=== PATIENT | female | born 1935 | race Caucasian/White ===

== ENCOUNTER → 2016-11-19 | Outpatient (CLI) | payer MEDICARE, BC ==
[2016-11-19 10:27] LABS: Anion Gap 14 mmol/L; Blood Urea Nitrogen 17 mg/dL (7-17); Calcium 9.4 mg/dL (8.4-10.2); Carbon Dioxide 25 mmol/L (22-30); Chloride 104 mmol/L (98-107); Glucose 145 mg/dL (74-99); Non-African American GFR(MDRD) >60 (>60 ml/min/1.73 sqM); Sodium 143 mmol/L (137-145)
[2016-11-19 10:39] LABS: Potassium 4.3 mmol/L (3.5-5.1)
[2016-11-19 12:38] LABS: Hemoglobin A1C 6.7 % (4.2-6.1)
== END | disposition home or self-care (01) ==
LOC: LABWHC1 09:24
PROVIDERS: ATTEND Internal Medicine
DX: E11.9 Type 2 diabetes mellitus without complications (principal); N18.3 Chronic kidney disease, stage 3 (moderate)
CPT/HCPCS: 36415; 80048; 83036

== ENCOUNTER → 2016-11-24 | Outpatient (CLI) | payer MEDICARE, BC ==
[2016-11-24 13:50] LABS: Rheumatoid Factor, Qnt <9 IU/mL (<12)
[2016-11-24 13:51] LABS: C Reactive Protein 9.2 mg/L (<10.0)
--- NOTE | 2016-11-24 15:45 | XR ---
Right shoulder HISTORY: Chronic right shoulder pain 3 views of the right shoulder No comparisons There is a distal acromial spur. Hypertrophic change present at the acromioclavicular joint. Joint sp farshad, alignment, bone mineralization are maintained. Right lung apex as visualized is normal. IMPRESSION: Acromioclavicular joint arthropathy, correlate for impingement. Shoulder MRI may be of be nefit.
[2016-11-24 19:57] LABS: ANA w/Reflex to Titer NEGATIVE (NEGATIVE)
== END | disposition home or self-care (01) ==
LOC: LABWHC1 12:54
PROVIDERS: ATTEND Internal Medicine
DX: M12.811 Other specific arthropathies, not elsewhere classified, right shoulder (principal); M25.511 Pain in right shoulder; E55.9 Vitamin D deficiency, unspecified; R42 Dizziness and giddiness; M35.9 Systemic involvement of connective tissue, unspecified
CPT/HCPCS: 36415; 82306; 85652; 86038; 86140; 86200; 86225; 86431

== ENCOUNTER → 2017-03-04 | Outpatient (CLI) | payer MEDICARE, BC ==
[2017-03-04 08:38] LABS: Anion Gap 11 mmol/L; Blood Urea Nitrogen 17 mg/dL (7-17); Calcium 9.9 mg/dL (8.4-10.2); Carbon Dioxide 26 mmol/L (22-30); Chloride 102 mmol/L (98-107); Glucose 142 mg/dL (74-99); Non-African American GFR(MDRD) >60 (>60 ml/min/1.73 sqM); Potassium 4.3 mmol/L (3.5-5.1); Sodium 139 mmol/L (137-145); Uric Acid 5.6 mg/dL (3.7-7.4)
[2017-03-04 11:42] LABS: Hemoglobin A1C 6.8 % (4.2-6.1)
== END | disposition home or self-care (01) ==
LOC: LABWHC1 07:56
PROVIDERS: ATTEND Internal Medicine
DX: R32 Unspecified urinary incontinence (principal); M10.9 Gout, unspecified; E11.9 Type 2 diabetes mellitus without complications
CPT/HCPCS: 36415; 80048; 83036; 84550

== ENCOUNTER 2017-05-05 08:06 | Day surgery (SDC) | payer MEDICARE, BC ==
[2017-05-03 15:30] VITALS: BMI 28.3
[~2017-05-05 08:06] MED LIST: LACTATED RINGERS 1,000 ML IV SCH
[2017-05-05 09:53] VITALS: RESP 16; TEMP 97
[2017-05-05] MEDS ORDERED: LIDOCAINE 1% 20 ML VIAL (10MG/ML) FOR IV START INTRADERMA ONE (10:00)
[2017-05-05 10:05] LABS: Glucose,Whole Blood 134 mg/dL (75-99)
[2017-05-05] MEDS ORDERED: LIDOCAINE 1% INJ 10MG/ML (20 ML MDV) ONE (10:13)
[2017-05-05] MEDS ORDERED: PROPOFOL 10 MG/ML 20 ML VIAL IV ONE (10:13)
--- NOTE | 2017-05-05 10:44 | P.PCN ---
Date of Procedure: 05/05/17 Preoperative Diagnosis: Postoperative Diagnosis: Procedure(s) Performed: BRIEF HISTORY: Patient is a 81-year-old pleasant white female, scheduled for an elective colonoscopy as a part of evaluation of chronic constipation for the last several years duration. Her last few months symptoms are progressively getting worse associated with lower abdominal pain and intermittent rectal bleeding. PROCEDURE PERFORMED: Colonoscopy. PREOPERATIVE DIAGNOSIS: Chronic severe constipation. IV sedation per Anesthesia. PROCEDURE: After informed consent was obtained, the patient, was brought into the endoscopy unit. IV sedation was administered by Anesthesia under continuous monitoring. Digital rectal examination was normal. Initially the Olympus CF- 160 flexible video colonoscope was then inserted in the rectum, gradually advanced into the cecum without any difficulty. Careful examination was performed as the scope was gradually being withdrawn. Ileocecal valve and the appendiceal orifice were visualized and appeared normal. Prep was very poor. Thorough irrigation was performed using irrigation system. Mucosa of the cecum, ascending colon, transverse colon, descending colon, normal. There was large amount of solid stool noted in the sigmoid colon, and rectum. At the rectosigmoid junction around 20 cm from the anal verge the mucosa appeared slightly narrowed but there was no obvious colitis seen. There was large amount of solid hard stool impacted in the rectum. Retroflexion was performed in the rectum and small internal hemorrhoids were seen. The patient tolerated the procedure well. IMPRESSION: Mild narrowing of the rectosigmoid colon at 20 cm from the anal verge but no stricture. Rest of the colon appeared normal Small internal hemorrhoids Poor prep in the left colon. RECOMMENDATIONS: Findings of this examination were discussed with the patient as well as a family. She was advised to continue with MiraLAX 1 scoop twice daily and use Fleet enemas every third day to improve her symptoms.. Implants: Indications for Procedure: Operative Findings: Description of Procedure:
[2017-05-05 11:33] VITALS: BP 174/79; PULSE 82
== END 2017-05-05 11:33 | disposition home or self-care (01) ==
LOC: ORWHC2ENDO 08:06
PROVIDERS: ATTEND Internal Medicine Gastroenterology
DX: K59.00 Constipation, unspecified (principal); K64.8 Other hemorrhoids; K21.9 Gastro-esophageal reflux disease without esophagitis; K56.69 Other intestinal obstruction; Z90.49 Acquired absence of other specified parts of digestive tract; I10 Essential (primary) hypertension; E78.5 Hyperlipidemia, unspecified; E11.9 Type 2 diabetes mellitus without complications; G20 Parkinson's disease; Z90.710 Acquired absence of both cervix and uterus; Z88.5 Allergy status to narcotic agent; Z88.0 Allergy status to penicillin; Z88.8 Allergy status to other drugs, medicaments and biological substances; Z91.041 Radiographic dye allergy status
CPT/HCPCS: 45378; J2001; J2704

== ENCOUNTER 2017-05-11 11:03 | Emergency (ER) | payer MEDICARE, BC ==
[2017-05-11] MEDS ORDERED: SODIUM CHLORIDE 0.9% 1,000 ML IV STA (11:31)
--- NOTE | 2017-05-11 12:12 | ED ---
General Adult HPI - General Chief complaint: Abdominal Pain Stated complaint: Bowel Obstruction Time Seen by Provider: 05/11/17 11:19 Source: EMS, RN notes reviewed Mode of arrival: EMS Limitations: no limitations - History of Present Illness Initial comments: 81-year-old female presents to the emergency department with a chief complaint of constipation. Patient states she had a colonoscopy on Monday that they were unable to complete due to stool. They state that she still did not have a good bowel movement since then. She states having diarrhea around the constipation. She states she's not eating or drinking much so she just does not feel like it. They were concerned about dehydration and continuing to worsen the patient' s status so they thought that they should be seen.Patient denies any recent fever, chills, shortness of breath, chest pain, back pain, vomiting, numbness or tingling, dysuria or hematuria, headaches or visual changes, or any other current symptoms. - Related Data Home Medications Medication Instructions Recorded Confirmed Allopurinol [Zyloprim] 150 mg PO DAILY 05/03/17 05/11/17 Ascorbic Acid [Vitamin C] 500 mg PO DAILY 05/03/17 05/11/17 Aspirin 325 mg PO DAILY 05/03/17 05/11/17 Carbidopa-Levodopa 25-100 mg 1 tab PO 5XD 05/03/17 05/11/17 [Sinemet 25-100 mg] Cholecalciferol (Vitamin D3) 2,000 unit PO DAILY 05/03/17 05/11/17 [Vitamin D3] Furosemide [Lasix] 40 mg PO DAILY 05/03/17 05/11/17 Gabapentin [Neurontin] 400 mg PO 5XD 05/03/17 05/11/17 Glimepiride [Amaryl] 2 mg PO BID 05/03/17 05/11/17 Ibuprofen [Ibuprofen] 800 mg PO DAILY PRN 05/03/17 05/11/17 Meclizine [Antivert] 25 mg PO DAILY PRN 05/03/17 05/11/17 Metoprolol Succinate [Toprol XL] 25 mg PO DAILY 05/03/17 05/11/17 Multivitamins, Thera [Multivitamin 1 tab PO DAILY 05/03/17 05/11/17 (formulary)] Mupirocin 2% Oint [Bactroban 2% 1 applic TOPICAL QID 05/03/17 05/11/17 Oint] Pantoprazole Sodium [Protonix] 40 mg PO DAILY 05/03/17 05/11/17 Simvastatin [Zocor] 20 mg PO HS 05/03/17 05/11/17 Solifenacin Succinate [Vesicare] 5 mg PO DAILY 05/03/17 05/11/17 Spironolactone [Aldactone] 25 mg PO DAILY 05/03/17 05/11/17 cloNIDine HCL [Catapres] 0.1 mg PO HS 05/03/17 05/11/17 sitaGLIPtin PHOS/metFORMIN HCL 1 tab PO BID 05/03/17 05/11/17 [Janumet 50-500 mg Tablet] traZODone HCL [Desyrel] 100 mg PO HS 05/03/17 05/11/17 Allergies Allergy/AdvReac Type Severity Reaction Status Date / Time Iodinated Contrast- Oral and Allergy Anaphylaxis Verified 05/11/17 12:25 IV Dye lisinopril Allergy KIDNEY Verified 05/11/17 12:25 FAILURE Penicillins Allergy Itching Verified 05/11/17 12:25 codeine AdvReac Nausea & Verified 05/11/17 12:25 Vomiting meperidine [From Demerol] AdvReac Nausea & Verified 05/11/17 12:25 Vomiting morphine AdvReac Nausea & Verified 05/11/17 12:25 Vomiting Review of Systems ROS Statement: Those systems with pertinent positive or pertinent negative responses have been documented in the HPI. ROS Other: All systems not noted in ROS Statement are negative. Past Medical History Past Medical History: Cancer, Diabetes Mellitus, Hyperlipidemia, Hypertension, Musculoskeletal Disorder Additional Past Medical History / Comment(s): HX SKIN CANCER. P[place]IN[place]. PAST HX KIDNEY FAILURE R/T MEDICATION-RESOLVING NOW History of Any Multi-Drug Resistant Organisms: None Reported Past Surgical History: Adenoidectomy, Appendectomy, Back Surgery, Bowel Resection, Cholecystectomy, Hernia Repair, Hysterectomy, Tonsillectomy Additional Past Surgical History / Comment(s): T & A-1939, APPENDECTOMY-5, LAP KATARINA-1968, HYST-1974, SX FOR RECTAL FISTULA X 3- 1977,1986,1998, BILAT CATARACTS-1998, BACK SX x3-1999,2003,2011, COLONOSCOPY- 2009, SIGMOID RESECTION - 2009, 12 CM LIPOMA REMOVED FROM LT ARM-2001, BASAL CELL CARCINOMA REMOVED LT ANKLE 2006, ABD. HERNIA REPAIR WITH MESH-2009 Past Anesthesia/Blood Transfusion Reactions: Motion Sickness, Postoperative Nausea & Vomiting (PONV) Past Psychological History: No Psychological Hx Reported Smoking Status: Never smoker Past Alcohol Use History: None Reported Past Drug Use History: None Reported - Past Family History Mother Family Medical History: Cancer General Exam - General Exam Comments Initial Comments: General: The patient is awake and alert, in no distress, and does not appear acutely ill. Eye: Pupils are equal, round and reactive to light, extra-ocular movements are intact; there is normal conjunctiva bilaterally. No signs of icterus. Ears, nose, mouth and throat: There are moist mucous membranes and no oral lesions. Neck: The neck is supple, there is no tenderness. Cardiovascular: There is a regular rate and rhythm. No murmur, rub or gallop is appreciated. Respiratory: Lungs are clear to auscultation, respirations are non-labored, breath sounds are equal. No wheezes, stridor, rales, or rhonchi. Gastrointestinal: Soft, non-distended, mildly diffuselytender abdomen without masses or organomegaly noted. There is no rebound or guarding present. No CVA tenderness. Bowel sounds are unremarkable. Back: There is no tenderness to palpation in the midline. There is no obvious deformity. No rashes noted. Musculoskeletal: Normal ROM, no tenderness, There is no pedal edema. There is no calf tenderness or swelling. Sensation intact. Pulses equal bilaterally 2+. Neurological: CN II-XII intact, There are no obvious motor or sensory deficits. Coordination appears grossly intact. Speech is normal. Skin: Skin is warm and dry and no rashes or lesions are noted. Psychiatric: Cooperative, appropriate mood & affect, normal judgment. Limitations: no limitations Course Vital Signs 05/11/17 05/11/17 11:21 12:13 Temperature 97.8 F Pulse Rate 82 67 Respiratory 18 16 Rate Blood Pressure 177/74 152/67 O2 Sat by Pulse 95 99 Oximetry Procedures - Rectal Disimpaction Consent Obtained: verbal consent Time Out Performed: Yes Indication: fecal impaction Procedural Sedation: No Sedation/Analgesia: none Technique: manual disimpaction with gloved finger Result: significant stool output Complications: bleeding Patient Tolerated Procedure: well Medical Decision Making - Medical Decision Making 81-year-old female presents for constipation.at this time lab work is reviewed and negative. Patient did have some relief to the constipation. We did order her magnesium citrate for home. We discussed close follow-up and return parameters all patient's questions. They state Chris they are in agreement with plan. This time they will be discharged home. - Lab Data Result diagrams: 05/11/17 13:13 05/11/17 12:46 Lab Results 05/11/17 05/11/17 05/11/17 Range/Units 12:46 13:13 14:08 WBC 10.0 (3.8-10.6) k/uL RBC 4.58 (3.80-5.40) m/uL Hgb 13.5 (11.4-16.0) gm/dL Hct 38.7 (34.0-46.0) % MCV 84.6 (80.0-100.0) fL MCH 29.4 (25.0-35.0) pg MCHC 34.8 (31.0-37.0) g/dL RDW 13.3 (11.5-15.5) % Plt Count 205 (150-450) k/uL Neutrophils % 74 % Lymphocytes % 14 % Monocytes % 8 % Eosinophils % 1 % Basophils % 0 % Neutrophils # 7.4 (1.3-7.7) k/uL Lymphocytes # 1.4 (1.0-4.8) k/uL Monocytes # 0.8 (0-1.0) k/uL Eosinophils # 0.1 (0-0.7) k/uL Basophils # 0.0 (0-0.2) k/uL Sodium 139 (137-145) mmol/L Potassium 4.0 (3.5-5.1) mmol/L Chloride 104 (98-107) mmol/L Carbon Dioxide 24 (22-30) mmol/L Anion Gap 11 mmol/L BUN 11 (7-17) mg/dL Creatinine 0.78 (0.52-1.04) mg/dL Est GFR (MDRD) Af Amer >60 (>60 ml/min/1.73 sqM) Est GFR (MDRD) Non-Af >60 (>60 ml/min/1.73 sqM) Glucose 100 H (74-99) mg/dL Calcium 9.4 (8.4-10.2) mg/dL Total Bilirubin 1.0 (0.2-1.3) mg/dL AST 37 H (14-36) U/L ALT 10 (9-52) U/L Alkaline Phosphatase 47 (38-126) U/L Total Protein 6.2 L (6.3-8.2) g/dL Albumin 3.6 (3.5-5.0) g/dL Urine Color Light Yellow Urine Appearance Clear (Clear) Urine pH 7.5 (5.0-8.0) Ur Specific [place] 1.003 (1.001-1.035) Urine Protein Negative (Negative) Urine Glucose (UA) Negative (Negative) Urine Ketones Trace H (Negative) Urine Blood Negative (Negative) Urine Nitrite Negative (Negative) Urine Bilirubin Negative (Negative) Urine Urobilinogen <2.0 (<2.0) mg/dL Ur Leukocyte Esterase Small H (Negative) Urine RBC <1 (0-5) /hpf Urine WBC 1 (0-5) /hpf Ur Squamous Epith Cells 2 (0-4) /hpf - Radiology Data Radiology results: report reviewed, image reviewed Disposition Clinical Impression: Constipation, Fecal impaction Disposition: HOME SELF-CARE Condition: Stable Instructions: Constipation (ED) Additional Instructions: Please use medication as discussed. Please follow up with family doctor if symptoms have not improved over the next two days. Please return to the emergency room if your symptoms increase or worsen or for any other concerns. Referrals: Emigdio Day MD [Primary Care Provider] - 1-2 days
[2017-05-11 12:19] VITALS: RESP 16
[2017-05-11] MEDS ORDERED: ACETAMINOPHEN TAB 500 MG TAB PO STA (12:24)
--- NOTE | 2017-05-11 13:04 | XR ---
EXAMINATION TYPE: XR abdomen 2V DATE OF EXAM: 05/11/2017 CLINICAL HISTORY: Diverticulitis with sigmoid resection and hernia mesh in place from prior abdominal infection. Abdominal pain TECHNIQUE: Supine and upright views of the abdomen are obtained. COMPARISON: 06/16/2015 FINDINGS: Surgical coils are seen from ventral abdominal hernia repair and mesh. Anastomotic sutures are seen within the low pelvis. Scattered gas is seen in non-distended small bowel loops. Gas and f ecal material is seen in non-distended colon. There is no visceromegaly, pneumoperitoneum, or abnor mal calcification appreciated. The lung bases are clear and the osseous structures are intact. Degen erative changes are seen of L5-S1 and L4-L5 as well as to a lesser degree of the femoral acetabular j oints and pubic symphysis. Bridging osteophytes are also seen of the lower thoracic spine. IMPRESSION: Nonobstructive bowel gas pattern.
[2017-05-11 13:12] LABS: ALT 10 U/L (9-52); AST 37 U/L (14-36); Alkaline Phosphatase 47 U/L (38-126); Anion Gap 11 mmol/L; Blood Urea Nitrogen 11 mg/dL (7-17); Calcium 9.4 mg/dL (8.4-10.2); Carbon Dioxide 24 mmol/L (22-30); Chloride 104 mmol/L (98-107); Glucose 100 mg/dL (74-99); Non-African American GFR(MDRD) >60 (>60 ml/min/1.73 sqM); Sodium 139 mmol/L (137-145); Total Protein 6.2 g/dL (6.3-8.2)
[2017-05-11 13:46] LABS: Basophils % (A) 0 %; CHCM 34.4; Eosinophils # (A) 0.1 k/uL (0-0.7); Eosinophils % (A) 1 %; HCT 38.7 % (34.0-46.0); HDW 2.61; HGB 13.5 gm/dL (11.4-16.0); Luc # (Auto) 0.27; Luc % (Auto) 3; Lymphocytes # (A) 1.4 k/uL (1.0-4.8); Lymphocytes % (A) 14 %; MCH 29.4 pg (25.0-35.0); MCHC 34.8 g/dL (31.0-37.0); MCV 84.6 fL (80.0-100.0); Mean Platelet Volume 7.7; Monocytes # (A) 0.8 k/uL (0-1.0); Monocytes % (A) 8 %; Neutrophils # (A) 7.4 k/uL (1.3-7.7); Neutrophils % (A) 74 %; RBC 4.58 m/uL (3.80-5.40); RDW 13.3 % (11.5-15.5); WBC (Perox) 9.78
[2017-05-11 14:16] LABS: Appearance,Urine Clear (Clear); Bilirubin,Urine Negative (Negative); Glucose,Urine (UA) Negative (Negative); Ketones,Urine Trace (Negative); Leukocyte Esterase,Urine Small (Negative); Nitrite,Urine Negative (Negative); PH, Urine 7.5 (5.0-8.0); Particle Count 3987; Protein,Urine Negative (Negative); RBC,Urine <1 /hpf (0-5); Specific Gravity,Urine 1.003 (1.001-1.035); Squamous Epithelial Cell,Urine 2 /hpf (0-4); UA Billing (MACRO vs. MICRO) MICRO; Urobilinogen,Urine <2.0 mg/dL (<2.0); WBC,Urine 1 /hpf (0-5)
[2017-05-11] MEDS ORDERED: MAGNESIUM CITRATE 296 ML BOTTLE PO ONE (15:26)
[2017-05-11 16:16] VITALS: BP 167/77; PULSE 72; TEMP 97.6
== END 2017-05-11 16:19 | disposition home or self-care (01) ==
LOC: EC 11:03
DX: K56.41 Fecal impaction (principal); E11.9 Type 2 diabetes mellitus without complications; E78.5 Hyperlipidemia, unspecified; I10 Essential (primary) hypertension; G20 Parkinson's disease; Z85.828 Personal history of other malignant neoplasm of skin; Z90.49 Acquired absence of other specified parts of digestive tract; Z90.710 Acquired absence of both cervix and uterus; Z79.82 Long term (current) use of aspirin; Z79.84 Long term (current) use of oral hypoglycemic drugs; Z79.899 Other long term (current) drug therapy; Z88.0 Allergy status to penicillin; Z88.5 Allergy status to narcotic agent; Z88.8 Allergy status to other drugs, medicaments and biological substances; Z91.041 Radiographic dye allergy status
CPT/HCPCS: 36415; 74020; 80053; 81001; 85025; 96360; 96361; 99284

== ENCOUNTER → 2017-07-06 | Outpatient (CLI) | payer MEDICARE, BC | END | disposition home or self-care (01) | LOC: LABWHC1 10:50 | PROVIDERS: ATTEND Internal Medicine | DX: K75.9 Inflammatory liver disease, unspecified (principal); A09 Infectious gastroenteritis and colitis, unspecified; R21 Rash and other nonspecific skin eruption | CPT/HCPCS: 36415; 80074; 86708; 87425; 89055 ==

== ENCOUNTER → 2017-08-11 | Outpatient (CLI) | payer MEDICARE, BC ==
--- NOTE | 2017-08-11 13:11 | XR ---
EXAMINATION TYPE: XR chest 2V DATE OF EXAM: 08/11/2017 COMPARISON: Prior chest x-ray 01/21/2013 HISTORY: Cough, R05 TECHNIQUE: Frontal and lateral views of the chest are obtained. FINDINGS: There is no focal air space opacity, pleural effusion, or pneumothorax seen. There is bron chial wall thickening. The cardiac silhouette size is within normal limits. There may be a spinal c urvature. Biapical pleural thickening is stable. The osseous structures are intact. IMPRESSION: Correlate for bronchitis, reactive airways disease
== END | disposition home or self-care (01) ==
LOC: RADXRMAIN 11:03
PROVIDERS: ATTEND Internal Medicine
DX: R05 Cough (principal)
CPT/HCPCS: 71020

== ENCOUNTER → 2017-08-21 | Outpatient (CLI) | payer MEDICARE, BC ==
[2017-08-21 15:27] LABS: ALT 12 U/L (9-52); AST 26 U/L (14-36); Anion Gap 15 mmol/L; Blood Urea Nitrogen 25 mg/dL (7-17); Carbon Dioxide 27 mmol/L (22-30); Chloride 95 mmol/L (98-107); Glucose 192 mg/dL (74-99); Non-African American GFR(MDRD) 52 (>60 ml/min/1.73 sqM); Potassium 5.4 mmol/L (3.5-5.1); Sodium 137 mmol/L (137-145)
--- NOTE | 2017-08-21 18:11 | CT ---
EXAMINATION TYPE: CT abdomen pelvis w con DATE OF EXAM: 08/21/2017 COMPARISON: 01/11/2012 HISTORY: Abnormal bowel changes. CT DLP: 532.9 mGycm Automated exposure control for dose reduction was used. TECHNIQUE: Helical acquisition of images was performed from the lung bases through the pelvis. CONTRAST: Performed with Oral Contrast and with IV Contrast, patient injected with 80 mL of Visipaque 320. FINDINGS: Lung bases are clear of consolidation. There is no pleural effusion. There is subsegmental atelectasi s and scarring at the lung bases. Bile ducts are mildly ectatic. Common bile duct is 13 mm. I see no pancreatic mass. The spleen appear s normal. There is wall thickening involving the first part of the duodenum. There is no evidence of a bowel obstruction. Fecal pattern is fairly normal. There is no sign of appe ndicitis. Kidneys show satisfactory contrast opacification. There is no hydronephrosis. There is no retroperito katey adenopathy. Abdominal aorta is atheromatous. There is no ascites. There are spondylotic changes in the lumbar spine. I see no focal bone destruction. IMPRESSION: THERE IS ANNULAR WALL THICKENING OF THE PROXIMAL DUODENUM THAT COULD ALSO BE INVOLVING THE DISTAL COM MON BILE DUCT. THERE IS MILD DILATION OF THE BILIARY TREE THAT COULD BE DUE TO DISTAL OBSTRUCTION. TH E POSSIBILITY OF TUMOR SHOULD BE CONSIDERED. THIS IS A CHANGE COMPARED TO OLD CT SCAN. ENDOSCOPY IS R ECOMMENDED FOR FURTHER EVALUATION.
== END | disposition home or self-care (01) ==
LOC: RADCTMAIN 14:18
PROVIDERS: ATTEND Internal Medicine
DX: K63.89 Other specified diseases of intestine (principal); E87.8 Other disorders of electrolyte and fluid balance, not elsewhere classified; T50.905A Adverse effect of unspecified drugs, medicaments and biological substances, initial encounter; R10.84 Generalized abdominal pain
CPT/HCPCS: 80048; 84450; 84460; 74177; 36415; Q9967

== ENCOUNTER → 2017-11-21 | Outpatient (CLI) | payer MEDICARE, BC ==
[2017-11-21 11:30] LABS: ALT 23 U/L (9-52); AST 23 U/L (14-36); Albumin 4.2 g/dL (3.5-5.0); Alkaline Phosphatase 73 U/L (38-126); Anion Gap 12 mmol/L; Blood Urea Nitrogen 26 mg/dL (7-17); Carbon Dioxide 31 mmol/L (22-30); Chloride 98 mmol/L (98-107); Glucose 140 mg/dL (74-99); Magnesium 1.8 mg/dL (1.6-2.3); Phosphorus 3.3 mg/dL (2.5-4.5); Potassium 4.7 mmol/L (3.5-5.1); Sodium 141 mmol/L (137-145); Total Bilirubin 0.4 mg/dL (0.2-1.3); Total Protein 7.2 g/dL (6.3-8.2)
== END | disposition home or self-care (01) ==
LOC: LABWHC1 10:30
PROVIDERS: ATTEND Internal Medicine
DX: E03.9 Hypothyroidism, unspecified (principal); E87.8 Other disorders of electrolyte and fluid balance, not elsewhere classified; E78.5 Hyperlipidemia, unspecified; E11.22 Type 2 diabetes mellitus with diabetic chronic kidney disease; N18.3 Chronic kidney disease, stage 3 (moderate); R60.0 Localized edema
CPT/HCPCS: 36415; 80053; 83735; 84100; 84443

== ENCOUNTER → 2017-12-18 | Outpatient (CLI) | payer MEDICARE, BC ==
--- NOTE | 2017-12-18 09:01 | MR ---
EXAMINATION TYPE: MR lumbar spine wo/w con DATE OF EXAM: 12/18/2017 8:40 AM COMPARISON: NONE HISTORY: LBP CONTRAST: The patient was injected with 7 mL intravenous Gadavist gadolinium contrast. Multiplanar, MultiSpin echo imaging of the lumbar spine was performed. L1-L2: Moderate disc desiccation noted. Mild subligamentous disc herniation with mild effacement vent ral thecal sac. No evidence for central stenosis. Left lateral recess stenosis. Mild bilateral forami nal encroachment. L2-L3: Moderate disc desiccation noted. Mild subligamentous disc herniation with mild effacement vent ral thecal sac. Mild central stenosis noted. Bilateral foraminal encroachment left greater than righ t. L3-L4: Moderate to severe disc desiccation. Left paracentral disc herniation with extruded component extending posterior to the L4 segment on the left. Left lateral recess stenosis and left foraminal en croachment noted. No evidence for central stenosis. Postlaminectomy change. Enhancing granulation tis valerie. L4-L5: Severe disc desiccation. Grade 1 retrolisthesis L4 on L5 measuring 3 mm. Posterior disc bulge with partial encapsulating spur resulting in disc endplate complex. No evidence for central stenosis. No lateral recess stenosis. Bilateral foraminal encroachment. Facet joint arthropathy. L5-S1: Severe disc desiccation. Previous laminectomy change. Mild enhancing granulation tissue. Poste rior disc bulge. No herniation. No central stenosis or lateral recess stenosis. Bilateral foraminal e ncroachment. Ventral spondylosis with degenerative endplate marrow change. Lumbar segments are intact. No paraspinal masses are identified. Conus medullaris has a normal appe arance. No evidence for pathologic enhancement. IMPRESSION: 1. Multilevel degenerative disc disease. 2. Mild central stenosis L2-3. 3. Disc herniation paracentrally and to the left at L3-4 with extruded component suggested with surro unding enhancing granulation tissue. This may reflect recurrent or residual disc herniation.
== END | disposition home or self-care (01) ==
LOC: RADMRIMAIN 07:15
PROVIDERS: ATTEND Psychiatry & Neurology Neurology
DX: M48.061 Spinal stenosis, lumbar region without neurogenic claudication (principal); M51.36 Other intervertebral disc degeneration, lumbar region; M51.26 Other intervertebral disc displacement, lumbar region; Z13.89 Encounter for screening for other disorder
CPT/HCPCS: 82565; 72158; 36415; A9581

== ENCOUNTER → 2018-01-19 | Outpatient (CLI) | payer MEDICARE, BC ==
--- NOTE | 2018-01-19 12:53 | US ---
EXAMINATION TYPE: US venous doppler duplex LE BI DATE OF EXAM: 01/19/2018 12:35 PM COMPARISON: NONE CLINICAL HISTORY: I82.401 ACUTE EMBOLISM AND THROMBOSIS,R22.42 SWELLING LT LEG. On aspirin. No hx of DVT. Bilat leg swelling, discomfort. SIDE PERFORMED: Bilateral TECHNIQUE: The lower extremity deep venous system is examined utilizing real time linear array sonog ray with graded compression, doppler sonography and color-flow sonography. VESSELS IMAGED: External Iliac Vein (EIV) Common Femoral Vein Deep Femoral Vein Greater Saphenous Vein * Femoral Vein Popliteal Vein Small Saphenous Vein * Proximal Calf Veins (* superficial vessels) Right Leg: Negative for DVT Left Leg: Negative for DVT Grayscale, color doppler, spectral doppler imaging performed of the deep veins of the bilateral lower extremities. There is normal flow, compressibility, vascular waveforms. IMPRESSION: No ultrasound evidence for acute DVT in either lower extremity.
== END | disposition home or self-care (01) ==
LOC: RADUSWWP 12:05
PROVIDERS: ATTEND Internal Medicine
DX: R22.43 Localized swelling, mass and lump, lower limb, bilateral (principal); Z86.718 Personal history of other venous thrombosis and embolism
CPT/HCPCS: 93970

== ENCOUNTER → 2018-01-20 | Outpatient (CLI) | payer MEDICARE, BC ==
[2018-01-20 10:56] LABS: Basophils % (A) 1 %; Eosinophils # (A) 0.3 k/uL (0-0.7); Eosinophils % (A) 4 %; HCT 42.9 % (34.0-46.0); Lymphocytes # (A) 0.9 k/uL (1.0-4.8); Lymphocytes % (A) 13 %; MCH 27.8 pg (25.0-35.0); MCHC 32.6 g/dL (31.0-37.0); MCV 85.4 fL (80.0-100.0); Mean Platelet Volume 6.8; Monocytes # (A) 0.5 k/uL (0-1.0); Monocytes % (A) 7 %; Neutrophils # (A) 5.4 k/uL (1.3-7.7); Neutrophils % (A) 74 %; Platelet Count 236 k/uL (150-450); RBC 5.02 m/uL (3.80-5.40); RDW 13.5 % (11.5-15.5); WBC 7.3 k/uL (3.8-10.6)
[2018-01-20 10:59] LABS: Amorphous Sediment,Urine Rare /hpf; Appearance,Urine Clear (Clear); Bilirubin,Urine Negative (Negative); Blood,Urine Negative (Negative); Color,Urine Yellow; Glucose,Urine (UA) Negative (Negative); Ketones,Urine Negative (Negative); Leukocyte Esterase,Urine Small (Negative); Mucus,Urine Rare /hpf; Nitrite,Urine Negative (Negative); Protein,Urine Negative (Negative); RBC,Urine 1 /hpf (0-5); Specific Gravity,Urine 1.013 (1.001-1.035); Squamous Epithelial Cell,Urine <1 /hpf (0-4); Urobilinogen,Urine <2.0 mg/dL (<2.0); WBC,Urine 1 /hpf (0-5)
[2018-01-20 11:09] LABS: D-Dimer 1.36 mg/L FEU (<0.60); Partial Thromboplastin Time 24.1 sec (22.0-30.0); Prothrombin Time 9.9 sec (9.0-12.0)
[2018-01-20 11:21] LABS: Albumin 4.4 g/dL (3.5-5.0); Calcium 10.2 mg/dL (8.4-10.2); Potassium 4.6 mmol/L (3.5-5.1); Total Bilirubin 0.4 mg/dL (0.2-1.3); Total Protein 7.1 g/dL (6.3-8.2)
== END | disposition home or self-care (01) ==
LOC: LABWHC1 09:52
PROVIDERS: ATTEND Internal Medicine Interventional Cardiology
DX: R06.02 Shortness of breath (principal); I10 Essential (primary) hypertension; E11.9 Type 2 diabetes mellitus without complications; I82.409 Acute embolism and thrombosis of unspecified deep veins of unspecified lower extremity
CPT/HCPCS: 36415; 80053; 81001; 83880; 85025; 85379; 85610; 85730; 87086

== ENCOUNTER → 2018-01-24 | Outpatient (CLI) | payer MEDICARE, BC ==
--- NOTE | 2018-01-24 11:36 | MR ---
EXAMINATION TYPE: MR liver wo/w con and mrcp DATE OF EXAM: 01/24/2018 COMPARISON: 08/21/2017. HISTORY: Other specified diseases of biliary tract CONTRAST: Standard multiplanar, multisequence MRI departmental protocol utilizing 7 mL intravenous Gadavist darcie olinium contrast. 3-D MRCP MIP images were also created. FINDINGS: There is intrahepatic biliary ductal dilatation that is mild without focal areas of stenosis. Extrahe patic biliary ductal dilatation is also seen with the common hepatic duct measuring 1.2 cm and the co mmon bile duct measuring 1.3 cm. Cystic duct remnant is also dilated. The common bile duct is dilated throughout without. No focal stricture. The main pancreatic duct is nondilated. Within the kidneys there are scattered 1 to 2 mm T2 hyperintense and T1 hypointense probable renal cy sts. No hydronephrosis is seen. The spleen is nonenlarged and unremarkable. Right adrenal gland is un remarkable. Within the kasey of the left adrenal gland there is ae 9 mm lesion that demonstrates signa l dropout on out of phase imaging compatible with a lipid rich adrenal adenoma. There is also mild si gnal dropout of the liver compatible with minimal hepatic steatosis. A 2.2 cm slightly hyperintense l esion is seen just above the jamee hepatis minimally enhancing on arterial phase imaging. This is no T2 or T1 coordinate and does not demonstrate signal characteristics of focal fatty sparing therefore this most likely represents an area of focal nodular hyperplasia. There is no washout in this region on delayed imaging. No gross evidence of adenopathy. In the area of the previously seen descending duodenal thickening there is a questionable circumscrib ed peripherally arterial enhancing lesion located medially measuring 1.0 x 1.0 cm on T1 fat-sat postc ontrast arterial phase image 201 and image 202 of the second pass, saved on the images. No abnormal s oft tissue density is seen where the common bile duct inserts into the duodenum. IMPRESSION: 1. In the previously seen focal thickening of the descending duodenum there is a questionable 1.0 cm mass. This area is difficult to accurately evaluate due to mucosal folding and therefore direct visua lization with endoscopy is recommended. This is just cranial to the ampulla of Vater in could relate to a periampullary mass. 2. Persistent intrahepatic and extrahepatic biliary ductal dilatation without significant progression from the exam of 08/21/2017. The patient is noted to be postcholecystectomy and findings may partial ly relate to postcholecystectomy status. There is no evidence of focal stricture of the biliary syste m. 3. 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 4. Probable hepatic focal nodular hyperplasia around the jamee hepatis.
== END | disposition home or self-care (01) ==
LOC: RADMRIMAIN 09:17
PROVIDERS: ATTEND Internal Medicine
DX: K82.8 Other specified diseases of gallbladder (principal); D35.02 Benign neoplasm of left adrenal gland; Z90.49 Acquired absence of other specified parts of digestive tract
CPT/HCPCS: 74183; A9581

== ENCOUNTER → 2018-02-03 | Outpatient (CLI) | payer MEDICARE, BC ==
[2018-02-03 18:19] LABS: Hemoglobin A1C 6.5 % (4.0-6.0)
== END | disposition home or self-care (01) ==
LOC: LABWHC1 09:15
PROVIDERS: ATTEND Internal Medicine
DX: E11.9 Type 2 diabetes mellitus without complications (principal); I82.409 Acute embolism and thrombosis of unspecified deep veins of unspecified lower extremity
CPT/HCPCS: 36415; 83036

== ENCOUNTER → 2018-04-05 | Outpatient (CLI) | payer MEDICARE, BC ==
[2018-04-05 16:01] LABS: Basophils % (A) 1 %; Eosinophils # (A) 0.3 k/uL (0-0.7); Eosinophils % (A) 4 %; HCT 42.8 % (34.0-46.0); HGB 14.1 gm/dL (11.4-16.0); Lymphocytes # (A) 1.5 k/uL (1.0-4.8); Lymphocytes % (A) 21 %; MCH 28.3 pg (25.0-35.0); MCHC 32.9 g/dL (31.0-37.0); Mean Platelet Volume 7.1; Monocytes # (A) 0.6 k/uL (0-1.0); Monocytes % (A) 8 %; Neutrophils # (A) 4.8 k/uL (1.3-7.7); Neutrophils % (A) 64 %; Platelet Count 293 k/uL (150-450); RBC 4.98 m/uL (3.80-5.40); RDW 14.4 % (11.5-15.5); WBC 7.5 k/uL (3.8-10.6)
== END | disposition home or self-care (01) ==
LOC: LABPAT 15:24
PROVIDERS: ATTEND Internal Medicine Cardiovascular Disease
DX: Z01.812 Encounter for preprocedural laboratory examination (principal); I48.0 Paroxysmal atrial fibrillation; I31.4 Cardiac tamponade
CPT/HCPCS: 36415; 80051; 82565; 82947; 84520; 85025

== ENCOUNTER 2018-04-06 07:01 | Inpatient (IN) | payer MEDICARE, BC ==
[~2018-04-06 07:01] MED LIST changes: +CLINDAMYCIN 600 MG in SODIUM CHLORIDE 0.9% IRRIGATIO 250 ML IRRIGATION ONE; -LACTATED RINGERS 1,000 ML IV SCH
[2018-04-06] MEDS ORDERED: LIDOCAINE 1% INJ 10MG/ML (20 ML MDV) ONE ×3 (07:18→10:12)
[2018-04-06 07:31] LABS: Glucose,Whole Blood 134 mg/dL (75-99)
[2018-04-06] MEDS: SODIUM CHLORIDE 0.9% 1,000 ML IV SCH ×3 (07:46→13:22)
[2018-04-06] MEDS ORDERED: IOPAMIDOL-250 50ML BTL IV ONE (08:02)
[2018-04-06] MEDS ORDERED: fentaNYL (PF) 50 MCG/ML 2 ML AMP ONE (08:05)
[2018-04-06] MEDS ORDERED: diphenhydrAMINE 50 MG/ML 1 ML VIAL ONE (08:11)
[2018-04-06] MEDS ORDERED: diphenhydrAMINE 50 MG/ML 1 ML VIAL IVP ONE (08:12)
[2018-04-06] MEDS: CLINDAMYCIN 900 MG in DEXTROSE 5% IN WATER 50 ML IVPB ONE ×4 (08:19→08:20)
[2018-04-06] MEDS ORDERED: MIDAZOLAM 2 MG/2 ML VIAL ONE (08:21)
[2018-04-06] MEDS ORDERED: MIDAZOLAM 2 MG/2 ML VIAL IVP ONE (08:23)
[2018-04-06] MEDS ORDERED: fentaNYL (PF) 50 MCG/ML 2 ML AMP IVP ONE (08:23)
[2018-04-06] MEDS ORDERED: LIDOCAINE 1% INJ 10MG/ML (20 ML MDV) SQ ONE (08:26)
[2018-04-06] MEDS ORDERED: DOPamine DRIP 800 MG in DEXTROSE/WATER 1 500ML.BAG IV ONE (09:08)
[2018-04-06] MEDS ORDERED: ONDANSETRON 4 MG/2 ML VIAL IVP ONE (09:24)
[2018-04-06] MEDS ORDERED: NOREPINEPHRIN 4 MG-0.9% NS PMX 4 MG/250 ML ML IV ONE (09:35)
[2018-04-06] MEDS: LIDOCAINE 1% INJ 10MG/ML (20 ML MDV) SQ ONE ×2 (09:43→10:14)
[2018-04-06] MEDS ORDERED: HEPARIN SODIUM 1,000 UN/ML (10ML VL) ONE (10:19)
[2018-04-06] MEDS ORDERED: SODIUM CHLORIDE 0.9% 500 ML IV ONE (10:39)
[2018-04-06] MEDS ORDERED: SODIUM CHLORIDE 0.9% 1,000 ML IV ONE (10:39)
[2018-04-06 10:56] LABS: INR 1.1 (<1.2); Partial Thromboplastin Time 22.9 sec (22.0-30.0); Prothrombin Time 10.7 sec (9.0-12.0)
[2018-04-06 11:00] LABS: Basophils % (A) 0 %; Eosinophils # (A) 0.4 k/uL (0-0.7); Eosinophils % (A) 3 %; HCT 34.3 % (34.0-46.0); Lymphocytes # (A) 2.7 k/uL (1.0-4.8); Lymphocytes % (A) 19 %; MCH 27.9 pg (25.0-35.0); MCHC 32.2 g/dL (31.0-37.0); MCV 86.5 fL (80.0-100.0); Monocytes # (A) 0.7 k/uL (0-1.0); Monocytes % (A) 5 %; Neutrophils # (A) 10.1 k/uL (1.3-7.7); Neutrophils % (A) 72 %; Platelet Count 417 k/uL (150-450); RBC 3.97 m/uL (3.80-5.40); RDW 14.6 % (11.5-15.5); WBC 14.1 k/uL (3.8-10.6)
[2018-04-06 11:01] LABS: HGB 11.1 gm/dL (11.4-16.0)
[2018-04-06 11:02] LABS: Albumin 2.9 g/dL (3.5-5.0); Calcium 8.8 mg/dL (8.4-10.2); Potassium 3.6 mmol/L (3.5-5.1); Total Bilirubin 0.4 mg/dL (0.2-1.3); Total Protein 4.8 g/dL (6.3-8.2)
[2018-04-06 11:36] LABS: Glucose,Whole Blood 222 mg/dL (75-99)
--- NOTE | 2018-04-06 11:44 | P.PCN ---
Preoperative Diagnosis: Procedure Called by Dr. Dewey for assistance mild permanent pacemaker was being implanted Emergent pericardiocentesis performed Central venous IV line for fluid administration Central femoral arterial line for hemodynamic monitoring Indication for the procedure pericardial effusion with tamponade Procedures Under sterile precautions during an emergent procedure, subxiphoid access into the pericardial space was obtained. A wire was placed in the pericardium and confirmed in the [place] view. The tract was dilated with the sheath and then a pigtail catheter was placed in the pericardial space and about at least 200 mL of blood was aspirated. Blood pressure improved to the mid 90s. Follow-up echo later showed absence of any pericardial effusion. CT surgery consulted and were in the lab Sheath was secured to the skin and dressed. Drainage by gravity Under sterile precautions and 8-Panamanian venous sheath was placed in the right femoral vein for IV fluid administration and this sheath was secured A 5-Panamanian femoral artery sheath was placed in the right femoral artery for continuous hemodynamic monitoring on account of above indication Disposition: ICU
[2018-04-06] MEDS: ACETAMINOPHEN TAB 325 MG TAB PO PRN (11:46)
[2018-04-06] MEDS ORDERED: HYDROmorphone 0.5 MG/0.5 ML SYRINGE IVP PRN (13:06)
[2018-04-06] MEDS: HYDROmorphone 0.5 MG/0.5 ML SYRINGE IVP PRN (13:15)
--- NOTE | 2018-04-06 16:50 | P.GSCN ---
<Alexander Gonzalez - Last Filed: 04/06/18 16:26> History of Present Illness Consult date: 04/06/18 Reason for Consult: Pericardial effusion with Tamponade. Requesting physician: Mitch Maxwell History of present illness: This is an 82-year-old female patient who is followed by Dr. Day on an outpatient basis. She has a past medical history significant for hypertension, dyslipidemia, family history of coronary artery disease less than 60 years of age with her son having a myocardial infarction at age 40, diabetes mellitus, GERD, gout, neuropathy, Parkinson's disease, sick sinus syndrome and paroxysmal atrial fibrillation. Recently, the patient has been complaining of near syncope events with palpitations. She denies any syncope. The patient denies any fevers, chills, shortness of breath, or complaints of pain. Due to her near syncope events she reports that she had a heart monitoring device that demonstrated a more than 2 second pause. Subsequently she was recommended to undergo a permanent pacemaker placement. She was admitted to the hospital today for placement of a permanent pacemaker. During the pacemaker placement she developed a pericardial effusion with tamponade and hemodynamic instability requiring an emergent pericardiocentesis with pericardial catheter placement. A consult was then placed for Dr. Barboza from cardiothoracic surgery to evaluate for further treatment recommendations. Review of Systems A 14 point review of systems was completed and was negative except as mentioned in HPI. Past Medical History Past Medical History: Atrial Fibrillation, Cancer, Diabetes Mellitus, Eye Disorder, GERD/Reflux, Hyperlipidemia, Hypertension, Musculoskeletal Disorder, Neurologic Disorder Additional Past Medical History / Comment(s): HX SKIN CANCER, constipation, skin cancer left ankle basal cell. PARKINSON, PAST HX KIDNEY FAILURE R/T MEDICATION-RESOLVED, history of sick sinus syndrome, history of cataracts. History of Any Multi-Drug Resistant Organisms: None Reported Past Surgical History: Adenoidectomy, Appendectomy, Back Surgery, Bowel Resection, Cholecystectomy, Ear Surgery, Hernia Repair, Hysterectomy, Tonsillectomy Additional Past Surgical History / Comment(s): 04/06/18 PACEMAKER INSERTION. T & A-1939, APPENDECTOMY-1945, LAP KATARINA-1968, HYST-1974, SX FOR RECTAL FISTULA X 3- 1977,1986,1998, BILAT CATARACTS-1998, BACK SX x4-1999,2003,2012,2018- AFTER LAST BACK SX HAD A BLOOD CLOT AND THEY HAD TO GO BACK IN TO REMOVED) COLONOSCOPY- 2009, SIGMOID RESECTION- 2009, 12 CM LIPOMA REMOVED FROM LT ARM- 2001, BASAL CELL CARCINOMA REMOVED LT ANKLE 2006, ABD. HERNIA REPAIR WITH MESH- 2009 Past Anesthesia/Blood Transfusion Reactions: Motion Sickness, Postoperative Nausea & Vomiting (PONV) Type of Cardiac Device: Permanent Pacemaker (Left anterior chest) Device Placement Date:: 04/06/2018 Past Psychological History: No Psychological Hx Reported Smoking Status: Never smoker Past Alcohol Use History: None Reported Past Drug Use History: None Reported - Past Family History Mother Family Medical History: Cancer (Breast cancer), Diabetes Mellitus, Hypertension Additional Family Medical History / Comment(s): Parkinson's disease Father Family Medical History: Myocardial Infarction ([place]) Additional Family Medical History / Comment(s): FROM [place] AT AGE 56 Son(s) Family Medical History: Myocardial Infarction ([place]) (At age 40.) Medications and Allergies Home Medications Medication Instructions Recorded Confirmed Type Allopurinol [Zyloprim] 150 mg PO DAILY 05/03/17 04/06/18 History Ascorbic Acid [Vitamin C] 500 mg PO DAILY 05/03/17 04/06/18 History Carbidopa-Levodopa 25-100 mg 1 tab PO 5XD 05/03/17 04/06/18 History [Sinemet 25-100 mg] Gabapentin [Neurontin] 400 mg PO 5XD 05/03/17 04/06/18 History Meclizine [Antivert] 25 mg PO BID 05/03/17 04/06/18 History Multivitamins, Thera [Multivitamin 1 tab PO DAILY 05/03/17 04/06/18 History (formulary)] Pantoprazole Sodium [Protonix] 40 mg PO DAILY 05/03/17 04/06/18 History traZODone HCL [Desyrel] 100 mg PO HS 05/03/17 04/06/18 History Aspirin [Adult Low Dose Aspirin EC] 81 mg PO DAILY 04/06/18 04/06/18 History Budesonide/Formoterol Fumarate 1 puff INHALATION PRN 04/06/18 History [Symbicort 80-4.5 Mcg Inhaler] Rosuvastatin [Crestor] 10 mg PO HS 04/06/18 04/06/18 History Solifenacin Succinate [Vesicare] 1 tab PO DAILY 04/06/18 04/06/18 History Acetaminophen Tab [Tylenol] 650 mg PO Q6HR PRN tab 04/11/18 Rx Amiodarone [Cordarone] 200 mg PO BID tab 04/11/18 Rx Colchicine [Colcrys] 0.6 mg PO BID each 04/11/18 Rx Ferrous Sulfate [Iron (65 MG 325 mg PO BID-W/MEALS tab 04/11/18 Rx Elemental)] Insulin Aspart [NovoLOG 0 unit SQ ACHS vial 04/11/18 Rx (formulary)] Metoprolol Tartrate [Lopressor] 50 mg PO BID tab 04/11/18 Rx Allergies Allergy/AdvReac Type Severity Reaction Status Date / Time Iodinated Contrast- Oral and Allergy Anaphylaxis Verified 04/06/18 13:19 IV Dye lisinopril Allergy KIDNEY Verified 04/06/18 13:19 FAILURE Penicillins Allergy Itching Verified 04/06/18 13:19 codeine AdvReac Nausea & Verified 04/06/18 13:19 Vomiting meperidine [From Demerol] AdvReac Nausea & Verified 04/06/18 13:19 Vomiting morphine AdvReac Nausea & Verified 04/06/18 13:19 Vomiting Surgical - Exam Vital Signs Temp Pulse Resp BP Pulse Ox 97.9 F 70 20 151/67 98 04/06/18 07:29 04/06/18 07:29 04/06/18 07:29 04/06/18 07:29 04/06/18 07:29 - General well developed, well nourished, no distress, moderate pain (pain to her chest), obese - Eyes PERRL, normal ocular movement - ENT normal pinna, normal nares, normal mucosa, no hearing loss, no congestion - Neck Neck is supple, no lymphadenopathy. no masses, no bruits, trachea midline, no venous distension - Respiratory Lungs sounds are essentially clear throughout, diminished to her bilateral bases. Respirations are symmetrical and nonlabored. Oxygen saturation are 98% on 3 L nasal cannula. - Cardiovascular Regular rhythm and rate. S1 and S2 present, positive systolic murmur 2/6. +2 edema to her bilateral lower extremities. Bedside telemetry showing normal sinus rhythm heart rate 86. - Abdomen Abdomen is soft, nontender and nondistended. Active bowel sounds to all 4 abdominal quadrants. No organomegaly. No guarding or rigidity. - Genitourinary Martinez catheter for accurate I&O. Draining clear yellow urine. - Rectum Deferred - Integumentary Left anterior chest pacemaker site clean dry and intact. Dressing clean and dry. Subxiphoid pericardial catheter in place draining thin serosanguineous drainage. no rash, no growths, no abnormal pigmentation - Neurologic normal coordination, normal sensation - Musculoskeletal She is moving all 4 extremities appropriately. - Psychiatric oriented to time, oriented to person, oriented to place, speech is normal, memory intact Results - Labs 04/06/18 10:29 04/06/18 10:29 Abnormal Lab Results - Last 24 Hours (Table) 04/06/18 04/06/18 04/06/18 Range/Units 07:28 10:29 10:29 WBC 14.1 H (3.8-10.6) k/uL Hgb 11.1 L D (11.4-16.0) gm/dL Neutrophils # 10.1 H (1.3-7.7) k/uL Glucose 255 H (74-99) mg/dL POC Glucose (mg/dL) 134 H (75-99) mg/dL Total Protein 4.8 L (6.3-8.2) g/dL Albumin 2.9 L (3.5-5.0) g/dL 04/06/18 Range/Units 11:35 WBC (3.8-10.6) k/uL Hgb (11.4-16.0) gm/dL Neutrophils # (1.3-7.7) k/uL Glucose (74-99) mg/dL POC Glucose (mg/dL) 222 H (75-99) mg/dL Total Protein (6.3-8.2) g/dL Albumin (3.5-5.0) g/dL Diabetes panel 04/06/18 Range/Units 10:29 Sodium 141 (137-145) mmol/L Potassium 3.6 (3.5-5.1) mmol/L Chloride 107 (98-107) mmol/L Carbon Dioxide 24 (22-30) mmol/L BUN 12 (7-17) mg/dL Creatinine 0.94 (0.52-1.04) mg/dL Glucose 255 H (74-99) mg/dL Calcium 8.8 (8.4-10.2) mg/dL AST 16 (14-36) U/L ALT 24 (9-52) U/L Alkaline Phosphatase 55 (38-126) U/L Total Protein 4.8 L (6.3-8.2) g/dL Albumin 2.9 L (3.5-5.0) g/dL Calcium panel 04/06/18 Range/Units 10:29 Calcium 8.8 (8.4-10.2) mg/dL Albumin 2.9 L (3.5-5.0) g/dL Pituitary panel 04/06/18 Range/Units 10:29 Sodium 141 (137-145) mmol/L Potassium 3.6 (3.5-5.1) mmol/L Chloride 107 (98-107) mmol/L Carbon Dioxide 24 (22-30) mmol/L BUN 12 (7-17) mg/dL Creatinine 0.94 (0.52-1.04) mg/dL Glucose 255 H (74-99) mg/dL Calcium 8.8 (8.4-10.2) mg/dL Adrenal panel 04/06/18 Range/Units 10:29 Sodium 141 (137-145) mmol/L Potassium 3.6 (3.5-5.1) mmol/L Chloride 107 (98-107) mmol/L Carbon Dioxide 24 (22-30) mmol/L BUN 12 (7-17) mg/dL Creatinine 0.94 (0.52-1.04) mg/dL Glucose 255 H (74-99) mg/dL Calcium 8.8 (8.4-10.2) mg/dL Total Bilirubin 0.4 (0.2-1.3) mg/dL AST 16 (14-36) U/L ALT 24 (9-52) U/L Alkaline Phosphatase 55 (38-126) U/L Total Protein 4.8 L (6.3-8.2) g/dL Albumin 2.9 L (3.5-5.0) g/dL Assessment and Plan (1) Hypertension Status: Acute Code(s): I10 - ESSENTIAL (PRIMARY) HYPERTENSION SNOMED Code(s) : 37070638 (2) Hyperlipidemia Status: Acute Code(s): E78.5 - HYPERLIPIDEMIA, UNSPECIFIED SNOMED Code(s): 04791240 (3) Diabetes mellitus type 2 in obese Status: Acute Code(s): E11.69 - TYPE 2 DIABETES MELLITUS WITH OTHER SPECIFIED COMPLICATION; E66.9 - OBESITY, UNSPECIFIED SNOMED Code(s): 59092776 (4) Parkinsons disease Status: Acute Code(s): G20 - PARKINSON'S DISEASE SNOMED Code(s): 47137934 (5) Neuropathy Status: Acute Code(s): G62.9 - POLYNEUROPATHY, UNSPECIFIED SNOMED Code(s): 776367187 (6) Paroxysmal atrial fibrillation Status: Acute Code(s): I48.0 - PAROXYSMAL ATRIAL FIBRILLATION SNOMED Code(s) : 906370596 (7) GERD (gastroesophageal reflux disease) Status: Acute Code(s): K21.9 - GASTRO-ESOPHAGEAL REFLUX DISEASE WITHOUT ESOPHAGITIS SNOMED Code(s): 899936894 (8) History of gout Status: Acute Code(s): Z87.39 - PERSONAL HISTORY OF DISEASES OF THE MS SYS AND CONN TISS SNOMED Code(s): 873492005 (9) Sick sinus syndrome Status: Acute Code(s): I49.5 - SICK SINUS SYNDROME SNOMED Code(s): 35916154 (10) Presence of permanent cardiac pacemaker Status: Acute Code(s): Z95.0 - PRESENCE OF CARDIAC PACEMAKER SNOMED Code(s) : 626319524 Plan: Patient was seen and examined. Her chart and diagnostics were reviewed. She was seen and examined by Dr. Barboza from cardiothoracic surgery. At this time she is hemodynamically stable and has been weaned off all of her hemodynamic support drips. No surgical intervention is recommended at this time, continue to monitor pericardial catheter drainage. She may benefit from a repeat 2-D echocardiogram. GI and DVT prophylaxis in place. Medical management per Dr. Cruz's recommendations. Cardiology management per Dr. Maxwell's recommendations. Thank you Dr. Maxwell for this consult and we look forward to working with you in the care of your patient. Time with Patient: Greater than 30 <Jean Paul Barboza - Last Filed: 04/20/18 14:41> Surgical - Exam Vital Signs Temp Pulse Resp BP Pulse Ox 97.9 F 70 20 151/67 98 04/06/18 07:29 04/06/18 07:29 04/06/18 07:29 04/06/18 07:29 04/06/18 07:29 Results - Labs 04/11/18 11:51 04/09/18 04:13 Assessment and Plan Plan: The patient was seen and examined. I agree with the above assessment and plan. The patient is an 82 y/o female who was undergoing placement of a permanent pacemaker. In the Tool Machine Set Up Operator, she was noted to be hypotensive. A stat echocardiogram was performed which revealed a significant pericardial effusion. This was drained percutaneously under echo guidance by Dr. Maxwell. I was asked to see the patient in case surgical intervention was required. Follow-up echocardiogram revealed resolution of the hemopericardium. The patient's hemodynamics have improved. The percutaneous drain is intact. At this point there is no plan for emergent surgical intervention. I would continue with close observation in the ICU. She may benefit from a follow-up echocardiogram either later today or first thing in the morning. We will certainly follow along closely with you.
[2018-04-06] MEDS: CLINDAMYCIN 900 MG in DEXTROSE 5% IN WATER 50 ML IVPB SCH ×4 (18:22→21:53)
[2018-04-06 20:36] LABS: Glucose,Whole Blood 156 mg/dL (75-99)
[2018-04-06] MEDS: CARBIDOPA-LEVODOPA 25-100 MG 1 EACH TAB PO SCH (21:53)
[2018-04-06] MEDS: GABAPENTIN 400 MG CAP PO SCH (21:54)
[2018-04-06] MEDS: INSULIN ASPART 100 UNIT/ML 1 ML 10 ML VIAL SQ SCH (21:54)
[2018-04-07] MEDS: CARBIDOPA-LEVODOPA 25-100 MG 1 EACH TAB PO SCH ×6 (00:41→20:15)
[2018-04-07] MEDS: GABAPENTIN 400 MG CAP PO SCH ×6 (00:41→20:15)
[2018-04-07] MEDS: SODIUM CHLORIDE 0.9% 1,000 ML IV SCH ×4 (03:08→14:02)
[2018-04-07] MEDS: CLINDAMYCIN 900 MG in DEXTROSE 5% IN WATER 50 ML IVPB SCH ×4 (03:12→09:15)
[2018-04-07 04:30] LABS: Basophils % (A) 0 %; Eosinophils % (A) 0 %; HCT 28.6 % (34.0-46.0); Lymphocytes # (A) 0.9 k/uL (1.0-4.8); Lymphocytes % (A) 8 %; MCH 27.5 pg (25.0-35.0); MCHC 32.1 g/dL (31.0-37.0); MCV 85.5 fL (80.0-100.0); Mean Platelet Volume 8.2; Monocytes % (A) 9 %; Neutrophils # (A) 8.9 k/uL (1.3-7.7); Neutrophils % (A) 81 %; Platelet Count 223 k/uL (150-450); RBC 3.34 m/uL (3.80-5.40); RDW 14.8 % (11.5-15.5)
[2018-04-07 04:32] LABS: HGB 9.2 gm/dL (11.4-16.0)
[2018-04-07 04:44] LABS: Anion Gap 6 mmol/L; Blood Urea Nitrogen 14 mg/dL (7-17); Calcium 8.7 mg/dL (8.4-10.2); Carbon Dioxide 26 mmol/L (22-30); Chloride 108 mmol/L (98-107); Glucose 146 mg/dL (74-99); Sodium 140 mmol/L (137-145)
--- NOTE | 2018-04-07 06:50 | XR ---
EXAMINATION TYPE: XR chest 1V DATE OF EXAM: 04/07/2018 HISTORY: Lead placement check. REFERENCE: Previous study dated 08/11/2017. FINDINGS: There are has been interval placement of a bipolar pacemaker via a left subclavian approach . Approximately overlies the right atrium and the distal lead overlies the right ventricle.. There is a small amount of left basilar airspace disease. There is a small left effusion. Heart size is upper limits of normal. IMPRESSION: 1. SATISFACTORY PACEMAKER PLACEMENT. 2. MILD LEFT BASILAR AIRSPACE DISEASE WITH CONCOMITANT EFFUSION.
[2018-04-07 07:28] LABS: Glucose,Whole Blood 156 mg/dL (75-99)
--- NOTE | 2018-04-07 07:39 | P.PN ---
Subjective Progress Note Date: 04/07/18 Principal diagnosis: Pericardial effusion with tamponade physiology, status post insertion of permanent pacemaker. Previous medical history of sick sinus syndrome, paroxysmal atrial fibrillation, near syncope, hypertension, dyslipidemia, diabetes, Parkinson's disease, gout, neuropathy, GERD, and family history of premature coronary artery disease. POD #1 placement of permanent pacemaker, placement of pericardial drain. The patient is currently lying in bed in the intensive care unit in no acute distress. Denies pain, shortness of breath. She was weaned off all pressor support. She did have a transient short episode of atrial fibrillation with rapid ventricular response upon arrival to the intensive care unit, however she quickly converted back to sinus rhythm. She's had a total of 100 mL of bloody drainage from pericardial drainage since initial placement. Repeat echocardiogram pending. Objective - Vital Signs Vital signs: Vital Signs Temp 98.6 F 04/07/18 04:00 Pulse 106 H 04/07/18 07:00 Resp 13 04/07/18 07:00 BP 135/50 04/07/18 07:00 Pulse Ox 97 04/07/18 07:00 Intake & Output 04/06/18 04/07/18 04/07/18 18:59 06:59 18:59 Intake Total 944.3 950 110 Output Total 275 515 30 Balance 669.3 435 80 Weight 67.132 kg 65 kg Intake: IV 944.3 600 50 Sodium Chloride 0.9% 1, 350 600 50 000 ml @ 50 mls/hr IV . Q20H FARZANA Rx#:[id number] Intake, IV Titration 50 Amount Clindamycin 900 mg In 50 Dextrose 5% in Water 50 ml @ 100 mls/hr IVPB Q6H FARZANA Rx#:[id number] Oral 300 60 Output: Drainage 50 80 Medial Chest 50 80 Urine 225 435 30 Other: Voiding Method Indwelling Catheter Indwelling Catheter # Bowel Movements 0 ABP, PAP, CO, CI - Last Documented Arterial Blood Pressure 156/57 - Constitutional General appearance: Present: cooperative, no acute distress - Respiratory Details: Lungs sounds diminished bilaterally. Respirations even, nonlabored. Currently on 2 L nasal cannula with oxygen saturation 96%. - Cardiovascular Details: S1, S2 present. Regular rate and rhythm, sinus rhythm to sinus tach on telemetry. Palpable peripheral pulses bilaterally. Trace bilateral lower extremity edema present. Right femoral arterial line present. Subxiphoid pericardial drain present, connected to drainage bag with 100 mL bloody drainage present. - Gastrointestinal Gastrointestinal Comment(s): Abdomen soft, nontender, nondistended. Hypoactive bowel sounds present 4 quadrants. Tolerating clear liquids. - Genitourinary Genitourinary Comment(s): Martinez present draining clear, yellow urine. Output 30-45 mL per hour overnight , 270 mL total in the last 8 hours. - Integumentary Integumentary Comment(s): Skin is warm and dry without evidence of good perfusion. Left anterior chest wall permanent pacemaker site covered with dry intact dressing. - Neurologic Neurologic: Present: CNII-XII intact - Musculoskeletal Musculoskeletal: Present: strength equal bilaterally - Psychiatric Psychiatric: Present: A&O x's 3, appropriate affect, intact judgment & insight - Allied health notes Allied health notes reviewed: nursing - Labs CBC & Chem 7: 04/07/18 04:20 04/07/18 04:20 Labs: Abnormal Lab Results - Last 24 Hours (Table) 04/06/18 04/06/18 04/06/18 Range/Units 07:28 10:29 10:29 WBC 14.1 H (3.8-10.6) k/uL RBC (3.80-5.40) m/uL Hgb 11.1 L D (11.4-16.0) gm/dL Hct (34.0-46.0) % Neutrophils # 10.1 H (1.3-7.7) k/uL Lymphocytes # (1.0-4.8) k/uL Chloride (98-107) mmol/L Glucose 255 H (74-99) mg/dL POC Glucose (mg/dL) 134 H (75-99) mg/dL Total Protein 4.8 L (6.3-8.2) g/dL Albumin 2.9 L (3.5-5.0) g/dL 04/06/18 04/06/18 04/07/18 Range/Units 11:35 20:33 04:20 WBC (3.8-10.6) k/uL RBC (3.80-5.40) m/uL Hgb (11.4-16.0) gm/dL Hct (34.0-46.0) % Neutrophils # (1.3-7.7) k/uL Lymphocytes # (1.0-4.8) k/uL Chloride 108 H (98-107) mmol/L Glucose 146 H (74-99) mg/dL POC Glucose (mg/dL) 222 H 156 H (75-99) mg/dL Total Protein (6.3-8.2) g/dL Albumin (3.5-5.0) g/dL 04/07/18 Range/Units 04:20 WBC 11.0 H (3.8-10.6) k/uL RBC 3.34 L (3.80-5.40) m/uL Hgb 9.2 L D (11.4-16.0) gm/dL Hct 28.6 L (34.0-46.0) % Neutrophils # 8.9 H (1.3-7.7) k/uL Lymphocytes # 0.9 L (1.0-4.8) k/uL Chloride (98-107) mmol/L Glucose (74-99) mg/dL POC Glucose (mg/dL) (75-99) mg/dL Total Protein (6.3-8.2) g/dL Albumin (3.5-5.0) g/dL - Imaging and Cardiology Chest x-ray: report reviewed, image reviewed Assessment and Plan (1) Family history of premature coronary artery disease Current Visit: Yes Status: Chronic Code(s): Z82.49 - FAMILY HX OF ISCHEM HEART DIS AND OTH DIS OF THE [facility] SNOMED Code(s): 182113166 (2) Pericardial effusion with cardiac tamponade Current Visit: Yes Status: Acute Code(s): I31.3 - PERICARDIAL EFFUSION ( NONINFLAMMATORY); I31.4 - CARDIAC TAMPONADE SNOMED Code(s): 565342963 (3) Diabetes mellitus type 2 in obese Current Visit: Yes Status: Chronic Code(s): E11.69 - TYPE 2 DIABETES MELLITUS WITH OTHER SPECIFIED COMPLICATION; E66.9 - OBESITY, UNSPECIFIED SNOMED Code(s): 22740598 (4) GERD (gastroesophageal reflux disease) Current Visit: Yes Status: Chronic Code(s): K21.9 - GASTRO-ESOPHAGEAL REFLUX DISEASE WITHOUT ESOPHAGITIS SNOMED Code(s): 632499297 (5) History of gout Current Visit: Yes Status: Chronic Code(s): Z87.39 - PERSONAL HISTORY OF DISEASES OF THE MS SYS AND CONN TISS SNOMED Code(s): 023868804 (6) Hyperlipidemia Current Visit: Yes Status: Chronic Code(s): E78.5 - HYPERLIPIDEMIA, UNSPECIFIED SNOMED Code(s): 53043922 (7) Hypertension Current Visit: Yes Status: Chronic Code(s): I10 - ESSENTIAL (PRIMARY) HYPERTENSION SNOMED Code(s): 20502613 (8) Neuropathy Current Visit: Yes Status: Chronic Code(s): G62.9 - POLYNEUROPATHY, UNSPECIFIED SNOMED Code(s): 500813414 (9) Parkinsons disease Current Visit: Yes Status: Chronic Code(s): G20 - PARKINSON'S DISEASE SNOMED Code(s): 79886218 (10) Paroxysmal atrial fibrillation Current Visit: Yes Status: Acute Code(s): I48.0 - PAROXYSMAL ATRIAL FIBRILLATION SNOMED Code(s): 199981700 (11) Presence of permanent cardiac pacemaker Current Visit: Yes Status: Acute Code(s): Z95.0 - PRESENCE OF CARDIAC PACEMAKER SNOMED Code(s): 333924299 (12) Sick sinus syndrome Current Visit: Yes Status: Acute Code(s): I49.5 - SICK SINUS SYNDROME SNOMED Code(s): 22677717 Plan: 1. No surgical intervention at this time. We will continue to monitor pericardial drainage. 2. Await results of repeat echocardiogram. 3. Will order antiembolism stockings and SCDs. 4. Wean O2 as tolerated. Will order and encourage incentive spirometry. 5. Increase activity, out of bed when able to discontinue arterial line. 6. Medical management per Dr. Cruz. 7. Paroxysmal atrial fibrillation, tachycardia, cardiology management per Dr. Maxwell and Dr. Dr. Dewey. 8. More recommendations to follow. Time with Patient: Greater than 30
--- NOTE | 2018-04-07 07:43 | P.PN ---
Subjective Progress Note Date: 04/07/18 Principal diagnosis: Status post permanent pacemaker implantation This is an 82-year-old female patient who was admitted to the hospital yesterday and underwent permanent pacemaker implantation by Dr. Dewey with a procedure complicated by RV perforation and pericardial effusion causing tamponade. The patient underwent pericardiocentesis subsequently. She still have the pericardial drainage still they are with very little amount of blood coming. She is in process of having a limited echocardiogram to assess for pericardial effusion. The patient is still in some pain. She is on pain medications. Hemodynamically she is slightly hypertensive and tachycardic. I will start the patient on metoprolol at 25 mg by mouth twice a day. We'll await for the echocardiogram to be performed. Also if there is no more drainage from the pericardial tube. Objective - Vital Signs Vital signs: Vital Signs Temp 98.6 F 04/07/18 04:00 Pulse 106 H 04/07/18 07:00 Resp 13 04/07/18 07:00 BP 135/50 04/07/18 07:00 Pulse Ox 97 04/07/18 07:00 Intake & Output 04/06/18 04/07/18 04/07/18 18:59 06:59 18:59 Intake Total 944.3 950 110 Output Total 275 515 30 Balance 669.3 435 80 Weight 67.132 kg 65 kg Intake: IV 944.3 600 50 Sodium Chloride 0.9% 1, 350 600 50 000 ml @ 50 mls/hr IV . Q20H FARZANA Rx#:[id number] Intake, IV Titration 50 Amount Clindamycin 900 mg In 50 Dextrose 5% in Water 50 ml @ 100 mls/hr IVPB Q6H FARZANA Rx#:[id number] Oral 300 60 Output: Drainage 50 80 Medial Chest 50 80 Urine 225 435 30 Other: Voiding Method Indwelling Catheter Indwelling Catheter # Bowel Movements 0 ABP, PAP, CO, CI - Last Documented Arterial Blood Pressure 156/57 - Constitutional General appearance: Present: no acute distress - Respiratory Respiratory: bilateral: CTA - Cardiovascular Rhythm: regular Heart sounds: normal: S1, S2 - Labs CBC & Chem 7: 04/07/18 04:20 04/07/18 04:20 Labs: Abnormal Lab Results - Last 24 Hours (Table) 04/06/18 04/06/18 04/06/18 Range/Units 10:29 10:29 11:35 WBC 14.1 H (3.8-10.6) k/uL RBC (3.80-5.40) m/uL Hgb 11.1 L D (11.4-16.0) gm/dL Hct (34.0-46.0) % Neutrophils # 10.1 H (1.3-7.7) k/uL Lymphocytes # (1.0-4.8) k/uL Chloride (98-107) mmol/L Glucose 255 H (74-99) mg/dL POC Glucose (mg/dL) 222 H (75-99) mg/dL Total Protein 4.8 L (6.3-8.2) g/dL Albumin 2.9 L (3.5-5.0) g/dL 04/06/18 04/07/18 04/07/18 Range/Units 20:33 04:20 04:20 WBC 11.0 H (3.8-10.6) k/uL RBC 3.34 L (3.80-5.40) m/uL Hgb 9.2 L D (11.4-16.0) gm/dL Hct 28.6 L (34.0-46.0) % Neutrophils # 8.9 H (1.3-7.7) k/uL Lymphocytes # 0.9 L (1.0-4.8) k/uL Chloride 108 H (98-107) mmol/L Glucose 146 H (74-99) mg/dL POC Glucose (mg/dL) 156 H (75-99) mg/dL Total Protein (6.3-8.2) g/dL Albumin (3.5-5.0) g/dL 04/07/18 Range/Units 07:26 WBC (3.8-10.6) k/uL RBC (3.80-5.40) m/uL Hgb (11.4-16.0) gm/dL Hct (34.0-46.0) % Neutrophils # (1.3-7.7) k/uL Lymphocytes # (1.0-4.8) k/uL Chloride (98-107) mmol/L Glucose (74-99) mg/dL POC Glucose (mg/dL) 156 H (75-99) mg/dL Total Protein (6.3-8.2) g/dL Albumin (3.5-5.0) g/dL Assessment and Plan Assessment: Assessment #1 status post permanent pacemaker implantation #2 pericardial effusion and tamponade physiology Plan #1 continue monitor for any drainage from the pericardial tube #2 awaiting for the echocardiogram to be performed #3 start the patient on metoprolol #4 follow-up with the patient.
[2018-04-07] MEDS: HYDROmorphone 0.5 MG/0.5 ML SYRINGE IVP PRN ×2 (08:44→18:45)
[2018-04-07] MEDS: METOPROLOL TARTRATE 25 MG TAB PO SCH ×2 (08:50→20:16)
[2018-04-07] MEDS: INSULIN ASPART 100 UNIT/ML 1 ML 10 ML VIAL SQ SCH ×4 (08:54→22:30)
[2018-04-07] MEDS ORDERED: ATROPINE SULFATE 0.1 MG/ML 10ML SYRINGE ONE (10:00)
[2018-04-07] MEDS ORDERED: DILTIAZEM DRIP BOLUS FROM BAG 1 MG SOLN IV ONE (10:54)
[2018-04-07 12:19] LABS: Glucose,Whole Blood 154 mg/dL (75-99)
--- NOTE | 2018-04-07 13:34 | ECHOF ---
Referral Reason:follow-up pericardiocentesis MEASUREMENTS -------- HEIGHT: 152.4 cm WEIGHT: 67.1 kg BP: 129/50 RVIDd: 2.3 cm (< 3.3) IVSd: 0.8 cm (0.6 - 1.1) LVIDd: 4.4 cm (3.9 - 5.3) LVPWd: 0.8 cm (0.6 - 1.1) IVSs: 1.0 cm LVIDs: 2.6 cm LVPWs: 1.2 cm FINDINGS -------- Resting tachycardia (HR>100bpm). This was a technically good study. Limited Study for assessment of pericardial effusion. The left ventricular size is normal. Left ventricular wall thickness is normal. Overall left vent ricular systolic function is normal with, an EF between 60 - 65 %. The right ventricle is normal in size and function. Trace tricuspid regurgitation present. Right ventricular systolic pressure is normal at < 35 mmHg. There is no evidence of pulmonary hypertension. There is a small, generalized pericardial effusion present. CONCLUSIONS -------- 1. Resting tachycardia (HR>100bpm). 2. This was a technically good study. 3. Limited Study for assessment of pericardial effusion. 4. The left ventricular size is normal. 5. Left ventricular wall thickness is normal. 6. Overall left ventricular systolic function is normal with, an EF between 60 - 65 %. 7. Trace tricuspid regurgitation present. 8. Right ventricular systolic pressure is normal at < 35 mmHg. 9. There is no evidence of pulmonary hypertension. 10. There is a small, generalized pericardial effusion present. TAXONOMY TEACHER: Francisco Munguia RDCS
[2018-04-07] MEDS: DILTIAZEM 50 MG in SODIUM CHLORIDE 0.9% 40 ML IV SCH ×2 (13:39→21:38)
--- NOTE | 2018-04-07 13:50 | HP ---
HISTORY AND PHYSICAL DATE OF SERVICE: 04/07/2018 DATE OF ADMISSION: 04/06/2018 HISTORY AND CHIEF COMPLAINT: Patient was admitted yesterday under the care of Dr. Cruz mistakenly, and subsequently they called me to admit the patient after she had a procedure for pacemaker implantation complicated with perforation of the right ventricle and pericardial effusion and tamponade, for which she subsequently underwent pericardiocentesis. HISTORY OF PRESENT ILLNESS: Mrs. Cesilia Mccormick is an 82-year-old white female with symptomatic sick sinus syndrome with falling attacks and underlying atrial fibrillation with intermittent increased ventricular response. She was seen by Dr. Mercer 7 to 10 days ago and he placed a monitor. Subsequently, last Monday, about one week from yesterday, she had a feeling of syncope and Dr. Mercer called her and told her that she had pauses of 5.1 seconds. He saw her subsequently last , 2 days ago. Because of the pauses and underlying sick sinus syndrome, he arranged for her a pacemaker, which was scheduled by Dr. Dewey to be done on Monday (yesterday), April 06. Patient yesterday underwent implantation of the pacemaker; however, a complication occurred which was perforation of the right ventricle, per Dr. Cox's note. Implantation of the pacemaker was successful subsequently, but she developed perforation and pericardial effusion and tamponade. At that time Dr. Maxwell came also for support and help, and he did put the aspiration and pericardiocentesis subxiphoid and he drained 200 mL of blood. During this procedure, the patient's blood pressure dropped and she had to be on a vasopressor. Subsequently she was transferred to the ICU. She also was seen by the PA of Dr. Barboza, who also, when he saw her, discussed it with Dr. Barboza. Subsequently they decided no surgical intervention and decided as well to obtain echocardiogram and monitor in the ICU. They put in a femoral line and the vasodepressor was gradually weaned off. They put her on metoprolol because her heart rate went up with the atrial fibrillation and they added Cardizem to it. Subsequently patient stabilized. Currently she is on Cardizem and metoprolol tartrate 25 mg b.i.d. I was called at night last night after they did not call me on admission because of mistakenly putting the patient on a different physician, which is quite , to inform me that the patient had been admitted and stable. At this time patient is seen, evaluated. I adjusted her medication in the [facility] as well and we held the Norvasc because of her blood pressure that dropped before. Currently it is stable. Echocardiogram has been done; however, the result is not available. Today 04/07/2018 on the dictation for the history and physical, Dr. Cox already did see the patient. He assessed her and he started her on metoprolol tartrate twice a day. PAST MEDICAL HISTORY: She had a past history of surgery on the back in [facility] and she had difficulties with ambulation. She has a history of Parkinson disease and has been treated by Dr. Beauchamp, and she was stable. She also has a history of episode of acute kidney injury, which has resolved at this time. She has been stable for quite a while. After this event with the pacemaker she was started on clindamycin 900 mg with dextrose per the procedure protocol q.6 hours. REVIEW OF SYSTEMS: NEUROPSYCHIATRY: She has the Parkinson disease. She has occasional anxiety but no other problem. History and complaint in the past but not now of shortness of breath, which is not present at the time of examination. The heart at this time was regular sinus; however, it is intermittently atrial fibrillation. She had a pacemaker functioning in the left infraclavicular area. She had also recently postoperative centesis which was present below the symphysis pubis with the drainage that was placed. GI: No hematemesis. No melena or hematochezia. : History of urinary incontinence. MUSCULOSKELETAL: Degenerative osteoarthritis. Rest of the review of systems was noncontributory. I did, however, review the several notes that were placed since the procedure. The procedure originally was done as outpatient, but with the complications, patient was admitted to the hospital. The chest x-ray which was done post procedure was read by Dr. John, at that time indicating that her pacemaker placement was satisfactory and she had mild left basilar airspace disease; could be associated with concomitant effusion. I do not see any echocardiogram in the report yet, but this appears to have been done already, but no results yet. Antoine Gonzalez is the PA for Dr. Barboza, the cardiovascular surgeon. He stated that the patient with a past medical history of hypertension, dyslipidemia and family history of coronary artery disease, has a son with a history of myocardial infarction at the age of 40 and diabetes mellitus. She has also Parkinson disease and neuropathy, history of gout, paroxysmal atrial fibrillation and history of near-syncopal event with palpitation. She denied any fever or chills or shortness of breath at the time. He stated as well that she had a monitoring device that demonstrated 2 episodes of near-syncope for 5 seconds. Her past history is the same: Atrial fibrillation, diabetes mellitus, GERD disease, hyperlipidemia, hypertension, musculoskeletal disorder, neurological disorder. That is per the PA of Dr. Barboza, the cardiovascular surgeon. She had skin basal cell carcinoma that was removed from the left ankle and she had a lipoma removed from the left arm. That is her surgical history. FAMILY HISTORY: Diabetes, hypertension, breast cancer and Parkinson disease. CURRENT MEDICATIONS: 1. Allopurinol 150 mg daily with her history of gout. 2. Ascorbic acid vitamin C 500 mg daily. 3. Carbidopa/levodopa 25/100, which is Sinemet, every 6 hours 4 times a day. 4. Furosemide 20 mg daily. 5. Gabapentin 400 mg q.6 hours. 6. Glimepiride for diabetes 2 mg b.i.d. 7. Ibuprofen 800 mg p.r.n. 8. Meclizine (Antivert) 25 mg daily p.r.n. 9. Metoprolol succinate 25 mg daily. 10.Multivitamin once a day. 11.Pantoprazole. 12.Protonix 40 mg daily before breakfast for GERD disease. 13.Trazodone 100 mg at bedtime. 14.Aspirin, enteric-coated, 81 mg once a day. 15.Rosuvastatin (Crestor) 20 mg once a day at bedtime. ALLERGIES: 1. IODINATED CONTRAST ORAL AND IV DYE (anaphylaxis). 2. History of LISINOPRIL causing renal failure. 3. PENICILLIN caused itching. 4. CODEINE caused nausea and vomiting. 5. MEPERIDINE (DEMEROL) caused nausea and vomiting. 6. MORPHINE (nausea and vomiting). PHYSICAL EXAMINATION: On the current examination today on April 07, her heart rate is 109, still tachy to 113, and temperature 97.9 orally. Her blood pressure is improving. Early in the morning it was 146/59 with a mean 88 and now it is 136/57 with a mean 83. Her respiratory rate was 16 but now was recorded as 11, but she is comfortable in bed. Her pulse ox saturation 96%. On her examination in the ICU, patient is conscious, alert, oriented. She is able to give me a detailed history. She stated that she was sleeping when they put the pacemaker and she did not feel any pain. HEENT: Head normocephalic, atraumatic. Pupils equal, reactive. Oropharynx was normal with natural teeth. Uvula midline. No facial asymmetry. The neck was supple and no JVD. No thyromegaly. No lymphadenopathy. Trachea midline. The chest was clear to auscultation and percussion. I could not elicit any dullness on the bases. The heart was regular sinus rhythm; however, with tachycardia. Patient is on Cardizem drip and was started on the metoprolol tartrate 25 mg twice a day. Her previous metoprolol XL has been discontinued. She had a pacemaker that has been implanted in the left infraclavicular. She had drainage from subxiphoid sternum with drainage outside. She still has some drainage in the bag. She has as well the tracing pads that have been placed on the right upper chest. She is in the ICU, as mentioned. The abdomen was soft, positive bowel sounds. EXTREMITIES: No edema. Stable general condition. ASSESSMENT: 1. Sick sinus syndrome with the underlying pre-syncopal episodes and frequent falls. 2. Underlying atrial fibrillation with intermittently rapid ventricular response, currently stable. She has converted to sinus with tachycardia. She has been monitored by Cardiology very closely. 3. Underlying complications associated with the pacemaker and perforation of the right ventricle associated with pericardial effusion and tamponade, for which she underwent thoracentesis by Dr. Maxwell. 4. History of Parkinson disease, stable. 5. History of hypertension, controlled. With the procedure she was hypotensive and she was started on vasopressor that was subsequently discontinued and weaned off. 6. Cardiovascular surgical consultation was obtained with Dr. Barboza and she was seen by the PA, who communicated with Dr. Barboza. There is no need for surgical intervention. Observation in the ICU is recommended. She was also seen by other PAs for the cardiovascular team. 7. Underlying history of hyperlipidemia, mixed, and she is currently on Crestor, which apparently has been changed to atorvastatin 20 mg, as the hospital does not carry Crestor. 8. Underlying history of gastroesophageal reflux disease. She is on famotidine twice a day. PLAN: Continue the current treatment. Continue the cardiology monitoring and the surgical cardiovascular monitoring. Still she has a Dafter with passive drainage as well. Monitoring her vital sign. The patient is currently in stable general condition; however, still guarded. MMODL / IJN: [id number] /
[2018-04-07 17:09] LABS: Glucose,Whole Blood 151 mg/dL (75-99)
[2018-04-07] MEDS: ATORVASTATIN 20 MG TAB PO SCH (20:15)
[2018-04-07] MEDS: FAMOTIDINE 20 MG TAB PO SCH (20:16)
[2018-04-07] MEDS ORDERED: SODIUM CHLORIDE 0.9% 500 ML IV ONE (21:38)
[2018-04-07] MEDS: traZODone HCL 100 MG TAB PO SCH (21:48)
[2018-04-07 21:51] LABS: Glucose,Whole Blood 150 mg/dL (75-99)
[2018-04-07] MEDS: COLCHICINE 0.6 MG EACH PO SCH (21:54)
[2018-04-07] MEDS ORDERED: DEXTROSE 5% IN WATER 100 ML with AMIODARONE 150 MG IV ONE (22:00)
[2018-04-07] MEDS ORDERED: DEXTROSE 5% IN WATER 250 ML with AMIODARONE 450 MG IV ONE (22:00)
[2018-04-07 22:32] LABS: Anion Gap 5 mmol/L; Blood Urea Nitrogen 13 mg/dL (7-17); Calcium 8.7 mg/dL (8.4-10.2); Carbon Dioxide 22 mmol/L (22-30); Chloride 110 mmol/L (98-107); Glucose 137 mg/dL (74-99); Potassium 4.4 mmol/L (3.5-5.1); Sodium 137 mmol/L (137-145)
[2018-04-07 22:56] LABS: INR 1.2 (<1.2); Prothrombin Time 11.2 sec (9.0-12.0)
[2018-04-07 22:57] LABS: Basophils % (A) 0 %; Eosinophils # (A) 0.1 k/uL (0-0.7); Eosinophils % (A) 1 %; HCT 24.6 % (34.0-46.0); HGB 7.9 gm/dL (11.4-16.0); Lymphocytes # (A) 1.2 k/uL (1.0-4.8); Lymphocytes % (A) 12 %; MCV 84.5 fL (80.0-100.0); Mean Platelet Volume 7.6; Monocytes # (A) 0.8 k/uL (0-1.0); Monocytes % (A) 8 %; Neutrophils # (A) 7.5 k/uL (1.3-7.7); Neutrophils % (A) 77 %; Platelet Count 156 k/uL (150-450); RBC 2.92 m/uL (3.80-5.40); RDW 14.9 % (11.5-15.5); WBC 9.8 k/uL (3.8-10.6)
[2018-04-08] MEDS: SODIUM CHLORIDE 0.9% 1,000 ML IV SCH ×3 (00:38→17:51)
[2018-04-08] MEDS: GABAPENTIN 400 MG CAP PO SCH ×5 (00:38→20:22)
[2018-04-08] MEDS: CARBIDOPA-LEVODOPA 25-100 MG 1 EACH TAB PO SCH ×5 (00:38→20:21)
[2018-04-08] MEDS: ACETAMINOPHEN TAB 325 MG TAB PO PRN ×2 (00:40→17:53)
[2018-04-08 03:59] LABS: Basophils % (A) 0 %; Eosinophils # (A) 0.1 k/uL (0-0.7); Eosinophils % (A) 1 %; HCT 22.7 % (34.0-46.0); HGB 7.4 gm/dL (11.4-16.0); Lymphocytes # (A) 1.4 k/uL (1.0-4.8); Lymphocytes % (A) 15 %; MCHC 32.7 g/dL (31.0-37.0); MCV 85.6 fL (80.0-100.0); Mean Platelet Volume 7.7; Monocytes % (A) 10 %; Neutrophils # (A) 6.8 k/uL (1.3-7.7); Neutrophils % (A) 72 %; Platelet Count 182 k/uL (150-450); RBC 2.65 m/uL (3.80-5.40); RDW 14.9 % (11.5-15.5); WBC 9.4 k/uL (3.8-10.6)
[2018-04-08 04:09] LABS: Anion Gap 4 mmol/L; Blood Urea Nitrogen 14 mg/dL (7-17); Calcium 8.5 mg/dL (8.4-10.2); Carbon Dioxide 23 mmol/L (22-30); Chloride 109 mmol/L (98-107); Glucose 134 mg/dL (74-99); Potassium 4.3 mmol/L (3.5-5.1); Sodium 136 mmol/L (137-145)
[2018-04-08] MEDS: DEXTROSE 5% IN WATER 250 ML with AMIODARONE 450 MG IV SCH (06:12)
[2018-04-08] MEDS: COLCHICINE 0.6 MG EACH PO SCH ×2 (07:57→17:14)
[2018-04-08 07:58] LABS: Glucose,Whole Blood 144 mg/dL (75-99)
[2018-04-08] MEDS: FAMOTIDINE 20 MG TAB PO SCH ×2 (07:58→20:22)
[2018-04-08] MEDS: METOPROLOL TARTRATE 25 MG TAB PO SCH ×2 (07:58→20:22)
[2018-04-08] MEDS: ALLOPURINOL 100 MG TAB PO SCH (08:00)
[2018-04-08] MEDS: PANTOPRAZOLE 40 MG TABLET PO SCH (08:00)
[2018-04-08] MEDS: INSULIN ASPART 100 UNIT/ML 1 ML 10 ML VIAL SQ SCH ×4 (08:20→20:31)
--- NOTE | 2018-04-08 08:27 | P.PN ---
Subjective Progress Note Date: 04/08/18 Principal diagnosis: Status post permanent pacemaker implantation This is an 82-year-old female patient who was admitted to the hospital yesterday and underwent permanent pacemaker implantation by Dr. Dewey with a procedure complicated by RV perforation and pericardial effusion causing tamponade. The patient underwent pericardiocentesis subsequently. On follow-up with the patient today, she seems more comfortable. She denies having any chest pain or chest discomfort. She did go into A. fib with RVR last night and currently she is in normal sinus mechanism and she is on amiodarone IV. Beside that she is on metoprolol. She was started on colchicine as well because she did have some chest discomfort which could be related to irritation of the pericardium. I will continue the amiodarone IV for now and start the patient on amiodarone by mouth later on. I would hold any kind of anticoagulation in view of the low hemoglobin which is around 7. Objective - Vital Signs Vital signs: Vital Signs Temp 98.8 F 04/08/18 00:00 Pulse 59 L 04/08/18 07:00 Resp 12 04/08/18 07:00 BP 111/42 04/08/18 07:00 Pulse Ox 98 04/08/18 07:00 Intake & Output 04/07/18 04/08/18 04/08/18 18:59 06:59 18:59 Intake Total 910 1603.1 126.7 Output Total 465 610 30 Balance 445 993.1 96.7 Weight 69.6 kg Intake: IV 600 1183.1 66.7 Dextrose 5% in Water 100 100 ml @ 618 mls/hr IV .Q10M ONE with Amiodarone 150 mg Rx#:[id number] Dextrose 5% in Water 250 283.1 16.7 ml @ 33.3 mls/hr IV . Q7H47M ONE with Amiodarone 450 mg Rx#: [id number] Sodium Chloride 0.9% 1, 600 800 50 000 ml @ 50 mls/hr IV . Q20H FARZANA Rx#:[id number] Oral 310 420 60 Output: Drainage 0 70 Medial Chest 0 70 Urine 465 540 30 Other: Voiding Method Indwelling Catheter Indwelling Catheter # Bowel Movements 0 ABP, PAP, CO, CI - Last Documented Arterial Blood Pressure 140/56 - Constitutional General appearance: Present: no acute distress - Respiratory Respiratory: bilateral: rales - Cardiovascular Rhythm: regular Heart sounds: normal: S1, S2 - Labs CBC & Chem 7: 04/08/18 03:24 04/08/18 03:24 Labs: Abnormal Lab Results - Last 24 Hours (Table) 04/07/18 04/07/18 04/07/18 Range/Units 12:17 17:07 21:50 RBC (3.80-5.40) m/uL Hgb (11.4-16.0) gm/dL Hct (34.0-46.0) % INR (<1.2) Sodium (137-145) mmol/L Chloride (98-107) mmol/L Glucose (74-99) mg/dL POC Glucose (mg/dL) 154 H 151 H 150 H (75-99) mg/dL 04/07/18 04/07/18 04/07/18 Range/Units 22:00 22:00 22:40 RBC 2.92 L (3.80-5.40) m/uL Hgb 7.9 L (11.4-16.0) gm/dL Hct 24.6 L (34.0-46.0) % INR 1.2 H (<1.2) Sodium (137-145) mmol/L Chloride 110 H (98-107) mmol/L Glucose 137 H (74-99) mg/dL POC Glucose (mg/dL) (75-99) mg/dL 04/08/18 04/08/18 04/08/18 Range/Units 03:24 03:24 07:56 RBC 2.65 L (3.80-5.40) m/uL Hgb 7.4 L (11.4-16.0) gm/dL Hct 22.7 L (34.0-46.0) % INR (<1.2) Sodium 136 L (137-145) mmol/L Chloride 109 H (98-107) mmol/L Glucose 134 H (74-99) mg/dL POC Glucose (mg/dL) 144 H (75-99) mg/dL Assessment and Plan Assessment: Assessment #1 status post permanent pacemaker implantation #2 pericardial effusion and tamponade physiology Plan #1 the drainage tube was taken out yesterday. #2 continue amiodarone IV and switch to amiodarone by mouth down the line #3 continue metoprolol at the current dose #4 follow-up with the patient.
--- NOTE | 2018-04-08 10:49 | P.PN ---
Subjective Progress Note Date: 04/08/18 Principal diagnosis: Pericardial effusion with tamponade physiology, status post insertion of permanent pacemaker. Previous medical history of sick sinus syndrome, paroxysmal atrial fibrillation, near syncope, hypertension, dyslipidemia, diabetes, Parkinson's disease, gout, neuropathy, GERD, and family history of premature coronary artery disease. POD #2 placement of permanent pacemaker, placement of pericardial drain. Patient is currently sitting up in a chair in the intensive care unit in no acute distress. Denies pain, shortness of breath. Heart rate is currently better controlled on IV amiodarone drip. Pericardial catheter was discontinued last night per Dr. Cox's order. No drainage currently on the dressing. Repeat echocardiogram demonstrated small generalized pericardial effusion remains. Patient's hemoglobin is down 2 gm from yesterday, 4 gm in the last 48 hours. Objective - Vital Signs Vital signs: Vital Signs Temp 98.1 F 04/08/18 08:00 Pulse 60 04/08/18 08:30 Resp 19 04/08/18 08:30 BP 129/65 04/08/18 08:30 Pulse Ox 99 04/08/18 08:30 Intake & Output 04/07/18 04/08/18 04/08/18 18:59 06:59 18:59 Intake Total 910 1603.1 126.7 Output Total 465 610 30 Balance 445 993.1 96.7 Weight 69.6 kg Intake: IV 600 1183.1 66.7 Dextrose 5% in Water 100 100 ml @ 618 mls/hr IV .Q10M ONE with Amiodarone 150 mg Rx#:[id number] Dextrose 5% in Water 250 283.1 16.7 ml @ 33.3 mls/hr IV . Q7H47M ONE with Amiodarone 450 mg Rx#: [id number] Sodium Chloride 0.9% 1, 600 800 50 000 ml @ 50 mls/hr IV . Q20H FARZANA Rx#:[id number] Oral 310 420 60 Output: Drainage 0 70 Medial Chest 0 70 Urine 465 540 30 Other: Voiding Method Indwelling Catheter Indwelling Catheter # Bowel Movements 0 ABP, PAP, CO, CI - Last Documented Arterial Blood Pressure 140/56 - Constitutional General appearance: Present: cooperative, no acute distress - Respiratory Details: Lungs sounds diminished bilaterally. Respirations even, nonlabored. Currently on 2 L nasal cannula with oxygen saturation 99%. Able to achieve 750 mL on incentive spirometry. - Cardiovascular Details: S1, S2 present. Regular rate and rhythm, sinus rhythm, occasionally ventricular paced on telemetry. Palpable peripheral pulses bilaterally. Trace bilateral lower extremity edema present. No calf pain or tenderness noted. Antiembolism stockings, SCDs present. - Gastrointestinal Gastrointestinal Comment(s): Abdomen soft, nontender, nondistended. Active bowel sounds present 4 quadrants. Tolerating diet. - Genitourinary Genitourinary Comment(s): Martinez present draining clear, yellow urine. Output 30-50 mL per hour. - Integumentary Integumentary Comment(s): Skin is warm and dry without evidence of good perfusion. Left anterior chest wall permanent pacemaker site covered with dry intact dressing. - Neurologic Neurologic: Present: CNII-XII intact - Musculoskeletal Musculoskeletal: Present: strength equal bilaterally - Psychiatric Psychiatric: Present: A&O x's 3, appropriate affect, intact judgment & insight - Allied health notes Allied health notes reviewed: nursing - Labs CBC & Chem 7: 04/08/18 03:24 04/08/18 03:24 Labs: Abnormal Lab Results - Last 24 Hours (Table) 04/07/18 04/07/18 04/07/18 Range/Units 12:17 17:07 21:50 RBC (3.80-5.40) m/uL Hgb (11.4-16.0) gm/dL Hct (34.0-46.0) % INR (<1.2) Sodium (137-145) mmol/L Chloride (98-107) mmol/L Glucose (74-99) mg/dL POC Glucose (mg/dL) 154 H 151 H 150 H (75-99) mg/dL 04/07/18 04/07/18 04/07/18 Range/Units 22:00 22:00 22:40 RBC 2.92 L (3.80-5.40) m/uL Hgb 7.9 L (11.4-16.0) gm/dL Hct 24.6 L (34.0-46.0) % INR 1.2 H (<1.2) Sodium (137-145) mmol/L Chloride 110 H (98-107) mmol/L Glucose 137 H (74-99) mg/dL POC Glucose (mg/dL) (75-99) mg/dL 04/08/18 04/08/18 04/08/18 Range/Units 03:24 03:24 07:56 RBC 2.65 L (3.80-5.40) m/uL Hgb 7.4 L (11.4-16.0) gm/dL Hct 22.7 L (34.0-46.0) % INR (<1.2) Sodium 136 L (137-145) mmol/L Chloride 109 H (98-107) mmol/L Glucose 134 H (74-99) mg/dL POC Glucose (mg/dL) 144 H (75-99) mg/dL Assessment and Plan (1) Family history of premature coronary artery disease Current Visit: Yes Status: Chronic Code(s): Z82.49 - FAMILY HX OF ISCHEM HEART DIS AND OTH DIS OF THE CIRC SYS SNOMED Code(s): 563179592 (2) Pericardial effusion with cardiac tamponade Current Visit: Yes Status: Acute Code(s): I31.3 - PERICARDIAL EFFUSION ( NONINFLAMMATORY); I31.4 - CARDIAC TAMPONADE SNOMED Code(s): 779652562 (3) Diabetes mellitus type 2 in obese Current Visit: Yes Status: Chronic Code(s): E11.69 - TYPE 2 DIABETES MELLITUS WITH OTHER SPECIFIED COMPLICATION; E66.9 - OBESITY, UNSPECIFIED SNOMED Code(s): 85061120 (4) GERD (gastroesophageal reflux disease) Current Visit: Yes Status: Chronic Code(s): K21.9 - GASTRO-ESOPHAGEAL REFLUX DISEASE WITHOUT ESOPHAGITIS SNOMED Code(s): 802821526 (5) History of gout Current Visit: Yes Status: Chronic Code(s): Z87.39 - PERSONAL HISTORY OF DISEASES OF THE MS SYS AND CONN TISS SNOMED Code(s): 063274784 (6) Hyperlipidemia Current Visit: Yes Status: Chronic Code(s): E78.5 - HYPERLIPIDEMIA, UNSPECIFIED SNOMED Code(s): 37366191 (7) Hypertension Current Visit: Yes Status: Chronic Code(s): I10 - ESSENTIAL (PRIMARY) HYPERTENSION SNOMED Code(s): 90617592 (8) Neuropathy Current Visit: Yes Status: Chronic Code(s): G62.9 - POLYNEUROPATHY, UNSPECIFIED SNOMED Code(s): 066620922 (9) Parkinsons disease Current Visit: Yes Status: Chronic Code(s): G20 - PARKINSON'S DISEASE SNOMED Code(s): 71262442 (10) Paroxysmal atrial fibrillation Current Visit: Yes Status: Acute Code(s): I48.0 - PAROXYSMAL ATRIAL FIBRILLATION SNOMED Code(s): 673363280 (11) Presence of permanent cardiac pacemaker Current Visit: Yes Status: Acute Code(s): Z95.0 - PRESENCE OF CARDIAC PACEMAKER SNOMED Code(s): 600116150 (12) Sick sinus syndrome Current Visit: Yes Status: Acute Code(s): I49.5 - SICK SINUS SYNDROME SNOMED Code(s): 44002047 Plan: 1. No surgical intervention at this time. We will continue to monitor patient' s progress. 2. Wean O2 as tolerated. Encourage incentive spirometry use 10 times every hour while awake. 3. Increase activity, out of bed, ambulate as able. 4. Medical management per Dr. Cruz. 5. Paroxysmal atrial fibrillation, cardiology management per Dr. Cox. 6. Will monitor daily labs. 7. More recommendations to follow. Time with Patient: Greater than 30
[2018-04-08] MEDS: MULTIVITAMINS, THERA 1 EACH TAB PO SCH (11:56)
--- NOTE | 2018-04-08 12:00 | PN ---
PROGRESS NOTE NEW DATA: She has and she is a 5 foot, 69.6 kg. BSA. The 1.67 m2 next is BMI 30 kg/m2. ALLERGY: IODINATED CONTRAST, ORAL AND IV DYE AND LISINOPRIL AND PENICILLIN. The patient seen today in the ICU, evaluated, and yesterday. I did see her and she was conscious, alert, oriented, and she told me all the processes of what happened at that time and what happened when she had to be called by Dr. Mercer and had appointment on and subsequently scheduled for the pacemaker because of the sinus sick syndrome and near syncopal episodes happened to her at home and the monitor was discovered that she has silent small pause. Sinus pause and twice has been discovered and 5.1 seconds. Subsequently decision for the pacemaker was ordered. Today, at the time of the exam, the patient thought that she is confused and she is not able to recall symptoms with possibility of ICU delirium. However, she is comfortable and no chest pain. Deanna from the cardiothoracic surgeon group she is the PA and she did remove her catheter substernal from the heart and that was for the underlying drainage that was draining the pericardial effusion and the catheter in the pericardial sac and has been sealed and was done last night as the patient recalled and they saw her today and there is no abnormalities. She supposed to have echocardiogram and unfortunately the echocardiogram was done on the yesterday and at that time with the limited review and the echocardiogram was indicating that ejection fraction 60-65% with the right ventricular normal function during the procedure a complication occurred as penetration of the right ventricle. However, yesterday, the echocardiogram was absolutely normal. She had a tricuspid regurgitation and with right ventricular systolic pressure less than 35 and no evidence of pulmonary hypertension. The conclusion of the resting tachycardia with the underlying still in and out of atrial fibrillation and with the paroxysmal. The study was limited for the assessment of the pericardial effusion and the left ventricular size was normal. She has as well left ventricular wall thickness is normal. Overall systolic function with ejection fraction 60-65, tricuspid regurg, and as mentioned, right ventricular systolic pressure less than 35 mm Hg. No evidence of pulmonary hypertension and there is a small generalized pericardial effusion present. 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 Today, as she is seen by the PA for the cardiovascular Deanna Story her note indicating that no surgical intervention at this time and continue monitoring the patient. Wean the oxygen as tolerated. Encourage incentive spirometry, use 10 minutes every hour while awake. Increase activity , out of the bed, ambulate, and medical management and a paroxysmal medical management. However, she misses the name of the attending, which is myself for Dr. Day and she mentioned her doctor Anthony. The patient has paroxysmal atrial fibrillation. Cardiology management per Dr. Cox and more recommendations to follow. Also, the patient is seen by Dr. Cox. Dr Cox's assessment is permanent pacemaker manipulator implantation, pericardial effusion and tamponade physiologically and continued drainage. The drainage tube was removed yesterday last night and amiodarone was started and subsequently they will be changing it to oral amiodarone as the Cardizem drip has been discontinued. She is continued on metoprolol at the current dose and he will be following her as well in the ICU. On the current examination, her vital sign was stable. Her temperature is 98.1 , her pulse is 60 per minute, and she has a pacemaker. However, according to the monitor, she is in and out of atrial fibrillation with occasionally tachycardia. Her respiratory rate is 19. Her blood pressure 129/65 with a mean 86. Her pulse ox is 99% on 2 L. HEENT: The head was normocephalic, atraumatic. The pupils were equal, reactive. Oropharynx was negative and natural teeth. The neck was supple and the chest was no chest pain and she has minimal discomfort and that was from the aspiration of the pericardial effusion and the lung was aerated bilaterally. The abdomen is soft, positive bowel sounds and the drainage has been discontinued and removed this last night. Extremities: No edema and a thrombotic stocking is applied. We will continue the current treatment per the Cardiology as well as the cardiovascular. MMODL / IJN: [id number] / [id number]
[2018-04-08 12:13] LABS: Glucose,Whole Blood 135 mg/dL (75-99)
[2018-04-08 17:31] LABS: Glucose,Whole Blood 136 mg/dL (75-99)
[2018-04-08] MEDS: ATORVASTATIN 20 MG TAB PO SCH (20:22)
[2018-04-08] MEDS: traZODone HCL 100 MG TAB PO SCH (20:22)
[2018-04-08] MEDS: HYDROmorphone 0.5 MG/0.5 ML SYRINGE IVP PRN (20:31)
[2018-04-08 20:46] LABS: Glucose,Whole Blood 169 mg/dL (75-99)
[2018-04-09] MEDS: GABAPENTIN 400 MG CAP PO SCH ×6 (00:26→23:10)
[2018-04-09] MEDS: CARBIDOPA-LEVODOPA 25-100 MG 1 EACH TAB PO SCH ×6 (00:26→23:10)
[2018-04-09] MEDS: COLCHICINE 0.6 MG EACH PO SCH ×4 (00:26→20:35)
[2018-04-09] MEDS: DEXTROSE 5% IN WATER 250 ML with AMIODARONE 450 MG IV SCH (00:27)
[2018-04-09 05:11] LABS: HCT 23.1 % (34.0-46.0); HGB 7.9 gm/dL (11.4-16.0); MCH 28.3 pg (25.0-35.0); MCHC 34.2 g/dL (31.0-37.0); MCV 82.7 fL (80.0-100.0); Mean Platelet Volume 9.4; Platelet Count 145 k/uL (150-450); RBC 2.79 m/uL (3.80-5.40); RDW 14.9 % (11.5-15.5); WBC 9.2 k/uL (3.8-10.6)
[2018-04-09 05:24] LABS: Anion Gap 3 mmol/L; Blood Urea Nitrogen 12 mg/dL (7-17); Calcium 8.5 mg/dL (8.4-10.2); Carbon Dioxide 22 mmol/L (22-30); Chloride 111 mmol/L (98-107); Glucose 119 mg/dL (74-99); Potassium 4.4 mmol/L (3.5-5.1); Sodium 136 mmol/L (137-145)
[2018-04-09 07:15] LABS: Glucose,Whole Blood 132 mg/dL (75-99)
--- NOTE | 2018-04-09 08:35 | P.PCN ---
Date of Procedure: 04/09/18 Preoperative Diagnosis: Sick Sinus syndrome Postoperative Diagnosis: The same Procedure(s) Performed: Implantation of dual-chamber pacemaker, axillary venography Description of Procedure: HISTORY: This is a 82-year-old female with history of paroxysmal atrial fibrillation with long pauses associated symptoms of dizziness. Patient has underlying sick sinus syndrome. She is advised to have permanent pacemaker implantation. CONSENT:I have discussed the risks, benefits and alternative therapies for the above-mentioned procedure and for both sedation/analgesia as well as necessary blood product administration, if indicated, as they pertain to this patient. The patient has indicated understanding and acceptance of the risks and procedures discussed. PROCEDURE: Patient was brought to the lab in a fasting state. Patient was prepped and draped in the usual fashion. Patient was given IV sedation with fentanyl and Versed. The skin below the left clavicle was infiltrated with lidocaine. An incision was made parallel to deltopectoral groove was deepened until the pectoral fascia was exposed. A pocket was created by blunt dissection and cautery. Axillary venography was performed to delineate the course of the axillary vein. 2 sticks were performed into extrathoracic portion of the axillary vein and 2 sheaths were advanced over the guidewires and left in subclavian vein. Conscious Sedation: Versed 1 mg mg Fentanyl 50 g Duration :more than 60 minutes LEADS: ATRIAL: This is manufactured by [employer]. Model # [id number] and the serial number is [id number]. VENTRICULAR: This is manufactured by [employer]. Model number is 5076. Serial number is [id number]. DEVICE: This is manufactured by [employer]. Model number is [id number] and the serial number is [id number] The ventricular lead is maneuvered l with help of a straight and curved stylets into the left ventricle apical region. Multiple sites were explored and the initially a septal area was found to be showing good threshold. The lead was screwed in. After the screw in the thresholds were not satisfactory. The lead was unscrewed and position was found near the apical region. The lead was screwed in. Satisfactory position was obtained and threshold measurements were made. The atrial lead was then maneuvered into the right atrial appendage. And thresholds were obtained. THRESHOLDS: ATRIUM: The minimum patient threshold was 0.4 at pulse width of 0.5 with impedance of 700 ohms. The P wave was 4 mV P-wave: VENTRICLE: The minimum patient threshold was 0. 8 at pulse width of 0.5. The impedance was 894. R-wave was 8 mV R-wave:[] The leads and pulse generator remained in the pocket after it was washed with antibiotics. Pocket was closed in the usual fashion. The fascia was closed with 2-0 Prolene ,the subcutaneous tissue was closed with 3-0 Prolene and the skin was closed with 4-0 Prolene. PROGRAMMING: MODE: AAIR with DDDR mode switch RATE: 60 to 130 OUTPUT: Atrium : 3.5 V Ventricle: 3.5 V FINAL IMPRESSION: #1. Successful implantation of dual-chamber pacemaker. #2. Axillary venography. COMPLICATIONS: After the ventricular lead is screwed in, patient started of bradycardia and hypotension. Patient is given IV fluids and IV dopamine and Levophed. There was suspected that patient might have developed pericardial effusion and tamponade. A stat bedside echo was performed. This revealed evidence of moderate pericardial effusion, more so anteriorly. Dr. Maxwell was consulted for immediate pericardial. He proceeded to the pericardial And also putting venous and arterial sheaths in the right groin. About 200 mL of blood was aspirated and patient's blood pressure gradually improved. Patient is oxygen saturations remained stable. Anesthesia was also requested to manage her ventilator status. The family was informed of the developments. She was transferred to intensive care unit in stable condition. PLAN: Patient will be monitored continuously in the intensive care unit. We'll keep her nothing by mouth and continue antibiotics. We'll repeat the echocardiogram in the morning. If there is not significant drainage, pericardial tube will be removed tomorrow. We'll also follow blood work. Prognosis is guarded at this time
--- NOTE | 2018-04-09 08:40 | P.PN ---
Subjective Progress Note Date: 04/09/18 Principal diagnosis: Status post permanent pacemaker implantation This is an 82-year-old female patient who was admitted to the hospital yesterday and underwent permanent pacemaker implantation by Dr. Dewey with a procedure complicated by RV perforation and pericardial effusion causing tamponade. The patient underwent pericardiocentesis subsequently. On follow-up with the patient today, she is in sinus rhythm. She was started on amiodarone by mouth yesterday. She is also on the cultures sent. From the cardiovascular standpoint of view, she can be transferred to selective units. The hemoglobin continues to be 7.9. Because of that I would hold on any anticoagulation at this point and she might be started on oral anticoagulation as an outpatient. Objective - Vital Signs Vital signs: Vital Signs Temp 98.2 F 04/09/18 04:00 Pulse 66 04/09/18 04:00 Resp 14 04/09/18 04:00 BP 110/53 04/09/18 04:00 Pulse Ox 93 L 04/09/18 04:00 Intake & Output 04/08/18 04/09/18 04/09/18 18:59 06:59 18:59 Intake Total 460.2 116.7 Output Total 230 500 Balance 230.2 -383.3 Weight 73.6 kg Intake: IV 400.2 116.7 Dextrose 5% in Water 250 100.2 16.7 ml @ 33.3 mls/hr IV . Q7H47M ONE with Amiodarone 450 mg Rx#: [id number] Sodium Chloride 0.9% 1, 300 100 000 ml @ 50 mls/hr IV . Q20H [facility] Rx#:[id number] Oral 60 Output: Urine 230 500 Other: Voiding Method Toilet Bedside Commode Bedside Commode # Bowel Movements 2 ABP, PAP, CO, CI - Last Documented Arterial Blood Pressure 140/56 - Constitutional General appearance: Present: no acute distress - Respiratory Respiratory: bilateral: CTA - Cardiovascular Rhythm: regular Heart sounds: normal: S1, S2 - Labs CBC & Chem 7: 04/09/18 04:13 04/09/18 04:13 Labs: Abnormal Lab Results - Last 24 Hours (Table) 04/08/18 04/08/18 04/08/18 Range/Units 12:00 17:28 20:27 RBC (3.80-5.40) m/uL Hgb (11.4-16.0) gm/dL Hct (34.0-46.0) % Plt Count (150-450) k/uL Sodium (137-145) mmol/L Chloride (98-107) mmol/L Glucose (74-99) mg/dL POC Glucose (mg/dL) 135 H 136 H 169 H (75-99) mg/dL 04/09/18 04/09/18 04/09/18 Range/Units 04:13 04:13 07:13 RBC 2.79 L (3.80-5.40) m/uL Hgb 7.9 L (11.4-16.0) gm/dL Hct 23.1 L (34.0-46.0) % Plt Count 145 L (150-450) k/uL Sodium 136 L (137-145) mmol/L Chloride 111 H (98-107) mmol/L Glucose 119 H (74-99) mg/dL POC Glucose (mg/dL) 132 H (75-99) mg/dL Assessment and Plan Assessment: Assessment #1 status post permanent pacemaker implantation #2 pericardial effusion and tamponade physiology Plan #1 continue the current medical regimen #2 continue metoprolol, amiodarone, and colchicine #3 hold any kind of anticoagulation at this point in view of the anemia and recent perforation #4 follow-up with the patient.
[2018-04-09] MEDS: INSULIN ASPART 100 UNIT/ML 1 ML 10 ML VIAL SQ SCH ×4 (08:51→19:47)
[2018-04-09] MEDS: METOPROLOL TARTRATE 25 MG TAB PO SCH ×2 (08:52→19:50)
[2018-04-09] MEDS: FAMOTIDINE 20 MG TAB PO SCH ×2 (08:52→19:50)
[2018-04-09] MEDS: MULTIVITAMINS, THERA 1 EACH TAB PO SCH (08:52)
[2018-04-09] MEDS: ALLOPURINOL 100 MG TAB PO SCH (08:53)
[2018-04-09] MEDS: PANTOPRAZOLE 40 MG TABLET PO SCH (08:53)
[2018-04-09] MEDS: AMIODARONE 200 MG TAB PO SCH ×2 (08:53→19:49)
[2018-04-09 12:11] LABS: Glucose,Whole Blood 168 mg/dL (75-99)
--- NOTE | 2018-04-09 15:37 | XR ---
EXAMINATION TYPE: XR chest 2V DATE OF EXAM: 04/09/2018 COMPARISON: Prior chest 04/07/2018 HISTORY: Shortness of breath TECHNIQUE: Frontal and lateral views of the chest are obtained. FINDINGS: There is blunting the posterior costophrenic angles bilaterally. Prominent lung volume may be indicative of COPD. Pacemaker is present in left pectoral region, there are leads in the right at rium and ventricle. Heart is enlarged. No evident pneumothorax. Pulmonary vascularity and nicole are st able. IMPRESSION: Bilateral pleural effusions and associated atelectasis, cardiomegaly. Pneumonia not excl uded. Follow-up recommended.
[2018-04-09 17:13] LABS: Glucose,Whole Blood 109 mg/dL (75-99)
[2018-04-09] MEDS: SODIUM CHLORIDE 0.9% 1,000 ML IV SCH (17:51)
--- NOTE | 2018-04-09 19:07 | PN ---
PROGRESS NOTE DATE OF SERVICE: 04/09/2018 DATA: Height 5 feet. Weight 73.6 kg, BSA 1.71 m2, BMI 31.7 kg/m2. ALLERGIES: 1. IODINATED CONTRAST ORAL AND IV DYE. 2. LISINOPRIL. 3. PENICILLIN. 4. CODEINE. 5. MEPERIDINE. 6. MORPHINE. Patient was seen evaluated in the ICU. She was told by Cardiology that she will be moved to the floor probably today and then subsequently discharged home tomorrow. Patient is conscious, alert, oriented. She was talking to her brother, who came from [place]. Otherwise she is feeling good. She denied any chest pain or pressure pain; however, she thought that she had a little confusion, but improved from yesterday to today. She has no drainage line. Today a chest x-ray was ordered and indicates bilateral pleural effusion associated with atelectasis, cardiomegaly, pneumonia not excluded, and follow-up treatment was recommended. She has also an underlying pacemaker which was placed by Dr. Dewey and underlying post-placement complication resulting in hemopericardium, followed by aspiration and resolved with drainage. But this is a newer finding on her. She was also seen today by Dr. Cox, the decorating equipment setter. Patient has been on amiodarone IV and she came to be in sinus rhythm with the underlying impression status post permanent pacemaker implantation. Pericardial effusion or hemopericardium with tamponade was aspirated and resolved. Currently we continue the current medical regimen. Continue metoprolol, amiodarone and colchicine. Hold any kind of anticoagulation at this point in view of anemia and recent perforation. Follow up with the patient. She also was seen today by Dr. Dewey and he put also note here in the record. He stated that she has a dual-chamber pacemaker and axillary venography. That was manufactured by [employer], model #503189 and serial number [id number]. Ventricular manufactured by [employer], model #507, serial #[id number]. The device is [employer] with the number [id number] and the serial number [id number]. Current vital signs indicate that the patient is stable with a heart rate of 70, regular sinus, respiratory rate 20 and blood pressure 115/47 with a mean 69. Saturation was 99%. Her laboratory today indicates WBC 9.2 and hemoglobin dropped to 7.9 and the hematocrit is 23.1, the platelet count 145. Sodium 136, potassium 4.5, chloride 101, carbon dioxide 22, and glucose was 119. They are monitoring the blood sugar, which has been satisfactory with the coverage with insulin. On the examination today, the patient is conscious, alert, oriented. No acute respiratory distress. OROPHARYNX: Natural teeth. Uvula midline. Neck was supple. No JVD. No thyromegaly. No lymphadenopathy. Trachea midline. The chest was clear to auscultation and percussion. No wheezes, no rhonchi. In spite of the x-ray indicating effusion, I could not elicit any dullness on percussion. HEART: Regular sinus rhythm on amiodarone. The abdomen was soft with positive bowel sounds. EXTREMITIES: No edema. Positive pulses. IMPRESSION: 1. Status post permanent pacemaker placement. 2. Complication with perforation of the right ventricle with hemopericardium followed by aspiration which was drained and closed. 3. Underlying anemia, 7.9 hemoglobin, secondary to blood loss. 4. Diabetes mellitus, on insulin currently. 5. Parkinson disease. 6. Chest x-ray indicating bilateral pleural effusion associated with atelectasis and cardiomegaly. I am not sure about pneumonia, but that is what is stated by Radiology. Patient has no symptoms of fever or chills or coughing or expectoration. PLAN: Will continue the current treatment and Cardiology will decide when the patient will be transferred to the telemetry medical floor or to the med/surg floor and subsequently they will let me know when she is ready to be discharged home and if there is any need for further treatment with or future iron transfusion with the blood loss through the current procedure. MMODL / IJN: [id number] /
[2018-04-09 19:44] LABS: Glucose,Whole Blood 155 mg/dL (75-99)
[2018-04-09] MEDS: ATORVASTATIN 20 MG TAB PO SCH (19:49)
[2018-04-09] MEDS: traZODone HCL 100 MG TAB PO SCH (19:50)
[2018-04-10 05:38] LABS: Glucose,Whole Blood 130 mg/dL (75-99)
[2018-04-10] MEDS: INSULIN ASPART 100 UNIT/ML 1 ML 10 ML VIAL SQ SCH ×4 (05:42→22:01)
[2018-04-10] MEDS: GABAPENTIN 400 MG CAP PO SCH ×5 (06:25→22:47)
[2018-04-10] MEDS: CARBIDOPA-LEVODOPA 25-100 MG 1 EACH TAB PO SCH ×5 (06:25→22:47)
--- NOTE | 2018-04-10 06:38 | P.PN ---
Subjective Progress Note Date: 04/09/18 Principal diagnosis: Pericardial effusion with tamponade physiology, status post insertion of permanent pacemaker. Previous medical history of sick sinus syndrome, paroxysmal atrial fibrillation, near syncope, hypertension, dyslipidemia, diabetes, Parkinson's disease, gout, neuropathy, GERD, and family history of premature coronary artery disease. POD #3 placement of permanent pacemaker, placement of pericardial drain. The patient is currently laying in bed with her head elevated. She is in no acute distress. Currently she denies any shortness of breath or pain. Bedside telemetry showing normal sinus rhythm with occasional PAC. She reports that she has been sitting up to bedside chair occasionally but has not been ambulating in the hallway. She also reports that she walks with a walker at home as she has had recent back surgery.. Objective - Vital Signs Vital signs: Vital Signs Temp 98.2 F 04/09/18 04:00 Pulse 66 04/09/18 04:00 Resp 14 04/09/18 04:00 BP 110/53 04/09/18 04:00 Pulse Ox 93 L 04/09/18 04:00 Intake & Output 04/08/18 04/09/18 04/09/18 18:59 06:59 18:59 Intake Total 460.2 116.7 Output Total 230 500 Balance 230.2 -383.3 Weight 73.6 kg Intake: IV 400.2 116.7 Dextrose 5% in Water 250 100.2 16.7 ml @ 33.3 mls/hr IV . Q7H47M ONE with Amiodarone 450 mg Rx#: [id number] Sodium Chloride 0.9% 1, 300 100 000 ml @ 50 mls/hr IV . Q20H [facility] Rx#:[id number] Oral 60 Output: Urine 230 500 Other: Voiding Method Toilet Bedside Commode Bedside Commode # Bowel Movements 2 ABP, PAP, CO, CI - Last Documented Arterial Blood Pressure 140/56 - Constitutional General appearance: Present: cooperative, no acute distress, obese - Respiratory Details: Lung sounds are essentially clear throughout. Respirations are symmetrical and nonlabored. Oxygen saturation are 93% on room air. She is achieving 500-750 mL on her incentive spirometry. - Cardiovascular Details: Irregular rhythm with controlled rate. S1 and S2 present, 2/6 systolic murmur. Bedside telemetry showing normal sinus rhythm with occasional PACs heart rate 77. +1 edema to her bilateral lower extremities. Knee-high LJ hose and sequential compression devices in place to her bilateral lower extremity Williams. - Gastrointestinal Gastrointestinal Comment(s): Abdomen is soft, nontender and nondistended. Active bowel sounds all 4 abdominal quadrants. Tolerating oral intake. Bowel movement last p.m. - Genitourinary Genitourinary Comment(s): Martinez catheter was discontinued yesterday 04/08/2018. She is voiding clear yellow urine. 500 mL output in the last 8 hours. - Integumentary Integumentary Comment(s): Skin is warm and dry. No clubbing or cyanosis present. Left anterior chest wall permanent pacemaker site clean dry and intact. Subxiphoid dressing clean dry and intact. No drainage or redness present. - Neurologic Neurologic Comment(s): No focal deficits. Neurologic: Present: CNII-XII intact - Musculoskeletal Musculoskeletal: Present: gait normal, generalized weakness, strength equal bilaterally - Psychiatric Psychiatric: Present: A&O x's 3, appropriate affect, intact judgment & insight - Allied health notes Allied health notes reviewed: nursing - Labs CBC & Chem 7: 04/09/18 04:13 04/09/18 04:13 Labs: Abnormal Lab Results - Last 24 Hours (Table) 04/08/18 04/08/18 04/08/18 Range/Units 07:56 12:00 17:28 RBC (3.80-5.40) m/uL Hgb (11.4-16.0) gm/dL Hct (34.0-46.0) % Plt Count (150-450) k/uL Sodium (137-145) mmol/L Chloride (98-107) mmol/L Glucose (74-99) mg/dL POC Glucose (mg/dL) 144 H 135 H 136 H (75-99) mg/dL 04/08/18 04/09/18 04/09/18 Range/Units 20:27 04:13 04:13 RBC 2.79 L (3.80-5.40) m/uL Hgb 7.9 L (11.4-16.0) gm/dL Hct 23.1 L (34.0-46.0) % Plt Count 145 L (150-450) k/uL Sodium 136 L (137-145) mmol/L Chloride 111 H (98-107) mmol/L Glucose 119 H (74-99) mg/dL POC Glucose (mg/dL) 169 H (75-99) mg/dL 04/09/18 Range/Units 07:13 RBC (3.80-5.40) m/uL Hgb (11.4-16.0) gm/dL Hct (34.0-46.0) % Plt Count (150-450) k/uL Sodium (137-145) mmol/L Chloride (98-107) mmol/L Glucose (74-99) mg/dL POC Glucose (mg/dL) 132 H (75-99) mg/dL Assessment and Plan (1) Hypertension Current Visit: Yes Status: Chronic Code(s): I10 - ESSENTIAL (PRIMARY) HYPERTENSION SNOMED Code(s): 87705531 (2) Hyperlipidemia Current Visit: Yes Status: Chronic Code(s): E78.5 - HYPERLIPIDEMIA, UNSPECIFIED SNOMED Code(s): 33749380 (3) Diabetes mellitus type 2 in obese Current Visit: Yes Status: Chronic Code(s): E11.69 - TYPE 2 DIABETES MELLITUS WITH OTHER SPECIFIED COMPLICATION; E66.9 - OBESITY, UNSPECIFIED SNOMED Code(s): 92319625 (4) Parkinsons disease Current Visit: Yes Status: Chronic Code(s): G20 - PARKINSON'S DISEASE SNOMED Code(s): 96199086 (5) Neuropathy Current Visit: Yes Status: Chronic Code(s): G62.9 - POLYNEUROPATHY, UNSPECIFIED SNOMED Code(s): 615465571 (6) Paroxysmal atrial fibrillation Current Visit: Yes Status: Acute Code(s): I48.0 - PAROXYSMAL ATRIAL FIBRILLATION SNOMED Code(s): 474475427 (7) GERD (gastroesophageal reflux disease) Current Visit: Yes Status: Chronic Code(s): K21.9 - GASTRO-ESOPHAGEAL REFLUX DISEASE WITHOUT ESOPHAGITIS SNOMED Code(s): 904306691 (8) History of gout Current Visit: Yes Status: Chronic Code(s): Z87.39 - PERSONAL HISTORY OF DISEASES OF THE MS SYS AND CONN TISS SNOMED Code(s): 245475284 (9) Sick sinus syndrome Current Visit: Yes Status: Acute Code(s): I49.5 - SICK SINUS SYNDROME SNOMED Code(s): 00037244 (10) Presence of permanent cardiac pacemaker Current Visit: Yes Status: Acute Code(s): Z95.0 - PRESENCE OF CARDIAC PACEMAKER SNOMED Code(s): 117448779 Plan: 1. No surgical intervention at this time. We will continue to monitor patient' s progress. 2. Encourage incentive spirometry use 10 times every hour while awake. 3. Increase activity, out of bed, ambulate as able. 4. Medical management per Dr. Cruz. 5. Paroxysmal atrial fibrillation, cardiology management per cardiology. 6. Will monitor daily labs. 7. GI and DVT prophylaxis. 8. Consult physical therapy and occupational therapy. 9. More recommendations to follow. Time with Patient: Greater than 30
[2018-04-10 07:11] LABS: Basophils % (A) 0 %; Eosinophils # (A) 0.2 k/uL (0-0.7); Eosinophils % (A) 3 %; HGB 7.7 gm/dL (11.4-16.0); Hypochromasia Slight; Lymphocytes % (A) 14 %; MCH 27.6 pg (25.0-35.0); MCHC 32.1 g/dL (31.0-37.0); MCV 86.1 fL (80.0-100.0); Mean Platelet Volume 7.5; Monocytes # (A) 0.6 k/uL (0-1.0); Monocytes % (A) 9 %; Neutrophils # (A) 5.3 k/uL (1.3-7.7); Neutrophils % (A) 72 %; Platelet Count 249 k/uL (150-450); RBC 2.79 m/uL (3.80-5.40); RDW 15.2 % (11.5-15.5); WBC 7.4 k/uL (3.8-10.6)
--- NOTE | 2018-04-10 07:53 | P.PN ---
Subjective Progress Note Date: 04/10/18 Principal diagnosis: Pericardial effusion with tamponade physiology, status post insertion of permanent pacemaker. Previous medical history of sick sinus syndrome, paroxysmal atrial fibrillation, near syncope, hypertension, dyslipidemia, diabetes, Parkinson's disease, gout, neuropathy, GERD, and family history of premature coronary artery disease. POD #4 placement of permanent pacemaker, placement of pericardial drain. Patient sitting up in bed in no acute distress. She was transferred to [address] [place] [address] yesterday afternoon. Denies pain, shortness of breath. Does complain of diarrhea overnight with lack of sleep and decreased appetite. Objective - Vital Signs Vital signs: Vital Signs Temp 97.1 F L 04/10/18 04:00 Pulse 85 04/10/18 04:00 Resp 17 04/10/18 04:00 BP 114/53 04/10/18 04:00 Pulse Ox 97 04/10/18 04:00 Intake & Output 04/09/18 04/10/18 04/10/18 18:59 06:59 18:59 Intake Total 200 0 Output Total 900 Balance -700 0 Weight 71.6 kg Intake: IV 200 0 Sodium Chloride 0.9% 1, 200 0 000 ml @ 50 mls/hr IV . Q20H [facility] Rx#:[id number] Output: Urine 900 Other: Voiding Method Bedside Commode Bedside Commode # Voids 0 # Bowel Movements 1 ABP, PAP, CO, CI - Last Documented Arterial Blood Pressure 140/56 - Constitutional General appearance: Present: cooperative, no acute distress, obese - Respiratory Details: Lungs sounds diminished bilaterally. Respirations even, nonlabored. Currently on room air with oxygen saturation 97%. Able to achieve 750 mL on incentive spirometry. - Cardiovascular Details: S1, S2 present. Irregularly regular rate and rhythm, atrial flutter on telemetry. Palpable peripheral pulses bilaterally. Trace bilateral lower extremity edema present. No calf pain or tenderness noted. Antiembolism stockings, SCDs present. - Gastrointestinal Gastrointestinal Comment(s): Abdomen soft, nontender, nondistended. Active bowel sounds present 4 quadrants. Tolerating minimal diet. Positive diarrhea last night. - Genitourinary Genitourinary Comment(s): Martinez was discontinued. Patient continues to void clear, yellow urine. - Integumentary Integumentary Comment(s): Skin is warm and dry without evidence of good perfusion. Left anterior chest wall permanent pacemaker site covered with dry intact dressing. - Neurologic Neurologic: Present: CNII-XII intact - Musculoskeletal Musculoskeletal Comment(s): Left arm in a sling. Musculoskeletal: Present: strength equal bilaterally - Psychiatric Psychiatric: Present: A&O x's 3, appropriate affect, intact judgment & insight - Allied health notes Allied health notes reviewed: nursing - Labs CBC & Chem 7: 04/10/18 06:55 04/09/18 04:13 Labs: Abnormal Lab Results - Last 24 Hours (Table) 04/09/18 04/09/18 04/09/18 Range/Units 11:50 17:11 19:42 RBC (3.80-5.40) m/uL Hgb (11.4-16.0) gm/dL Hct (34.0-46.0) % POC Glucose (mg/dL) 168 H 109 H 155 H (75-99) mg/dL 04/10/18 04/10/18 Range/Units 05:36 06:55 RBC 2.79 L (3.80-5.40) m/uL Hgb 7.7 L (11.4-16.0) gm/dL Hct 24.0 L (34.0-46.0) % POC Glucose (mg/dL) 130 H (75-99) mg/dL Assessment and Plan (1) Family history of premature coronary artery disease Current Visit: Yes Status: Chronic Code(s): Z82.49 - FAMILY HX OF ISCHEM HEART DIS AND OTH DIS OF THE [facility] SNOMED Code(s): 955160448 (2) Pericardial effusion with cardiac tamponade Current Visit: Yes Status: Acute Code(s): I31.3 - PERICARDIAL EFFUSION ( NONINFLAMMATORY); I31.4 - CARDIAC TAMPONADE SNOMED Code(s): 171096751 (3) Diabetes mellitus type 2 in obese Current Visit: Yes Status: Chronic Code(s): E11.69 - TYPE 2 DIABETES MELLITUS WITH OTHER SPECIFIED COMPLICATION; E66.9 - OBESITY, UNSPECIFIED SNOMED Code(s): 99337345 (4) GERD (gastroesophageal reflux disease) Current Visit: Yes Status: Chronic Code(s): K21.9 - GASTRO-ESOPHAGEAL REFLUX DISEASE WITHOUT ESOPHAGITIS SNOMED Code(s): 827138563 (5) History of gout Current Visit: Yes Status: Chronic Code(s): Z87.39 - PERSONAL HISTORY OF DISEASES OF THE MS SYS AND CONN TISS SNOMED Code(s): 330078952 (6) Hyperlipidemia Current Visit: Yes Status: Chronic Code(s): E78.5 - HYPERLIPIDEMIA, UNSPECIFIED SNOMED Code(s): 18511166 (7) Hypertension Current Visit: Yes Status: Chronic Code(s): I10 - ESSENTIAL (PRIMARY) HYPERTENSION SNOMED Code(s): 45224181 (8) Neuropathy Current Visit: Yes Status: Chronic Code(s): G62.9 - POLYNEUROPATHY, UNSPECIFIED SNOMED Code(s): 983018299 (9) Parkinsons disease Current Visit: Yes Status: Chronic Code(s): G20 - PARKINSON'S DISEASE SNOMED Code(s): 55788847 (10) Paroxysmal atrial fibrillation Current Visit: Yes Status: Acute Code(s): I48.0 - PAROXYSMAL ATRIAL FIBRILLATION SNOMED Code(s): 005177397 (11) Presence of permanent cardiac pacemaker Current Visit: Yes Status: Acute Code(s): Z95.0 - PRESENCE OF CARDIAC PACEMAKER SNOMED Code(s): 459489149 (12) Sick sinus syndrome Current Visit: Yes Status: Acute Code(s): I49.5 - SICK SINUS SYNDROME SNOMED Code(s): 14797603 Plan: 1. No surgical intervention at this time. We will continue to monitor patient' s progress. 2. Encourage incentive spirometry use 10 times every hour while awake. 3. Increase activity, out of bed, ambulate as able. PT/OT ordered. 4. Medical management per Dr. Cruz. 5. Paroxysmal atrial fibrillation, cardiology management per Dr. Cox. 6. Will monitor daily labs. 7. Will continue to see as needed. Please contact us with any questions. Time with Patient: Greater than 30
[2018-04-10] MEDS: COLCHICINE 0.6 MG EACH PO SCH ×3 (08:10→19:44)
[2018-04-10] MEDS: AMIODARONE 200 MG TAB PO SCH ×2 (08:12→19:45)
[2018-04-10] MEDS: ALLOPURINOL 100 MG TAB PO SCH (08:13)
[2018-04-10] MEDS: FAMOTIDINE 20 MG TAB PO SCH ×2 (08:13→19:46)
[2018-04-10] MEDS: PANTOPRAZOLE 40 MG TABLET PO SCH (08:13)
[2018-04-10] MEDS: METOPROLOL TARTRATE 25 MG TAB PO SCH (08:14)
[2018-04-10] MEDS: SODIUM CHLORIDE 0.9% 1,000 ML IV SCH (08:16)
--- NOTE | 2018-04-10 10:55 | P.PN ---
Subjective Progress Note Date: 04/10/18 Principal diagnosis: Status post permanent pacemaker implantation This is an 82-year-old female patient who was admitted to the hospital yesterday and underwent permanent pacemaker implantation by Dr. Dewey with a procedure complicated by RV perforation and pericardial effusion causing tamponade. The patient underwent pericardiocentesis subsequently. On follow-up with the patient today, she is overall feeling better and doing better. She is slightly tachycardic. I am going to increase the dose of metoprolol, continue the amiodarone by mouth, continue colchicine, and obtain a limited echocardiogram for pericardial effusion tomorrow morning before she is going home. Objective - Vital Signs Vital signs: Vital Signs Temp 97.3 F L 04/10/18 08:00 Pulse 111 H 04/10/18 08:00 Resp 16 04/10/18 08:00 BP 128/56 04/10/18 08:00 Pulse Ox 94 L 04/10/18 08:00 Intake & Output 04/09/18 04/10/18 04/10/18 18:59 06:59 18:59 Intake Total 200 0 240 Output Total 900 500 Balance -700 0 -260 Weight 71.6 kg Intake: IV 200 0 Sodium Chloride 0.9% 1, 200 0 000 ml @ 50 mls/hr IV . Q20H FARZANA Rx#:[id number] Oral 240 Output: Urine 900 500 Other: Voiding Method Bedside Commode Bedside Commode Bedside Commode # Voids 0 # Bowel Movements 1 ABP, PAP, CO, CI - Last Documented Arterial Blood Pressure 140/56 - Constitutional General appearance: Present: no acute distress - Respiratory Respiratory: bilateral: CTA - Cardiovascular Heart sounds: normal: S1, S2 - Labs CBC & Chem 7: 04/10/18 06:55 04/09/18 04:13 Labs: Abnormal Lab Results - Last 24 Hours (Table) 04/09/18 04/09/18 04/09/18 Range/Units 11:50 17:11 19:42 RBC (3.80-5.40) m/uL Hgb (11.4-16.0) gm/dL Hct (34.0-46.0) % POC Glucose (mg/dL) 168 H 109 H 155 H (75-99) mg/dL 04/10/18 04/10/18 Range/Units 05:36 06:55 RBC 2.79 L (3.80-5.40) m/uL Hgb 7.7 L (11.4-16.0) gm/dL Hct 24.0 L (34.0-46.0) % POC Glucose (mg/dL) 130 H (75-99) mg/dL Assessment and Plan Assessment: Assessment #1 status post permanent pacemaker implantation #2 pericardial effusion and tamponade physiology #3 paroxysmal atrial fibrillation Plan #1 increase the dose of metoprolol. #2 continue amiodarone by mouth #3 obtain a limited echocardiogram. We will continue following up with the patient.
[2018-04-10 11:18] LABS: Glucose,Whole Blood 136 mg/dL (75-99)
[2018-04-10] MEDS: MULTIVITAMINS, THERA 1 EACH TAB PO SCH (11:35)
--- NOTE | 2018-04-10 13:30 | ECHOF ---
Referral Reason:R/A pericardial effusion MEASUREMENTS -------- HEIGHT: 152.4 cm WEIGHT: 67.1 kg BP: FINDINGS -------- Limited Study Overall left ventricular systolic function is normal with, an EF between 55 - 60 %. There is no pericardial effusion. COMPLETE RESOLUTION OF PERICARDIAL EFFUSION POST PERICARDIOCENTESIS ; EF/U ECHO CONCLUSIONS -------- 1. Limited Study 2. Overall left ventricular systolic function is normal with, an EF between 55 - 60 %. 3. There is no pericardial effusion. DIRECTOR METABOLISM: Elba Cherry RDCS
--- NOTE | 2018-04-10 13:59 | ECHOF ---
Referral Reason:R/A pericardial effusion MEASUREMENTS -------- HEIGHT: 152.4 cm WEIGHT: 67.1 kg BP: FINDINGS -------- Limited Study Overall left ventricular systolic function is normal with, an EF between 55 - 60 %. There is a moderate, generalized pericardial effusion present. CONCLUSIONS -------- 1. Limited Study 2. Overall left ventricular systolic function is normal with, an EF between 55 - 60 %. 3. There is a moderate, generalized pericardial effusion present. HEART COORDINATOR: Elba Cherry RDCS
[2018-04-10 16:35] LABS: Glucose,Whole Blood 118 mg/dL (75-99)
[2018-04-10] MEDS: ATORVASTATIN 20 MG TAB PO SCH (19:46)
[2018-04-10] MEDS: METOPROLOL TARTRATE 50 MG TAB PO SCH (19:48)
[2018-04-10 21:08] LABS: Glucose,Whole Blood 128 mg/dL (75-99)
[2018-04-10] MEDS: traZODone HCL 100 MG TAB PO SCH (22:47)
[2018-04-11 06:33] LABS: Glucose,Whole Blood 160 mg/dL (75-99)
[2018-04-11] MEDS: INSULIN ASPART 100 UNIT/ML 1 ML 10 ML VIAL SQ SCH ×3 (06:37→17:23)
[2018-04-11] MEDS: GABAPENTIN 400 MG CAP PO SCH ×3 (06:38→17:24)
[2018-04-11] MEDS: CARBIDOPA-LEVODOPA 25-100 MG 1 EACH TAB PO SCH ×3 (06:38→17:24)
[2018-04-11] MEDS: COLCHICINE 0.6 MG EACH PO SCH (07:50)
[2018-04-11] MEDS: SODIUM CHLORIDE 0.9% 1,000 ML IV SCH (07:50)
[2018-04-11] MEDS: METOPROLOL TARTRATE 50 MG TAB PO SCH (08:07)
[2018-04-11] MEDS: AMIODARONE 200 MG TAB PO SCH (08:07)
[2018-04-11] MEDS: ALLOPURINOL 100 MG TAB PO SCH (08:08)
[2018-04-11] MEDS: PANTOPRAZOLE 40 MG TABLET PO SCH (08:08)
[2018-04-11] MEDS: FAMOTIDINE 20 MG TAB PO SCH (08:08)
--- NOTE | 2018-04-11 10:25 | ECHOF ---
Referral Reason:PE MEASUREMENTS -------- HEIGHT: 154.9 cm WEIGHT: 70.3 kg BP: 118/53 FINDINGS -------- Sinus rhythm. Limited Study Overall left ventricular systolic function is normal with, an EF between 55 - 60 %. There is no pericardial effusion. CONCLUSIONS -------- 1. Sinus rhythm. 2. Limited Study 3. Overall left ventricular systolic function is normal with, an EF between 55 - 60 %. 4. There is no pericardial effusion. LOCKSTITCH LINING SETTER: Deanna Delgado [facility]
[2018-04-11] MEDS: MULTIVITAMINS, THERA 1 EACH TAB PO SCH (11:32)
[2018-04-11 11:52] LABS: Glucose,Whole Blood 119 mg/dL (75-99)
[2018-04-11 12:08] LABS: Basophils % (A) 0 %; Eosinophils # (A) 0.2 k/uL (0-0.7); Eosinophils % (A) 3 %; HCT 27.1 % (34.0-46.0); HGB 8.6 gm/dL (11.4-16.0); Hypochromasia Slight; Lymphocytes # (A) 1.2 k/uL (1.0-4.8); Lymphocytes % (A) 16 %; MCH 27.5 pg (25.0-35.0); MCHC 31.6 g/dL (31.0-37.0); MCV 87.2 fL (80.0-100.0); Mean Platelet Volume 7.5; Monocytes # (A) 0.7 k/uL (0-1.0); Monocytes % (A) 9 %; Neutrophils % (A) 69 %; Platelet Count 318 k/uL (150-450); RBC 3.11 m/uL (3.80-5.40); RDW 14.9 % (11.5-15.5); WBC 7.3 k/uL (3.8-10.6)
[2018-04-11] MEDS: FERROUS SULFATE 325 MG TAB PO SCH ×2 (12:31→17:24)
--- NOTE | 2018-04-11 12:32 | P.PN ---
Subjective Progress Note Date: 04/10/18 Principal diagnosis: Atrial fibrillation, sick sinus syndrome, symptomatic near-syncope, status post left infraclavicular pacemaker permanent. Complication associated with pacemaker lead causing perforation of the right ventricle, hemopericardium, status post pericardiocentesis. Temporary hypotension, recovered with the underlying history of hypertension. Dr. Dewey place the pacemaker. Dr. Maxwell place catheter with drainage for drainage of pericardial effusion. Dr. Jensen is a [facility] [employer] [employer] supervisor. Dr. Barboza is a cardiovascular surgeon with [employer]. Objective - Vital Signs Vital signs: Vital Signs Temp 97.2 F L 04/10/18 11:30 Pulse 69 04/10/18 11:30 Resp 18 04/10/18 11:30 BP 132/58 04/10/18 11:30 Pulse Ox 95 04/10/18 11:30 Intake & Output 04/09/18 04/10/18 04/10/18 18:59 06:59 18:59 Intake Total 200 0 240 Output Total 900 500 Balance -700 0 -260 Weight 71.6 kg Intake: IV 200 0 Sodium Chloride 0.9% 1, 200 0 000 ml @ 50 mls/hr IV . Q20H FARZANA Rx#:[id number] Oral 240 Output: Urine 900 500 Other: Voiding Method Bedside Commode Bedside Commode Bedside Commode # Voids 0 # Bowel Movements 1 ABP, PAP, CO, CI - Last Documented Arterial Blood Pressure 140/56 - Labs CBC & Chem 7: 04/10/18 06:55 04/09/18 04:13 Labs: Abnormal Lab Results - Last 24 Hours (Table) 04/09/18 04/09/18 04/10/18 Range/Units 17:11 19:42 05:36 RBC (3.80-5.40) m/uL Hgb (11.4-16.0) gm/dL Hct (34.0-46.0) % POC Glucose (mg/dL) 109 H 155 H 130 H (75-99) mg/dL 04/10/18 04/10/18 Range/Units 06:55 11:13 RBC 2.79 L (3.80-5.40) m/uL Hgb 7.7 L (11.4-16.0) gm/dL Hct 24.0 L (34.0-46.0) % POC Glucose (mg/dL) 136 H (75-99) mg/dL
--- NOTE | 2018-04-11 12:58 | P.DS ---
Providers Date of admission: 04/06/18 11:28 Expected date of discharge: 04/11/18 Attending physician: Emigdio Day This is discharge summary dictated by Monica Couch. [facility] date of service 04/11. Final diagnosis: #1 admitted to the floor with post pacemaker permanent placement complication. #2 sick sinus syndrome, atrial fibrillation paroxysmal. #3 puncture the right ventricle associated with hematoma pericardium. #4 status post pericardiocentesis. #5 minimal pleural effusion. #6 today echocardiogram was negative with the ejection fraction 55-60% normal sinus rhythm with the overall left ventricular systolic function normal and no pericardial effusion #7 anemia with recovery and improved associated with hemopericardium and pacemaker placement. #8 Parkinson disease. #9 hemoglobin today 8.6 and hematocrit 27.1 secondary to blood loss, patient on iron supplementation. #10 temporary episode of thrombocytopenia recovered with the current platelet 318. #11 diabetes mellitus currently well controlled on insulin to scale only, hypoglycemic agent has been discontinued. #12 amiodarone. Cardiology. #13: She seen. Cardiology. #13 renal function stable. #14 she had neuropathy she is on Neurontin per Dr. Beauchamp neurologist. #15 Parkinson disease on Sinemet per Dr. Beauchamp Consultation: #1 . parquetry layer, Dr. Miller, Dr. Maxwell, Dr. Jensen. #[address] Denny. Patient and initially admitted to the hospital for pacemaker permanent dual, during the procedure the right ventricle lead as poking the wall of the right ventricle which was noticed to immediately, Dr. Maxwell came to help during the Dr. Miller finishing the process of the pacemaker. Dr. Maxwell place drainage acute in the pericardium after found that there is hemopericardium and retrieved 200 mL of blood, patient subsequently admitted to the ICU with the consultation with the cardiovascular surgeon and continue the drainage subsequently in the ICU the drainage was removed. During her presence in the ICU showed that there is a presence of atrial fibrillation paroxysmal patient was placed initially on cardiac exam drip subsequently change it to amiodarone and adjusted the dose by the cardiology and subsequently change it to oral. The chest x-ray was obtained and frequent echocardiogram was obtained and close monitor by the cardiology in the ICU, subsequently patient transferred to the 6 floor technical communicator bed and monitored as well and the patient had found to be anemic with the on the her hemoglobin was 7.4 and a hematocrit 22.7 and subsequently she has also thrombocytopenia elementary with the platelet count on the 140 5S patient did not have any blood transfusion but we started her on iron supplementation today and she will continue on that in the senior living [facility] [place] where she requested to be present with the underlying fatigue, and recent history of back surgery by Dr. Jared Gomez from [facility] and has a problem was walking not completely rehabilitated yet. Her vital sign today indicating temperature 97.6 orally rate 72 respiratory rate 16 blood pressure 134/60 with a mean 84 and oxygen saturation 98. She is on 2 L nasal cannula. Her HEENT was negative, neck was supple no JVD no thyromegaly no lymphadenopathy trachea midline. The chest was clear to auscultation and percussion and the heart was regular sinus rhythm no dysrhythmia and echocardiogram done was good ejection fraction Abdomen soft positive bowel sounds no organ enlargement. Extremities: She LJ hose stocking. Pulses was intact bilaterally patient on that visit Lasix and no edema. Neurologically: Stable. Patient stable for transfer failure to [facility] from medical point of view, we'll have the clearance from cardiology Dr. Jensen as well as we have the adjustment of her medication through the cardiology especially the amiodarone and colchicine. Consults: 04/06/18 15:26 Consult Physician Routine Consulting Provider: Jean Paul Barboza Consult Reason/Comments: pericardial effusion Do you want consulting provider notified?: Already Contacted 04/06/18 15:27 Consult Physician Routine Consulting Provider: Rama Dewey Consult Reason/Comments: pacemaker insertion Do you want consulting provider notified?: Already Contacted Primary care physician: Emigdio Day Plan - Discharge Summary Discharge Rx Participant: No New Discharge Prescriptions: New Acetaminophen Tab [Tylenol] 650 mg PO Q6HR PRN tab PRN Reason: Mild Pain Amiodarone [Cordarone] 400 mg PO BID #60 tab Ferrous Sulfate [Iron (65 MG Elemental)] 325 mg PO BID-W/MEALS tab Insulin Aspart [NovoLOG (formulary)] 0 unit SQ ACHS vial Metoprolol Tartrate [Lopressor] 50 mg PO BID tab Continue Carbidopa-Levodopa 25-100 mg [Sinemet 25-100 mg] 1 tab PO 5XD Allopurinol [Zyloprim] 150 mg PO DAILY Gabapentin [Neurontin] 400 mg PO 5XD Furosemide [Lasix] 40 mg PO DAILY Pantoprazole Sodium [Protonix] 40 mg PO DAILY Multivitamins, Thera [Multivitamin (formulary)] 1 tab PO DAILY Meclizine [Antivert] 25 mg PO BID traZODone HCL [Desyrel] 100 mg PO HS Ascorbic Acid [Vitamin C] 500 mg PO DAILY Rosuvastatin [Crestor] 10 mg PO HS Solifenacin Succinate [Vesicare] 1 tab PO DAILY Budesonide/Formoterol Fumarate [Symbicort 80-4.5 Mcg Inhaler] 1 puff INHALATION PRN PRN Reason: Shortness Of Breath Aspirin [Adult Low Dose Aspirin EC] 81 mg PO DAILY Discontinued Metoprolol Succinate [Toprol XL] 25 mg PO DAILY Ibuprofen 800 mg PO BID Glimepiride [Amaryl] 2 mg PO BID Aspirin EC [Ecotrin Low Dose] 81 mg PO DAILY amLODIPine BESYLATE [Norvasc] 5 mg PO HS Fenofibrate Nanocrystallized [Fenofibrate] 48 mg PO DAILY Ranitidine HCl [Zantac] 150 mg PO BID No Action Furosemide [Lasix] 10 mg PO 1600 Discharge Medication List Allopurinol [Zyloprim] 150 mg PO DAILY 05/03/17 [History] Ascorbic Acid [Vitamin C] 500 mg PO DAILY 05/03/17 [History] Carbidopa-Levodopa 25-100 mg [Sinemet 25-100 mg] 1 tab PO 5XD 05/03/17 [History] Furosemide [Lasix] 40 mg PO DAILY 05/03/17 [History] Gabapentin [Neurontin] 400 mg PO 5XD 05/03/17 [History] Meclizine [Antivert] 25 mg PO BID 05/03/17 [History] Multivitamins, Thera [Multivitamin (formulary)] 1 tab PO DAILY 05/03/17 [History ] Pantoprazole Sodium [Protonix] 40 mg PO DAILY 05/03/17 [History] traZODone HCL [Desyrel] 100 mg PO HS 05/03/17 [History] Aspirin [Adult Low Dose Aspirin EC] 81 mg PO DAILY 04/06/18 [History] Budesonide/Formoterol Fumarate [Symbicort 80-4.5 Mcg Inhaler] 1 puff INHALATION PRN 04/06/18 [History] Furosemide [Lasix] 10 mg PO 1600 04/06/18 [History] Rosuvastatin [Crestor] 10 mg PO HS 04/06/18 [History] Solifenacin Succinate [Vesicare] 1 tab PO DAILY 04/06/18 [History] Acetaminophen Tab [Tylenol] 650 mg PO Q6HR PRN tab 04/11/18 [Rx] Amiodarone [Cordarone] 400 mg PO BID #60 tab 04/11/18 [Rx] Ferrous Sulfate [Iron (65 MG Elemental)] 325 mg PO BID-W/MEALS tab 04/11/18 [Rx ] Insulin Aspart [NovoLOG (formulary)] 0 unit SQ ACHS vial 04/11/18 [Rx] Metoprolol Tartrate [Lopressor] 50 mg PO BID tab 04/11/18 [Rx] Follow up Appointment(s)/Referral(s): Jose Savage, [NON-STAFF] - As Needed
--- NOTE | 2018-04-11 13:15 | P.PN ---
Subjective Progress Note Date: 04/11/18 This is an 82-year-old female patient who was admitted to the hospital and underwent permanent pacemaker implantation by Dr. Dewey with a procedure complicated by RV perforation and pericardial effusion causing tamponade. The patient underwent pericardiocentesis subsequently. On follow-up with the patient today, she is in sinus rhythm. She is currently on Amiodarone 400mg PO BID. She is also on colchicine 0.6mg TID. Hemoglobin yesterday came back at 7.7 . Anticoagulation has been on hold at this time. Echocardiogram today showed no pericardial effusion. Upon examination, patient is sitting up in a chair. She has occasional "stress " with breathing but seems to be breathing okay for the most part. She denies any complaints of dizziness, lightheadedness, chest discomfort except for mild incisional discomfort, palpitations, or syncope. Objective - Vital Signs Vital signs: Vital Signs Temp 97.6 F 04/11/18 08:00 Pulse 72 04/11/18 08:00 Resp 16 04/11/18 08:00 BP 134/60 04/11/18 08:00 Pulse Ox 98 04/11/18 08:00 Intake & Output 04/10/18 04/11/18 04/11/18 18:59 06:59 18:59 Intake Total 720 240 Output Total 500 0 Balance 220 240 Weight 70.5 kg Intake: Oral 720 240 Output: Urine 500 Stool 0 0 Other: Voiding Method Bedside Commode Toilet Toilet # Voids 0 1 # Bowel Movements 0 ABP, PAP, CO, CI - Last Documented Arterial Blood Pressure 140/56 - Exam PHYSICAL EXAMINATION: HEENT: Head is atraumatic, normocephalic. Pupils equal, round. Neck is supple. There is no elevated jugular venous pressure. HEART EXAMINATION: Heart sounds regular, S1 and S2 normal. No murmur or gallop heard. CHEST EXAMINATION: Lungs are clear to auscultation and precussion. No chest wall tenderness is noted on palpation or with deep breathing. LIC site with dressing dry and intact no signs of hematoma. ABDOMEN: Soft, nontender. Bowel sounds are heard. No organomegaly noted. EXTREMITIES: 2+ peripheral pulses with no evidence of peripheral edema and no calf tenderness noted. NEUROLOGIC patient is awake, alert and oriented x3. . - Labs CBC & Chem 7: 04/11/18 11:51 04/09/18 04:13 Labs: Abnormal Lab Results - Last 24 Hours (Table) 04/10/18 04/10/18 04/11/18 Range/Units 16:23 21:05 06:32 POC Glucose (mg/dL) 118 H 128 H 160 H (75-99) mg/dL Assessment and Plan Assessment: #1 paroxysmal atrial fibrillation with long pauses associated with symptoms of dizziness #2 sick sinus syndrome #3 status post pacemaker implantation #4 pericardial effusion with cardiac tamponade Plan: From cardiology perspective, echocardiogram was reviewed and showed no pericardial effusion. Patient may be discharged. She will follow-up in the office in about a week with Dr. Mercer and the device clinic. Continue amiodarone 200 mg by mouth twice a day and metoprolol. Also continue colchicine 0.6 mg by mouth twice a day for 4-6 weeks. [employer] note has been reviewed, I agree with a documented findings and plan of care. Patient was seen and examined.
[2018-04-11 14:10] VITALS: RESP 18
[2018-04-11 16:55] LABS: Glucose,Whole Blood 95 mg/dL (75-99)
[2018-04-11] MEDS ORDERED: HYDROmorphone 1 MG/ML 1 ML SYRINGE IVP PRN ×2 (17:57)
[2018-04-11 18:15] VITALS: BP 127/68; PULSE 69; TEMP 97.8
[2018-04-11] MEDS ORDERED: COLCHICINE 0.6 MG EACH PO SCH (21:00)
[2018-04-11] MEDS ORDERED: AMIODARONE 200 MG TAB PO SCH (21:00)
--- NOTE | 2018-04-12 13:53 | CDI ---
Last Revision, August 2017 Documentation Clarification Form Date: 04/12/18 From: Sofie Manuelito Yashira Butts, Bevel Polisher Hours-8:30 am & 5 pm [place] Admit Date: 04/06/2018 11:28:00 AM Patient Name: Cesilia Mccormick Visit Number: [id number] Discharge Date: 04/11/18 ATTENTION: The Clinical Documentation Specialists (CDI) and [facility] Coding Staff appreciate your assistance in clarifying documentation. Please respond to the clarification below the line at the bottom and electronically sign. The CDI & [facility] Coding staff will review the response and follow-up if needed. Please note: Queries are made part of the Legal Health Record. If you have any questions, please contact the author of this message via ITS. Dr. Emigdio Day A diagnosis of blood loss anemia lacks specificity to accurately reflect your patients severity of condition and clarification is needed. Clinical indicators: complication with perforation of the right ventricle with hemopericardium Hemoglobin: 11.1, 9.2, 7.9, 7.4, 7.9, 7.7, 8.6 Hematocrit: 34.3, 28.6, 24.6, 22.7, 23.1, 24.0, 27.1 Treatment: No transfusion fluids, monitoring labs In order to capture the severity of condition, please clarify the type of anemia and etiology if known: Acute blood loss anemia Acute on chronic blood loss anemia Chronic blood loss anemia Unable to determine Other, please specify Please continue to document in your progress notes and discharge summary in order to capture severity of illness and risk of mortality. Include clinical findings that support your diagnosis. MTDD
--- NOTE | 2018-04-16 09:31 | CDI ---
Last Revision, August 2017 Documentation Clarification Form Date: 04/16/2018 From: Sofie Manuelito Yashira Butts, Eyeglass Cutter Hours-8:30 am & 5 pm [place] Admit Date: 04/06/2018 11:28:00 AM Patient Name: Cesilia Mccormick Visit Number: [id number] Discharge Date: 04/11/18 ATTENTION: The Clinical Documentation Specialists (CDI) and [facility] Coding Staff appreciate your assistance in clarifying documentation. Please respond to the clarification below the line at the bottom and electronically sign. The CDI & [facility] Coding staff will review the response and follow-up if needed. Please note: Queries are made part of the Legal Health Record. If you have any questions, please contact the author of this message via ITS. Dr. Emigdio Day A diagnosis of blood loss anemia lacks specificity to accurately reflect your patients severity of condition and clarification is needed. Clinical indicators: complication with perforation of the right ventricle with hemopericardium Hemoglobin: 11.1, 9.2, 7.9, 7.4, 7.9, 7.7, 8.6 Hematocrit: 34.3, 28.6, 24.6, 22.7, 23.1, 24.0, 27.1 Treatment: No transfusion fluids, monitoring labs In order to capture the severity of condition, please clarify the type of anemia and etiology if known: Acute blood loss anemia Acute on chronic blood loss anemia Chronic blood loss anemia Unable to determine Other, please specify Please continue to document in your progress notes and discharge summary in order to capture severity of illness and risk of mortality. Include clinical findings that support your diagnosis. MTDD
== END 2018-04-11 18:30 | DRG 908 ==
LOC: CATHEP 07:01 → 6ICU 11:14 → CATHEP 11:27 → 6ICU 11:28 → 6SEL 04-09 20:15
PROVIDERS: ADMIT Internal Medicine; ATTEND Internal Medicine
PROC: 02HK3JZ Insertion of Pacemaker Lead into Right Ventricle, Percutaneous Approach (ICD-10-PCS; 2018-04-06)
PROC: 0W9D30Z Drainage of Pericardial Cavity with Drainage Device, Percutaneous Approach (ICD-10-PCS; 2018-04-06)
PROC: 06HM33Z Insertion of Infusion Device into Right Femoral Vein, Percutaneous Approach (ICD-10-PCS; 2018-04-06)
PROC: 04HY32Z Insertion of Monitoring Device into Lower Artery, Percutaneous Approach (ICD-10-PCS; 2018-04-06)
PROC: 4A133B1 Monitoring of Arterial Pressure, Peripheral, Percutaneous Approach (ICD-10-PCS; 2018-04-06)
PROC: 4A133J1 Monitoring of Arterial Pulse, Peripheral, Percutaneous Approach (ICD-10-PCS; 2018-04-06)
PROC: 0JH606Z Insertion of Pacemaker, Dual Chamber into Chest Subcutaneous Tissue and Fascia, Open Approach (ICD-10-PCS; principal; 2018-04-06 07:48)
PROC: 02H63JZ Insertion of Pacemaker Lead into Right Atrium, Percutaneous Approach (ICD-10-PCS; 2018-04-06 07:48)
DX: I97.51 Accidental puncture and laceration of a circulatory system organ or structure during a circulatory system procedure (principal); I31.4 Cardiac tamponade; I31.2 Hemopericardium, not elsewhere classified; J90 Pleural effusion, not elsewhere classified; J98.11 Atelectasis; Y83.1 Surgical operation with implant of artificial internal device as the cause of abnormal reaction of the patient, or of later complication, without mention of misadventure at the time of the procedure; I95.9 Hypotension, unspecified; I49.5 Sick sinus syndrome; G20 Parkinson's disease; E11.40 Type 2 diabetes mellitus with diabetic neuropathy, unspecified; I48.0 Paroxysmal atrial fibrillation; D69.6 Thrombocytopenia, unspecified; I07.1 Rheumatic tricuspid insufficiency; E78.2 Mixed hyperlipidemia; I10 Essential (primary) hypertension; M10.9 Gout, unspecified; K59.00 Constipation, unspecified; K21.9 Gastro-esophageal reflux disease without esophagitis; D50.0 Iron deficiency anemia secondary to blood loss (chronic); R29.6 Repeated falls; E66.9 Obesity, unspecified; Z68.30 Body mass index [BMI] 30.0-30.9, adult; Z79.84 Long term (current) use of oral hypoglycemic drugs; Z79.1 Long term (current) use of non-steroidal anti-inflammatories (NSAID); Z79.82 Long term (current) use of aspirin; Z79.51 Long term (current) use of inhaled steroids; Z79.899 Other long term (current) drug therapy; Z85.828 Personal history of other malignant neoplasm of skin; Z90.49 Acquired absence of other specified parts of digestive tract; Z90.710 Acquired absence of both cervix and uterus; Z98.42 Cataract extraction status, left eye; Z86.018 Personal history of other benign neoplasm; Z98.41 Cataract extraction status, right eye; Z88.0 Allergy status to penicillin; Z88.8 Allergy status to other drugs, medicaments and biological substances; Z91.041 Radiographic dye allergy status; Z82.49 Family history of ischemic heart disease and other diseases of the circulatory system; Z83.3 Family history of diabetes mellitus; Z82.0 Family history of epilepsy and other diseases of the nervous system; Z80.3 Family history of malignant neoplasm of breast
CPT/HCPCS: 33010; 33208; 36415; 71045; 71046; 80048; 80051; 80053; 82565; 82947; 84520; 85025; 85027; 85610; 85730; 86850; 86900; 86901; 93308

== ENCOUNTER → 2018-05-08 | Outpatient (CLI) | payer MEDICARE, BC ==
[2018-05-08 11:22] LABS: Basophils % (A) 0 %; Eosinophils # (A) 0.1 k/uL (0-0.7); Eosinophils % (A) 1 %; HGB 11.1 gm/dL (11.4-16.0); Hypochromasia Moderate; Lymphocytes # (A) 0.9 k/uL (1.0-4.8); Lymphocytes % (A) 13 %; MCH 26.4 pg (25.0-35.0); MCHC 31.7 g/dL (31.0-37.0); MCV 83.5 fL (80.0-100.0); Mean Platelet Volume 7.6; Monocytes # (A) 0.6 k/uL (0-1.0); Monocytes % (A) 9 %; Neutrophils # (A) 5.2 k/uL (1.3-7.7); Neutrophils % (A) 75 %; Platelet Count 301 k/uL (150-450); RBC 4.19 m/uL (3.80-5.40); RDW 15.5 % (11.5-15.5)
[2018-05-08 11:34] LABS: Albumin 3.5 g/dL (3.5-5.0); C Reactive Protein 47.3 mg/L (<10.0); Calcium 9.5 mg/dL (8.4-10.2); Magnesium 1.6 mg/dL (1.6-2.3); Phosphorus 3.7 mg/dL (2.5-4.5); Potassium 3.8 mmol/L (3.5-5.1); Total Bilirubin 0.4 mg/dL (0.2-1.3); Total Protein 6.1 g/dL (6.3-8.2); Uric Acid 5.6 mg/dL (3.7-7.4)
[2018-05-08 12:46] LABS: Erythrocyte Sedimentation Rate 44 mm/hr (0-20)
[2018-05-08 16:43] LABS: Iron Saturation 4.23 (12.00-45.00); Vitamin D 25 Hydroxy 40.5 ng/mL (30.0-100.0)
[2018-05-08 16:59] LABS: Parathyroid Hormone Intact 32.7 pg/mL (14.0-72.0)
[2018-05-08 18:27] LABS: Hemoglobin A1C 5.2 % (4.0-6.0)
== END | disposition home or self-care (01) ==
LOC: LABWHC1 10:32
PROVIDERS: ATTEND Internal Medicine Interventional Cardiology
DX: N18.3 Chronic kidney disease, stage 3 (moderate) (principal); D63.1 Anemia in chronic kidney disease; J44.9 Chronic obstructive pulmonary disease, unspecified; E11.22 Type 2 diabetes mellitus with diabetic chronic kidney disease; I12.9 Hypertensive chronic kidney disease with stage 1 through stage 4 chronic kidney disease, or unspecified chronic kidney disease; M10.9 Gout, unspecified; E78.5 Hyperlipidemia, unspecified; E21.3 Hyperparathyroidism, unspecified; D50.0 Iron deficiency anemia secondary to blood loss (chronic); I48.0 Paroxysmal atrial fibrillation; Z95.0 Presence of cardiac pacemaker
CPT/HCPCS: 36415; 80053; 80061; 82306; 82550; 82728; 83036; 83540; 83550; 83735; 83970; 84100; 84443; 84550; 85025; 85652; 86140

== ENCOUNTER → 2018-06-29 | Outpatient (CLI) | payer MEDICARE, BC ==
--- NOTE | 2018-06-29 18:41 | CT ---
EXAMINATION TYPE: CT brain wo con DATE OF EXAM: 06/29/2018 COMPARISON: 03/03/2011 HISTORY: Patient complains of episodes of dysphasia. CT DLP: 762.6 mGycm Automated exposure control for dose reduction was used. FINDINGS: There is cerebral cortical atrophy. There is no mass effect nor midline shift. There is no sign of in tracranial hemorrhage. The calvarium is intact. IMPRESSION: CEREBRAL ATROPHY. NO ACUTE INTRACRANIAL ABNORMALITY. NO SIGNIFICANT CHANGE.
== END ==
LOC: RADCTMAIN 17:38
PROVIDERS: ATTEND Psychiatry & Neurology Neurology
DX: G31.9 Degenerative disease of nervous system, unspecified (principal); G20 Parkinson's disease
CPT/HCPCS: 70450

== ENCOUNTER 2018-10-05 14:13 | Outpatient (CLI) | payer MEDICARE, BC ==
--- NOTE | 2018-10-05 14:55 | US ---
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 Patient states having a pacemaker surgery in March 2018 where the heart was nicked and had to have repair through the right groin. Patient has felt a lump ever s sancho. EXAM PERFORMED: Grayscale and color Doppler duplex imaging performed of the groin, post cardiac jason ter to assess for pseudoaneurysm. SIDE PERFORMED: Right Color and Waveform Doppler performed to assess for the presence of pseudoaneurysm; Is there ultrasound evidence of a pseudoaneurysm: yes. Appears bilobular, vascular proximal lobe me asuring only 2.3 x 2.2 x 1.4 cm. just superficial to the common femoral artery. 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 This message alert has been sent to Sharon Mercer MD via the preferences provided by the clinician for the receipt of Radiology Critical Findings. [facility] ID [id number]."
[2018-10-05] MEDS ORDERED: THROMBIN (BOVINE) 5,000 UNIT VIAL MISCELLANE STA (15:42)
[2018-10-05 16:01] LABS: Glucose,Whole Blood 68 mg/dL (75-99)
[2018-10-05 16:18] LABS: Glucose,Whole Blood 84 mg/dL (75-99)
[2018-10-05 16:22] VITALS: RESP 16; TEMP 98
[2018-10-05 17:18] VITALS: BP 140/61; PULSE 66
--- NOTE | 2018-10-06 11:36 | US ---
EXAMINATION TYPE: US inj pseudoaneurysm DATE OF EXAM: 10/05/2018 COMPARISON: NONE CLINICAL HISTORY: right pseudoaneurysm. History of right groin catheterization 6 months prior. Growin g right groin mass recently. PROCEDURE: Informed consent was obtained with the patient's daughter in attendance. Patient also disc ussed the case with the referring clinician from cardiology. Ultrasound used with sterile technique. The skin overlying the patient's right groin pseudoaneurysm was localized with ultrasound and the ove rlying skin was prepped and draped. Lidocaine was used for local anesthesia. 25-gauge needle was adva nced into the pseudoaneurysm under direct ultrasound guidance and approximately 50 units of thrombin were injected. No residual color flow present within the pseudoaneurysm, low-level internal echoes co mpatible with thrombus within the pseudoaneurysm. [place] artery remains patent. Patient remained neur ovascularly intact distally. Hemostasis achieved. No immediate complication. Patient discharged witho ut complication. IMPRESSION: Successful pseudoaneurysm thrombin injection with thrombosis of the pseudoaneurysm in the right groin . Patient to return for follow-up right groin ultrasound on 10/06/2018.
== END 2018-10-05 17:10 | disposition home or self-care (01) ==
LOC: RADUSWWP 14:13
PROVIDERS: ATTEND Internal Medicine Interventional Cardiology
DX: I72.4 Aneurysm of artery of lower extremity (principal); I74.3 Embolism and thrombosis of arteries of the lower extremities
CPT/HCPCS: 36002; 93975

== ENCOUNTER → 2018-10-06 | Outpatient (CLI) | payer MEDICARE, BC ==
--- NOTE | 2018-10-06 11:38 | US ---
EXAMINATION TYPE: US lower ext pseudo artery RT DATE OF EXAM: 10/06/2018 COMPARISON: Previous exam 10/05/2018 CLINICAL HISTORY: PSEUDOANEURYSM,POST THROMBIN INJECTION. EXAM PERFORMED: Grayscale and color Doppler duplex imaging performed of the groin, post cardiac jason ter to assess for pseudoaneurysm status post thrombin injection 10/05/2018. SIDE PERFORMED: Right groin The pseudoaneurysm shows recurrent flow on color and spectral Doppler imaging. Positive for pseudoane urysm recurrence. Dr. Mercer's answering service notified. Dr. Mercer failed to call back within 35 minutes. Patient decided to leave. Technologist recommended patient go to ER. 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
== END | disposition home or self-care (01) ==
LOC: RADUSWWP 10:11
PROVIDERS: ATTEND Radiology Diagnostic Radiology
DX: I72.8 Aneurysm of other specified arteries (principal)
CPT/HCPCS: 93975

== ENCOUNTER → 2018-10-26 | Outpatient (CLI) | payer MEDICARE, BC ==
[2018-10-26 17:27] LABS: Thyroid Peroxidase Antibodies 31.1 U/mL (0.0-60.0)
[2018-10-26 17:32] LABS: Anion Gap 12.7 mmol/L (4.00-12.00); Calcium 9.9 mg/dL (8.7-10.3); Carbon Dioxide 26.3 mmol/L (21.6-31.8)
[2018-10-26 18:13] LABS: Hemoglobin A1C 6.9 % (4.0-6.0)
== END | disposition home or self-care (01) ==
LOC: LABWHC1 09:31
PROVIDERS: ATTEND Internal Medicine
DX: E87.8 Other disorders of electrolyte and fluid balance, not elsewhere classified (principal); N18.3 Chronic kidney disease, stage 3 (moderate); E11.22 Type 2 diabetes mellitus with diabetic chronic kidney disease; E03.9 Hypothyroidism, unspecified
CPT/HCPCS: 36415; 80048; 83036; 84439; 84443; 86376; 86800

== ENCOUNTER → 2019-01-04 | Outpatient (CLI) | payer MEDICARE, BC ==
[2019-01-04 18:36] LABS: T4, Free (Free Thyroxine) 1.3 ng/dL (0.80-1.80)
== END ==
LOC: LABWHC1 12:13
PROVIDERS: ATTEND Internal Medicine
DX: E03.9 Hypothyroidism, unspecified (principal)
CPT/HCPCS: 36415; 84439; 84443

== ENCOUNTER → 2019-04-08 | Outpatient (CLI) | payer MEDICARE, BC ==
[2019-04-08 16:10] LABS: African American GFR (CKD) 47.7 (60.0-200.0); Albumin 3.7 g/dL (3.80-4.90); Albumin/Globulin Ratio 2.06 (1.60-3.17); Anion Gap 8.8 mmol/L (4.00-12.00); BUN/Creat Ratio 12.5 Ratio (12.00-20.00); Calcium 9.6 mg/dL (8.7-10.3); Carbon Dioxide 29.2 mmol/L (21.6-31.8); Globulin 1.8 g/dL (1.6-3.3); Potassium 3.9 mmol/L (3.5-5.5); Total Bilirubin 0.4 mg/dL (0.2-1.2); Total Protein 5.5 g/dL (6.2-8.2)
[2019-04-08 16:17] LABS: T4, Free (Free Thyroxine) 1.1 ng/dL (0.80-1.80)
== END | disposition home or self-care (01) ==
LOC: LABWHC1 10:48
PROVIDERS: ATTEND Internal Medicine Interventional Cardiology
DX: E03.9 Hypothyroidism, unspecified (principal); I10 Essential (primary) hypertension
CPT/HCPCS: 36415; 80053; 84439; 84443; 84550

== ENCOUNTER → 2019-08-10 | Outpatient (CLI) | payer MEDICARE, BC ==
[2019-08-10 11:40] LABS: Basophils # (A) 0.2 k/uL (0-0.2); Basophils % (A) 3 %; Eosinophils # (A) 0.1 k/uL (0-0.7); Eosinophils % (A) 2 %; HCT 47.1 % (34.0-46.0); Lymphocytes # (A) 0.9 k/uL (1.0-4.8); Lymphocytes % (A) 11 %; MCH 28.6 pg (25.0-35.0); MCHC 31.9 g/dL (31.0-37.0); MCV 89.8 fL (80.0-100.0); Mean Platelet Volume 7.3; Monocytes # (A) 0.5 k/uL (0-1.0); Monocytes % (A) 7 %; Neutrophils % (A) 77 %; Platelet Count 222 k/uL (150-450); RBC 5.25 m/uL (3.80-5.40); RDW 13.6 % (11.5-15.5); WBC 7.8 k/uL (3.8-10.6)
[2019-08-10 12:37] LABS: Erythrocyte Sedimentation Rate 19 mm/hr (0-20)
[2019-08-10 17:42] LABS: African American GFR (CKD) 39.6 (60.0-200.0); Anion Gap 13.2 mmol/L (4.00-12.00); C Reactive Protein 0.9 mg/dL (0.0-0.8); Calcium 9.7 mg/dL (8.7-10.3); Carbon Dioxide 28.8 mmol/L (21.6-31.8); Chol/HDL Ratio 2.69; Potassium 3.3 mmol/L (3.5-5.5)
[2019-08-10 18:14] LABS: Hemoglobin A1C 7.3 % (4.0-6.0)
== END | disposition home or self-care (01) ==
LOC: LABWHC1 10:05
PROVIDERS: ATTEND Internal Medicine
DX: E78.5 Hyperlipidemia, unspecified (principal); I12.9 Hypertensive chronic kidney disease with stage 1 through stage 4 chronic kidney disease, or unspecified chronic kidney disease; E11.22 Type 2 diabetes mellitus with diabetic chronic kidney disease; D63.1 Anemia in chronic kidney disease; J44.9 Chronic obstructive pulmonary disease, unspecified; N18.3 Chronic kidney disease, stage 3 (moderate)
CPT/HCPCS: 36415; 80048; 80061; 82550; 83036; 85025; 85652; 86140

== ENCOUNTER 2019-09-21 15:05 | Inpatient (IN) | payer MEDICARE, BC ==
[2019-09-21] MEDS ORDERED: SODIUM CHLORIDE 0.9% 500 ML 500 ML IV STA (15:44)
--- NOTE | 2019-09-21 15:52 | ED ---
Fall HPI - General Chief Complaint: Fall Stated Complaint: fall Time Seen by Provider: 09/21/19 15:23 Source: patient Mode of arrival: ambulatory - History of Present Illness Initial Comments: Patient is an 83-year-old female, with past medical history of Parkinson's and A. fib, presenting to emergency Department via EMS with complaints of weakness since this morning. Patient states approximately 2 AM she sat up in bed and then slid down onto her bottom on the floor. Patient states she tried to get up however she felt like she was weak and was not able to pull herself back up. Patient states she crawled to the bathroom to try and stand up without success. Patient denies hitting her head or LOC. Patient denies any pain anywhere. Patient states her son came to the house a few hours prior to arrival and found her. Patient states last few days she has been feeling fatigued and has no appetite. Patient denies fever, nausea, vomiting, abdominal pain. Patient sta jazmin she was treated with Levaquin a few weeks ago for upper respiratory symptoms. She states she feels like that is clearing up. Patient denies any urinary complaints. Patient denies any other complaints at this time. Upon arrival to the ER, her vital signs are stable. - Related Data Home Medications Medication Instructions Recorded Confirmed Allopurinol [Zyloprim] 150 mg PO DAILY 05/03/17 10/05/18 Ascorbic Acid [Vitamin C] 500 mg PO DAILY 05/03/17 10/05/18 Carbidopa-Levodopa 25-100 mg 1 tab PO 5XD 05/03/17 10/05/18 [Sinemet 25-100 mg] Gabapentin [Neurontin] 400 mg PO 5XD 05/03/17 10/05/18 Meclizine [Antivert] 25 mg PO BID 05/03/17 10/05/18 Multivitamins, Thera [Multivitamin 1 tab PO DAILY 05/03/17 10/05/18 (formulary)] Pantoprazole Sodium [Protonix] 40 mg PO DAILY 05/03/17 10/05/18 traZODone HCL [Desyrel] 100 mg PO HS 05/03/17 10/05/18 Budesonide/Formoterol Fumarate 1 puff INHALATION PRN 04/06/18 [Symbicort 80-4.5 Mcg Inhaler] Allopurinol [Zyloprim] 150 mg PO DAILY 10/05/18 10/05/18 Apixaban [Eliquis] 5 mg PO BID 10/05/18 10/05/18 Fenofibrate 40 mg PO DAILY 10/05/18 10/05/18 Furosemide [Lasix] 20 mg PO BID 10/05/18 10/05/18 Glimepiride [Amaryl] 2 mg PO [id number] 10/05/18 10/05/18 Rosuvastatin [Crestor] 20 mg PO HS 10/05/18 10/05/18 hydrALAZINE HCL [Apresoline] 25 mg PO BID 10/05/18 10/05/18 Previous Rx's Medication Instructions Recorded Acetaminophen Tab [Tylenol] 650 mg PO Q6HR PRN tab 04/11/18 Amiodarone [Cordarone] 200 mg PO BID tab 04/11/18 Colchicine [Colcrys] 0.6 mg PO BID each 04/11/18 Metoprolol Tartrate [Lopressor] 50 mg PO BID tab 04/11/18 Allergies Allergy/AdvReac Type Severity Reaction Status Date / Time Iodinated Contrast Media Allergy Anaphylaxis Verified 10/05/18 16:06 [Iodinated Contrast- Oral and IV Dye] lisinopril Allergy KIDNEY Verified 10/05/18 16:06 FAILURE Penicillins Allergy Itching Verified 10/05/18 16:06 codeine AdvReac Nausea & Verified 10/05/18 16:06 Vomiting meperidine [From Demerol] AdvReac Nausea & Verified 10/05/18 16:06 Vomiting morphine AdvReac Nausea & Verified 10/05/18 16:06 Vomiting Review of Systems ROS Statement: Those systems with pertinent positive or pertinent negative responses have been documented in the HPI. ROS Other: All systems not noted in ROS Statement are negative. Past Medical History Past Medical History: Atrial Fibrillation, Cancer, Diabetes Mellitus, Eye Disorder, GERD/Reflux, Hyperlipidemia, Hypertension, Musculoskeletal Disorder, Neurologic Disorder Additional Past Medical History / Comment(s): HX SKIN CANCER, constipation, skin cancer left ankle basal cell. PARKINSON, PAST HX KIDNEY FAILURE R/T MEDICATION- RESOLVED, history of sick sinus syndrome, history of cataracts. History of Any Multi-Drug Resistant Organisms: None Reported Past Surgical History: Adenoidectomy, Appendectomy, Back Surgery, Bowel Resection, Cholecystectomy, Ear Surgery, Hernia Repair, Hysterectomy, Tonsillectomy Additional Past Surgical History / Comment(s): 04/06/18 PACEMAKER INSERTION. T & A-1939, APPENDECTOMY-1945, LAP KATARINA-1968, HYST-1974, SX FOR RECTAL FISTULA X 3- 1977,1986,1998, BILAT CATARACTS-1998, BACK SX x4-1999,2003,2012,2018- AFTER LAST BACK SX HAD A BLOOD CLOT AND THEY HAD TO GO BACK IN TO REMOVED) COLONOSCOPY- 2009, SIGMOID RESECTION- 2009, 12 CM LIPOMA REMOVED FROM LT ARM- 2001, BASAL CELL CARCINOMA REMOVED LT ANKLE 2006, ABD. HERNIA REPAIR WITH MESH- 2009 Past Anesthesia/Blood Transfusion Reactions: Motion Sickness, Postoperative Nausea & Vomiting (PONV) Type of Cardiac Device: Permanent Pacemaker Device Placement Date:: 04/06/2018 Past Psychological History: No Psychological Hx Reported Smoking Status: Never smoker Past Alcohol Use History: None Reported Past Drug Use History: None Reported - Past Family History Mother Family Medical History: Cancer, Diabetes Mellitus, Hypertension Additional Family Medical History / Comment(s): Parkinson's disease Father Family Medical History: Myocardial Infarction ([place]) Additional Family Medical History / Comment(s): FROM [place] AT AGE 56 Son(s) Family Medical History: Myocardial Infarction ([place]) General Exam - General Exam Comments Initial Comments: GENERAL: Well-appearing and in no acute distress. Patient appears chilled. HEAD: Atraumatic, normocephalic. EYES: Pupils equal round and reactive to light, extraocular movements intact, sclera anicteric, conjunctiva are normal. ENT: TMs normal, nares patent, oropharynx clear without exudates. Moist mucous membranes. NECK: Normal range of motion, supple without lymphadenopathy or JVD. LUNGS: Breath sounds clear to auscultation bilaterally and equal. No wheezes rales or rhonchi. HEART: Regular rate and rhythm without murmurs, rubs or gallops. ABDOMEN: Soft, nontender, normoactive bowel sounds. No guarding, no rebound. No masses appreciated. : Deferred EXTREMITIES: Normal range of motion, no pitting or edema. No clubbing or cyanosis. 5/5 strength in upper and lower extremities. Sensation equal in bilateral lower and upper extremities. NEUROLOGICAL: Cranial nerves II through XII grossly intact. Normal speech. PSYCH: Normal mood, normal affect. SKIN: Warm, Dry, normal turgor, no rashes or lesions noted. Limitations: no limitations Course Vital Signs 09/21/19 09/21/19 09/21/19 15:15 15:28 18:02 Pulse Rate 60 68 Respiratory 18 18 Rate Blood Pressure 153/93 144/67 O2 Sat by Pulse 99 98 Oximetry Medical Decision Making - Medical Decision Making Patient is an 83-year-old female presenting for increase in weakness since early this morning. History of Parkinson's and A. fib. Vital signs are stable upon arrival. Patient was recently treated with Levaquin for upper respiratory infection which she feels is improving. Labs reveal leukocytosis of 17.2, CK is 281. No other acute abnormalities. UA is normal. Chest x-ray reveals no acute abnormalities. I discussed these findings with the patient. Patient continues to feel weak. Patient's son and daughter are also in the room. Patient does live alone and is not comfortable going home. Patient will be admitted for dehydration, weakness. Case is discussed with Dr. Whiting who agrees this plan of care. Patient was accepted by Dr. Day. She will be continued with fluids and consult to PT. - Lab Data Result diagrams: 09/21/19 16:10 09/21/19 16:10 Lab Results 09/21/19 09/21/19 09/21/19 Range/Units 16:07 16:10 16:10 WBC 17.2 H (3.8-10.6) k/uL RBC 5.32 (3.80-5.40) m/uL Hgb 15.2 (11.4-16.0) gm/dL Hct 47.0 H (34.0-46.0) % MCV 88.3 (80.0-100.0) fL MCH 28.6 (25.0-35.0) pg MCHC 32.3 (31.0-37.0) g/dL RDW 13.5 (11.5-15.5) % Plt Count 300 (150-450) k/uL Neutrophils % 88 % Lymphocytes % 6 % Monocytes % 5 % Eosinophils % 0 % Basophils % 0 % Neutrophils # 15.2 H (1.3-7.7) k/uL Lymphocytes # 0.9 L (1.0-4.8) k/uL Monocytes # 0.9 (0-1.0) k/uL Eosinophils # 0.1 (0-0.7) k/uL Basophils # 0.1 (0-0.2) k/uL PT (9.0-12.0) sec INR (<1.2) APTT (22.0-30.0) sec Sodium 138 (137-145) mmol/L Potassium 3.7 (3.5-5.1) mmol/L Chloride 101 (98-107) mmol/L Carbon Dioxide 26 (22-30) mmol/L Anion Gap 11 mmol/L BUN 13 (7-17) mg/dL Creatinine 1.18 H (0.52-1.04) mg/dL Est GFR (CKD-EPI)AfAm 49 (>60 ml/min/1.73 sqM) Est GFR (CKD-EPI)NonAf 42 (>60 ml/min/1.73 sqM) Glucose 126 H (74-99) mg/dL Calcium 10.1 (8.4-10.2) mg/dL Total Bilirubin 0.8 (0.2-1.3) mg/dL AST 77 H (14-36) U/L ALT 27 (4-34) U/L Alkaline Phosphatase 111 (38-126) U/L Creatine Kinase (30-135) U/L Total Protein 7.0 (6.3-8.2) g/dL Albumin 3.9 (3.5-5.0) g/dL Urine Color Yellow Urine Appearance Clear (Clear) Urine pH 7.0 (5.0-8.0) Ur Specific [place] 1.012 (1.001-1.035) Urine Protein 1+ H (Negative) Urine Glucose (UA) Negative (Negative) Urine Ketones Negative (Negative) Urine Blood Negative (Negative) Urine Nitrite Negative (Negative) Urine Bilirubin Negative (Negative) Urine Urobilinogen <2.0 (<2.0) mg/dL Ur Leukocyte Esterase Negative (Negative) Urine RBC <1 (0-5) /hpf Urine WBC 2 (0-5) /hpf 09/21/19 09/21/19 Range/Units 16:10 16:10 WBC (3.8-10.6) k/uL RBC (3.80-5.40) m/uL Hgb (11.4-16.0) gm/dL Hct (34.0-46.0) % MCV (80.0-100.0) fL MCH (25.0-35.0) pg MCHC (31.0-37.0) g/dL RDW (11.5-15.5) % Plt Count (150-450) k/uL Neutrophils % % Lymphocytes % % Monocytes % % Eosinophils % % Basophils % % Neutrophils # (1.3-7.7) k/uL Lymphocytes # (1.0-4.8) k/uL Monocytes # (0-1.0) k/uL Eosinophils # (0-0.7) k/uL Basophils # (0-0.2) k/uL PT 11.4 (9.0-12.0) sec INR 1.1 (<1.2) APTT 28.5 (22.0-30.0) sec Sodium (137-145) mmol/L Potassium (3.5-5.1) mmol/L Chloride (98-107) mmol/L Carbon Dioxide (22-30) mmol/L Anion Gap mmol/L BUN (7-17) mg/dL Creatinine (0.52-1.04) mg/dL Est GFR (CKD-EPI)AfAm (>60 ml/min/1.73 sqM) Est GFR (CKD-EPI)NonAf (>60 ml/min/1.73 sqM) Glucose (74-99) mg/dL Calcium (8.4-10.2) mg/dL Total Bilirubin (0.2-1.3) mg/dL AST (14-36) U/L ALT (4-34) U/L Alkaline Phosphatase (38-126) U/L Creatine Kinase 281 H (30-135) U/L Total Protein (6.3-8.2) g/dL Albumin (3.5-5.0) g/dL Urine Color Urine Appearance (Clear) Urine pH (5.0-8.0) Ur Specific [place] (1.001-1.035) Urine Protein (Negative) Urine Glucose (UA) (Negative) Urine Ketones (Negative) Urine Blood (Negative) Urine Nitrite (Negative) Urine Bilirubin (Negative) Urine Urobilinogen (<2.0) mg/dL Ur Leukocyte Esterase (Negative) Urine RBC (0-5) /hpf Urine WBC (0-5) /hpf Disposition Clinical Impression: Dehydration, Weakness, Fall Disposition: ADMITTED IP TO THIS [facility] Condition: Stable Is patient prescribed a controlled substance at d/c from ED?: No Referrals: Emigdio Day MD [Primary Care Provider] - 1-2 days Decision Date: 09/21/19 Decision Time: 18:35
[2019-09-21 16:26] LABS: Basophils # (A) 0.1 k/uL (0-0.2); Basophils % (A) 0 %; Eosinophils # (A) 0.1 k/uL (0-0.7); Eosinophils % (A) 0 %; HGB 15.2 gm/dL (11.4-16.0); Lymphocytes # (A) 0.9 k/uL (1.0-4.8); Lymphocytes % (A) 6 %; MCH 28.6 pg (25.0-35.0); MCHC 32.3 g/dL (31.0-37.0); MCV 88.3 fL (80.0-100.0); Mean Platelet Volume 8.1; Monocytes # (A) 0.9 k/uL (0-1.0); Monocytes % (A) 5 %; Neutrophils # (A) 15.2 k/uL (1.3-7.7); Neutrophils % (A) 88 %; Platelet Count 300 k/uL (150-450); RBC 5.32 m/uL (3.80-5.40); RDW 13.5 % (11.5-15.5); WBC 17.2 k/uL (3.8-10.6)
[2019-09-21 16:42] LABS: Appearance,Urine Clear (Clear); Bilirubin,Urine Negative (Negative); Blood,Urine Negative (Negative); Color,Urine Yellow; Glucose,Urine (UA) Negative (Negative); Ketones,Urine Negative (Negative); Leukocyte Esterase,Urine Negative (Negative); Nitrite,Urine Negative (Negative); Protein,Urine 1+ (Negative); RBC,Urine <1 /hpf (0-5); Specific Gravity,Urine 1.012 (1.001-1.035); Urobilinogen,Urine <2.0 mg/dL (<2.0); WBC,Urine 2 /hpf (0-5)
[2019-09-21 16:44] LABS: INR 1.1 (<1.2); Partial Thromboplastin Time 28.5 sec (22.0-30.0); Prothrombin Time 11.4 sec (9.0-12.0)
[2019-09-21 16:45] LABS: Albumin 3.9 g/dL (3.5-5.0); Calcium 10.1 mg/dL (8.4-10.2); Potassium 3.7 mmol/L (3.5-5.1); Total Bilirubin 0.8 mg/dL (0.2-1.3)
--- NOTE | 2019-09-21 16:57 | XR ---
EXAMINATION TYPE: XR chest 2V DATE OF EXAM: 09/21/2019 COMPARISON: 04/09/2018 HISTORY: Short of breath TECHNIQUE: 2 views FINDINGS: Heart is normal. Lungs are clear of infiltrate. There is no pleural effusion. There is left axillary pacemaker. Thoracic aorta is atheromatous. IMPRESSION: No active cardiopulmonary disease. Normal heart. There is clearing of the pleural effusio ns compared to old exam.
[2019-09-21] MEDS ORDERED: ONDANSETRON 4 MG/2 ML VIAL IVP PRN (18:33)
[2019-09-21] MEDS ORDERED: NALOXONE 0.4 MG/ML 1 ML VIAL IV PRN (18:33)
[2019-09-21] MEDS: SODIUM CHLORIDE 0.9% 1,000 ML IV SCH (18:57)
[2019-09-21] MEDS: AMIODARONE 200 MG TAB PO SCH (23:28)
[2019-09-21] MEDS: MECLIZINE 25 MG TAB PO SCH (23:28)
[2019-09-21] MEDS: COLCHICINE 0.6 MG EACH PO SCH (23:28)
[2019-09-21] MEDS: ATORVASTATIN 40 MG TAB PO SCH (23:35)
[2019-09-21] MEDS: APIXABAN 5 MG TAB PO SCH (23:35)
[2019-09-21] MEDS: traZODone HCL 100 MG TAB PO SCH (23:35)
[2019-09-21] MEDS: GABAPENTIN 400 MG CAP PO SCH ×2 (23:36→23:50)
[2019-09-21] MEDS: CARBIDOPA-LEVODOPA 25-100 MG 1 EACH TAB PO SCH ×2 (23:36→23:49)
[2019-09-21] MEDS: METOPROLOL TARTRATE 50 MG TAB PO SCH (23:42)
[2019-09-21] MEDS: hydrALAZINE HCL 25 MG TAB PO SCH (23:43)
[2019-09-21] MEDS: FUROSEMIDE 20 MG TAB PO SCH (23:43)
[2019-09-22] MEDS: GABAPENTIN 400 MG CAP PO SCH ×2 (05:56→10:44)
[2019-09-22] MEDS: CARBIDOPA-LEVODOPA 25-100 MG 1 EACH TAB PO SCH ×4 (05:56→20:42)
[2019-09-22 06:50] LABS: Glucose,Whole Blood 97 mg/dL (75-99)
[2019-09-22] MEDS: MECLIZINE 25 MG TAB PO SCH (07:11)
[2019-09-22] MEDS: FUROSEMIDE 20 MG TAB PO SCH (07:11)
[2019-09-22] MEDS: AMIODARONE 200 MG TAB PO SCH (07:12)
[2019-09-22] MEDS: hydrALAZINE HCL 25 MG TAB PO SCH (07:12)
[2019-09-22] MEDS: METOPROLOL TARTRATE 50 MG TAB PO SCH ×2 (07:12→20:44)
[2019-09-22] MEDS: APIXABAN 5 MG TAB PO SCH ×2 (07:12→20:43)
[2019-09-22] MEDS: GLIMEPIRIDE 2 MG TAB PO SCH (07:13)
[2019-09-22] MEDS: COLCHICINE 0.6 MG EACH PO SCH (07:13)
[2019-09-22] MEDS: PANTOPRAZOLE 40 MG TABLET PO SCH (07:13)
[2019-09-22] MEDS: ACETAMINOPHEN TAB 325 MG TAB PO PRN ×2 (07:37→20:41)
[2019-09-22] MEDS ORDERED: ALLOPURINOL 300 MG TAB PO SCH (09:00)
[2019-09-22] MEDS: SODIUM CHLORIDE 0.9% 1,000 ML IV SCH (10:45)
[2019-09-22] MEDS ORDERED: SYMBICORT 80-4.5 MCG INHALER INHALATION PRN (11:37)
[2019-09-22] MEDS: POTASSIUM CHLORIDE ER 10 MEQ TAB.ER.PRT PO SCH (12:12)
[2019-09-22] MEDS: LEVOTHYROXINE 50 MCG TAB PO SCH (12:12)
[2019-09-22 12:18] LABS: Glucose,Whole Blood 120 mg/dL (75-99)
[2019-09-22] MEDS: IPRATROPIUM BROMIDE 0.06% NASAL SPRAY (15 ML) EA NOSTRIL SCH ×2 (12:20→20:43)
[2019-09-22] MEDS ORDERED: MECLIZINE 25 MG TAB PO PRN (12:21)
--- NOTE | 2019-09-22 13:14 | XR ---
EXAM TYPE: LUMBAR SPINE X RAY SERIES COMPARISON: NONE HISTORY: Pain TECHNIQUE: 4 views are submitted. FINDINGS: Alignment is anatomic. The pedicles are intact. The transverse processes are intact. There is no s pondylolysis or spondylolisthesis. Postsurgical changes suggestive of hernia repair surgery noted. T here is a curvature of the spine with multilevel degenerative disc disease and hypertrophic changes. Multilevel facet arthropathy. No compression deformities. IMPRESSION: 1. Scoliosis with multilevel severe degenerative disc disease..
--- NOTE | 2019-09-22 13:16 | XR ---
EXAMINATION TYPE: XR Hip Bilateral and AP pelvis DATE OF EXAM: 09/22/2019 COMPARISON: NONE HISTORY: Pain TECHNIQUE: A single AP view of the pelvis is obtained. Two views of the bilateral hip are obtained. FINDINGS: There is no acute fracture/dislocation evident in the pelvis. The hip and sacroiliac join ts appear symmetric and unremarkable. The overlying soft tissue appears unremarkable. Degenerative change lower lumbar spine. Retained fecal debris throughout the visualized rectum and co debra. Arthropathy of the hips. Hypertrophic change of the greater trochanter on the left. 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 IMPRESSION: There is no acute fracture or dislocation in the pelvis or bilateral hip.
--- NOTE | 2019-09-22 13:22 | P.HPIM ---
History of Present Illness H&P Date: 09/22/19 (Fall at home with the pain, hep joint and low back pain, elevated CPK, leukocytosis.) Chief Complaint: Following at home with inability to stand up Dictation history and physical date of service 09/22/2019. Dictated by Dr. Day. Chief complaint: Patient brought from home by EMS after the lift her up from the floor, could not stand up, her son or her daughter could not lift her up with pain and weakness. History of present illness: Patient wake up during the night at 2 AM of 09/21/2019, was trying to go to the bathroom to urinate, patient could not stand up, Lit from the bed to the floor, she trying to go to the bathroom, she was alone in the house, she crawled on her legs and hands try to reach the toilet. Wasn't able to reach the toilet with the severe weakness try to pull herself up could not do that either, and could not control her urine and she soiled her clothes with the urine, she was alert conscious, she is able to grab a towel and cover herself with the incontinent. Her son he was coming to visit his mother he arrived around 2 PM secondary which is 12 hour on the tile which was cold. Her daughter tried to contact her but there is no answer, subsequently she came to check on her mom. They called the ambulance to take the mother to the ER at [facility] and in [facility]. In the ER: Patient seen by Lorena [facility], they did a chest x-ray and the results no active cardiopulmonary disease and the clearing of the pleural effusion compared to his previous exam, however no clear comment on the right hemidiaphragm. Which appeared with reviewing the x-ray right hemidiaphragm elevation, I did check with the patient she denied any shortness of breath or chest pain. And subsequently admitted the patient with dehydration and genera lized weakness added to the leukocytosis which the not found the reason for that, and the urine analysis was only 1+ proteinuria no infection. Subsequently they called me requesting admission for the hospital for for further treatment and investigation with the generalized weakness and started IV hydration. Past medical history: #1 surgical cholecystectomy in the right upper quadrant scar. #2 diabetes mellitus on oral hypoglycemic agent has been fairly controlled in the past. #3 Parkinson disease has been treated by Dr. Joey Beauchamp neurologist. #4 chronic kidney disease stage XL. #5 history of hypertension with hypertensive heart disease however on the floor her blood pressure towards the hypotension 107/69. #6 hypothyroidism #7 back surgery in the past in [facility] by neurosurgeon Dr. Hansen. #8 COPD with no history of smoking but mainly asthma. #9 status post pacemaker, paroxysmal atrial fibrillation, on Eliquis anticoagulant by cardiology, #10 GERD disease with heartburn. #11 hyper lipidemia. #12 on amiodarone by cardiology for cardiac rhythm currently on pacemaker rhythm 60/m. #13 hypokalemia. ALLERGY: Iodinated contrast media, lisinopril, codeine, meperidine, morphine. Social history: Lives alone, 2 sons and 1 daughter. Review of system 14 point has been reviewed, mainly associated with the chief complain generalized weakness, inability to stand up, decreased oral intake. No palpitation or chest pain, no cough or expectoration, no diarrhea and no constipation. Her tremor for the Parkinson disease has been stable. On exam: The head was normocephalic and atraumatic, hearing mild improvement,negative no rhinitis, oropharynx natural teeth with midline. Able to communicate with the conscious alert oriented 3. Neck supple no JVD no thyromegaly no lymphadenopathy trachea midline. Chest: Normal breath sound with decreased air entry on the right lower base with the right hemidiaphragm elevation. No cough or expectoration no rales and no rhonchi's. Patient complain of left lower ribs and right lower ribs some pain with palpation with the possible contusion with the fall. Heart was regular rhythm, EKG indicating this pacemaker rhythm with a range of heart rate of 60 with no chest pain on palpation. Abdomen: Patient wearing pull ups diaper, no tenderness on the 4 quadrant, no tenderness suprapubic. Musculoskeletal: Positive tenderness on palpation of the LS spine and the left hip joint worse than the right hip joint with pain on palpation and extended movement. Vascular: Perfusion of the lower extremities stable. Neurologically: No cranial nerve deficit, no lateralizing sign, and no headache or blurred vision. Assessment and plan: #1 generalized weakness, of unknown etiology, however patient has multiple comorbidity i.e. Parkinson disease, diabetes mellitus type 2, diabetic neuropathy. #2 history of hypertension however patient found to be low blood pressure for her, rule out adrenal insufficiency. #3 patient with a history of hypothyroidism, we'll check TSH with reflux, as well as morning Cortizone level. #4 orthostatic blood pressure to indicate probable dehydration. #5 chronic kidney disease stage III, be associated also with the dehydration prerenal considered. #6 monitoring the blood sugar and adding CBG covered with the scale. #7 adjusting the medication for the hypertension and was holding the hydralazine and the Lasix. #8 she had history in the past of gouty arthropathy, she is only on allopurinol the dose has been adjusted. #9 continue the anticoagulant and arrhythmia medication which ordered by cardiology in the past and continued . #10 obtaining EKG and troponin. #11 lipid profile tomorrow and continue the atorvastatin as well. #12 continue with IV gentle hydration 60 mL an hour, and obtaining BMP and a CBC tomorrow to see if the leukocytosis is associated with the stress of fall. #13 obtain x-ray of the LS spine and the pelvis for the hips bilateral to rule out any fractures with the fall. #14 tablets are investigation depend on the results of the current investigation, and continue monitoring the patient. Past Medical History Past Medical History: Atrial Fibrillation, Cancer, Diabetes Mellitus, Eye Disorder, GERD/Reflux, Hyperlipidemia, Hypertension, Musculoskeletal Disorder, Neurologic Disorder Additional Past Medical History / Comment(s): HX SKIN CANCER, constipation, skin cancer left ankle basal cell. PARKINSON, PAST HX KIDNEY FAILURE R/T MEDICATION- RESOLVED, history of sick sinus syndrome, history of cataracts. History of Any Multi-Drug Resistant Organisms: None Reported Past Surgical History: Adenoidectomy, Appendectomy, Back Surgery, Bowel Resection, Cholecystectomy, Ear Surgery, Hernia Repair, Hysterectomy, Tonsillectomy Additional Past Surgical History / Comment(s): 04/06/18 PACEMAKER INSERTION. T & A-1939, APPENDECTOMY-1945, LAP KATARINA-1968, HYST-1974, SX FOR RECTAL FISTULA X 3- 1977,1986,1998, BILAT CATARACTS-1998, BACK SX x4-1999,2003,2012,2018- AFTER LAST BACK SX HAD A BLOOD CLOT AND THEY HAD TO GO BACK IN TO REMOVED) COLON OSCOPY- 2009, SIGMOID RESECTION- 2009, 12 CM LIPOMA REMOVED FROM LT ARM-2001, BASAL CELL CARCINOMA REMOVED LT ANKLE 2006, ABD. HERNIA REPAIR WITH MESH-2009 Past Anesthesia/Blood Transfusion Reactions: Motion Sickness, Postoperative Nausea & Vomiting (PONV) Type of Cardiac Device: Permanent Pacemaker Device Placement Date:: 04/06/2018 Past Psychological History: No Psychological Hx Reported Additional Psychological History / Comment(s): PT LIVES ALONE IN SINGLE LEVEL HOME.HAS WALKER/WHEEL CHAIR.Does not drive -- DAUGHTER TAKES HER TO APT. Smoking Status: Never smoker Past Alcohol Use History: None Reported Past Drug Use History: None Reported - Past Family History Mother Family Medical History: Cancer, Diabetes Mellitus, Hypertension Additional Family Medical History / Comment(s): Parkinson's disease Father Family Medical History: Myocardial Infarction ([place]) Additional Family Medical History / Comment(s): FROM [place] AT AGE 56 Son(s) Family Medical History: Myocardial Infarction ([place]) Medications and Allergies Home Medications Medication Instructions Recorded Confirmed Type Carbidopa-Levodopa 25-100 mg 1 tab PO 5XD 05/03/17 09/21/19 History [Sinemet 25-100 mg] Gabapentin [Neurontin] 400 mg PO 5XD 05/03/17 09/21/19 History Meclizine [Antivert] 25 mg PO BID 05/03/17 09/21/19 History Pantoprazole Sodium [Protonix] 40 mg PO DAILY 05/03/17 09/21/19 History traZODone HCL [Desyrel] 100 mg PO HS 05/03/17 09/21/19 History Budesonide/Formoterol Fumarate 1 puff INHALATION Q12HR PRN 04/06/18 09/21/19 History [Symbicort 80-4.5 Mcg Inhaler] Metoprolol Tartrate [Lopressor] 50 mg PO BID tab 04/11/18 09/21/19 Rx Apixaban [Eliquis] 5 mg PO BID 10/05/18 09/21/19 History Glimepiride [Amaryl] 2 mg PO BID 10/05/18 09/21/19 History Rosuvastatin [Crestor] 20 mg PO HS 10/05/18 09/21/19 History hydrALAZINE HCL [Apresoline] 25 mg PO BID 10/05/18 09/21/19 History Allopurinol [Zyloprim] 100 mg PO DAILY 09/21/19 09/21/19 History Amiodarone [Cordarone] 200 mg PO DAILY 09/21/19 09/21/19 History Fenofibrate Nanocrystallized 48 mg PO DAILY 09/21/19 09/21/19 History [Fenofibrate] Ibuprofen [Motrin] 800 mg PO BID PRN 09/21/19 09/21/19 History Ipratropium [place] [Ipratropium 1 spray EA NOSTRIL BID 09/21/19 09/21/19 History [place] 0.03%] Levothyroxine Sodium [Synthroid] 50 mcg PO DAILY 09/21/19 09/21/19 History Potassium Chloride [Klor-Con 10] 10 meq PO DAILY 09/21/19 09/21/19 History Allergies Allergy/AdvReac Type Severity Reaction Status Date / Time Iodinated Contrast Media Allergy Anaphylaxis Verified 09/21/19 22:50 [Iodinated Contrast- Oral and IV Dye] lisinopril Allergy KIDNEY Verified 09/21/19 22:50 FAILURE Penicillins Allergy Itching Verified 09/21/19 22:50 codeine AdvReac Nausea & Verified 09/21/19 22:50 Vomiting meperidine [From Demerol] AdvReac Nausea & Verified 09/21/19 22:50 Vomiting morphine AdvReac Nausea & Verified 09/21/19 22:50 Vomiting Physical Exam Vitals: Vital Signs Temp Pulse Pulse Resp BP BP Pulse Ox 09/22/19 07:59 18 09/22/19 04:45 97.3 F L 60 20 107/69 95 09/22/19 00:00 16 09/21/19 22:35 60 126/67 94 L 09/21/19 21:30 97.9 F 86 20 124/65 94 L 09/21/19 19:43 97.0 F L 60 16 147/60 98 09/21/19 19:34 97.3 F L 60 18 147/57 98 09/21/19 18:58 97.4 F L 60 18 152/72 99 09/21/19 18:02 68 18 144/67 98 09/21/19 15:28 60 18 99 09/21/19 15:15 153/93 Intake and Output 09/21/19 09/22/19 09/22/19 22:59 06:59 14:59 Intake Total 400 100 Output Total 0 0 0 Balance 400 100 0 Intake: Oral 400 100 Output: Stool 0 0 0 Other: Voiding Method Toilet Toilet Bedside Commode Bedside Commode # Voids 1 # Bowel Movements 0 0 Weight 65.771 kg Results CBC & Chem 7: 09/21/19 16:10 09/21/19 16:10 Labs: Abnormal Lab Results - Last 24 Hours (Table) 09/21/19 09/21/19 09/21/19 Range/Units 16:07 16:10 16:10 WBC 17.2 H (3.8-10.6) k/uL Hct 47.0 H (34.0-46.0) % Neutrophils # 15.2 H (1.3-7.7) k/uL Lymphocytes # 0.9 L (1.0-4.8) k/uL Creatinine 1.18 H (0.52-1.04) mg/dL Glucose 126 H (74-99) mg/dL POC Glucose (mg/dL) (75-99) mg/dL AST 77 H (14-36) U/L Creatine Kinase (30-135) U/L Urine Protein 1+ H (Negative) 09/21/19 09/22/19 Range/Units 16:10 12:16 WBC (3.8-10.6) k/uL Hct (34.0-46.0) % Neutrophils # (1.3-7.7) k/uL Lymphocytes # (1.0-4.8) k/uL Creatinine (0.52-1.04) mg/dL Glucose (74-99) mg/dL POC Glucose (mg/dL) 120 H (75-99) mg/dL AST (14-36) U/L Creatine Kinase 281 H (30-135) U/L Urine Protein (Negative) Thrombosis Risk Factor Assmnt - Choose All That Apply Each Factor Represents 1 point: Obesity (BMI >25) Other Risk Factors: Yes Each Risk Factor Represents 3 Points: Age 75 years or older Thrombosis Risk Factor Assessment Total Risk Factor Score: 4 Thrombosis Risk Factor Assessment Level: Moderate Risk
[2019-09-22 15:14] LABS: Creatine Kinase 174 U/L (30-135)
[2019-09-22 15:28] LABS: Creatine Kinase MB 1.8 ng/mL (0.0-2.4); Troponin I <0.012 ng/mL (0.000-0.034)
[2019-09-22 16:30] LABS: Glucose,Whole Blood 155 mg/dL (75-99)
[2019-09-22] MEDS: ATORVASTATIN 40 MG TAB PO SCH (20:43)
[2019-09-22] MEDS: traZODone HCL 100 MG TAB PO SCH (20:44)
[2019-09-23] MEDS: CARBIDOPA-LEVODOPA 25-100 MG 1 EACH TAB PO SCH ×5 (00:34→22:06)
[2019-09-23] MEDS: SODIUM CHLORIDE 0.9% 1,000 ML IV SCH ×2 (05:27→23:57)
[2019-09-23] MEDS: LEVOTHYROXINE 50 MCG TAB PO SCH (05:27)
[2019-09-23 07:19] LABS: Glucose,Whole Blood 149 mg/dL (75-99)
[2019-09-23] MEDS: PANTOPRAZOLE 40 MG TABLET PO SCH (08:36)
[2019-09-23] MEDS: GLIMEPIRIDE 2 MG TAB PO SCH (08:36)
[2019-09-23] MEDS: POTASSIUM CHLORIDE ER 10 MEQ TAB.ER.PRT PO SCH ×2 (08:36→22:07)
[2019-09-23] MEDS: AMIODARONE 200 MG TAB PO SCH (08:36)
[2019-09-23] MEDS: ALLOPURINOL 100 MG TAB PO SCH (08:37)
[2019-09-23] MEDS: APIXABAN 5 MG TAB PO SCH ×2 (08:37→22:07)
[2019-09-23] MEDS: METOPROLOL TARTRATE 50 MG TAB PO SCH ×2 (08:37→22:06)
[2019-09-23 09:24] LABS: Basophils % (A) 0 %; Eosinophils # (A) 0.1 k/uL (0-0.7); Eosinophils % (A) 1 %; HCT 39.6 % (34.0-46.0); HGB 12.3 gm/dL (11.4-16.0); Hypochromasia Moderate; Lymphocytes # (A) 0.8 k/uL (1.0-4.8); Lymphocytes % (A) 7 %; MCH 29.3 pg (25.0-35.0); Mean Platelet Volume 8.3; Monocytes # (A) 0.6 k/uL (0-1.0); Monocytes % (A) 5 %; Neutrophils % (A) 85 %; Platelet Count 184 k/uL (150-450); RBC 4.19 m/uL (3.80-5.40); RDW 13.7 % (11.5-15.5); WBC 11.7 k/uL (3.8-10.6)
[2019-09-23 09:29] LABS: Calcium 8.5 mg/dL (8.4-10.2)
[2019-09-23 09:34] LABS: MCV 94.5 fL (80.0-100.0)
[2019-09-23 09:35] LABS: Potassium 3.4 mmol/L (3.5-5.1)
--- NOTE | 2019-09-23 11:30 | XR ---
EXAMINATION TYPE: XR chest 2V DATE OF EXAM: 09/23/2019 COMPARISON: 09/21/2019 TECHNIQUE: PA and lateral views submitted. HISTORY: Cough FINDINGS: The lungs are clear and there is no pneumothorax, pleural effusion, or focal pneumonia. Cardiac dev ice is noted. Biapical pleural thickening. Atherosclerotic change aorta. Hypertrophic and degenerativ e change of the spine. Hyperinflation suggests COPD. Subsegmental linear changes at both lung bases. IMPRESSION: 1. COPD with basilar atelectasis favored over pneumonia correlate clinically..
[2019-09-23 12:07] LABS: T4, Free (Free Thyroxine) 1.72 ng/dL (0.78-2.19)
[2019-09-23 12:07] LABS: Glucose,Whole Blood 144 mg/dL (75-99)
[2019-09-23] MEDS: IPRATROPIUM BROMIDE 0.06% NASAL SPRAY (15 ML) EA NOSTRIL SCH ×2 (12:59→22:08)
--- NOTE | 2019-09-23 13:17 | P.PN ---
Subjective Progress Note Date: 09/23/19 (Plan for shelter rehab) Principal diagnosis: Generalized weakness, dehydration, leukocytosis improved. No evidence of fracture of pelvis or LS-spine but only confusion and left greater trochanter bursitis. Diarrhea 5 times today watery stools, sample for C. difficile and stool culture, patient did not receive any antibiotic, possibility of viral gastroenteritis could be considered with the associated dehydration and have febrile. Progress note date of service 09/23/[address] Day. Patient seen and evaluated discussed with her the management, and also discussed with the her nurse as well. Complain of frequent loose bowel stools A and will obtain C. difficile. Patient denied any abdominal pain no cramps, no nausea or vomiting. Vital sign indicating temperature 97.3 F oral. Her heart rate 60/m with the underlying paroxysmal atrial fibrillation on anticoagulant. Respiratory rate is 20/m nonlabored, we did a chest x-ray repeated today with the underlying the obscured right hemidiaphragm on clear is eventration of the right hemidiaphragm versus atelectasis or other etiology. Her blood pressure 111/65 stable her pulse ox on room air 96% however is fluctuating prior to that was 93%. Laboratory: WBC 11.7, hemoglobin 12.3, hematocrit 39.6 which is drop due to the hemoconcentration with dehydration. Chemistry: Her potassium 3.4 we adjusted her potassium to 20 mEq twice a day and will repeat BMN tomorrow to assess her potassium and also the magnesium. Her chloride 110, and GFR for non- 46 with the stable chronic kidney disease is stage III, patient is diabetic however controlled with the current treatment with a blood sugar 137 and POC blood sugar 144. Total creatinine kinase is 174 which is improved from previous reading but the cardiac panel was negative within normal troponin. Lipid profile indicated mild elevation of hyper triglyceride with that total cholesterol 101, and LDL 20 and HDL 28, her TSH not well-controlled with the elevated to 9.53 her, serum cortisol level is normal 19 and a free T4 1 0.72 total triglycerides 266. And we will increase her thyroxine to 75 g daily instead of 50 g with the TSH is not stabilized. On the physical exam: Patient is conscious alert oriented 3. Discussed with the patient and her nurse regard of the ambulation and the physical therapy as well as referral to shelter for for further rehabilitation and conditioning as probable she had viral syndrome. We did a chest x-ray today and the indicated to her that hyper inflation of the lung with COPD and impression indicating probable COPD with basilar atelectasis favored over pneumonia. We will be continuing and repeat the lab in a.m. for the CBC and order incentive spirometry. HEENT negative pupil is reactive and equal oropharynx natural teeth. Neck was supple no JVD no thyromegaly no lymphadenopathy trachea midline. Chest she has increased anteroposterior diameter underlying COPD and the chest x-ray was done today was favoring atelectasis and will start incentive spirometry 4 times a day and when necessary. The heart was regular sinus rhythm with the underlying paroxysmal atrial fibrillation and she has been treated with the eliquis, with the pacemaker which is functioning. Abdomen: Positive bowel sound and she had frequent loose bowel diarrhea the etiology is unknown patient did not receive any antibiotics so far. Extremities no edema. Pulses. Patient able to ambulate the bathroom. Neurologically no neuro deficit but generalized weakness her serum cortisol also was normal 19. #1 dehydration #2 leukocytosis of unknown etiology #3 possibility of viral syndrome with the gastroenteritis however will rule out C. difficile. With the loose bowel. #3 Parkinson disease #4 mild elevation of CPK secondary to fall and laying down on the floor for 12 are highly suspicious. #5 chronic kidney disease stage III #6 hypothyroidism was not fairly controlled. #7 COPD. With history of asthma in the past never smoked with hyper inflation of the lung Plan we'll continue physical therapy and ambulation and plan to have rehabilitation at the shelter with her being living alone and her daughter could not help her with the if she fall again. With the possibility this underlying also the Parkinson disease and may be seen Dr. Beauchamp also has outpatient. The thyroid has been adjusted to 75 g daily and consultation to the social worker palliative care for shelter rehabilitation with the generalized weakness. Objective - Vital Signs Vital signs: Vital Signs Temp 97.3 F L 09/23/19 04:50 Pulse 60 09/23/19 04:50 Resp 20 09/23/19 04:50 BP 111/65 09/23/19 04:50 Pulse Ox 96 09/23/19 04:50 Intake & Output 09/22/19 09/23/19 09/23/19 18:59 06:59 18:59 Intake Total 550 500 Output Total 0 0 Balance 550 500 Intake: Oral 550 500 Output: Stool 0 0 Other: Voiding Method Toilet Bedside Commode # Voids 1 2 # Bowel Movements 2 - Labs CBC & Chem 7: 09/23/19 08:42 09/23/19 08:42 Labs: Abnormal Lab Results - Last 24 Hours (Table) 09/22/19 09/22/19 09/23/19 Range/Units 12:44 16:28 07:15 WBC (3.8-10.6) k/uL Neutrophils # (1.3-7.7) k/uL Lymphocytes # (1.0-4.8) k/uL Potassium (3.5-5.1) mmol/L Chloride (98-107) mmol/L Creatinine (0.52-1.04) mg/dL Glucose (74-99) mg/dL POC Glucose (mg/dL) 155 H 149 H (75-99) mg/dL Total Creatine Kinase 174 H (30-135) U/L Triglycerides (<150) mg/dL HDL Cholesterol (40-60) mg/dL TSH (0.465-4.680) mIU/L 09/23/19 09/23/19 09/23/19 Range/Units 08:42 08:42 12:05 WBC 11.7 H (3.8-10.6) k/uL Neutrophils # 10.0 H (1.3-7.7) k/uL Lymphocytes # 0.8 L (1.0-4.8) k/uL Potassium 3.4 L (3.5-5.1) mmol/L Chloride 110 H (98-107) mmol/L Creatinine 1.10 H (0.52-1.04) mg/dL Glucose 137 H (74-99) mg/dL POC Glucose (mg/dL) 144 H (75-99) mg/dL Total Creatine Kinase (30-135) U/L Triglycerides 266 H (<150) mg/dL HDL Cholesterol 28 L (40-60) mg/dL TSH 9.530 H (0.465-4.680) mIU/L
[2019-09-23 17:11] LABS: Glucose,Whole Blood 112 mg/dL (75-99)
[2019-09-23 21:23] LABS: Glucose,Whole Blood 144 mg/dL (75-99)
[2019-09-23] MEDS: traZODone HCL 100 MG TAB PO SCH (22:07)
[2019-09-23] MEDS: ATORVASTATIN 40 MG TAB PO SCH (22:07)
[2019-09-24] MEDS: CARBIDOPA-LEVODOPA 25-100 MG 1 EACH TAB PO SCH ×6 (00:49→23:30)
[2019-09-24] MEDS: LEVOTHYROXINE 75 MCG TAB PO SCH (06:05)
[2019-09-24 07:27] LABS: Glucose,Whole Blood 95 mg/dL (75-99)
[2019-09-24] MEDS: METOPROLOL TARTRATE 50 MG TAB PO SCH ×2 (09:07→19:42)
[2019-09-24] MEDS: ALLOPURINOL 100 MG TAB PO SCH (09:07)
[2019-09-24] MEDS: PANTOPRAZOLE 40 MG TABLET PO SCH (09:07)
[2019-09-24] MEDS: APIXABAN 5 MG TAB PO SCH ×2 (09:07→19:43)
[2019-09-24] MEDS: POTASSIUM CHLORIDE ER 10 MEQ TAB.ER.PRT PO SCH ×2 (09:07→19:42)
[2019-09-24] MEDS: AMIODARONE 200 MG TAB PO SCH (09:07)
[2019-09-24] MEDS: GLIMEPIRIDE 2 MG TAB PO SCH (09:08)
[2019-09-24] MEDS: IPRATROPIUM BROMIDE 0.06% NASAL SPRAY (15 ML) EA NOSTRIL SCH ×2 (09:11→19:43)
[2019-09-24 11:58] LABS: Glucose,Whole Blood 161 mg/dL (75-99)
[2019-09-24] MEDS: SODIUM CHLORIDE 0.9% 1,000 ML IV SCH (12:50)
[2019-09-24 13:02] LABS: Basophils % (A) 0 %; Eosinophils # (A) 0.2 k/uL (0-0.7); Eosinophils % (A) 2 %; HCT 40.2 % (34.0-46.0); HGB 12.7 gm/dL (11.4-16.0); Hypochromasia Slight; Lymphocytes % (A) 10 %; MCH 29.1 pg (25.0-35.0); MCHC 31.6 g/dL (31.0-37.0); Mean Platelet Volume 8.3; Monocytes # (A) 0.5 k/uL (0-1.0); Monocytes % (A) 5 %; Neutrophils # (A) 8.3 k/uL (1.3-7.7); Neutrophils % (A) 82 %; Platelet Count 205 k/uL (150-450); RBC 4.37 m/uL (3.80-5.40); RDW 13.7 % (11.5-15.5); WBC 10.1 k/uL (3.8-10.6)
[2019-09-24 13:22] LABS: Calcium 8.9 mg/dL (8.4-10.2); Potassium 4.2 mmol/L (3.5-5.1)
--- NOTE | 2019-09-24 13:41 | P.PN ---
Subjective Progress Note Date: 09/24/19 (Generalized weakness, rehab recommended longer- term rehab in the halfway) Dictation of the progress note date of service 09/[address] Day. Patient seen and evaluated discussed with the patient in detail and the nurse and the the family preservation caseworker who decided that we need authorization from the halfway for transfer and the need 3 days for rehabilitation. And that will not be accomplished in the new year which is today and they don't accept anybody in the usual year as well as the [employer] if it's accepted than insurance accepted will be . Rehabilitation team has been working with the patient and they thought that he need long-term rehabilitation for conditioning for week or 2. And patient prefers of halfway is medical [facility] [place]. Patient has IV fluid 0.9 normal saline 60 mL an hour, she is also on eliquis anticoagulant and the when the IV pulled out was bleeding wasn't able to be stopped except after while which is expected with the anticoagulant and current ly her laboratory is stable and she reach her baseline. With the creatinine 1.05 and GFR for non- 49. Diabetes mellitus type 2 on oral hypoglycemic agent and her blood glucose this morning on 145 and by mouth poc has been fairly controlled in color with insulin to scale Her laboratory normalized with a hemoglobin 12.7 and WBC 10.1 from 17,000. Platelet counts 205. Chemistry: Sodium 141, potassium 4.2 and carbon dioxide 21 and chloride 113. Patient is conscious alert oriented she is on diabetic diet. She continued with the rehab, and we'll discontinue the IV fluid and keep hep well. Ambulate as tolerated On the exam conscious alert oriented 3, patient live alone and does not have any help at home and the appropriate management for rehabilitation to be in the halfway. Her HEENT was negative oropharynx natural teeth able to swallow no fascial asymmetry. Neck was supple no JVD no thyromegaly no lymphadenopathy trachea midline. Chest irradiated bilaterally with the presence of right [place]-diaphragm elevation. No wheezes no rhonchi's. Heart currently is regular sinus with a history of atrial fibrillation and also history of the stent and on the anticoagulant. Abdomen: No abdominal pain no diarrhea, with a history that patient had yesterday morning no spell and diarrhea at 5, subsequently we order the C. difficile stool sample and fecal leukocyte, however she did not have no farther diarrhea bowel movement since yesterday. Extremities new no edema positive pulses and able to ambulate and had x-rays of the hips and LS spine which was negative for fracture probably contusion after she fell at home and stayed on the floor for 12 hour. Pulses is intact bilateral. Assessment: #1 dehydration #2 generalized weakness gradual improvement, and the need for rehabilitation for conditioning. #3 deconditioning. #4 Parkinson disease #5 underlying history of paroxysmal atrial fibrillation stable at this time. Plan: We'll continue ambulation DC the IV fluid and continued rehabilitation and hopefully halfway for rehab on as a new year the don't accept patient. Objective - Vital Signs Vital signs: Vital Signs Temp 97.9 F 09/24/19 05:42 Pulse 60 09/24/19 05:42 Resp 16 09/24/19 05:42 BP 110/61 09/24/19 05:42 Pulse Ox 96 09/24/19 05:42 Intake & Output 09/23/19 09/24/19 09/24/19 18:59 06:59 18:59 Output Total 0 Balance 0 Output: Stool 0 Other: Voiding Method Toilet Bedside Commode # Voids 3 # Bowel Movements 3 - Labs CBC & Chem 7: 09/24/19 12:46 09/24/19 12:46 Labs: Abnormal Lab Results - Last 24 Hours (Table) 09/23/19 09/23/19 09/24/19 Range/Units 17:04 21:22 11:55 Neutrophils # (1.3-7.7) k/uL Chloride (98-107) mmol/L Carbon Dioxide (22-30) mmol/L Creatinine (0.52-1.04) mg/dL Glucose (74-99) mg/dL POC Glucose (mg/dL) 112 H 144 H 161 H (75-99) mg/dL 09/24/19 09/24/19 Range/Units 12:46 12:46 Neutrophils # 8.3 H (1.3-7.7) k/uL Chloride 113 H (98-107) mmol/L Carbon Dioxide 21 L (22-30) mmol/L Creatinine 1.05 H (0.52-1.04) mg/dL Glucose 145 H (74-99) mg/dL POC Glucose (mg/dL) (75-99) mg/dL
[2019-09-24 17:48] LABS: Glucose,Whole Blood 115 mg/dL (75-99)
[2019-09-24] MEDS: ATORVASTATIN 40 MG TAB PO SCH (19:42)
[2019-09-24] MEDS: traZODone HCL 100 MG TAB PO SCH (19:42)
[2019-09-24 20:36] LABS: Glucose,Whole Blood 130 mg/dL (75-99)
[2019-09-25] MEDS: ACETAMINOPHEN TAB 325 MG TAB PO PRN (01:40)
[2019-09-25] MEDS: LEVOTHYROXINE 75 MCG TAB PO SCH (06:06)
[2019-09-25] MEDS: CARBIDOPA-LEVODOPA 25-100 MG 1 EACH TAB PO SCH ×4 (06:07→19:54)
[2019-09-25 07:09] LABS: Glucose,Whole Blood 128 mg/dL (75-99)
[2019-09-25] MEDS: POTASSIUM CHLORIDE ER 10 MEQ TAB.ER.PRT PO SCH ×2 (07:20→21:36)
[2019-09-25] MEDS: APIXABAN 5 MG TAB PO SCH ×2 (07:20→21:36)
[2019-09-25] MEDS: AMIODARONE 200 MG TAB PO SCH (07:20)
[2019-09-25] MEDS: METOPROLOL TARTRATE 50 MG TAB PO SCH ×2 (07:20→21:37)
[2019-09-25] MEDS: GLIMEPIRIDE 2 MG TAB PO SCH (07:20)
[2019-09-25] MEDS: PANTOPRAZOLE 40 MG TABLET PO SCH (07:20)
[2019-09-25] MEDS: ALLOPURINOL 100 MG TAB PO SCH (07:20)
[2019-09-25] MEDS: IPRATROPIUM BROMIDE 0.06% NASAL SPRAY (15 ML) EA NOSTRIL SCH ×2 (07:22→21:37)
[2019-09-25 12:15] LABS: Glucose,Whole Blood 120 mg/dL (75-99)
[2019-09-25] MEDS ORDERED: MIRTAZAPINE 15 MG TAB PO STA (14:24)
--- NOTE | 2019-09-25 14:39 | P.PN ---
Subjective Progress Note Date: 09/25/19 Dictation progress note date of service 09/25/2019. Dictation by Dr. Day. Patient seen and evaluated [id number] as well as discussed with her daughter and her grandson. Plan: Ambulate as tolerated, fdc, medical [place], for conditioning with the history of fall down and generalized weakness and dehydration. POC today for glucose monitoring stable average between 1:83006., Her hemoglobin was 12.7 on 09/24 2019. Her nursing stated that she had a hemorrhoid and bright blood blood in the toil et she had it before. And she has been followed by the surgeon in the past for that. We'll give her Anusol HC rectal suppositories and Anusol HC cream to the anal area. No other complaint except loss of appetite, and will start her on Remeron 15 mg once a day. Today on the new year 09/25/2019. Her temperature 97.8 F oral pulse rate is 58- 60/m respiratory rate 16. Her blood pressure was 148/85 and prior to that 175/81 we will be restarting her medication at home which is hydralazine 25 mg tablet 3 times a day. Her pulse ox on room air 95%. Lung examination HEENT was negative she is a light eater. Head was normocephalic and atraumatic pupil was equal reactive conjunctiva was pink sclera was nonicteric. Extraocular muscle movement is intact Oropharynx she had natural teas able to eat with the loss of appetite. Neck supple no JVD no thyromegaly no lymphadenopathy trachea midline. Chest was clear to auscultation percussion and no wheezes nor rhonchi's and pulse ox is normal 95. Heart she had history of chronic atrial fibrillation paroxysmal currently stable sinus with the rate 6258 and she had a pacemaker. Abdomen: Soft positive bowel sounds she wearing diaper as well as she has no diarrhea. Extremities no edema and she is ambulatory with the technician assistant with the generalized weakness. She is on Eliquis anticoagulation and there is no need for DVT prophylaxis. And she is on the rehab. Neurologically: She had history of Parkinson disease and no exacerbation. Assessment: And plan. Hypertension uncontrolled and restarted on her home medication hydralazine. Diabetes mellitus type 2 fairly well controlled with oral hypoglycemic and insulin coverage to scale. Generalized weakness, normal cortisol level. Need further rehab and conditioning in the fdc and rehab. Dehydration which is improved her renal function. Chronic kidney disease stage III stable at this time Plan: #1 Anusol HC cream and rectal substernal for the hemorrhoid. #2 continuing the current medication and encourage oral intake. #3 continue rehabilitation inpatient. Until patient transferred to [facility] for continued rehabilitation. #4 the Parkinson disease currently stable has been followed by Dr. Nito Cook neurologist as outpatient. Objective - Vital Signs Vital signs: Vital Signs Temp 97.8 F 09/25/19 06:30 Pulse 58 L 09/25/19 06:30 Resp 16 09/25/19 06:30 BP 144/80 09/25/19 06:30 Pulse Ox 95 09/25/19 06:30 Intake & Output 09/24/19 09/25/19 09/25/19 18:59 06:59 18:59 Other: Voiding Method Toilet Bedside Commode Bedside Commode # Voids 4 2 2 # Bowel Movements 0 1 - Labs CBC & Chem 7: 09/24/19 12:46 09/24/19 12:46 Labs: Abnormal Lab Results - Last 24 Hours (Table) 09/24/19 09/24/19 09/25/19 Range/Units 17:46 20:34 07:06 POC Glucose (mg/dL) 115 H 130 H 128 H (75-99) mg/dL 09/25/19 Range/Units 12:13 POC Glucose (mg/dL) 120 H (75-99) mg/dL
[2019-09-25] MEDS: hydrALAZINE HCL 25 MG TAB PO SCH ×2 (15:29→21:37)
[2019-09-25 16:55] LABS: Glucose,Whole Blood 120 mg/dL (75-99)
[2019-09-25] MEDS: ATORVASTATIN 40 MG TAB PO SCH (21:37)
[2019-09-25] MEDS: traZODone HCL 100 MG TAB PO SCH (21:37)
[2019-09-25] MEDS: HYDROCORTISONE SUPPOSITORY 25 MG SUPP RECTAL SCH (21:37)
[2019-09-25 22:29] LABS: Glucose,Whole Blood 165 mg/dL (75-99)
[2019-09-26] MEDS: CARBIDOPA-LEVODOPA 25-100 MG 1 EACH TAB PO SCH ×3 (00:13→11:06)
[2019-09-26] MEDS: LEVOTHYROXINE 75 MCG TAB PO SCH (05:51)
[2019-09-26 06:13] VITALS: PULSE 60; RESP 15; TEMP 97.7
[2019-09-26 06:14] VITALS: BP 175/81
[2019-09-26 07:05] LABS: Glucose,Whole Blood 120 mg/dL (75-99)
[2019-09-26] MEDS: METOPROLOL TARTRATE 50 MG TAB PO SCH (07:58)
[2019-09-26] MEDS: APIXABAN 5 MG TAB PO SCH (07:58)
[2019-09-26] MEDS: PANTOPRAZOLE 40 MG TABLET PO SCH (07:59)
[2019-09-26] MEDS: ALLOPURINOL 100 MG TAB PO SCH (07:59)
[2019-09-26] MEDS: hydrALAZINE HCL 25 MG TAB PO SCH (07:59)
[2019-09-26] MEDS: POTASSIUM CHLORIDE ER 10 MEQ TAB.ER.PRT PO SCH (07:59)
[2019-09-26] MEDS: AMIODARONE 200 MG TAB PO SCH (07:59)
[2019-09-26] MEDS: HYDROCORTISONE SUPPOSITORY 25 MG SUPP RECTAL SCH (08:00)
[2019-09-26] MEDS: GLIMEPIRIDE 2 MG TAB PO SCH (08:00)
[2019-09-26] MEDS: IPRATROPIUM BROMIDE 0.06% NASAL SPRAY (15 ML) EA NOSTRIL SCH (08:01)
[2019-09-26 08:06] LABS: Basophils % (A) 0 %; Eosinophils # (A) 0.1 k/uL (0-0.7); Eosinophils % (A) 2 %; HCT 37.6 % (34.0-46.0); HGB 11.8 gm/dL (11.4-16.0); Lymphocytes # (A) 0.8 k/uL (1.0-4.8); Lymphocytes % (A) 11 %; MCH 28.5 pg (25.0-35.0); MCHC 31.3 g/dL (31.0-37.0); MCV 91.3 fL (80.0-100.0); Mean Platelet Volume 8.2; Monocytes # (A) 0.6 k/uL (0-1.0); Monocytes % (A) 9 %; Neutrophils # (A) 5.1 k/uL (1.3-7.7); Neutrophils % (A) 75 %; Platelet Count 192 k/uL (150-450); RBC 4.12 m/uL (3.80-5.40); WBC 6.7 k/uL (3.8-10.6)
[2019-09-26 08:20] LABS: Potassium 4.4 mmol/L (3.5-5.1)
[2019-09-26 12:11] LABS: Glucose,Whole Blood 109 mg/dL (75-99)
--- NOTE | 2019-09-26 12:58 | P.DS ---
Providers Date of admission: 09/23/19 11:50 Attending physician: Emigdio Day Primary care physician: Emigdio Day Discharge summary: Dictation by Dr. Day, date of discharge admission date 09/22/2019 through the emergency room. Final diagnosis #1 dehydration. #2 fall at home stayed on the floor for 12 are with mild elevation of creatinine kinase. #3 generalized weakness. With the history of Parkinson disease. #4 paroxysmal atrial fibrillation on anticoagulant Eliquis twice a day. #5 rectal hemorrhoids on rectal suppository for total of 10 days. #6 deconditioning need for further rehabilitation required at [facility]. #7 chronic kidney disease stage III improved with hydration. #8 diabetes mellitus on oral hypoglycemic agent stable #9 hypertension with hypertensive heart disease #10 hypothyroidism controlled and increased during the hospitalization her levothyroxin to 75 mg once a day. #11 mixed hyperlipidemia with hypertriglyceridemia. Disposition transferred today to group home home for rehabilitation and conditioning and continuing medication. Presentation to the emergency room with the generalized weakness and dehydration, admitted for rehabilitation as well as IV fluid. Hospital course patient gentle IV hydration with a significant improvement in the hematocrit and hemoglobin and renal function, consultation with rehabilitation with the recommendation of custodial. [facility] Patient stable general condition for discharge. [id number] examination: Head was normocephalic and atraumatic, pupil is equal reactive, oropharynx with natural teeth. Neck was supple no JVD no thyromegaly no lymphadenopathy and trachea midline. Chest clear to auscultation and percussion she had right hemidiaphragm elevation and history of asthma on inhalation therapy. Heart: Pacemaker, atrial fib relation paroxysmal on medication. Abdomen: Positive bowel sounds no organ enlargement. No tenderness in the four- quadrant. Extremities no edema and positive pulses and cooperative with the physical therapy. Neurologically stable with a history of neuropathy from diabetes. Assessment: Stable general condition to be transferred to [facility] and resume physical therapy. Plan: We'll follow the patient at [facility]. Patient Condition at Discharge: Stable Plan - Discharge Summary New Discharge Prescriptions: New Hydrocortisone Suppository [Anusol-Hc] 25 mg RECTAL BID #20 supp hydrALAZINE HCL [Apresoline] 25 mg PO TID #90 tab Levothyroxine Sodium [Synthroid] 75 mcg PO DAILY@0630 #30 tab Continue Carbidopa-Levodopa 25-100 mg [Sinemet 25-100 mg] 1 tab PO 5XD Gabapentin [Neurontin] 400 mg PO 5XD Pantoprazole Sodium [Protonix] 40 mg PO DAILY Meclizine [Antivert] 25 mg PO BID traZODone HCL [Desyrel] 100 mg PO HS Budesonide/Formoterol Fumarate [Symbicort 80-4.5 Mcg Inhaler] 1 puff INHALATION Q12HR PRN PRN Reason: Shortness Of Breath Metoprolol Tartrate [Lopressor] 50 mg PO BID tab Apixaban [Eliquis] 5 mg PO BID Rosuvastatin [Crestor] 20 mg PO HS Glimepiride [Amaryl] 2 mg PO BID Potassium Chloride [Klor-Con 10] 10 meq PO DAILY Ipratropium Trimble [Ipratropium Trimble 0.03%] 1 spray EA NOSTRIL BID Fenofibrate Nanocrystallized [Fenofibrate] 48 mg PO DAILY Amiodarone [Cordarone] 200 mg PO DAILY Allopurinol [Zyloprim] 100 mg PO DAILY Discontinued hydrALAZINE HCL [Apresoline] 25 mg PO BID Levothyroxine Sodium [Synthroid] 50 mcg PO DAILY Ibuprofen [Motrin] 800 mg PO BID PRN PRN Reason: Pain Discharge Medication List Carbidopa-Levodopa 25-100 mg [Sinemet 25-100 mg] 1 tab PO 5XD 05/03/17 [History] Gabapentin [Neurontin] 400 mg PO 5XD 05/03/17 [History] Meclizine [Antivert] 25 mg PO BID 05/03/17 [History] Pantoprazole Sodium [Protonix] 40 mg PO DAILY 05/03/17 [History] traZODone HCL [Desyrel] 100 mg PO HS 05/03/17 [History] Budesonide/Formoterol Fumarate [Symbicort 80-4.5 Mcg Inhaler] 1 puff INHALATION Q12HR PRN 04/06/18 [History] Metoprolol Tartrate [Lopressor] 50 mg PO BID tab 04/11/18 [Rx] Apixaban [Eliquis] 5 mg PO BID 10/05/18 [History] Glimepiride [Amaryl] 2 mg PO BID 10/05/18 [History] Rosuvastatin [Crestor] 20 mg PO HS 10/05/18 [History] Allopurinol [Zyloprim] 100 mg PO DAILY 09/21/19 [History] Amiodarone [Cordarone] 200 mg PO DAILY 09/21/19 [History] Fenofibrate Nanocrystallized [Fenofibrate] 48 mg PO DAILY 09/21/19 [History] Ipratropium Trimble [Ipratropium Trimble 0.03%] 1 spray EA NOSTRIL BID 09/21/19 [History] Potassium Chloride [Klor-Con 10] 10 meq PO DAILY 09/21/19 [History] Hydrocortisone Suppository [Anusol-Hc] 25 mg RECTAL BID #20 supp 09/26/19 [Rx] Levothyroxine Sodium [Synthroid] 75 mcg PO DAILY@0630 #30 tab 09/26/19 [Rx] hydrALAZINE HCL [Apresoline] 25 mg PO TID #90 tab 09/26/19 [Rx] Follow up Appointment(s)/Referral(s): Emigdio Day MD [Primary Care Provider] - 1-2 days
--- NOTE | 2019-10-02 07:10 | CDI ---
Documentation Clarification Form Date: 10/02/19 From: Sofie Billings Phone: If you have a question about this query, please contact Yashira Butts, Business Banking Relationship Manager at [phone] between 8am and 5pm. Admit Date: 09/23/19 Discharge Date: 09/26/19 Patient Name: Cesilia Mccormick Visit Number: [id number] ATTENTION: The Clinical Documentation Specialists (CDI) and [facility] Coding Staff appreciate your assistance in clarifying documentation. Please respond to the clarification below the line at the bottom and electronically sign. The CDI & [facility] Coding staff will review the response and follow-up if needed. Please note: Queries are made part of the Legal Health Record. If you have any questions, please contact the author of this message via ITS. Dear Dr. Emigdio Day, Documentation states: Mild elevation of CPK secondary to fall and laying down on the floor for 12 are highly suspicious per 09/23 PN History/Risk Factors: SSS w pacer, DM CKD-Stage 3 & neuropathy, HTN heart disease wo heart failure, Parkinson's Clinical indicators: dehydration, hypotension Abnormal: Creatine Kinase-281 & Total Creatine Kinase-174 Treatment: IV fluids, Clinical significance of diagnostic testing and treatment CANNOT be assumed or coded without physician documentation of significance if any. Please clarify what abnormal laboratory signifies: Rhabdomyolysis Rhabdomyolsis, traumatic Abnormal Lab Value Unable to determine Other, please specify CPK mild elevation secondary to the full which is mild rhabdo could be considered secondary to trauma which is the fall MTDD
== END 2019-09-26 14:44 | DRG 641 ==
LOC: EC 15:05 → 6NMEDSUR 18:29 → OBSVTOIN 09-23 11:50
PROVIDERS: ADMIT Internal Medicine; ATTEND Internal Medicine
DX: E86.0 Dehydration (principal); I49.5 Sick sinus syndrome; E11.22 Type 2 diabetes mellitus with diabetic chronic kidney disease; E11.40 Type 2 diabetes mellitus with diabetic neuropathy, unspecified; I95.9 Hypotension, unspecified; J98.6 Disorders of diaphragm; G20 Parkinson's disease; N18.3 Chronic kidney disease, stage 3 (moderate); I13.10 Hypertensive heart and chronic kidney disease without heart failure, with stage 1 through stage 4 chronic kidney disease, or unspecified chronic kidney disease; E87.6 Hypokalemia; T79.6XXA Traumatic ischemia of muscle, initial encounter; M70.62 Trochanteric bursitis, left hip; M54.5 Low back pain; I48.0 Paroxysmal atrial fibrillation; J44.9 Chronic obstructive pulmonary disease, unspecified; E03.9 Hypothyroidism, unspecified; E78.2 Mixed hyperlipidemia; E78.1 Pure hyperglyceridemia; K64.9 Unspecified hemorrhoids; K21.9 Gastro-esophageal reflux disease without esophagitis; M10.9 Gout, unspecified; R32 Unspecified urinary incontinence; Z79.01 Long term (current) use of anticoagulants; Z79.51 Long term (current) use of inhaled steroids; Z79.84 Long term (current) use of oral hypoglycemic drugs; Z79.890 Hormone replacement therapy; Z79.899 Other long term (current) drug therapy; Z85.828 Personal history of other malignant neoplasm of skin; Z90.49 Acquired absence of other specified parts of digestive tract; Z95.0 Presence of cardiac pacemaker; Z90.710 Acquired absence of both cervix and uterus; Z98.890 Other specified postprocedural states; Z98.42 Cataract extraction status, left eye; Z98.41 Cataract extraction status, right eye; Z88.5 Allergy status to narcotic agent; Z88.0 Allergy status to penicillin; Z88.8 Allergy status to other drugs, medicaments and biological substances; Z91.041 Radiographic dye allergy status; W06.XXXA Fall from bed, initial encounter; Y92.003 Bedroom of unspecified non-institutional (private) residence as the place of occurrence of the external cause; Z83.3 Family history of diabetes mellitus; Z82.49 Family history of ischemic heart disease and other diseases of the circulatory system; Z82.0 Family history of epilepsy and other diseases of the nervous system
CPT/HCPCS: 36415; 71046; 72110; 73521; 80048; 80053; 80061; 81001; 82533; 82550; 82553; 82607; 84439; 84443; 84484; 85025; 85610; 85730; 93005; 96360; 96361; 99284

== ENCOUNTER → 2020-04-13 | Outpatient (CLI) | payer MEDICARE, BC ==
[2020-04-13 12:31] LABS: Basophils % (A) 1 %; Eosinophils # (A) 0.2 k/uL (0-0.7); Eosinophils % (A) 2 %; HCT 43.8 % (34.0-46.0); HGB 13.3 gm/dL (11.4-16.0); Hypochromasia Slight; Lymphocytes % (A) 12 %; MCH 26.8 pg (25.0-35.0); MCHC 30.4 g/dL (31.0-37.0); MCV 87.9 fL (80.0-100.0); Mean Platelet Volume 7.9; Monocytes # (A) 0.5 k/uL (0-1.0); Monocytes % (A) 6 %; Neutrophils # (A) 6.2 k/uL (1.3-7.7); Neutrophils % (A) 77 %; Platelet Count 197 k/uL (150-450); RBC 4.98 m/uL (3.80-5.40); RDW 14.4 % (11.5-15.5); WBC 8.1 k/uL (3.8-10.6)
[2020-04-13 18:28] LABS: Hemoglobin A1C 6.9 % (4.0-6.0)
[2020-04-13 21:13] LABS: African American GFR (CKD) 39.3 (60.0-200.0); Albumin 4.2 g/dL (3.80-4.90); Albumin/Globulin Ratio 1.75 (1.60-3.17); Anion Gap 10.3 mmol/L (4.00-12.00); BUN/Creat Ratio 14.29 Ratio (12.00-20.00); Calcium 9.6 mg/dL (8.7-10.3); Carbon Dioxide 28.7 mmol/L (21.6-31.8); Globulin 2.4 g/dL (1.6-3.3); Non-African American GFR(CKD) 33.9 (60.0-200.0); Potassium 3.5 mmol/L (3.5-5.5); Total Bilirubin 0.5 mg/dL (0.3-1.2); Total Protein 6.6 g/dL (6.2-8.2)
[2020-04-13 21:20] LABS: T4, Free (Free Thyroxine) 1.4 ng/dL (0.80-1.80)
== END | disposition home or self-care (01) ==
LOC: LABWHC1 11:31
PROVIDERS: ATTEND Internal Medicine
DX: E11.65 Type 2 diabetes mellitus with hyperglycemia (principal); E03.9 Hypothyroidism, unspecified; I48.0 Paroxysmal atrial fibrillation; D64.9 Anemia, unspecified
CPT/HCPCS: 36415; 80053; 83036; 84439; 84443; 85025

== ENCOUNTER → 2020-04-20 | Outpatient (CLI) | payer MEDICARE, BC | LOC: LABWHC1 11:15 | PROVIDERS: ATTEND Internal Medicine | DX: R19.7 Diarrhea, unspecified (principal) | CPT/HCPCS: 87045; 87046; 87328; 87329 ==

== ENCOUNTER → 2020-04-20 | Outpatient (CLI) | payer MEDICARE, BC ==
--- NOTE | 2020-04-20 11:35 | CT ---
EXAMINATION TYPE: CT abdomen pelvis wo con DATE OF EXAM: 04/20/2020 COMPARISON: 08/21/2017 HISTORY: right side abdominal/pelvic pain CT DLP: 402.3 mGycm Examination of the solid and hollow viscera is limited given the lack of contrast. FINDINGS: LUNG BASES: No evidence for nodule. No evidence for infiltrate. LIVER/GB: The gallbladder is surgically absent. Intra and extrahepatic biliary ductal prominence. No space-occupying hepatic lesion. PANCREAS: No pancreatic mass identified. No inflammatory process seen. SPLEEN: No evidence for splenomegaly. No intrasplenic lesions seen. ADRENALS: No adrenal nodules identified. No evidence for thickening. KIDNEYS: No evidence for renal mass. No nephrolithiasis. No hydronephrosis. BOWEL: Appendix has a normal appearance. No evidence of bowel obstruction. No inflammatory process. M oderate fecal stasis identified. Lymph nodes: No evidence for adenopathy greater than 1 cm. Abdominal aorta: Atheromatous changes seen. No evidence for aneurysm. Genital organs: No significant abnormality. Other: No significant abnormality. IMPRESSION: 1. Moderate fecal stasis. No acute intra-abdominal process appreciated.
== END | disposition home or self-care (01) ==
LOC: RADCTMAIN 10:48
PROVIDERS: ATTEND Internal Medicine
DX: K56.41 Fecal impaction (principal); Z88.8 Allergy status to other drugs, medicaments and biological substances; Z91.041 Radiographic dye allergy status
CPT/HCPCS: 74176

== ENCOUNTER 2020-06-01 16:31 | Observation (INO) | payer MEDICARE, BC ==
[2020-06-01] MEDS ORDERED: SODIUM CHLORIDE 0.9% 500 ML 500 ML IV STA (16:56)
[2020-06-01] MEDS ORDERED: LIDOCAINE 1% INJ 10MG/ML (20 ML MDV) SQ ONE (16:58)
--- NOTE | 2020-06-01 17:01 | ED ---
General Adult HPI <Raúl Saez Richard - Last Filed: 06/01/20 18:40> - General Source: patient, RN notes reviewed, old records reviewed Mode of arrival: ambulatory <Alonzo Whiting - Last Filed: 06/01/20 19:18> - General Chief complaint: Dizziness Stated complaint: fall/lip lac Time Seen by Provider: 06/01/20 16:44 - History of Present Illness Initial comments: 84 yo female presenting status post fall with head trauma loss consciousness. Patient believes she lost consciousness prior to her fall. She states she felt dizzy. She has history of Parkinson's and has had 2 days of diarrhea. She states she was previously constipated and has been taking stool softeners. No fever. No palpitations. No chest pain or dyspnea. No vomiting. She did fall striking the left side of her face, her nose, and upper lip. She also injured her left wrist and right knee. (Alonzo Whiting) - Related Data Home Medications Medication Instructions Recorded Confirmed Carbidopa-Levodopa 25-100 mg 1 tab PO 5XD 05/03/17 09/21/19 [Sinemet 25-100 mg] Gabapentin [Neurontin] 400 mg PO 5XD 05/03/17 09/21/19 Meclizine [Antivert] 25 mg PO BID 05/03/17 09/21/19 Pantoprazole Sodium [Protonix] 40 mg PO DAILY 05/03/17 09/21/19 traZODone HCL [Desyrel] 100 mg PO HS 05/03/17 09/21/19 Budesonide/Formoterol Fumarate 1 puff INHALATION Q12HR PRN 04/06/18 09/21/19 [Symbicort 80-4.5 Mcg Inhaler] Apixaban [Eliquis] 5 mg PO BID 10/05/18 09/21/19 Glimepiride [Amaryl] 2 mg PO BID 10/05/18 09/21/19 Rosuvastatin [Crestor] 20 mg PO HS 10/05/18 09/21/19 Amiodarone [Cordarone] 200 mg PO DAILY 09/21/19 09/21/19 Fenofibrate Nanocrystallized 48 mg PO DAILY 09/21/19 09/21/19 [Fenofibrate] Ipratropium [place] [Ipratropium 1 spray EA NOSTRIL BID 09/21/19 09/21/19 [place] 0.03%] Potassium Chloride [Klor-Con 10] 10 meq PO DAILY 09/21/19 09/21/19 allopurinoL [Zyloprim] 100 mg PO DAILY 09/21/19 09/21/19 Previous Rx's Medication Instructions Recorded Metoprolol Tartrate [Lopressor] 50 mg PO BID tab 04/11/18 Hydrocortisone Suppository 25 mg RECTAL BID #20 supp 09/26/19 [Anusol-Hc] Levothyroxine Sodium [Synthroid] 75 mcg PO DAILY@0630 #30 tab 09/26/19 hydrALAZINE HCL [Apresoline] 25 mg PO TID #90 tab 09/26/19 Allergies Allergy/AdvReac Type Severity Reaction Status Date / Time Iodinated Contrast Media Allergy Anaphylaxis Verified 06/01/20 16:40 [Iodinated Contrast- Oral and IV Dye] lisinopril Allergy KIDNEY Verified 06/01/20 16:40 FAILURE Penicillins Allergy Itching Verified 06/01/20 16:40 codeine AdvReac Nausea & Verified 06/01/20 16:40 Vomiting meperidine [From Demerol] AdvReac Nausea & Verified 06/01/20 16:40 Vomiting morphine AdvReac Nausea & Verified 06/01/20 16:40 Vomiting Review of Systems ROS Other: All systems not noted in ROS Statement are negative. <Raúl Saez - Last Filed: 06/01/20 18:40> ROS Other: All systems not noted in ROS Statement are negative. <Alonzo Whiting - Last Filed: 06/01/20 19:18> ROS Statement: Those systems with pertinent positive or pertinent negative responses have been documented in the HPI. Past Medical History Past Medical History: Atrial Fibrillation, Cancer, Diabetes Mellitus, Eye Dis order, GERD/Reflux, Hyperlipidemia, Hypertension, Musculoskeletal Disorder, Neurologic Disorder Additional Past Medical History / Comment(s): HX SKIN CANCER, constipation, skin cancer left ankle basal cell. PARKINSON, PAST HX KIDNEY FAILURE R/T MEDICATION- RESOLVED, history of sick sinus syndrome, history of cataracts. History of Any Multi-Drug Resistant Organisms: None Reported Past Surgical History: Adenoidectomy, Appendectomy, Back Surgery, Bowel Resection, Cholecystectomy, Ear Surgery, Hernia Repair, Hysterectomy, T onsillectomy Additional Past Surgical History / Comment(s): 04/06/18 PACEMAKER INSERTION. T & A-1939, APPENDECTOMY-1944, LAP KATARINA-1968, HYST-1974, SX FOR RECTAL FISTULA X 3- 1977,1986,1998, BILAT CATARACTS-1998, BACK SX x4-1999,2003,2012,2018- AFTER LAST BACK SX HAD A BLOOD CLOT AND THEY HAD TO GO BACK IN TO REMOVED) COLONOSCOPY- 2009, SIGMOID RESECTION- 2009, 12 CM LIPOMA REMOVED FROM LT ARM- 2001, BASAL CELL CARCINOMA REMOVED LT ANKLE 2006, ABD. HERNIA REPAIR WITH MESH- 2009 Past Anesthesia/Blood Transfusion Reactions: Motion Sickness, Postoperative Nausea & Vomiting (PONV) Type of Cardiac Device: Permanent Pacemaker Device Placement Date:: 04/06/2018 Past Psychological History: No Psychological Hx Reported Smoking Status: Former smoker Past Alcohol Use History: None Reported Past Drug Use History: None Reported - Past Family History Mother Family Medical History: Cancer, Diabetes Mellitus, Hypertension Additional Family Medical History / Comment(s): Parkinson's disease Father Family Medical History: Myocardial Infarction ([place]) Additional Family Medical History / Comment(s): FROM [place] AT AGE 56 Son(s) Family Medical History: Myocardial Infarction ([place]) <Alonzo Whiting N - Last Filed: 06/01/20 19:18> General Exam General appearance: alert, in no apparent distress Head exam: Present: normocephalic, other (Mucosal lip laceration) Neck exam: Present: normal inspection. Absent: tenderness, meningismus Respiratory exam: Present: normal lung sounds bilaterally. Absent: respiratory distress, wheezes Cardiovascular Exam: Present: regular rate, normal rhythm GI/Abdominal exam: Present: soft. Absent: distended, tenderness, guarding Extremities exam: Present: normal inspection, full ROM, normal capillary refill Neurological exam: Present: alert, oriented X3, CN II-XII intact. Absent: motor sensory deficit Psychiatric exam: Present: normal affect, normal mood Skin exam: Present: warm, dry. Absent: cyanosis, diaphoretic <Alonzo Whiting - Last Filed: 06/01/20 19:18> Course Vital Signs 06/01/20 16:42 Temperature 98.0 F Pulse Rate 61 Respiratory 18 Rate Blood Pressure 134/74 O2 Sat by Pulse 98 Oximetry EKG Findings - EKG Comments: EKG Findings:: EKG: Paced rhythm no ST segment elevation ST segment depression in the precordial leads and T-wave inversion inferiorly. Rate of 61, CA interval 140, QRS duration 86, QTC 408 <Alonzo Whiting - Last Filed: 06/01/20 19:18> Procedures - Laceration Laceration #1 Consent Obtained: verbal consent Indication: laceration Site: lip (upper lip, does not involve kallie border ) Size (cm): 1 (1.5) Description: linear Depth: simple, single layer Pre-repair: wound explored, irrigated extensively, deep structures intact Type of Sutures: vicryl Size of Sutures: 5-0 Number of Sutures: 3 Technique: simple, interrupted Patient Tolerated Procedure: well, no complications <Raúl Saez - Last Filed: 06/01/20 18:40> Medical Decision Making - Lab Data Result diagrams: 06/01/20 17:15 06/01/20 17:15 <Raúl Saez - Last Filed: 06/01/20 18:40> - Lab Data Result diagrams: 06/01/20 17:15 06/01/20 17:15 <Alonzo Whiting - Last Filed: 06/01/20 19:18> - Medical Decision Making 84-year-old female with syncope, fall and head trauma. Traumatic workup revealing only a lip laceration, CTs of the brain, cervical spine, facial bones are negative for any acute bony abnormality, x-rays of the chest, knee, wrist are negative for acute traumatic injury. Patient has normal CBC, she has an celine vated serum creatinine 1.5, potassium 2.8 which is replaced. She does appear dehydrated. Syncope likely secondary to dehydration. She will be placed in observation for hydration and electronically replacement. Case is discussed with Dr. Day who will admit. (Alonzo Whiting) - Lab Data Lab Results 06/01/20 06/01/20 06/01/20 Range/Units 17:15 17:15 17:15 WBC 10.6 (3.8-10.6) k/uL RBC 5.39 (3.80-5.40) m/uL Hgb 14.4 (11.4-16.0) gm/dL Hct 45.6 (34.0-46.0) % MCV 84.7 (80.0-100.0) fL MCH 26.7 (25.0-35.0) pg MCHC 31.5 (31.0-37.0) g/dL RDW 14.2 (11.5-15.5) % Plt Count 216 (150-450) k/uL Neutrophils % 76 % Lymphocytes % 12 % Monocytes % 9 % Eosinophils % 1 % Basophils % 1 % Neutrophils # 8.1 H (1.3-7.7) k/uL Lymphocytes # 1.3 (1.0-4.8) k/uL Monocytes # 0.9 (0-1.0) k/uL Eosinophils # 0.1 (0-0.7) k/uL Basophils # 0.1 (0-0.2) k/uL PT 10.7 (9.0-12.0) sec INR 1.0 (<1.2) APTT 27.9 (22.0-30.0) sec Sodium 135 L (137-145) mmol/L Potassium 2.8 L (3.5-5.1) mmol/L Chloride 93 L (98-107) mmol/L Carbon Dioxide 26 (22-30) mmol/L Anion Gap 16 mmol/L BUN 20 H (7-17) mg/dL Creatinine 1.54 H (0.52-1.04) mg/dL Est GFR (CKD-EPI)AfAm 35 (>60 ml/min/1.73 sqM) Est GFR (CKD-EPI)NonAf 30 (>60 ml/min/1.73 sqM) Glucose 155 H (74-99) mg/dL Calcium 9.6 (8.4-10.2) mg/dL Magnesium 2.0 (1.6-2.3) mg/dL Total Bilirubin 0.8 (0.2-1.3) mg/dL AST 59 H (14-36) U/L ALT 11 (4-34) U/L Alkaline Phosphatase 105 (38-126) U/L Troponin I (0.000-0.034) ng/mL Total Protein 7.5 (6.3-8.2) g/dL Albumin 4.5 (3.5-5.0) g/dL 06/01/20 Range/Units 17:15 WBC (3.8-10.6) k/uL RBC (3.80-5.40) m/uL Hgb (11.4-16.0) gm/dL Hct (34.0-46.0) % MCV (80.0-100.0) fL MCH (25.0-35.0) pg MCHC (31.0-37.0) g/dL RDW (11.5-15.5) % Plt Count (150-450) k/uL Neutrophils % % Lymphocytes % % Monocytes % % Eosinophils % % Basophils % % Neutrophils # (1.3-7.7) k/uL Lymphocytes # (1.0-4.8) k/uL Monocytes # (0-1.0) k/uL Eosinophils # (0-0.7) k/uL Basophils # (0-0.2) k/uL PT (9.0-12.0) sec INR (<1.2) APTT (22.0-30.0) sec Sodium (137-145) mmol/L Potassium (3.5-5.1) mmol/L Chloride (98-107) mmol/L Carbon Dioxide (22-30) mmol/L Anion Gap mmol/L BUN (7-17) mg/dL Creatinine (0.52-1.04) mg/dL Est GFR (CKD-EPI)AfAm (>60 ml/min/1.73 sqM) Est GFR (CKD-EPI)NonAf (>60 ml/min/1.73 sqM) Glucose (74-99) mg/dL Calcium (8.4-10.2) mg/dL Magnesium (1.6-2.3) mg/dL Total Bilirubin (0.2-1.3) mg/dL AST (14-36) U/L ALT (4-34) U/L Alkaline Phosphatase (38-126) U/L Troponin I <0.012 (0.000-0.034) ng/mL Total Protein (6.3-8.2) g/dL Albumin (3.5-5.0) g/dL Disposition <Raúl Saez - Last Filed: 06/01/20 18:40> Is patient prescribed a controlled substance at d/c from ED?: No Decision to Admit Reason: Admit from EC Decision Date: 06/01/20 Decision Time: 19:18 <Alonzo Whiting - Last Filed: 06/01/20 19:18> Clinical Impression: Dehydration, Fall, Hypokalemia, Lip laceration Disposition: ADMITTED IP TO THIS [facility] Condition: Stable Referrals: Emigdio Day MD [Primary Care Provider] - 1-2 days
[2020-06-01 17:33] LABS: Basophils # (A) 0.1 k/uL (0-0.2); Basophils % (A) 1 %; Eosinophils # (A) 0.1 k/uL (0-0.7); Eosinophils % (A) 1 %; HCT 45.6 % (34.0-46.0); HGB 14.4 gm/dL (11.4-16.0); Lymphocytes # (A) 1.3 k/uL (1.0-4.8); Lymphocytes % (A) 12 %; MCH 26.7 pg (25.0-35.0); MCHC 31.5 g/dL (31.0-37.0); MCV 84.7 fL (80.0-100.0); Mean Platelet Volume 8.4; Monocytes # (A) 0.9 k/uL (0-1.0); Monocytes % (A) 9 %; Neutrophils # (A) 8.1 k/uL (1.3-7.7); Neutrophils % (A) 76 %; Platelet Count 216 k/uL (150-450); RBC 5.39 m/uL (3.80-5.40); RDW 14.2 % (11.5-15.5); WBC 10.6 k/uL (3.8-10.6)
[2020-06-01 17:44] LABS: Partial Thromboplastin Time 27.9 sec (22.0-30.0); Prothrombin Time 10.7 sec (9.0-12.0)
--- NOTE | 2020-06-01 17:53 | CT ---
EXAMINATION TYPE: CT brain ashlyine wo con DATE OF EXAM: 06/01/2020 COMPARISON: Brain 06/29/2018 HISTORY: 84-year-old female with pain after Fall injury, lip laceration CT DLP: 987.2 mGycm Automated exposure control for dose reduction was used. Technique: Examination of the head was done in axial plane without intravenous contrast. Coronal and sagittal reconstructions performed. CT of the cervical spine was obtained in axial plane without intravenous injection of contrast mater ial. Coronal and sagittal reformatted images were obtained from the axial views for evaluation of f ractures, spinal alignment and canal. FINDINGS: Head: There is no evidence of acute intracranial hemorrhage, acute ischemic changes, mass, mass-effect, or extra-axial fluid collection. There is no effacement of cerebral sulci or basal subarachnoid cister ns. There is no hydrocephalus. There is no midline shift. Andre-white matter distinction is preserv ed. Rightward nasal septal deviation. Mild age-related cerebral cortical volume loss. Atherosclerotic karoline nges within the carotid siphons. Paranasal sinuses and mastoid air cells well pneumatized. Cervical spine: No craniocervical junction abnormality, predental space widening, or prevertebral soft tissue swellin g. Bulky anterior endplate spondylosis especially towards the left at C4-C7 levels. Reversal of the normal cervical lordosis. Grade 1 anterolisthesis C3-C4, C7-T1, T1-T2, and T2-T3. Remaining alignment is maintained. No acute fracture of the cervical spine. Moderate degenerative disc disease C4-C7 levels with disc osteophyte complex formation. Mild narrowin g of the spinal canal cyst suggested at C4-C5 and C7-T1. Bilateral facet and uncovertebral joint arthropathy. There is moderate bilateral foraminal stenoses a t C4-C5. Sagittal and coronal reformatted images confirm above findings. COMBINED IMPRESSION: 1. No acute intracranial abnormality seen. 2. Moderate spondylitic change with degenerative grade 1 anterolisthesis at C3-C4, C7-T1, T1-T2, axia l T2-T3. No acute fracture of the cervical spine.
--- NOTE | 2020-06-01 17:56 | CT ---
EXAMINATION TYPE: CT facial bones wo con DATE OF EXAM: 06/01/2020 COMPARISON: None HISTORY: 84-year-old female with pain after Fall injury, lip laceration TECHNIQUE: Contiguous axial scanning of the facial bones without IV contrast. Coronal reconstructions performed. CT DLP: 987.2 mGycm Automated exposure control for dose reduction was used. FINDINGS: Extensive dental amalgam artifact. Rightward nasal septal deviation. Trace mucosal thickening ethmoid air cells. No air-fluid level with in the paranasal sinuses. The mandible, pterygoid plates and zygomatic arches are intact. There is soft tissue injury to the left anterior lip with laceration. No facial bone fracture seen. Degenerative changes at the right greater than left TMJ. The nasal bone is intact. Orbits and globes are intact. IMPRESSION: LACERATION TO THE ANTERIOR LEFT LIP. DEGENERATIVE CHANGES RIGHT GREATER THAN LEFT TMJs. NO ACUTE FACI AL BONE FRACTURE.
[2020-06-01 18:29] LABS: Albumin 4.5 g/dL (3.5-5.0); Calcium 9.6 mg/dL (8.4-10.2); Potassium 2.8 mmol/L (3.5-5.1); Total Bilirubin 0.8 mg/dL (0.2-1.3); Total Protein 7.5 g/dL (6.3-8.2)
--- NOTE | 2020-06-01 18:29 | XR ---
EXAMINATION TYPE: XR knee complete 3 views RT, XR wrist complete 4 views LT DATE OF EXAM: 06/01/2020 COMPARISON: NONE HISTORY: 84-year-old female fall and pain FINDINGS: Left wrist: Radiocarpal and distal radioulnar joint as well as the midcarpal compartment appear intact. There is some scattered synovial and TFC calcifications. Severe degenerative change of the first CMC joint and moderate at the triscaphe joint. Osteopenia. Right knee: Meniscal chondrocalcinosis is noted. No knee joint effusion. Degenerative spurring patellofemoral com partment. Extensor mechanism is intact. IMPRESSION: 1. 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 No acute osseous abnormality seen. 2. Right knee: Degenerative spurring patellofemoral compartment. Meniscal chondrocalcinosis may be id iopathic or can be seen with CPPD. No acute osseous abnormality seen.
--- NOTE | 2020-06-01 18:32 | XR ---
EXAMINATION TYPE: XR chest 2V DATE OF EXAM: 06/01/2020 COMPARISON: 09/23/2019 HISTORY: 84-year-old female with syncope TECHNIQUE: AP and lateral views FINDINGS: Left anterior chest wall pacemaker generator with right atrial and right ventricular leads. Similar s light asymmetric elevation right hemidiaphragm. Heart upper limits of normal in size. Aorta and pulmo nary vasculature within normal limits. No consolidation or pleural effusion. IMPRESSION: No acute cardiopulmonary process.
[2020-06-01] MEDS ORDERED: POTASSIUM CHLORIDE ER 20 MEQ TAB.ER PO STA (18:43)
[2020-06-01] MEDS ORDERED: NALOXONE 0.4 MG/ML 1 ML VIAL IV PRN (19:15)
[2020-06-01] MEDS: 0.9% NACL WITH KCL 20 MEQ/L 1,000 ML IV SCH (19:49)
--- NOTE | 2020-06-01 21:43 | P.HPIM ---
History of Present Illness H&P Date: 06/01/20 (Syncopal episode was blackouts) History and physical date of service 06/01/2020 at 9:[address] Day. Patient seen and evaluated in observation unit room #153. Patient brought by EMS to the ER after she has a sudden fall down with the blackout the etiology was unclear however she did not recall weakness and feeling of falling down. She lost her consciousness momentarily. Her daughter currently with her called the EMS brought her to the emergency room History of present illness: 2 days prior to the fall patient feel felt dizzy and also had diarrhea and the patient has history of Parkinson disease, and she had a constipation followed by dizziness and she had right lower quadrant pain with deep palpation with a previous history of hernia repair and placement of mesh. No fever no chills no chest pain or palpitation, however she had a pacemaker left infraclavicular and unclear these blackout associated with the pacemaker or not or irregularities over the heart. When she fell down at home outside of the bedroom she stopped right her face and head laceration of the left upper lip as well as contusion to the nasal bone and fascial she landed on her right knee with a contusion but no fracture x-rays was done in the ER. Past medical history: Diabetes mellitus type 2 on oral hypoglycemic agent. Parkinson disease. Anticoagulation with eliquis, Hyperlipidemia using Crestor. Cardiac arrhythmia using amiodarone. COPD using inhaler. And hypokalemia using potassium chloride Gouty arthropathy his hyperuricemia using allopurinol. Insomnia using trazodone. GERD disease using pantoprazole. Hypothyroidism on levothyroxine 75 g daily Hypertension with the use of hydralazine. History of dizziness using antevert 25 mg twice a day. History of metoprolol tartrate 50 mg twice a day for hypertension and cardiac arrhythmias. ALLERGY: #1 iodinated contrast media caused anaphylaxis. #2 lisinopril kidney failure with ALLERGY coughing #3 penicillin ALLERGY itching #4 codeine nausea and vomiting #5 minute protein nausea and vomiting #6 morphine nausea and vomiting Review of system: Neuropsychiatry: Patient did not recognize that she is falling down with momentary loss of consciousness and hitting her face and the upper lip with laceration sutured in the ER. And contusion to left breast and right knee on the landing. Cardiovascular she had a pacemaker with the underlying amiodarone as well as beta blockers as well as hydralazine, probability of cardiac arrhythmia or pacemaker dysfunction need to be excluded. And she will have as well carotid duplex study and echocardiogram. Pulmonary she denied any cough or expectoration GI she complain of the right lower quadrant pain with discomfort with deep palpation and also requested Dr. Pappas to see her to evaluate these pain surgical he. Fascial bruises of the nose and the light contusion on the right knee and suture on the left upper lip in the ER. Patient also complained of diarrhea and we will rule out C. difficile. Patient had history of atrial fibrillation diabetes mellitus GERD disease and a hyper lipidemia, hypertension, neurologic disorders with the back surgery and Parkinson disease treated by Dr. Beauchamp. She had as well appendectomy back surgery and bowel resection. She had history of chronic kidney disease sick sinus syndrome cataract extraction here surgery, cholecystectomy hernia repair, tonsillectomy and hysterectomy. Basal cell carcinoma removed of the left ankle the hernia repair with mesh and 2010. Pacemaker permanent on 04/06/2018 no line Review of the risks of the 14 bullet was noncontributory. Family history: Cancer, diabetes mellitus, hypertension, Parkinson disease myocardial infarction. Physical exam: Syncopal this episode was blackout and loss soft temporary conscious, at the time of the exam she was conscious alert but could not recall the event exactly. With afebrile head trauma and the computed tomography scan is done was negative. Pupils equal reactive, oropharynx normal with the upper left lip suture for the contact with the floor at the house. Neck was supple no JVD no thyromegaly no lymphadenopathy trachea midline. Chest: Left upper chest on the left infraclavicular pacemaker. With the paced rhythm and T-wave inversion. Lung is radiated bilateral and no wheezes or rhonchi's she had history of COPD. Heart EKG indicating electronic atrial pacemaker, with ST T abnormality in the inferior as well as anterolateral with the abnormal EKG troponin on admission was negative. Abdomen: She has diarrhea and C. difficile PCR ordered. She had tenderness on the right lower quadrant with light and deep palpation with be consulting Dr. Pappas to see the patient on her request PAIN not resolving. Extremities: They did x-ray of the left breast and the right knee with the underlying arthritis and calcium deposit with CCPD probability but no fracture. Neurologic telemetry patient is conscious alert oriented 3 at the time of the e xam no headache and no blurred vision and no residual neurological effect. Assessment: #1 blackout with the syncopal episode with momentary loss of consciousness clear etiology unknown. #2 patient had a pacemaker left infraclavicular with the electronic atrial pacing with the possibility of dysfunction, also patient on amiodarone and metoprolol and hydralazine for further evaluation by cardiology needed. #3 carotid artery disease with the possibility of PACs and the carotid duplex study will be in order. #4 patient has history of atrial fibrillation currently is pacemaker dependent. #5 diabetes mellitus type 2 with mild hyperglycemia placed on insulin to scale. #6 coronary artery disease atherosclerotic heart disease, #7 chronic kidney disease stage III. #8 multiple abdominal surgery as well as back surgery. Plan: Medication adjusted #2 echocardiogram #3 carotid duplex study number for consultation with the cardiology #5 consultation with the surgeon Dr. Pappas. #6 laboratory evaluation in a.m. #7 patient initially placed on observation unit uncontrolled for further evaluation. Past Medical History Past Medical History: Atrial Fibrillation, Cancer, Diabetes Mellitus, Eye Disorder, GERD/Reflux, Hyperlipidemia, Hypertension, Musculoskeletal Disorder, Neurologic Disorder Additional Past Medical History / Comment(s): HX SKIN CANCER, constipation, skin cancer left ankle basal cell. PARKINSON, PAST HX KIDNEY FAILURE R/T MEDICATION- RESOLVED, history of sick sinus syndrome, history of cataracts. History of Any Multi-Drug Resistant Organisms: None Reported Past Surgical History: Adenoidectomy, Appendectomy, Back Surgery, Bowel Resection, Cholecystectomy, Ear Surgery, Hernia Repair, Hysterectomy, Tonsillectomy Additional Past Surgical History / Comment(s): 04/06/18 PACEMAKER INSERTION. T & A-1939, APPENDECTOMY-1945, LAP KATARINA-1968, HYST-1974, SX FOR RECTAL FISTULA X 3- 1977,1986,1998, BILAT CATARACTS-1998, BACK SX x4-1999,2003,2012,2018- AFTER LAST BACK SX HAD A BLOOD CLOT AND THEY HAD TO GO BACK IN TO REMOVED) COLONOSCOPY- 2009, SIGMOID RESECTION- 2009, 12 CM LIPOMA REMOVED FROM LT ARM- 2001, BASAL CELL CARCINOMA REMOVED LT ANKLE 2006, ABD. HERNIA REPAIR WITH MESH- 2009 Past Anesthesia/Blood Transfusion Reactions: Motion Sickness, Postoperative Nausea & Vomiting (PONV) Type of Cardiac Device: Permanent Pacemaker Device Placement Date:: 04/06/2018 Past Psychological History: No Psychological Hx Reported Additional Psychological History / Comment(s): PT LIVES ALONE IN SINGLE LEVEL HOME.HAS WALKER/WHEEL CHAIR.Does not drive -- DAUGHTER TAKES HER TO APT. Smoking Status: Never smoker Past Alcohol Use History: None Reported Past Drug Use History: None Reported - Past Family History Mother Family Medical History: Cancer, Diabetes Mellitus, Hypertension Additional Family Medical History / Comment(s): Parkinson's disease Father Family Medical History: Myocardial Infarction ([place]) Additional Family Medical History / Comment(s): FROM [place] AT AGE 56 Son(s) Family Medical History: Myocardial Infarction ([place]) Medications and Allergies Home Medications Medication Instructions Recorded Confirmed Type Carbidopa-Levodopa 25-100 mg 1 tab PO QID 05/03/17 06/01/20 History [Sinemet 25-100 mg] Gabapentin [Neurontin] 400 mg PO 5XD 05/03/17 06/01/20 History Pantoprazole Sodium [Protonix] 40 mg PO DAILY 05/03/17 06/01/20 History traZODone HCL [Desyrel] 100 mg PO HS 05/03/17 06/01/20 History Metoprolol Tartrate [Lopressor] 50 mg PO BID tab 04/11/18 06/01/20 Rx Apixaban [Eliquis] 5 mg PO BID 10/05/18 06/01/20 History Glimepiride [Amaryl] 2 mg PO BID 10/05/18 06/01/20 History Rosuvastatin [Crestor] 20 mg PO HS 10/05/18 06/01/20 History Amiodarone HCl [Pacerone] 100 mg PO QAM 06/01/20 06/01/20 History Ibuprofen [Motrin] 800 mg PO BID PRN 06/01/20 06/01/20 History Levothyroxine Sodium [Synthroid] 75 mcg PO QAM 06/01/20 06/01/20 History hydrALAZINE HCL [Apresoline] 25 mg PO TID-W/MEALS 06/01/20 06/01/20 History Allergies Allergy/AdvReac Type Severity Reaction Status Date / Time Iodinated Contrast Media Allergy Anaphylaxis Verified 06/01/20 20:10 [Iodinated Contrast- Oral and IV Dye] lisinopril Allergy KIDNEY Verified 06/01/20 20:10 FAILURE Penicillins Allergy Itching Verified 06/01/20 20:10 codeine AdvReac Nausea & Verified 06/01/20 20:10 Vomiting meperidine [From Demerol] AdvReac Nausea & Verified 06/01/20 20:10 Vomiting morphine AdvReac Nausea & Verified 06/01/20 20:10 Vomiting Physical Exam Vitals: Vital Signs Temp Pulse Pulse Resp BP BP Pulse Ox 06/01/20 20:52 98.0 F 62 16 142/62 99 06/01/20 19:37 60 16 158/61 98 06/01/20 16:42 98.0 F 61 18 134/74 98 Intake and Output 06/01/20 06/01/20 06/01/20 06:59 14:59 22:59 Other: # Voids 1 Weight 58.967 kg Results CBC & Chem 7: 06/01/20 17:15 06/01/20 17:15 Labs: Abnormal Lab Results - Last 24 Hours (Table) 06/01/20 06/01/20 Range/Units 17:15 17:15 Neutrophils # 8.1 H (1.3-7.7) k/uL Sodium 135 L (137-145) mmol/L Potassium 2.8 L (3.5-5.1) mmol/L Chloride 93 L (98-107) mmol/L BUN 20 H (7-17) mg/dL Creatinine 1.54 H (0.52-1.04) mg/dL Glucose 155 H (74-99) mg/dL AST 59 H (14-36) U/L Thrombosis Risk Factor Assmnt - Choose All That Apply Any of the Below Risk Factors Present?: No Other Risk Factors: No Other congenital or acquired thrombophilia - If yes, enter type in comment: No Thrombosis Risk Factor Assessment Level: Very Low Risk
[2020-06-01 22:25] LABS: Glucose,Whole Blood 166 mg/dL (75-99)
[2020-06-01] MEDS: APIXABAN 5 MG TAB PO SCH (22:26)
[2020-06-01] MEDS: ATORVASTATIN 40 MG TAB PO SCH (22:26)
[2020-06-01] MEDS: METOPROLOL TARTRATE 50 MG TAB PO SCH (22:26)
[2020-06-01] MEDS: CARBIDOPA-LEVODOPA 25-100 MG 1 EACH TAB PO SCH (22:26)
[2020-06-01] MEDS: PANTOPRAZOLE 40 MG TABLET PO SCH (22:26)
[2020-06-01] MEDS: GLIMEPIRIDE 2 MG TAB PO SCH (22:26)
[2020-06-01 23:03] LABS: Amorphous Sediment,Urine Rare /hpf; Appearance,Urine Clear (Clear); Bacteria,Urine Rare /hpf; Bilirubin,Urine Negative (Negative); Blood,Urine Trace (Negative); Color,Urine Yellow; Glucose,Urine (UA) Negative (Negative); Ketones,Urine Negative (Negative); Leukocyte Esterase,Urine Negative (Negative); Nitrite,Urine Negative (Negative); PH, Urine 7.5 (5.0-8.0); Protein,Urine 1+ (Negative); RBC,Urine 1 /hpf (0-5); Specific Gravity,Urine 1.008 (1.001-1.035); Urobilinogen,Urine <2.0 mg/dL (<2.0); WBC,Urine 4 /hpf (0-5)
[2020-06-02] MEDS: GABAPENTIN 400 MG CAP PO SCH ×5 (00:52→21:00)
[2020-06-02] MEDS: ACETAMINOPHEN TAB 325 MG TAB PO PRN ×2 (03:35→10:51)
[2020-06-02 06:21] LABS: Basophils % (A) 1 %; Eosinophils # (A) 0.1 k/uL (0-0.7); Eosinophils % (A) 1 %; HCT 37.2 % (34.0-46.0); HGB 11.5 gm/dL (11.4-16.0); Lymphocytes # (A) 1.3 k/uL (1.0-4.8); Lymphocytes % (A) 14 %; MCH 26.6 pg (25.0-35.0); MCV 85.7 fL (80.0-100.0); Monocytes # (A) 0.8 k/uL (0-1.0); Monocytes % (A) 9 %; Neutrophils # (A) 6.7 k/uL (1.3-7.7); Neutrophils % (A) 74 %; Platelet Count 162 k/uL (150-450); RBC 4.35 m/uL (3.80-5.40); RDW 14.3 % (11.5-15.5); WBC 9.1 k/uL (3.8-10.6)
[2020-06-02 06:31] LABS: Glucose,Whole Blood 100 mg/dL (75-99)
[2020-06-02 06:47] LABS: Albumin 3.3 g/dL (3.5-5.0); Bilirubin, Delta 0.4 mg/dL (0.0-0.2); Bilirubin,Unconjugated 0.3 mg/dL (0.0-1.1); Magnesium 1.9 mg/dL (1.6-2.3); Potassium 3.4 mmol/L (3.5-5.1); Total Bilirubin 0.7 mg/dL (0.2-1.3); Total Protein 5.8 g/dL (6.3-8.2)
[2020-06-02] MEDS: INSULIN ASPART (NovoLOG) 100 UNIT/ML VIAL SQ SCH ×3 (07:43→16:53)
[2020-06-02] MEDS: 0.9% NACL WITH KCL 20 MEQ/L 1,000 ML IV SCH ×2 (08:12→16:53)
[2020-06-02] MEDS: hydrALAZINE HCL 25 MG TAB PO SCH ×3 (08:13→16:53)
[2020-06-02] MEDS: PANTOPRAZOLE 40 MG TABLET PO SCH (08:13)
[2020-06-02] MEDS: METOPROLOL TARTRATE 50 MG TAB PO SCH ×2 (08:13→21:00)
[2020-06-02] MEDS: CARBIDOPA-LEVODOPA 25-100 MG 1 EACH TAB PO SCH ×4 (08:13→21:01)
[2020-06-02] MEDS: APIXABAN 5 MG TAB PO SCH ×2 (08:13→21:00)
[2020-06-02] MEDS: AMIODARONE 100 MG TAB PO SCH (08:13)
[2020-06-02] MEDS: GLIMEPIRIDE 2 MG TAB PO SCH ×2 (08:13→21:01)
--- NOTE | 2020-06-02 09:08 | US ---
EXAMINATION TYPE: US carotid duplex BILAT DATE OF EXAM: 06/02/2020 COMPARISON: NONE CLINICAL HISTORY: Blackout, syncopal episode etiology unclear. Recent fall, no h/o stroke EXAM MEASUREMENTS: RIGHT: Peak Systolic Velocity (PSV) cm/sec ----- Right CCA: 72.9 ----- Right ICA: 170.1 ----- Right ECA: 60.5 ICA/CCA ratio: 2.3 RIGHT: End Diastole cm/sec ----- Right CCA: 11.0 ----- Right ICA: 30.2 ----- Right ECA: 9.0 LEFT: Peak Systolic Velocity (PSV) cm/sec ----- Left CCA: 52.4 ----- Left ICA: 40.0 ----- Left ECA: 67.7 ICA/CCA ratio: 0.8 LEFT: End Diastole cm/sec ----- Left CCA: 6.8 ----- Left ICA: 11.1 ----- Left ECA: 9.5 VERTEBRALS (direction of flow): Right Vertebral: Antegrade Left Vertebral: Antegrade Rhythm: Normal Heterogeneous plaque at bilateral bulbs. Right ICA is tortuous. IMPRESSION: 1. Flow parameters suggest 50-69% stenosis of the right internal carotid artery. Drier Attendant notes to rtuous appearance of the right internal carotid artery, which may artifactually elevate velocities. I f clinically warranted, findings can be further evaluated with CT examination of the neck. 2. No hemodynamically significant stenosis of the left carotid artery. Criteria for Assigning % of Stenosis / Diameter reduction (Estimation based on the indirect measurements of the internal carotid artery velocities (ICA PSV). 1. Normal (no stenosis)=ICA PSV < 125 cm/s: ratio < 2.0: ICA EDV<40 cm/s. 2. Less than 50% stenosis=ICA PSV < 125 cm/s: ratio < 2.0: ICA EDV<40 cm/s. 3. 50 to 69% stenosis=ICA PSV of 125 to 230 cm/s: ratio 2.0 ? 4.0: ICA EDV 40-100 cm/s. 4. Greater than 70% stenosis to near occlusion= ICA PSV > 230 cm/s: ratio > 4.0: ICA EDV > 100 cm/s. 5. Near occlusion= ICA PSV velocities may be low or undetectable: variable ratio and ICA EDV. 6. Total occlusion=unable to detect flow.
[2020-06-02 11:38] LABS: Glucose,Whole Blood 189 mg/dL (75-99)
[2020-06-02 12:24] LABS: Hemoglobin A1C 6.7 % (4.0-6.0)
[2020-06-02 14:57] VITALS: BMI 25.4
--- NOTE | 2020-06-02 15:00 | P.GSCN ---
History of Present Illness Consult date: 06/02/20 History of present illness: CHIEF COMPLAINT: Right lower abdominal pain with constipation and diarrhea HISTORY OF PRESENT ILLNESS: This is a 84-year-old female with a known history of Parkinson's, diabetes mellitus, COPD, hypothyroidism, GERD, atrial fibrillation and is anticoagulated with Eliquis, hypertension, rectal fistula, chronic kidney disease and history of pacemaker placement. Surgical history she has a history of right inguinal hernia with repair and mesh in June 2010. Also bowel resection in 2009, appendectomy, cholecystectomy and hysterectomy. Patient presented to the emergency room with loss of consciousness and fall. She had reported that she was walking down the hallway felt dizzy and felt. Patient is also been having diarrhea and constipation intermittently over the last 6-8 months. She denies any nausea or vomiting. She has been having issues with right lower abdominal pain since Spring. She does experience some pain with bowel movements. Patient does not appear to be associated with food. We've been consulted in regards to patient's abdominal pain. Also note patient had a colonoscopy that was not completed due to retained stool about [address] Laureano. Patient denies any fever, chills or sweats. She denies any blood in the stools. PAST MEDICAL HISTORY: See list. PAST SURGICAL HISTORY: See list. MEDICATIONS: See list. ALLERGIES: See list. SOCIAL HISTORY: No illicit drug use. REVIEW OF SYSTEMS: CONSTITUTIONAL: Denies fever or chills. HEENT: Denies blurred vision, vision changes, or eye pain. Denies hemoptysis CARDIOVASCULAR: Denies chest pain or pressure. RESPIRATORY: No shortness of breath. GASTROINTESTINAL: See HPI for pertinent findings HEMATOLOGIC: Denies bleeding disorders. GENITOURINARY: Denies any blood in urine or increased urinary frequency. SKIN: Denies pruitis. Denies rash. PHYSICAL EXAM: VITAL SIGNS: Reviewed GENERAL: Well-developed in no acute distress. HEENT: No sclera icterus. Extraocular movements grossly intact. Moist buccal mucosa. Head is atraumatic, normocephalic. No nasal drainage. ABDOMEN: Soft. Nondistended and nontender NEUROLOGIC: Alert and oriented. Cranial nerves II through XII grossly intact. LABORATORY DATA: WBC 11.5 and 1.48 potassium 3.4 AST 38 total bilirubin 0.7 and Delta bilirubin 0.4 IMAGING: ASSESSMENT: 1. Right-sided abdominal pain with diarrhea and constipation 2. Prior history of a right inguinal hernia with repair and mesh 3. Syncopal episode 4. History of pacemaker 5. Dehydration 6. Hypokalemia PLAN: -Continue heart healthy diet -We will continue to monitor -Continue IV fluids Thank you for this consultation. Physician Preparator note has been reviewed by physician. Signing provider agrees with the documented findings, assessment, and plan of care. Past Medical History Past Medical History: Atrial Fibrillation, Cancer, Diabetes Mellitus, Eye Disorder, GERD/Reflux, Hyperlipidemia, Hypertension, Musculoskeletal Disorder, Neurologic Disorder Additional Past Medical History / Comment(s): HX SKIN CANCER, constipation, skin cancer left ankle basal cell. PARKINSON, PAST HX KIDNEY FAILURE R/T MEDICATION- RESOLVED, history of sick sinus syndrome, history of cataracts. History of Any Multi-Drug Resistant Organisms: None Reported Past Surgical History: Adenoidectomy, Appendectomy, Back Surgery, Bowel Resection, Cholecystectomy, Ear Surgery, Hernia Repair, Hysterectomy, [place] ctomy Additional Past Surgical History / Comment(s): 04/06/18 PACEMAKER INSERTION. T & A-1939, APPENDECTOMY-194, LAP KATARINA-1968, HYST-1974, SX FOR RECTAL FISTULA X 3- 1977,1986,1998, BILAT CATARACTS-1998, BACK SX x4-1999,2003,2011,2018- AFTER LAST BACK SX HAD A BLOOD CLOT AND THEY HAD TO GO BACK IN TO REMOVED) COLONOSCOPY- 2009, SIGMOID RESECTION- 2009, 12 CM LIPOMA REMOVED FROM LT ARM- 2001, BASAL CELL CARCINOMA REMOVED LT ANKLE 2006, ABD. HERNIA REPAIR WITH MESH-2009 Past Anesthesia/Blood Transfusion Reactions: Motion Sickness, Postoperative Nausea & Vomiting (PONV) Type of Cardiac Device: Permanent Pacemaker Device Placement Date:: 04/06/2018 Past Psychological History: No Psychological Hx Reported Additional Psychological History / Comment(s): PT LIVES ALONE IN SINGLE LEVEL HOME.HAS WALKER/WHEEL CHAIR.Does not drive -- DAUGHTER TAKES HER TO APT. Smoking Status: Never smoker Past Alcohol Use History: None Reported Past Drug Use History: None Reported - Past Family History Mother Family Medical History: Cancer, Diabetes Mellitus, Hypertension Additional Family Medical History / Comment(s): Parkinson's disease Father Family Medical History: Myocardial Infarction ([place]) Additional Family Medical History / Comment(s): FROM [place] AT AGE 56 Son(s) Family Medical History: Myocardial Infarction ([place]) Medications and Allergies Home Medications Medication Instructions Recorded Confirmed Type Carbidopa-Levodopa 25-100 mg 1 tab PO QID 05/03/17 06/01/20 History [Sinemet 25-100 mg] Gabapentin [Neurontin] 400 mg PO 5XD 05/03/17 06/01/20 History Pantoprazole Sodium [Protonix] 40 mg PO DAILY 05/03/17 06/01/20 History traZODone HCL [Desyrel] 100 mg PO HS 05/03/17 06/01/20 History Metoprolol Tartrate [Lopressor] 50 mg PO BID tab 04/11/18 06/01/20 Rx Apixaban [Eliquis] 5 mg PO BID 10/05/18 06/01/20 History Glimepiride [Amaryl] 2 mg PO BID 10/05/18 06/01/20 History Rosuvastatin [Crestor] 20 mg PO HS 10/05/18 06/01/20 History Amiodarone HCl [Pacerone] 100 mg PO QAM 06/01/20 06/01/20 History Ibuprofen [Motrin] 800 mg PO BID PRN 06/01/20 06/01/20 History Levothyroxine Sodium [Synthroid] 75 mcg PO QAM 06/01/20 06/01/20 History hydrALAZINE HCL [Apresoline] 25 mg PO TID-W/MEALS 06/01/20 06/01/20 History Allergies Allergy/AdvReac Type Severity Reaction Status Date / Time Iodinated Contrast Media Allergy Anaphylaxis Verified 06/01/20 20:10 [Iodinated Contrast- Oral and IV Dye] lisinopril Allergy KIDNEY Verified 06/01/20 20:10 FAILURE Penicillins Allergy Itching Verified 06/01/20 20:10 codeine AdvReac Nausea & Verified 06/01/20 20:10 Vomiting meperidine [From Demerol] AdvReac Nausea & Verified 06/01/20 20:10 Vomiting morphine AdvReac Nausea & Verified 06/01/20 20:10 Vomiting Surgical - Exam Vital Signs Temp Pulse Resp BP Pulse Ox 98.0 F 61 18 134/74 98 06/01/20 16:42 06/01/20 16:42 06/01/20 16:42 06/01/20 16:42 06/01/20 16:42 Results - Labs 06/02/20 05:45 06/02/20 05:45 Abnormal Lab Results - Last 24 Hours (Table) 06/01/20 06/01/20 06/01/20 Range/Units 17:15 17:15 17:15 Neutrophils # 8.1 H (1.3-7.7) k/uL Sodium 135 L (137-145) mmol/L Potassium 2.8 L (3.5-5.1) mmol/L Chloride 93 L (98-107) mmol/L BUN 20 H (7-17) mg/dL Creatinine 1.54 H (0.52-1.04) mg/dL Glucose 155 H (74-99) mg/dL POC Glucose (mg/dL) (75-99) mg/dL Hemoglobin A1c 6.7 H (4.0-6.0) % Delta Bilirubin (0.0-0.2) mg/dL AST 59 H (14-36) U/L Total Protein (6.3-8.2) g/dL Albumin (3.5-5.0) g/dL Urine Protein (Negative) Urine Blood (Negative) Amorphous Sediment (None) /hpf Urine Bacteria (None) /hpf 06/01/20 06/01/20 06/02/20 Range/Units 21:38 22:23 05:45 Neutrophils # (1.3-7.7) k/uL Sodium 135 L (137-145) mmol/L Potassium 3.4 L (3.5-5.1) mmol/L Chloride (98-107) mmol/L BUN (7-17) mg/dL Creatinine 1.48 H (0.52-1.04) mg/dL Glucose 109 H (74-99) mg/dL POC Glucose (mg/dL) 166 H (75-99) mg/dL Hemoglobin A1c (4.0-6.0) % Delta Bilirubin 0.4 H (0.0-0.2) mg/dL AST 38 H (14-36) U/L Total Protein 5.8 L (6.3-8.2) g/dL Albumin 3.3 L (3.5-5.0) g/dL Urine Protein 1+ H (Negative) Urine Blood Trace H (Negative) Amorphous Sediment Rare H (None) /hpf Urine Bacteria Rare H (None) /hpf 06/02/20 06/02/20 Range/Units 06:29 11:37 Neutrophils # (1.3-7.7) k/uL Sodium (137-145) mmol/L Potassium (3.5-5.1) mmol/L Chloride (98-107) mmol/L BUN (7-17) mg/dL Creatinine (0.52-1.04) mg/dL Glucose (74-99) mg/dL POC Glucose (mg/dL) 100 H 189 H (75-99) mg/dL Hemoglobin A1c (4.0-6.0) % Delta Bilirubin (0.0-0.2) mg/dL AST (14-36) U/L Total Protein (6.3-8.2) g/dL Albumin (3.5-5.0) g/dL Urine Protein (Negative) Urine Blood (Negative) Amorphous Sediment (None) /hpf Urine Bacteria (None) /hpf Diabetes panel 06/01/20 06/01/20 06/02/20 Range/Units 17:15 17:15 05:45 Sodium 135 L 135 L (137-145) mmol/L Potassium 2.8 L 3.4 L (3.5-5.1) mmol/L Chloride 93 L 101 (98-107) mmol/L Carbon Dioxide 26 26 (22-30) mmol/L BUN 20 H 15 (7-17) mg/dL Creatinine 1.54 H 1.48 H (0.52-1.04) mg/dL Glucose 155 H 109 H (74-99) mg/dL Hemoglobin A1c 6.7 H (4.0-6.0) % Calcium 9.6 9.0 (8.4-10.2) mg/dL AST 59 H 38 H (14-36) U/L ALT 11 6 (4-34) U/L Alkaline Phosphatase 105 83 (38-126) U/L Total Protein 7.5 5.8 L (6.3-8.2) g/dL Albumin 4.5 3.3 L (3.5-5.0) g/dL Calcium panel 06/01/20 06/02/20 Range/Units 17:15 05:45 Calcium 9.6 9.0 (8.4-10.2) mg/dL Albumin 4.5 3.3 L (3.5-5.0) g/dL Pituitary panel 06/01/20 06/02/20 Range/Units 17:15 05:45 Sodium 135 L 135 L (137-145) mmol/L Potassium 2.8 L 3.4 L (3.5-5.1) mmol/L Chloride 93 L 101 (98-107) mmol/L Carbon Dioxide 26 26 (22-30) mmol/L BUN 20 H 15 (7-17) mg/dL Creatinine 1.54 H 1.48 H (0.52-1.04) mg/dL Glucose 155 H 109 H (74-99) mg/dL Calcium 9.6 9.0 (8.4-10.2) mg/dL Adrenal panel 06/01/20 06/02/20 Range/Units 17:15 05:45 Sodium 135 L 135 L (137-145) mmol/L Potassium 2.8 L 3.4 L (3.5-5.1) mmol/L Chloride 93 L 101 (98-107) mmol/L Carbon Dioxide 26 26 (22-30) mmol/L BUN 20 H 15 (7-17) mg/dL Creatinine 1.54 H 1.48 H (0.52-1.04) mg/dL Glucose 155 H 109 H (74-99) mg/dL Calcium 9.6 9.0 (8.4-10.2) mg/dL Total Bilirubin 0.8 0.7 (0.2-1.3) mg/dL AST 59 H 38 H (14-36) U/L ALT 11 6 (4-34) U/L Alkaline Phosphatase 105 83 (38-126) U/L Total Protein 7.5 5.8 L (6.3-8.2) g/dL Albumin 4.5 3.3 L (3.5-5.0) g/dL
[2020-06-02 16:37] LABS: Glucose,Whole Blood 167 mg/dL (75-99)
[2020-06-02] MEDS: POTASSIUM CITRATE 5 MEQ TABLET.ER PO SCH (16:53)
--- NOTE | 2020-06-02 17:22 | PN ---
PROGRESS NOTE An 84-year-old female, , date of 1935, room #153, bed 1 on observation status. She is a FULL CODE, she is 5 foot height, weight 58.967 kg, BSA 1.55 m2, BMI 25.4 kg/m2. ALLERGIES: She is allergic to IODINATED CONTRAST MEDIA, LISINOPRIL, PENICILLIN, CODEINE, MECLIZINE, MORPHINE. Patient seen today on observation unit and discussed with her the plan. Her vital signs 98.3 F oral temperature and heart rate 58 per minute and fluctuating to 69 and 67 and 60 with the underlying history of left infraclavicular pacemaker and she was fully paced as well as history of atrial fibrillation and controlled with current treatment which given by Cardiology. Respiratory rate 16 per minute and her blood pressure was fluctuating today on 06/02/2020 dictation. 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 Her pulse ox was 96% on room air. LABORATORY: Today indicating on the 06/02/2020, her white count 9.1, hemoglobin 11.5 and hematocrit 37.2, MCV 85.7, her sodium 135, potassium 3.4, and chloride 101, carbon dioxide 26, anion gap is 8 with a BUN of 15, creatinine 1.48 with the estimated glomerular filtration rate for non- 32. Patient is diabetic and she has CBG and covered also with insulin to scale. This morning her blood sugar was 109 and the POC glucose has been satisfactory. Calcium is 9 and magnesium 1.9. She had also a total protein 5.8 and albumin 3.3. Her urine analysis done on 06/01, yesterday was only 1+ protein, otherwise negative leukocyte and with no evidence of infection. The patient seen by physician unit assistant for Dr. Cobb and stated that assessment, she had a right-sided abdominal pain with diarrhea and constipation as well as history of right inguinal hernia with repair and mesh and syncopal episode. History of pacemaker, dehydration and hypokalemia. Nurse practitioner stated plan of heart healthy diet, continue to monitor, continue IV fluid, but we do not have the answer for the question in regard of the pain in the right lower quadrant is associated with the mesh or other reason surgical. We will wait for the surgeon, Dr. Cobb to see her and to give us some answers, if it is possible. Patient had carotid duplex study with the conclusion that she had a 50-69 stenosis in the right internal carotid. No hemodynamics or significant stenosis on the left. The echocardiogram was not done and the CT scan of the head and cervical spine was done on admission in the ER was negative. On the examination, the patient was conscious, alert, oriented x3. No residual effect from the blackout. She is able to move her 4 extremities. She had left infraclavicular pacemaker and we were waiting for Cardiology evaluation and echocardiogram as well. We do not have any dictation on today; however, the echo was not done yet. CURRENT EXAMINATION: The patient is conscious, alert, oriented. Her HEENT was negative. She had mild right carotid artery disease and the chest is currently clear. No wheezes. No rhonchi and the heart PMI in the fifth intercostal space, outside midclavicular line with the underlying pacemaker and her last echocardiogram was not done yet in the hospital, already ordered. Her EKG showed that she has electronic atrial pacing, was fully dependent at that time with a rate of 61. The abdomen was soft. Positive bowel sounds and she had still tenderness in the right lower quadrant and we do not have yet answer from the surgeon, Dr. Cobb for what is the reason for this pain and what is the future plan if we need to do anything or not. EXTREMITIES: No edema. Positive pulses. She had left breast as she fell down on her face and she had a suture of the left upper lip with contusion of the root of the nose and with the underlying probability CCPD, calcium pyrophosphate crystals and probably may need a steroid injection in the future as outpatient. ASSESSMENT: 1. Patient had blackouts and syncopal episode. Waiting for the echocardiogram results. 2. We are waiting for the Cardiology evaluation in regard of the pacemaker interrogation or not, as well as his opinion in regard of these blackouts. If there is another opinion and subsequently if there is no further investigation or treatment from the Surgical or the Cardiology, we will discharge her home. Hopefully, will get this information tomorrow and we are able to send her home tomorrow. MMODL / IJN: [id number] /
--- NOTE | 2020-06-02 17:29 | P.CRDCN ---
History of Present Illness Consult date: 06/02/20 History of present illness: This is a 84-year-old female with history of permanent pacemaker implantation. Parkinson's disease, diabetes mellitus and COPD who has been feeling well and been been having diarrhea. Apparently she was walking to the bathroom, felt lightheaded and fell to the ground. Denied any chest pain or shortness of breath or palpitations. Sustained fractures of and also contusions of the lips. Her pacemaker seems to function normally. Patient's blood work showed evidence of dehydration. His felt that most probably she had syncopal episode related to postural hypotension. We'll continue to monitor her for any tachyarrhythmias. We'll also check her pacemaker. No evidence of any anginal symptoms Review of Systems As per the chart Past Medical History Past Medical History: Atrial Fibrillation, Cancer, Diabetes Mellitus, Eye Disorder, GERD/Reflux, Hyperlipidemia, Hypertension, Musculoskeletal Disorder, Neurologic Disorder Additional Past Medical History / Comment(s): HX SKIN CANCER, constipation, skin cancer left ankle basal cell. PARKINSON, PAST HX KIDNEY FAILURE R/T MEDICATION- RESOLVED, history of sick sinus syndrome, history of cataracts. History of Any Multi-Drug Resistant Organisms: None Reported Past Surgical History: Adenoidectomy, Appendectomy, Back Surgery, Bowel Resection, Cholecystectomy, Ear Surgery, Hernia Repair, Hysterectomy, Tonsillectomy Additional Past Surgical History / Comment(s): 04/06/18 PACEMAKER INSERTION. T & A-1939, APPENDECTOMY-1945, LAP KATARINA-1968, HYST-1974, SX FOR RECTAL FISTULA X 3- 1977,1986,1998, BILAT CATARACTS-1998, BACK SX x4-1999,2003,2011,2018- AFTER LAST BACK SX HAD A BLOOD CLOT AND THEY HAD TO GO BACK IN TO REMOVED) COLONOSCOPY- 2009, SIGMOID RESECTION- 2009, 12 CM LIPOMA REMOVED FROM LT ARM- 2001, BASAL CELL CARCINOMA REMOVED LT ANKLE 2006, ABD. HERNIA REPAIR WITH MESH- 2009 Past Anesthesia/Blood Transfusion Reactions: Motion Sickness, Postoperative Nausea & Vomiting (PONV) Type of Cardiac Device: Permanent Pacemaker Device Placement Date:: 04/06/2018 Past Psychological History: No Psychological Hx Reported Additional Psychological History / Comment(s): PT LIVES ALONE IN SINGLE LEVEL HOME.HAS WALKER/WHEEL CHAIR.Does not drive -- DAUGHTER TAKES HER TO APT. Smoking Status: Never smoker Past Alcohol Use History: None Reported Past Drug Use History: None Reported - Past Family History Mother Family Medical History: Cancer, Diabetes Mellitus, Hypertension Additional Family Medical History / Comment(s): Parkinson's disease Father Family Medical History: Myocardial Infarction ([place]) Additional Family Medical History / Comment(s): FROM [place] AT AGE 56 Son(s) Family Medical History: Myocardial Infarction ([place]) Medications and Allergies Home Medications Medication Instructions Recorded Confirmed Type Carbidopa-Levodopa 25-100 mg 1 tab PO QID 05/03/17 06/01/20 History [Sinemet 25-100 mg] Gabapentin [Neurontin] 400 mg PO 5XD 05/03/17 06/01/20 History Pantoprazole Sodium [Protonix] 40 mg PO DAILY 05/03/17 06/01/20 History traZODone HCL [Desyrel] 100 mg PO HS 05/03/17 06/01/20 History Metoprolol Tartrate [Lopressor] 50 mg PO BID tab 04/11/18 06/01/20 Rx Apixaban [Eliquis] 5 mg PO BID 10/05/18 06/01/20 History Glimepiride [Amaryl] 2 mg PO BID 10/05/18 06/01/20 History Rosuvastatin [Crestor] 20 mg PO HS 10/05/18 06/01/20 History Amiodarone HCl [Pacerone] 100 mg PO QAM 06/01/20 06/01/20 History Ibuprofen [Motrin] 800 mg PO BID PRN 06/01/20 06/01/20 History Levothyroxine Sodium [Synthroid] 75 mcg PO QAM 06/01/20 06/01/20 History hydrALAZINE HCL [Apresoline] 25 mg PO TID-W/MEALS 06/01/20 06/01/20 History Allergies Allergy/AdvReac Type Severity Reaction Status Date / Time Iodinated Contrast Media Allergy Anaphylaxis Verified 06/01/20 20:10 [Iodinated Contrast- Oral and IV Dye] lisinopril Allergy KIDNEY Verified 06/01/20 20:10 FAILURE Penicillins Allergy Itching Verified 06/01/20 20:10 codeine AdvReac Nausea & Verified 06/01/20 20:10 Vomiting meperidine [From Demerol] AdvReac Nausea & Verified 06/01/20 20:10 Vomiting morphine AdvReac Nausea & Verified 06/01/20 20:10 Vomiting Physical Exam Vitals: Vital Signs Temp Pulse Pulse Pulse Pulse Pulse Resp 06/02/20 16:00 69 67 60 06/02/20 14:56 98.3 F 58 L 16 06/02/20 08:18 98 F 82 16 06/02/20 03:04 97.6 F 60 16 06/01/20 20:52 98.0 F 62 16 06/01/20 19:37 60 16 BP BP BP BP BP Pulse Ox 06/02/20 16:00 141/62 140/65 126/58 06/02/20 14:56 101/65 96 06/02/20 08:18 130/75 94 L 06/02/20 03:04 116/70 98 06/01/20 20:52 142/62 99 06/01/20 19:37 158/61 98 Intake and Output 06/02/20 06/02/20 06/02/20 06:59 14:59 22:59 Intake Total 450 Output Total 100 Balance 350 Intake: Intake, IV Titration 450 Amount 0.9% NaCl with KCl 20 Meq 450 /l 1,000 ml @ 75 mls/hr IV .[id number] [facility] Rx#: [id number] Output: Urine 100 Other: Voiding Method Toilet Toilet # Voids 1 Weight 58.967 kg GENERAL EXAM: Patient is alert and oriented and doesn't appear to be in any acute distress. There is swelling of the lips and facial structures related to the fall HEENT: Normocephalic. Normal reaction of pupils, equal size, normal range of extraocular motion. No erythema or exudates in the throat. NECK: No masses, no nuchal rigidity. CHEST: No chest wall deformity. LUNGS: Equal air entry with no crackles or wheeze. HEART: S1 and S2 normal with no audible mumurs or gallops. Regular rhythm, femorals equal on both sides.. ABDOMEN: No hepatosplenomegaly, normal bowel sounds, no guarding or rigidity. SKIN: No rashes CENTRAL NERVOUS SYSTEM: No focal deficits. EXTREMITIES: No cyanosis, clubbing or edema. Results 06/02/20 05:45 06/02/20 05:45 Cardiac Enzymes 06/01/20 06/01/20 06/02/20 Range/Units 17:15 17:15 05:45 AST 59 H 38 H (14-36) U/L Troponin I <0.012 (0.000-0.034) ng/mL Coagulation 06/01/20 Range/Units 17:15 PT 10.7 (9.0-12.0) sec APTT 27.9 (22.0-30.0) sec CBC 06/01/20 06/02/20 Range/Units 17:15 05:45 WBC 10.6 9.1 (3.8-10.6) k/uL RBC 5.39 4.35 (3.80-5.40) m/uL Hgb 14.4 11.5 (11.4-16.0) gm/dL Hct 45.6 37.2 (34.0-46.0) % Plt Count 216 162 (150-450) k/uL Comprehensive Metabolic Panel 06/01/20 06/02/20 Range/Units 17:15 05:45 Sodium 135 L 135 L (137-145) mmol/L Potassium 2.8 L 3.4 L (3.5-5.1) mmol/L Chloride 93 L 101 (98-107) mmol/L Carbon Dioxide 26 26 (22-30) mmol/L BUN 20 H 15 (7-17) mg/dL Creatinine 1.54 H 1.48 H (0.52-1.04) mg/dL Glucose 155 H 109 H (74-99) mg/dL Calcium 9.6 9.0 (8.4-10.2) mg/dL Unconjugated Bilirubin 0.3 (0.0-1.1) mg/dL AST 59 H 38 H (14-36) U/L ALT 11 6 (4-34) U/L Alkaline Phosphatase 105 83 (38-126) U/L Total Protein 7.5 5.8 L (6.3-8.2) g/dL Albumin 4.5 3.3 L (3.5-5.0) g/dL Current Medications Generic Name Dose Route Start Last Admin Trade Name Freq PRN Reason Stop Dose Admin Acetaminophen 650 mg 06/02/20 03:18 06/02/20 10:51 Tylenol Tab PO 650 mg Q6HR PRN Administration Fever and/ or Pain Amiodarone HCl 100 mg 06/02/20 09:00 06/02/20 08:13 Cordarone PO 100 mg QAM FARZANA Administration Apixaban 5 mg 06/01/20 21:00 06/02/20 08:13 Eliquis PO 5 mg BID FARZANA Administration Atorvastatin Calcium 40 mg 06/01/20 21:00 06/01/20 22:26 Lipitor PO 40 mg HS FARZANA Administration Carbidopa/Levodopa 1 each 06/01/20 22:00 06/02/20 16:53 Sinemet 25-100 PO 1 each QID FARZANA Administration Gabapentin 400 mg 06/02/20 00:00 06/02/20 15:01 Neurontin PO 400 mg 5XD FARZANA Administration Glimepiride 2 mg 06/01/20 21:00 06/02/20 08:13 Amaryl PO 2 mg BID FARZANA Administration Hydralazine HCl 25 mg 06/02/20 07:30 06/02/20 16:53 Apresoline PO 25 mg TID-W/MEALS FARZANA Administration Potassium Chloride/Sodium Chloride 1,000 mls @ 75 mls/hr 06/01/20 20:00 06/02 16:53 Ns-Kcl 20 Meq/L Iv Solution IV 75 mls/hr .[id number] FARZANA Administration Insulin Aspart 0 unit 06/02/20 07:30 06/02/20 16:53 Novolog SQ 2 unit AC-TID FARZANA Administration Protocol Metoprolol Tartrate 50 mg 06/01/20 21:00 06/02/20 08:13 Lopressor PO 50 mg BID FARZANA Administration Naloxone HCl 0.2 mg 06/01/20 19:15 Narcan IV Q2M PRN Opioid Reversal Pantoprazole Sodium 40 mg 06/01/20 21:15 06/02/20 08:13 Protonix PO 40 mg DAILY FARZNAA Administration Potassium Citrate 15 meq 06/02/20 18:30 06/02/20 16:53 Urocit-K PO 15 meq PC-BID FARZANA Administration Intake and Output 06/02/20 06/02/20 06/02/20 06:59 14:59 22:59 Intake Total 450 Output Total 100 Balance 350 Intake: Intake, IV Titration 450 Amount 0.9% NaCl with KCl 20 Meq 450 /l 1,000 ml @ 75 mls/hr IV .[id number] [facility] Rx#: [id number] Output: Urine 100 Other: Voiding Method Toilet Toilet # Voids 1 Weight 58.967 kg Patient Weight 06/03/20 06:59 Weight 58.967 kg 06/02/20 05:45 06/02/20 05:45 EKG Interpretations (text) Atrial pacer rhythm Assessment and Plan (1) Fall Current Visit: Yes Status: Acute Code(s): W19.XXXA - UNSPECIFIED FALL, INITIAL ENCOUNTER SNOMED Code(s): 7397873 (2) Paroxysmal atrial fibrillation Current Visit: No Status: Acute Code(s): I48.0 - PAROXYSMAL ATRIAL FIBRILLATION SNOMED Code(s): 595234091 (3) Presence of permanent cardiac pacemaker Current Visit: No Status: Acute Code(s): Z95.0 - PRESENCE OF CARDIAC PACEMAKER SNOMED Code(s): 407446070 (4) Sick sinus syndrome Current Visit: No Status: Acute Code(s): I49.5 - SICK SINUS SYNDROME SNOMED Code(s): 49519708 Plan: Continue to monitor for any cardiac arrhythmias, check blood pressure for postural changes. Interrogate pacemaker. We'll follow
--- NOTE | 2020-06-02 18:00 | ECHOF ---
Referral Reason:Syncopal episode, atherosclerotic heart disease, MEASUREMENTS -------- HEIGHT: 152.4 cm WEIGHT: 59.0 kg BP: 116/70 RVIDd: 3.0 cm (< 3.3) IVSd: 0.8 cm (0.6 - 1.1) LVIDd: 3.3 cm (3.9 - 5.3) LVPWd: 1.1 cm (0.6 - 1.1) IVSs: 1.5 cm LVIDs: 2.7 cm LVPWs: 1.4 cm LA Diam: 4.2 cm (2.7 - 3.8) LAESV Index (A-L): 27.48 ml/m Ao Diam: 2.6 cm (2.0 - 3.7) AV Cusp: 1.9 cm (1.5 - 2.6) MV EXCURSION: 17.918 mm (> 18.000) MV EF SLOPE: 68 mm/s (70 - 150) EPSS: 0.4 cm MV E Jose Antonio: 0.71 m/s MV DecT: 187 ms MV A Jose Antonio: 0.76 m/s MV E/A Ratio: 0.94 RAP: 5.00 mmHg RVSP: 40.02 mmHg FINDINGS -------- Paced rhythm. This was a technically good study. LV size, wall thickness and systolic function are normal, with an EF greater than 55%. The left simone tricular size is normal. The right ventricle is normal in size. The left atrium is mildly dilated. LA is midly dilated 29-33ml/m2. The right atrial size is normal. The aortic valve is trileaflet, and appears structurally normal. No aortic stenosis or regurgitation. There is trace mitral regurgitation. Mild tricuspid regurgitation present. Right ventricular systolic pressure is normal at < 35 mmHg. There is no pulmonic regurgitation present. The aortic root size is normal. There is no pericardial effusion. CONCLUSIONS -------- 1. Paced rhythm. 2. LV size, wall thickness and systolic function are normal, with an EF greater than 55%. 3. The left ventricular size is normal. 4. The right ventricle is normal in size. 5. The left atrium is mildly dilated. 6. LA is midly dilated 29-33ml/m2. 7. The right atrial size is normal. 8. There is trace mitral regurgitation. 9. Mild tricuspid regurgitation present. GEOPHYSICAL OPERATOR: Leesa Cohen RDCS
[2020-06-02 20:21] LABS: Glucose,Whole Blood 170 mg/dL (75-99)
[2020-06-02] MEDS: ATORVASTATIN 40 MG TAB PO SCH (21:03)
[2020-06-03] MEDS: GABAPENTIN 400 MG CAP PO SCH ×4 (01:20→15:29)
[2020-06-03 06:46] LABS: Glucose,Whole Blood 129 mg/dL (75-99)
[2020-06-03] MEDS: INSULIN ASPART (NovoLOG) 100 UNIT/ML VIAL SQ SCH ×2 (08:03→12:25)
[2020-06-03] MEDS: APIXABAN 5 MG TAB PO SCH (08:08)
[2020-06-03] MEDS: POTASSIUM CITRATE 5 MEQ TABLET.ER PO SCH (08:08)
[2020-06-03] MEDS: PANTOPRAZOLE 40 MG TABLET PO SCH (08:08)
[2020-06-03] MEDS: CARBIDOPA-LEVODOPA 25-100 MG 1 EACH TAB PO SCH ×2 (08:08→12:25)
[2020-06-03] MEDS: hydrALAZINE HCL 25 MG TAB PO SCH (08:08)
[2020-06-03] MEDS: GLIMEPIRIDE 2 MG TAB PO SCH (08:08)
[2020-06-03] MEDS: AMIODARONE 100 MG TAB PO SCH (08:08)
[2020-06-03] MEDS: METOPROLOL TARTRATE 50 MG TAB PO SCH (08:11)
[2020-06-03] MEDS: ACETAMINOPHEN TAB 325 MG TAB PO PRN (08:11)
[2020-06-03 08:21] VITALS: BP 166/63; PULSE 61; RESP 14; TEMP 97.8
[2020-06-03 11:12] LABS: Basophils % (A) 1 %; Eosinophils # (A) 0.1 k/uL (0-0.7); Eosinophils % (A) 2 %; HCT 38.8 % (34.0-46.0); Hypochromasia Slight; Lymphocytes # (A) 0.9 k/uL (1.0-4.8); Lymphocytes % (A) 12 %; MCH 27.2 pg (25.0-35.0); MCHC 30.9 g/dL (31.0-37.0); MCV 88.2 fL (80.0-100.0); Mean Platelet Volume 8.5; Monocytes # (A) 0.6 k/uL (0-1.0); Monocytes % (A) 7 %; Neutrophils # (A) 6.2 k/uL (1.3-7.7); Neutrophils % (A) 77 %; Platelet Count 148 k/uL (150-450); RDW 14.6 % (11.5-15.5)
[2020-06-03] MEDS: 0.9% NACL WITH KCL 20 MEQ/L 1,000 ML IV SCH (11:14)
--- NOTE | 2020-06-03 11:23 | P.PN ---
Subjective Progress Note Date: 06/03/20 CHIEF COMPLAINT: Right lower abdominal pain with constipation and diarrhea HISTORY OF PRESENT ILLNESS: Patient presented after syncopal episode. Also had been complaining of right lower abdominal pain with constipation and diarrhea. Her pain has resolved. She is tolerating diet. She is afebrile. WBC 8.0 hemoglobin 12.0 platelets 148 PHYSICAL EXAM: VITAL SIGNS: Reviewed. GENERAL: Well-developed in no acute distress. HEENT: No sclera icterus. Extraocular movements grossly intact. Moist buccal mucosa. Head is atraumatic, normocephalic. ABDOMEN: Soft. Nondistended. Nontender. NEUROLOGIC: Alert and oriented. Cranial nerves II through XII grossly intact. ASSESSMENT: 1. Right-sided abdominal pain with diarrhea and constipation 2. Prior history of a right inguinal hernia with repair and mesh 3. Syncopal episode 4. History of pacemaker 5. Dehydration 6. Hypokalemia PLAN: -Continue heart healthy diet -Patient is surgically stable for discharge -Recommend outpatient colonoscopy Physician Digital Tech note has been reviewed by physician. Signing provider agrees with the documented findings, assessment, and plan of care. Objective - Vital Signs Vital signs: Vital Signs Temp 97.8 F 06/03/20 08:20 Pulse 61 06/03/20 08:20 Resp 14 06/03/20 08:20 BP 166/63 06/03/20 08:20 Pulse Ox 94 L 06/03/20 08:20 Intake & Output 06/02/20 06/03/20 06/03/20 18:59 06:59 18:59 Intake Total 720 Output Total 200 Balance 520 Weight 58.967 kg Intake: Oral 720 Output: Urine 200 Other: Voiding Method Toilet Toilet Toilet # Voids 1 1 - Labs CBC & Chem 7: 06/02/20 05:45 06/02/20 05:45 Labs: Abnormal Lab Results - Last 24 Hours (Table) 06/01/20 06/02/20 06/02/20 Range/Units 17:15 11:37 16:35 POC Glucose (mg/dL) 189 H 167 H (75-99) mg/dL Hemoglobin A1c 6.7 H (4.0-6.0) % 06/02/20 06/03/20 Range/Units 20:20 06:45 POC Glucose (mg/dL) 170 H 129 H (75-99) mg/dL Hemoglobin A1c (4.0-6.0) %
[2020-06-03 11:52] LABS: Potassium 4.4 mmol/L (3.5-5.1)
[2020-06-03 12:00] LABS: Glucose,Whole Blood 223 mg/dL (75-99)
[2020-06-03] MEDS ORDERED: hydrALAZINE HCL 50 MG TAB PO SCH (12:30)
--- NOTE | 2020-06-03 12:37 | P.PN ---
Subjective Progress Note Date: 06/03/20 This is a 84-year-old female admitted to the hospital with syncope and fall and patient was found to be dehydrated and had hypokalemia. Her pacemaker is functioning normally. No postural hypotension his documented. Patient is feeling better on emulating okay. Patient may be discharged home. Follow-up with Dr. Allen in one week Objective - Vital Signs Vital signs: Vital Signs Temp 97.8 F 06/03/20 08:20 Pulse 61 06/03/20 08:20 Resp 14 06/03/20 08:20 BP 166/63 06/03/20 08:20 Pulse Ox 94 L 06/03/20 08:20 Intake & Output 06/02/20 06/03/20 06/03/20 18:59 06:59 18:59 Intake Total 720 Output Total 200 Balance 520 Weight 58.967 kg Intake: Oral 720 Output: Urine 200 Other: Voiding Method Toilet Toilet Toilet # Voids 1 1 1 - Exam GENERAL EXAM: Patient is alert and oriented and doesn't appear to be in any acute distress HEENT: Normocephalic. Normal reaction of pupils, equal size, normal range of extraocular motion. No erythema or exudates in the throat. NECK: No masses, no nuchal rigidity. Contusion of the lips CHEST: No chest wall deformity. LUNGS: Equal air entry with no crackles or wheeze. HEART: S1 and S2 normal with no audible mumurs or gallops. Regular rhythm, femorals equal on both sides.. ABDOMEN: No hepatosplenomegaly, normal bowel sounds, no guarding or rigidity. SKIN: No rashes CENTRAL NERVOUS SYSTEM: No focal deficits. EXTREMITIES: No cyanosis, clubbing or edema. - Labs CBC & Chem 7: 06/03/20 11:00 06/03/20 11:00 Labs: Abnormal Lab Results - Last 24 Hours (Table) 06/02/20 06/02/20 06/03/20 Range/Units 16:35 20:20 06:45 MCHC (31.0-37.0) g/dL Plt Count (150-450) k/uL Lymphocytes # (1.0-4.8) k/uL Chloride (98-107) mmol/L Creatinine (0.52-1.04) mg/dL Glucose (74-99) mg/dL POC Glucose (mg/dL) 167 H 170 H 129 H (75-99) mg/dL 06/03/20 06/03/20 06/03/20 Range/Units 11:00 11:00 11:59 MCHC 30.9 L (31.0-37.0) g/dL Plt Count 148 L (150-450) k/uL Lymphocytes # 0.9 L (1.0-4.8) k/uL Chloride 108 H (98-107) mmol/L Creatinine 1.31 H (0.52-1.04) mg/dL Glucose 219 H (74-99) mg/dL POC Glucose (mg/dL) 223 H (75-99) mg/dL Assessment and Plan (1) Fall Current Visit: Yes Status: Acute Code(s): W19.XXXA - UNSPECIFIED FALL, INITIAL ENCOUNTER SNOMED Code(s): 6043979 (2) Paroxysmal atrial fibrillation Current Visit: No Status: Acute Code(s): I48.0 - PAROXYSMAL ATRIAL FIBRILLATION SNOMED Code(s): 351014679 (3) Presence of permanent cardiac pacemaker Current Visit: No Status: Acute Code(s): Z95.0 - PRESENCE OF CARDIAC PACEMAKER SNOMED Code(s): 551239433 (4) Sick sinus syndrome Current Visit: No Status: Acute Code(s): I49.5 - SICK SINUS SYNDROME SNOMED Code(s): 00430371 Plan: Patient has been stable. Pacemaker is functioning normally. Patient is being discharged home. Follow-up with Dr. Mercer .
--- NOTE | 2020-06-03 14:05 | P.DS ---
Providers Date of admission: 06/01/20 19:16 Expected date of discharge: 06/03/20 (Syncopal episode, pacemaker, laceration of the upper lip with the fall, momentary loss of consciousness) Attending physician: Emigdio Day Consults: 06/02/20 08:00 Consult Physician Urgent Consulting Provider: Dc Cox Consult Reason/Comments: Syncopal episode, pacemaker dysfunction. Do you want consulting provider notified?: Yes 06/02/20 12:03 Consult Physician Routine Consulting Provider: Suraj Zavala Consult Reason/Comments: abdominal pain Do you want consulting provider notified?: Yes Primary care physician: Emigdio Day Dictation on the discharge summary on observation status. Final diagnosis: #1 syncopal episode with momentary loss of consciousness. Etiology and determined. #2 EKG on admission was pacemaker dependent. #3 cardiology consult indicated that the pacemaker is working, atrial fibrillation on anticoagulant to continue and antiarrhythmic to continue. #4 carotid artery disease not taking no significant abnormal. #5 Parkinson disease with the probability associated with fall and needed follow-up with Dr. Joey Beauchamp as outpatient the neurologist. #6 hypertension with hypertensive heart disease with the increase of hydralazine to 50 mg with each meal 3 times a day. #7 contusion of the left wrist no fracture with the underlying synovitis. #8 right knee contusion, able to walk. #9 left upper lip laceration secondary to the fall sutured in the emergency room. #10 temporary concussion with the CT of the brain was negative. #11 chronic kidney disease stage III #12 hyper uricemia. #13 paroxysmal atrial fibrillation on amiodarone. #14 diabetes mellitus type 2 on oral hypoglycemic agent. #15 hypokalemia corrected. #16 peripheral neuropathy. #17 chronic anticoagulant. #18 mild dehydration and hypokalemia on admission which is corrected. Presentation to the ER: Throat by ambulance, EMS, with the fall at home on her face with minimal loss of consciousness time, and harassing the left wrist and the right knee as well as laceration of the left upper lip with bleeding, sutured in the emergency room. Patient was awake alert on presentation in the ER with momentary loss of conscio usness at home and could not explain how that happened. Hospital course: Patient admitted on observation status to compliance monitor any 153 bed 1 with the consultation of the cardiology Dr. Dewey and consultation with the surgeon Dr. Tyler saw her as well and patient was cleared for discharge today on 06/03/2020. During her stay in the ER she received x-ray of the wrist, left side also right knee and chest x-ray, CT of the face and head and cervical spine. Subsequently she received carotid duplex study, which was essentially no hemodynamic significant stenosis on the left with the minimal to moderate atherosclerosis of the right. And she had echocardiogram which indicate pacing rhythm with the ejection fraction 55% and left atrial mild dilation 2933 mL per meter square, mitral r egurg trace and mild tricuspid regurg. No pericardial effusion and aortic root is normal. There is a also tricuspid regurgitation with the right ventricular systolic pressure normal less than 35 mmHg. Her blood pressure was mildly elevated and we increased her hydralazine to 50 mg 3 times a day with meals. Examination on the discharge Laboratory: WBC 8, hemoglobin is 12, hematocrit 38.8. Chemistry sodium 137 potassium 4.4, chloride 108 carbon dioxide 23 , carbon dioxide 23 BUN 13, creatinine 1.31 with the estimated glomerular filtration rate for non- 37 indicating that chronic kidney disease stage III. TO seen glucose has been satisfactory and occasionally covered with insulin otherwise stable and for her age [age] years old white female her as mentioned GFR 37. And a hemoglobin A1c 6.7 on 06/01/2020 which is fairly well controlled. The exam: Head was traumatic with fall and forehead touch the floor and the root of the nose however no evidence of fracture, the left upper lip was less sedated with the impaction. And her left wrist no fracture but synovitis with the impaction contusion right knee has been stable Oropharynx natural teeth able to eat and swallow. Neuropsychiatry she has tremor with the associated with Parkinson disease and she on the treatment with the future follow-up as outpatient with Dr. Beauchamp. Neck was supple no JVD no thyromegaly no lymphadenopathy and she has CT of the cervical spine as well with the underlying arthritis. Chest clear to auscultation and percussion no wheezes no rhonchi's. Heart in [place] pacing and compensated seen by cardiology with no changes of her medication. Abdomen soft positive bowel sounds with the underlying right lower quadrant tenderness with the previous hernia repair and mesh seen by Dr. Tyler area. And he advised with stop MiraLAX for constipation may cause her diarrhea when she admitted and the C. difficile was negative 2. Extremities no edema and positive pulses. Neuropsychiatry currently stable no lateralizing sign. Assessment and plan Patient stable general condition Discharge home today. Plan follow-up as outpatient in 3 days in the office #2 follow-up with Dr. Mercer in 1 week, Indication change: Hydralazine changed from 25 to 50 mg 3 times a day with meals Assessment Patient Condition at Discharge: Stable Plan - Discharge Summary New Discharge Prescriptions: New hydrALAZINE HCL [Apresoline] 50 mg PO TID-W/MEALS #90 tab Continue Carbidopa-Levodopa 25-100 mg [Sinemet 25-100 mg] 1 tab PO QID Gabapentin [Neurontin] 400 mg PO 5XD Pantoprazole Sodium [Protonix] 40 mg PO DAILY Metoprolol Tartrate [Lopressor] 50 mg PO BID tab Apixaban [Eliquis] 5 mg PO BID Rosuvastatin [Crestor] 20 mg PO HS Glimepiride [Amaryl] 2 mg PO BID Amiodarone HCl [Pacerone] 100 mg PO QAM Levothyroxine Sodium [Synthroid] 75 mcg PO QAM Discontinued traZODone HCL [Desyrel] 100 mg PO HS hydrALAZINE HCL [Apresoline] 25 mg PO TID-W/MEALS Ibuprofen [Motrin] 800 mg PO BID PRN PRN Reason: Severe Pain Discharge Medication List Carbidopa-Levodopa 25-100 mg [Sinemet 25-100 mg] 1 tab PO QID 05/03/17 [History] Gabapentin [Neurontin] 400 mg PO 5XD 05/03/17 [History] Pantoprazole Sodium [Protonix] 40 mg PO DAILY 05/03/17 [History] Metoprolol Tartrate [Lopressor] 50 mg PO BID tab 04/11/18 [Rx] Apixaban [Eliquis] 5 mg PO BID 10/05/18 [History] Glimepiride [Amaryl] 2 mg PO BID 10/05/18 [History] Rosuvastatin [Crestor] 20 mg PO HS 10/05/18 [History] Amiodarone HCl [Pacerone] 100 mg PO QAM 06/01/20 [History] Levothyroxine Sodium [Synthroid] 75 mcg PO QAM 09/07/20 [History] hydrALAZINE HCL [Apresoline] 50 mg PO TID-W/MEALS #90 tab 06/03/20 [Rx] Follow up Appointment(s)/Referral(s): Sharon Mercer MD [STAFF PHYSICIAN] - 1 Week Emigdio Day MD [Primary Care Provider] - 3 Days Activity/Diet/Wound Care/Special Instructions: No MiraLAX. Recommendation of Dr. Tyler, discontinuation of trazodone because of increase QT interval with the use of amiodarone. Diabetic diet Renal disease diet Potassium has been corrected on discharge 4.4 Discharge Disposition: HOME SELF-CARE
== END 2020-06-03 16:20 | disposition home or self-care (01) ==
LOC: EC 16:31 → 1SOBS 19:16
PROVIDERS: ADMIT Internal Medicine; ATTEND Internal Medicine
DX: R55 Syncope and collapse (principal); E86.0 Dehydration; S01.511A Laceration without foreign body of lip, initial encounter; E87.6 Hypokalemia; E03.9 Hypothyroidism, unspecified; E11.22 Type 2 diabetes mellitus with diabetic chronic kidney disease; E11.65 Type 2 diabetes mellitus with hyperglycemia; G20 Parkinson's disease; G62.9 Polyneuropathy, unspecified; I07.1 Rheumatic tricuspid insufficiency; I13.10 Hypertensive heart and chronic kidney disease without heart failure, with stage 1 through stage 4 chronic kidney disease, or unspecified chronic kidney disease; I25.10 Atherosclerotic heart disease of native coronary artery without angina pectoris; S01.91XA Laceration without foreign body of unspecified part of head, initial encounter; S09.90XA Unspecified injury of head, initial encounter; I48.0 Paroxysmal atrial fibrillation; S80.01XA Contusion of right knee, initial encounter; S60.212A Contusion of left wrist, initial encounter; W19.XXXA Unspecified fall, initial encounter; I49.5 Sick sinus syndrome; J44.9 Chronic obstructive pulmonary disease, unspecified; Y92.009 Unspecified place in unspecified non-institutional (private) residence as the place of occurrence of the external cause; M19.90 Unspecified osteoarthritis, unspecified site; K59.00 Constipation, unspecified; R10.31 Right lower quadrant pain; Y93.01 Activity, walking, marching and hiking; M65.9 Synovitis and tenosynovitis, unspecified; N18.3 Chronic kidney disease, stage 3 (moderate); E78.5 Hyperlipidemia, unspecified; Z79.01 Long term (current) use of anticoagulants; Z79.51 Long term (current) use of inhaled steroids; Z79.84 Long term (current) use of oral hypoglycemic drugs; Z79.890 Hormone replacement therapy; Z79.899 Other long term (current) drug therapy; Z82.0 Family history of epilepsy and other diseases of the nervous system; Z85.828 Personal history of other malignant neoplasm of skin; Z87.891 Personal history of nicotine dependence; Z88.0 Allergy status to penicillin; Z90.49 Acquired absence of other specified parts of digestive tract; Z95.0 Presence of cardiac pacemaker
CPT/HCPCS: 96365; 96366; 12011; 96361; 99285; 36415; 93005; 93306; 80053; 80048 ×2; 80076; 83735 ×2; 84484; 85025 ×3; 85610; 85730; 81001; 83036; 73110; 73562; 71046; 93880; 72125; 70486; 70450; G0378 ×3; J2001

== ENCOUNTER → 2020-10-19 | Outpatient (CLI) | payer MEDICARE, BC ==
--- NOTE | 2020-10-19 17:08 | XR ---
Bilateral knees HISTORY: Arthritis, pain 3 views of each knee submitted Correlation to prior exam right knee 06/01/2020 There is chondrocalcinosis. Joint space loss is present in the medial compartments. Some spurring is present at the patellofemoral joints, suprapatellar increased density is consistent with joint effusi ons. Vascular calcifications noted incidentally. IMPRESSION: Correlate for crystal deposition arthropathy, osteoarthritis
--- NOTE | 2020-10-20 12:23 | MM ---
Reason for exam: screening (asymptomatic). Last mammogram was performed 4 years and 2 months ago. History: Family history of breast cancer in mother. Took estrogen for 10 years. Physical Findings: A clinical breast exam by your physician is recommended on an annual basis and results should be correlated with mammographic findings. MG 3D Screening Mammo W/Cad Bilateral CC and MLO view(s) were taken. Prior study comparison: August 04, 2016, mammogram, performed at [facility]. May 19, 2015, mammogram, performed at [facility]. The breast tissue is heterogeneously dense. This may lower the sensitivity of mammography. Benign oil cyst calcifications and vascular calcifications. Partially visualized pacemaker at the left pec. No significant changes when compared with prior studies. ASSESSMENT: Benign, BI-RAD 2 RECOMMENDATION: Routine screening mammogram of both breasts in 1 year.
== END | disposition home or self-care (01) ==
LOC: RADMAMWWP 13:21
PROVIDERS: ATTEND Internal Medicine
DX: Z12.31 Encounter for screening mammogram for malignant neoplasm of breast (principal); M17.0 Bilateral primary osteoarthritis of knee
CPT/HCPCS: 77063; 77067

== ENCOUNTER → 2021-04-05 | Outpatient (CLI) | payer MEDICARE, BC ==
[2021-04-05 13:04] VITALS: BP 139/76; PULSE 62; RESP 18; TEMP 97.7
--- NOTE | 2021-04-05 13:23 | P.PAINCN ---
History of Present Illness - Reason for Consult Consult date: 04/05/21 - History of Present Illness This is a 55 years old female with a chronic history of severe neck pain with radiation to the right shoulder ,and to the Right upper extremity, started more than a year ago, denies any initiating event but patient reported that she had several fall episode, his increased her pain, pain is constant increased with any neck movement and also increased with any right upper extremity movement, sh e denies any motor deficit, he is able to ambulate freely and she is able to use her upper extremity but any activity associated with severe pain, she tried physical therapy without any benefit, and she stopped physical therapy because of her increased pain Past Medical History Past Medical History: Atrial Fibrillation, Cancer, Diabetes Mellitus, Eye Disorder, GERD/Reflux, Hyperlipidemia, Hypertension, Musculoskeletal Disorder, Neurologic Disorder Additional Past Medical History / Comment(s): HX SKIN CANCER, constipation, skin cancer left ankle basal cell. PARKINSON, PAST HX KIDNEY FAILURE R/T MEDICATION- RESOLVED, history of sick sinus syndrome, history of cataracts. History of Any Multi-Drug Resistant Organisms: None Reported Past Surgical History: Adenoidectomy, Appendectomy, Back Surgery, Bowel Resection, Cholecystectomy, Ear Surgery, Hernia Repair, Hysterectomy, Tonsi llectomy Additional Past Surgical History / Comment(s): 04/06/18 PACEMAKER INSERTION. T & A-1939, APPENDECTOMY-1945, LAP KATARINA-1968, HYST-1974, SX FOR RECTAL FISTULA X 3- 1977,1986,1998, BILAT CATARACTS-1998, BACK SX x4-1999,2003,2011,2018- AFTER LAST BACK SX HAD A BLOOD CLOT AND THEY HAD TO GO BACK IN TO REMOVED) COLONOSCOPY- 2009, SIGMOID RESECTION- 2009, 12 CM LIPOMA REMOVED FROM LT ARM- 2001, BASAL CELL CARCINOMA REMOVED LT ANKLE 2006, ABD. HERNIA REPAIR WITH MESH- 2009 Past Anesthesia/Blood Transfusion Reactions: Motion Sickness, Postoperative Nausea & Vomiting (PONV) Type of Cardiac Device: Permanent Pacemaker Device Placement Date:: 04/06/2018 Smoking Status: Never smoker - Past Family History Mother Family Medical History: Cancer, Diabetes Mellitus, Hypertension Additional Family Medical History / Comment(s): Parkinson's disease Father Family Medical History: Myocardial Infarction (MD) Additional Family Medical History / Comment(s): FROM [place] AT AGE 56 Son(s) Family Medical History: Myocardial Infarction (MD) Medications and Allergies Home Medications Medication Instructions Recorded Confirmed Type Carbidopa-Levodopa 25-100 mg 1 tab PO QID 05/03/17 06/01/20 History [Sinemet 25-100 mg] Gabapentin [Neurontin] 400 mg PO 5XD 05/03/17 06/01/20 History Pantoprazole Sodium [Protonix] 40 mg PO DAILY 05/03/17 06/01/20 History Metoprolol Tartrate [Lopressor] 50 mg PO BID tab 04/11/18 06/01/20 Rx Apixaban [Eliquis] 5 mg PO BID 10/05/18 06/01/20 History Glimepiride [Amaryl] 2 mg PO BID 10/05/18 06/01/20 History Rosuvastatin [Crestor] 20 mg PO HS 10/05/18 06/01/20 History Amiodarone HCl [Pacerone] 100 mg PO QAM 06/01/20 06/01/20 History Levothyroxine Sodium [Synthroid] 75 mcg PO QAM 06/01/20 06/01/20 History hydrALAZINE HCL [Apresoline] 50 mg PO TID-W/MEALS #90 tab 06/03/20 Rx Furosemide [Lasix] 20 mg PO QAM 04/05/21 04/05/21 History Meclizine HCl 25 mg PO BID PRN 04/05/21 04/05/21 History traZODone HCL [Desyrel] 100 mg PO HS 04/05/21 04/05/21 History Allergies Allergy/AdvReac Type Severity Reaction Status Date / Time Iodinated Contrast Media Allergy Anaphylaxis Verified 04/05/21 13:09 [Iodinated Contrast- Oral and IV Dye] lisinopril Allergy KIDNEY Verified 04/05/21 13:09 FAILURE Penicillins Allergy Itching Verified 04/05/21 13:09 codeine AdvReac Nausea & Verified 04/05/21 13:09 Vomiting meperidine [From Demerol] AdvReac Nausea & Verified 04/05/21 13:09 Vomiting morphine AdvReac Nausea & Verified 04/05/21 13:09 Vomiting nortriptyline [From Pamelor] AdvReac Unknown Verified 04/05/21 13:09 pioglitazone AdvReac Unknown Verified 04/05/21 13:09 Physical Exam Vitals: Vital Signs Temp Pulse Resp BP Pulse Ox 04/05/21 12:55 97.7 F 62 18 139/76 96 Intake and Output 04/04/21 04/05/21 04/05/21 22:59 06:59 14:59 Other: Weight 63.503 kg Physical Examinations : -Constitutiona : Cooperative , not in acute distress . -HEENT : nech : supple , no Lymphadenopathy , normal thyroid size . : eyes : no ptosis , no icterus, no photophobia . - neurologic : Cranial nerve II to XII intact , no focal neurological deffecit . -psychatric : alert , oriented X 3 , appropriate affect , intact judgment and insight . -Lymphatic : no Lymphadenopathy . - musculoskeltal : Cervical Spine motor stregnth in the deltoid and biceps, normal right side , normal Left side motor stregnth biceps and the wrist extensors normal right side ,normal left side . motor stregnth in the triceps muscle . normal Right side , normal Left side deep tendon reflexes normal at the biceps , normal at Brachioradialis , normal at triceps. cervical facet loading test: Positive Bilatelly Spurling test= positive Right . Neck distraction test= positive Right . Mahesh sign= positive right. Right shoulder external= abduction and adduction, external rotation of the right shoulder associated with severe pain Lumber spine moter stegnth lower extremities ,thigh and legs 5/5 Right side , 5/5 Left side Results Comments: MRI of the cervical spine= C34 C4 5 and C5-C6 C6 7, disc bulging and right side paracentral disc bulging at C3 4 Assessment and Plan Plan: Assessment and plan=1-cervical degenerative disc disease. 2-right shoulder arthralgia. she could benefit from cervical epidural steroid injection at C6-C7 or C7-T1 right paramedian approach Patient has to hold ELEQUIS for 3 days before the procedure Time with Patient: Greater than 30 PQRS Measure Charge Sheet Measure #130: Documentation of Current Meds in Medical Chart: Patient's medications documented in chart Measure #226: Tobacco Use: Screen & Cessation Intervention: Pt not a tobacco user Measure #111: Pneumonia Vaccination: Pneumococcal vaccine administered or previously received Measure #47: Advance Care Plan: Advance care planning discussed & documented, pt chose/unable to give Measure #412: Opioid Treatment Agreement: No documentation of signed opioid treatment agreement Measure #408: Opioid Therapy Follow-up Evaluation: Patient had NO f/u eval minimum every 3 months during opioid therapy Measure #317: Preventitive Care & Scrn High Bld Press & F/U: Normal blood pressure, f/u not required Measure #128: Body Mass Index (BMI) Screening & Follow-up: BMI documented within normal parameters Measure #131: Pain Assessment & Follow-up: Pain positive & plan documented, Follow-up scheduled Measure #431: Unhealthy Alcohol Use Preventative Care & Scrn: Patient not identified as an unhealthy alcohol user PQRS Narrative: Smoking Status Never smoker Blood Pressure 139/76 Pain Intensity [Right Arm] 8 Scale Used Numeric (1 - 10) Hx Alcohol Use (MH) Yes: occ Home Medications: Ambulatory Orders Carbidopa-Levodopa 25-100 mg [Sinemet 25-100 mg] 1 tab PO QID 05/03/17 Gabapentin [Neurontin] 400 mg PO 5XD 05/03/17 Pantoprazole Sodium [Protonix] 40 mg PO DAILY 05/03/17 Metoprolol Tartrate [Lopressor] 50 mg PO BID tab 04/11/18 Apixaban [Eliquis] 5 mg PO BID 10/05/18 Glimepiride [Amaryl] 2 mg PO BID 10/05/18 Rosuvastatin [Crestor] 20 mg PO HS 10/05/18 Amiodarone HCl [Pacerone] 100 mg PO QAM 06/01/20 Levothyroxine Sodium [Synthroid] 75 mcg PO QAM 06/01/20 hydrALAZINE HCL [Apresoline] 50 mg PO TID-W/MEALS #90 tab 06/03/20 Furosemide [Lasix] 20 mg PO QAM 04/05/21 Meclizine HCl 25 mg PO BID PRN 04/05/21 traZODone HCL [Desyrel] 100 mg PO HS 04/05/21
== END ==
LOC: PNWHC3 12:30
PROVIDERS: ATTEND Specialist
DX: M50.30 Other cervical disc degeneration, unspecified cervical region (principal); E11.9 Type 2 diabetes mellitus without complications; E78.5 Hyperlipidemia, unspecified; I10 Essential (primary) hypertension; I48.91 Unspecified atrial fibrillation; K21.9 Gastro-esophageal reflux disease without esophagitis; Z79.899 Other long term (current) drug therapy; Z88.5 Allergy status to narcotic agent; Z88.0 Allergy status to penicillin; Z88.8 Allergy status to other drugs, medicaments and biological substances; Z91.041 Radiographic dye allergy status
CPT/HCPCS: 99211

== ENCOUNTER → 2021-05-06 | Day surgery (SDC) | payer MEDICARE, BC ==
[2021-05-05 09:46] VITALS: BMI 27.3
[~2021-05-06] MED LIST changes: -CLINDAMYCIN 600 MG in SODIUM CHLORIDE 0.9% IRRIGATIO 250 ML IRRIGATION ONE; +DEXAMETHASONE SOD PHOSPHATE 10 MG/ML 1 ML VIAL ONE; +IV FLUID CONTINUATION 1,000 ML IV ONE; +LACTATED RINGERS 1,000 ML IV SCH; +MIDAZOLAM 2 MG/2 ML VIAL ONE
[2021-05-06 08:23] VITALS: RESP 16; TEMP 97.5
[2021-05-06 08:29] LABS: Glucose,Whole Blood 143 mg/dL (75-99)
--- NOTE | 2021-05-06 09:02 | P.PCN ---
Date of Procedure: 05/06/21 Procedure(s) Performed: . PROCEDURE 1. Cervical epidural steroid injection under fluoroscopic guidance, C6-7 (fluoroscopy images available in the radiology department ) PREOPERATIVE DIAGNOSIS: 1- Cervical Degenerative Disc Diseases. POSTOPERATIVE DIAGNOSIS: : 1- Cervical Degenerative Disc Diseases. ANESTHESIA: Local anesthesia with lidocaine 1 % , and moderate sedation, with Versed 1 mg . EBL 0 PROCEDURE INDICATION: The patient with neck pain and radiculitis unresponsive to conservative treatment consents for procedure. PROCEDURE DESCRIPTION / TECHNIQUE: The patient was seen and identified in the preoperative area. Risks, benefits, complications, including but not limited to infections ,bleeding , allergic reactions to the medications ,and not complete pain releife, and alternatives were discussed with the patient, the patient agreed to proceed with the procedure and signed the consent. Patient was taken to the OR and time out was completed. The patient was placed in the prone position on the procedure table. A pillow was placed under the patients chest to increase the cervical interlaminar space. The cervical area was prepped and draped in the usual sterile fashion. Vital signs were closely monitored during the procedure. Conscious sedation was used during the procedure to decrease patients anxiety. Using anterior-posterior fluoroscopy, the C6-7 interlaminar space (Right paramedial ) was identified and the skin over this site was marked and then infiltrated with 1% lidocaine subcutaneously. Subsequently, a 20-gauge 3-1/2-inch Tuohy epidural needle was inserted and advanced toward the epidural space by means of the ``hanging-drop technique and guided by AP and lateral fluoroscopy. (Isovue was not injected because patient had ALLERGY to IVP dye ) , after negative aspiration for blood and CSF and in the absence of paresthesias. then, mixture containing 10 mg Dexamethasone and 2 ml of preservative-free normal saline injected and a washout of epidurogram was seen. Needle was withdrawn intact, skin was cleansed, and bandages were applied. Complications= none. Disposition= patient was placed in supine position and transferred to the recovery room area in stable condition and there was no evidence of upper or lower extremity motor or sensory deficit after the procedure patient was discharged from recovery room after discharge criteria met and home discharge instructions was given by the staff and patient will follow with the pain clinic in 2-4 weeks
--- NOTE | 2021-05-06 09:11 | FL ---
EXAMINATION TYPE: FL guided pain mgmt statistic DATE OF EXAM: 05/06/2021 FLUOROSCOPY Fluoroscopy time of 2 seconds was used during cervical epidural injection. 1 image/s document/s the procedure.
[2021-05-06 09:43] VITALS: BP 132/74; PULSE 66
== END ==
LOC: ORPAIN 07:49
PROVIDERS: ATTEND Specialist
DX: M50.30 Other cervical disc degeneration, unspecified cervical region (principal); F41.9 Anxiety disorder, unspecified
CPT/HCPCS: 62321; J2250; J1100

== ENCOUNTER 2021-06-08 07:44 | Day surgery (SDC) | payer MEDICARE, BC ==
[2021-06-03 13:02] VITALS: BMI 26.4
[~2021-06-08 07:44] MED LIST changes: -DEXAMETHASONE SOD PHOSPHATE 10 MG/ML 1 ML VIAL ONE; -IV FLUID CONTINUATION 1,000 ML IV ONE; -MIDAZOLAM 2 MG/2 ML VIAL ONE
[2021-06-08 08:08] VITALS: TEMP 97
[2021-06-08 08:09] LABS: Glucose,Whole Blood 161 mg/dL (75-99)
[2021-06-08] MEDS ORDERED: MIDAZOLAM 2 MG/2 ML VIAL ONE (08:20)
[2021-06-08] MEDS ORDERED: DEXAMETHASONE SOD PHOSPHATE 10 MG/ML 1 ML VIAL ONE (08:20)
--- NOTE | 2021-06-08 08:32 | P.PCN ---
Date of Procedure: 06/08/21 Surgeon: Benjamin Campbell Pathology: none sent Condition: stable Disposition: PACU Description of Procedure: PROCEDURE 1. Cervical epidural steroid injection under fluoroscopic guidance, C7-T1 -Right paramedian approach. 2. Cervical epidurogram. : PREOPERATIVE DIAGNOSIS: Cervical radiculopathy, cervical spondylosis without myelopathy POSTOPERATIVE DIAGNOSIS: : Same as above ANESTHESIA: Local anesthesia with 1% lidocaine and IV moderate conscious sedation with Versed and Fentanyl . The patient is ALLERGIC to contrast dye EBL 0 PROCEDURE INDICATION: The patient with neck pain and radiculopathy unresponsive to conservative treatment consents for procedure. PROCEDURE DESCRIPTION / TECHNIQUE: The patient was seen and identified in the preoperative area. Risks, benefits, complications, including but not limited to infections ,bleeding , allergic reactions to the medications ,and not complete pain relief, and alternatives were discussed with the patient, the patient agreed to proceed with the procedure and signed the consent. Patient was taken to the OR and time out was completed. The patient was placed in the prone position on the procedure table. A pillow was placed under the patients chest to increase the flexion of the cervical spine . The cervical area was prepped and draped in the usual sterile fashion. Vital signs were closely monitored during the procedure. Conscious sedation was used during the procedure to decrease patients anxiety. Using anterior-posterior fluoroscopy, the C7-T1 interlaminar space was identified and the skin over this site was marked and then infiltrated with 1% lidocaine subcutaneously. Subsequently, a 20-gauge 3-1/2-inch Tuohy epidural needle was inserted and advanced toward the epidural space by means of loss of resistance to air technique and guided by AP and lateral fluoroscopy. The needle tip contacted the lamina of T1 vertebra first, then it was walked off bone and into the epidural space using the loss of to air and fluoroscopic guidance to identify the epidural space. Contrast dye was not used due to the patient's ALLERGIC reaction to it. after negative aspiration, a 2 ml mixture containing 10 mg of Decadron and 1 ml of preservative free Normal Saline solution was injected and a washout of epidurogram was seen. Needle was withdrawn intact, skin was cleansed, and bandages were applied. A copy of the needle placement picture was saved to the fluoroscopy machine.
[2021-06-08] MEDS ORDERED: IV FLUID CONTINUATION 800 ML IV ONE (08:36)
[2021-06-08 08:41] VITALS: RESP 14
[2021-06-08 08:44] LABS: Glucose,Whole Blood 164 mg/dL (75-99)
[2021-06-08 08:56] VITALS: BP 125/80; PULSE 60
--- NOTE | 2021-06-08 10:54 | FL ---
EXAMINATION TYPE: FL guided pain mgmt statistic DATE OF EXAM: 06/08/2021 HISTORY: Fluoroscopy time 4 seconds of fluoroscopy provided. IMPRESSION: 1. Fluoroscopy time.
== END 2021-06-08 09:29 | disposition home or self-care (01) ==
LOC: ORPAIN 07:44
PROVIDERS: ATTEND Anesthesiology
DX: M47.22 Other spondylosis with radiculopathy, cervical region (principal); F41.9 Anxiety disorder, unspecified; T78.40XA Allergy, unspecified, initial encounter
CPT/HCPCS: 62321; J2250; J1100; 99152

== ENCOUNTER 2021-06-28 14:01 | Inpatient (IN) | payer MEDICARE, BC ==
--- NOTE | 2021-06-28 15:46 | CT ---
EXAMINATION TYPE: CT brain cspine wo con DATE OF EXAM: 06/28/2021 COMPARISON: Prior trauma CT June 01, 2020 HISTORY: Fall with headache and neck pain CT DLP: 1315.3 mGycm. Automated Exposure Control for Dose Reduction was Utilized. TECHNIQUE: CT scan of the head and cervical spine are performed without contrast. FINDINGS: There is no acute intracranial hemorrhage or midline shift identified. Mild to moderate v entricular and sulcal prominence redemonstrated greatest superiorly over the bilateral frontal lobes. Andre-white matter differentiation is fairly well-maintained. The calvarium is intact. The globes ar e intact and the visualized sinuses are clear. Cervical spine is visualized in its entirety from C1 through upper thoracic levels and demonstrates s table and straightened alignment without evidence of acute fracture or dislocation. Prevertebral sof t tissue appears within normal limits. The C1-C2 articulation is within normal limits on the coronal images. Vertebral body heights are maintained. Moderate disc space narrowing and moderate to severe anterior spurring C5-C6 and C6-C7 levels. Mild disc space narrowing with moderate to severe anterior spurring C4-C5 level redemonstrated. Posterior spur disc complexes efface the anterior thecal sac at these levels on sagittal and axial images. Axial images show multilevel uncovertebral facet degenerat nadia changes contribute to multilevel bilateral neural foraminal narrowing. Lung apices show no pneumo thorax. Thyroid gland is within normal limits. Left thoracic pacemaker device is partially imaged. IMPRESSION: 1. There is no acute fracture or dislocation evident in the cervical spine. 2. No acute intracranial hemorrhage or midline shift is seen. No significant change from prior CT.
[2021-06-28 15:59] LABS: Basophils # (A) 0.1 k/uL (0-0.2); Basophils % (A) 1 %; Eosinophils # (A) 0.1 k/uL (0-0.7); Eosinophils % (A) 2 %; HCT 43.7 % (34.0-46.0); Lymphocytes # (A) 1.5 k/uL (1.0-4.8); Lymphocytes % (A) 17 %; MCH 26.7 pg (25.0-35.0); MCV 83.4 fL (80.0-100.0); Mean Platelet Volume 9.3; Monocytes % (A) 11 %; Neutrophils # (A) 5.9 k/uL (1.3-7.7); Neutrophils % (A) 68 %; Platelet Count 189 k/uL (150-450); RBC 5.25 m/uL (3.80-5.40); RDW 14.9 % (11.5-15.5); WBC 8.7 k/uL (3.8-10.6)
[2021-06-28 16:01] LABS: Appearance,Urine Clear (Clear); Bilirubin,Urine Negative (Negative); Blood,Urine Negative (Negative); Color,Urine Light Yellow; Glucose,Urine (UA) Negative (Negative); Ketones,Urine Negative (Negative); Leukocyte Esterase,Urine Negative (Negative); Nitrite,Urine Negative (Negative); Protein,Urine Negative (Negative); Specific Gravity,Urine 1.006 (1.001-1.035); Urobilinogen,Urine <2.0 mg/dL (<2.0)
[2021-06-28 16:08] LABS: Albumin 4.4 g/dL (3.5-5.0); Calcium 9.8 mg/dL (8.4-10.2); Potassium 3.3 mmol/L (3.5-5.1); Total Bilirubin 1.1 mg/dL (0.2-1.3); Total Protein 8.1 g/dL (6.3-8.2)
--- NOTE | 2021-06-28 16:17 | ED ---
Fall HPI - General Chief Complaint: Fall Stated Complaint: Fall Source: EMS Mode of arrival: EMS - History of Present Illness Initial Comments: Patient is an 85-year-old female with past medical history of A. fib, diabetes, hypertension, hyperlipidemia presents emergency Department with her other at bedside. Daughter provides most of the history. Patient does live at home with her. She normally ambulates with a cane. Daughter states that she has been unstable on her feet more so over the past week. She does have a history of frequent falls however she has fallen 6 times in the past week. Today the patient was attempting use restroom. Fell forward into the bathtub hitting her head and losing consciousness. Patient is on Eliquis for afib. Patient denies headaches or visual changes. No unilateral numbness or weakness. Does admit to some left posterior shoulder pain. No numbness, tingling or weakness in the extremity. Denies chest pain or shortness of breath. No pelvic pain or pain in the lower extremity. She denies any recent illnesses. No fevers, chills, cough, shortness of breath, chest pain. Patient does have ecchymosis noted to her bilateral anterior knees from a fall 1 week ago. No other alleviating, precipitating or modifying factors - Related Data Home Medications Medication Instructions Recorded Confirmed Carbidopa-Levodopa 25-100 mg 1 tab PO TID 05/03/17 06/28/21 [Sinemet 25-100 mg] Pantoprazole Sodium [Protonix] 40 mg PO DAILY 05/03/17 06/28/21 Glimepiride [Amaryl] 2 mg PO DAILY 10/05/18 06/28/21 Rosuvastatin [Crestor] 20 mg PO HS 10/05/18 06/28/21 Levothyroxine Sodium [Synthroid] 75 mcg PO AC-BRKFST 06/01/20 06/28/21 Furosemide [Lasix] 20 mg PO DAILY 04/05/21 06/28/21 Meclizine HCl 25 mg PO BID PRN 04/05/21 06/28/21 hydrALAZINE HCL [Apresoline] 50 mg PO BID 05/05/21 06/28/21 Amiodarone [Cordarone] 100 mg PO DAILY 06/28/21 06/28/21 Apixaban [Eliquis] 2.5 mg PO BID 06/28/21 06/28/21 traZODone HCL 75 mg PO HS 06/28/21 06/28/21 Previous Rx's Medication Instructions Recorded Metoprolol Tartrate [Lopressor] 50 mg PO BID tab 04/11/18 Acetaminophen Tab [Tylenol] 650 mg PO Q6HR PRN tab 06/30/21 Cyanocobalamin [Vitamin B-12 1,000 mcg IM WEEKLY ml 06/30/21 Injection] Potassium Chloride ER [K-Dur 20] 20 meq PO BID tablet 06/30/21 Pyridoxine [Vitamin B-6] 50 mg PO DAILY tab 06/30/21 Allergies Allergy/AdvReac Type Severity Reaction Status Date / Time Iodinated Contrast Media Allergy Anaphylaxis Verified 06/28/21 17:39 [Iodinated Contrast- Oral and IV Dye] lisinopril Allergy KIDNEY Verified 06/28/21 17:39 FAILURE Penicillins Allergy Itching Verified 06/28/21 17:39 codeine AdvReac Nausea & Verified 06/28/21 17:39 Vomiting meperidine [From Demerol] AdvReac Nausea & Verified 06/28/21 17:39 Vomiting morphine AdvReac Nausea & Verified 06/28/21 17:39 Vomiting nortriptyline [From Pamelor] AdvReac Unknown Verified 06/28/21 17:39 pioglitazone AdvReac Unknown Verified 06/28/21 17:39 Review of Systems ROS Statement: Those systems with pertinent positive or pertinent negative responses have been documented in the HPI. ROS Other: All systems not noted in ROS Statement are negative. Past Medical History Past Medical History: Atrial Fibrillation, Cancer, Diabetes Mellitus, Eye Disorder, GERD/Reflux, Hyperlipidemia, Hypertension, Musculoskeletal Disorder, Neurologic Disorder Additional Past Medical History / Comment(s): HX SKIN CANCER, constipation, skin cancer left ankle basal cell. PARKINSON, PAST HX KIDNEY FAILURE R/T MEDICATION- RESOLVED, history of sick sinus syndrome, history of cataracts. History of Any Multi-Drug Resistant Organisms: None Reported Past Surgical History: Adenoidectomy, Appendectomy, Back Surgery, Bowel Resection, Cholecystectomy, Ear Surgery, Hernia Repair, Hysterectomy, Tonsillectomy Additional Past Surgical History / Comment(s): 04/06/18 PACEMAKER INSERTION. T & A-1939, APPENDECTOMY-1944, LAP KATARINA-1968, HYST-1974, SX FOR RECTAL FISTULA X 3- 1977,1986,1998, BILAT CATARACTS-1998, BACK SX x4-1999,2003,2011,2018- AFTER LAST BACK SX HAD A BLOOD CLOT AND THEY HAD TO GO BACK IN TO REMOVED) COLONOSCO PY- 2009, SIGMOID RESECTION- 2009, 12 CM LIPOMA REMOVED FROM LT ARM-2001, BASAL CELL CARCINOMA REMOVED LT ANKLE 2006, ABD. HERNIA REPAIR WITH MESH-2009 Past Anesthesia/Blood Transfusion Reactions: Motion Sickness, Postoperative Nausea & Vomiting (PONV) Type of Cardiac Device: Permanent Pacemaker Device Placement Date:: 04/06/2018 Past Psychological History: No Psychological Hx Reported Smoking Status: Never smoker Past Alcohol Use History: None Reported Past Drug Use History: None Reported - Past Family History Mother Family Medical History: Cancer, Diabetes Mellitus, Hypertension Additional Family Medical History / Comment(s): Parkinson's disease Father Family Medical History: Myocardial Infarction ([place]) Additional Family Medical History / Comment(s): FROM [place] AT AGE 56 Son(s) Family Medical History: Myocardial Infarction ([place]) General Exam Limitations: no limitations General appearance: alert, in no apparent distress Head exam: Present: atraumatic, normocephalic, normal inspection Eye exam: Present: normal appearance, PERRL, EOMI. Absent: scleral icterus, conjunctival injection, periorbital swelling ENT exam: Present: normal exam, mucous membranes moist Neck exam: Present: normal inspection. Absent: tenderness, meningismus, lymphadenopathy Respiratory exam: Present: normal lung sounds bilaterally. Absent: respiratory distress, wheezes, rales, rhonchi, stridor Cardiovascular Exam: Present: regular rate, normal rhythm, normal heart sounds. Absent: systolic murmur, diastolic murmur, rubs, gallop, clicks GI/Abdominal exam: Present: soft, normal bowel sounds. Absent: distended, tenderness, guarding, rebound, rigid Extremities exam: Present: normal inspection, full ROM, tenderness (posterior left shoulder), normal capillary refill. Absent: pedal edema, joint swelling, calf tenderness Back exam: Present: normal inspection Neurological exam: Present: alert, oriented X3, CN II-XII intact Psychiatric exam: Present: normal affect, normal mood Skin exam: Present: warm, dry, intact, normal color. Absent: rash Course Vital Signs 06/28/21 14:04 Temperature 97.9 F Pulse Rate 76 Respiratory 18 Rate Blood Pressure 154/65 O2 Sat by Pulse 98 Oximetry Medical Decision Making - Medical Decision Making Upon arrival pain patient was placed into room 15. Thorough history and physical exam is performed. IV is established and laboratory studies were conducted. Potassium low at 3.3. Creatinine 1.49 which is near the patient's baseline. Lactic acid 2.5. Patient does over for a CT of her brain and cervical spine. Shoulder x-rays also performed. CT negative for any acute fractures or intracranial process. C-collar is removed. Left shoulder x-ray did demonstrate acute fractures. The patient has had multiple falls in the past week for which i do believe she would benefit from physical therapy consult and possible inpatient treatment. I recommended admission. Spoke with Dr. Day who agreed to admit the patient. She currently awaiting a bed on the floor - Lab Data Result diagrams: 06/29/21 06:25 06/30/21 06:45 Lab Results 06/28/21 06/28/21 06/28/21 Range/Units 15:51 15:51 15:51 WBC 8.7 (3.8-10.6) k/uL RBC 5.25 (3.80-5.40) m/uL Hgb 14.0 (11.4-16.0) gm/dL Hct 43.7 (34.0-46.0) % MCV 83.4 (80.0-100.0) fL MCH 26.7 (25.0-35.0) pg MCHC 32.0 (31.0-37.0) g/dL RDW 14.9 (11.5-15.5) % Plt Count 189 (150-450) k/uL MPV 9.3 Neutrophils % 68 % Lymphocytes % 17 % Monocytes % 11 % Eosinophils % 2 % Basophils % 1 % Neutrophils # 5.9 (1.3-7.7) k/uL Lymphocytes # 1.5 (1.0-4.8) k/uL Monocytes # 1.0 (0-1.0) k/uL Eosinophils # 0.1 (0-0.7) k/uL Basophils # 0.1 (0-0.2) k/uL PT 10.5 (9.0-12.0) sec INR 1.0 (<1.2) APTT 21.6 L (22.0-30.0) sec Sodium (137-145) mmol/L Potassium (3.5-5.1) mmol/L Chloride (98-107) mmol/L Carbon Dioxide (22-30) mmol/L Anion Gap mmol/L BUN (7-17) mg/dL Creatinine (0.52-1.04) mg/dL Est GFR (CKD-EPI)AfAm (>60 ml/min/1.73 sqM) Est GFR (CKD-EPI)NonAf (>60 ml/min/1.73 sqM) Glucose (74-99) mg/dL Lactic Ac Sepsis Rflx Plasma Lactic Acid Daryl (0.7-2.0) mmol/L Calcium (8.4-10.2) mg/dL Total Bilirubin (0.2-1.3) mg/dL AST (14-36) U/L ALT (4-34) U/L Alkaline Phosphatase (38-126) U/L Creatine Kinase (30-135) U/L Troponin I (0.000-0.034) ng/mL Total Protein (6.3-8.2) g/dL Albumin (3.5-5.0) g/dL TSH (0.465-4.680) mIU/L Free T4 (0.78-2.19) ng/dL Urine Color Light Yellow Urine Appearance Clear (Clear) Urine pH 7.0 (5.0-8.0) Ur Specific [place] 1.006 (1.001-1.035) Urine Protein Negative (Negative) Urine Glucose (UA) Negative (Negative) Urine Ketones Negative (Negative) Urine Blood Negative (Negative) Urine Nitrite Negative (Negative) Urine Bilirubin Negative (Negative) Urine Urobilinogen <2.0 (<2.0) mg/dL Ur Leukocyte Esterase Negative (Negative) 06/28/21 06/28/21 06/28/21 Range/Units 15:51 15:51 15:51 WBC (3.8-10.6) k/uL RBC (3.80-5.40) m/uL Hgb (11.4-16.0) gm/dL Hct (34.0-46.0) % MCV (80.0-100.0) fL MCH (25.0-35.0) pg MCHC (31.0-37.0) g/dL RDW (11.5-15.5) % Plt Count (150-450) k/uL MPV Neutrophils % % Lymphocytes % % Monocytes % % Eosinophils % % Basophils % % Neutrophils # (1.3-7.7) k/uL Lymphocytes # (1.0-4.8) k/uL Monocytes # (0-1.0) k/uL Eosinophils # (0-0.7) k/uL Basophils # (0-0.2) k/uL PT (9.0-12.0) sec INR (<1.2) APTT (22.0-30.0) sec Sodium 136 L (137-145) mmol/L Potassium 3.3 L (3.5-5.1) mmol/L Chloride 96 L (98-107) mmol/L Carbon Dioxide 29 (22-30) mmol/L Anion Gap 11 mmol/L BUN 20 H (7-17) mg/dL Creatinine 1.49 H (0.52-1.04) mg/dL Est GFR (CKD-EPI)AfAm 36 (>60 ml/min/1.73 sqM) Est GFR (CKD-EPI)NonAf 32 (>60 ml/min/1.73 sqM) Glucose 133 H (74-99) mg/dL Lactic Ac Sepsis Rflx Plasma Lactic Acid Daryl 2.5 H* (0.7-2.0) mmol/L Calcium 9.8 (8.4-10.2) mg/dL Total Bilirubin 1.1 (0.2-1.3) mg/dL AST 62 H (14-36) U/L ALT 13 (4-34) U/L Alkaline Phosphatase 100 (38-126) U/L Creatine Kinase 48 (30-135) U/L Troponin I <0.012 (0.000-0.034) ng/mL Total Protein 8.1 (6.3-8.2) g/dL Albumin 4.4 (3.5-5.0) g/dL TSH (0.465-4.680) mIU/L Free T4 (0.78-2.19) ng/dL Urine Color Urine Appearance (Clear) Urine pH (5.0-8.0) Ur Specific [place] (1.001-1.035) Urine Protein (Negative) Urine Glucose (UA) (Negative) Urine Ketones (Negative) Urine Blood (Negative) Urine Nitrite (Negative) Urine Bilirubin (Negative) Urine Urobilinogen (<2.0) mg/dL Ur Leukocyte Esterase (Negative) 06/28/21 06/28/21 Range/Units 15:55 16:15 WBC (3.8-10.6) k/uL RBC (3.80-5.40) m/uL Hgb (11.4-16.0) gm/dL Hct (34.0-46.0) % MCV (80.0-100.0) fL MCH (25.0-35.0) pg MCHC (31.0-37.0) g/dL RDW (11.5-15.5) % Plt Count (150-450) k/uL MPV Neutrophils % % Lymphocytes % % Monocytes % % Eosinophils % % Basophils % % Neutrophils # (1.3-7.7) k/uL Lymphocytes # (1.0-4.8) k/uL Monocytes # (0-1.0) k/uL Eosinophils # (0-0.7) k/uL Basophils # (0-0.2) k/uL PT (9.0-12.0) sec INR (<1.2) APTT (22.0-30.0) sec Sodium (137-145) mmol/L Potassium (3.5-5.1) mmol/L Chloride (98-107) mmol/L Carbon Dioxide (22-30) mmol/L Anion Gap mmol/L BUN (7-17) mg/dL Creatinine (0.52-1.04) mg/dL Est GFR (CKD-EPI)AfAm (>60 ml/min/1.73 sqM) Est GFR (CKD-EPI)NonAf (>60 ml/min/1.73 sqM) Glucose (74-99) mg/dL Lactic Ac Sepsis Rflx Y Plasma Lactic Acid Daryl (0.7-2.0) mmol/L Calcium (8.4-10.2) mg/dL Total Bilirubin (0.2-1.3) mg/dL AST (14-36) U/L ALT (4-34) U/L Alkaline Phosphatase (38-126) U/L Creatine Kinase (30-135) U/L Troponin I (0.000-0.034) ng/mL Total Protein (6.3-8.2) g/dL Albumin (3.5-5.0) g/dL TSH 0.025 L (0.465-4.680) mIU/L Free T4 3.50 H (0.78-2.19) ng/dL Urine Color Urine Appearance (Clear) Urine pH (5.0-8.0) Ur Specific [place] (1.001-1.035) Urine Protein (Negative) Urine Glucose (UA) (Negative) Urine Ketones (Negative) Urine Blood (Negative) Urine Nitrite (Negative) Urine Bilirubin (Negative) Urine Urobilinogen (<2.0) mg/dL Ur Leukocyte Esterase (Negative) - EKG Data EKG Comments: EKG demonstrates an electronig pacemaker which appears to capture appropriately. Rate is 62. OR 148. QRS 88. QTC of 49. No acute ST segment elevations or depressions concerning for ischemic changes. Disposition Clinical Impression: Fall, Concussion with loss of consciousness, Multiple falls, Anticoagulant long-term use, Left shoulder pain Disposition: ADMITTED IP TO THIS [facility] Condition: Stable Is patient prescribed a controlled substance at d/c from ED?: No Decision to Admit Reason: Admit from EC Decision Date: 06/28/21 Decision Time: 17:18
[2021-06-28 16:18] LABS: Partial Thromboplastin Time 21.6 sec (22.0-30.0); Prothrombin Time 10.5 sec (9.0-12.0)
--- NOTE | 2021-06-28 16:26 | XR ---
EXAMINATION TYPE: XR shoulder complete LT DATE OF EXAM: 06/28/2021 CLINICAL HISTORY: Pain after fall injury. TECHNIQUE: Three views of the left shoulder are obtained. COMPARISON: None. FINDINGS: There is no acute fracture/dislocation evident in the left shoulder. Mild to moderate narr owing of the acromioclavicular joint with mild to moderate inferior spurring. Mild to moderate narrow ing and mild spurring glenohumeral joint. Distal acromion morphology unremarkable. [place] osseous str uctures are demineralized. The visualized ribs are intact . Overlying pacemaker device partially imag ed. IMPRESSION: There is no acute fracture or dislocation in the left shoulder.
[2021-06-28] MEDS ORDERED: POTASSIUM CHLORIDE ER 20 MEQ TAB.ER PO STA (17:16)
[2021-06-28] MEDS ORDERED: IBUPROFEN 400 MG TAB PO PRN (17:34)
[2021-06-28] MEDS ORDERED: NALOXONE 0.4 MG/ML 1 ML VIAL IV PRN (17:34)
--- NOTE | 2021-06-28 18:43 | P.HPIM ---
History of Present Illness H&P Date: 06/28/21 (Frequent falls, pacemaker abnormalities, right leg bruises, or consent disease) Chief Complaint: Patient had frequent fall at home, the lost to 10 days fall 6 time History and physical date of service 06/28/[address] Tresa MORENO. Date presentation 06/28/2021 to the emergency room brought by her daughter. Chief complaint patient stated that she has been falling for the last 10 days 6 time and today she fell down in the bathroom [id number] in the best up with the movement 30 loss of consciousness could not be counted. History of present illness.: Mrs. Cesilia Duran who is 85 years old white female has been doing fairly well until lost 10 days when she become more frequently falling attacks and she stated that fell down 6 time each time it may prove with her legs or her arms or her head. Today she fell down in the best and hit her head on the bathtub and she had momentary loss of consciousness and the daughter called the ambulance brought her to the emergency room. In the emergency room patient had a CAT scan in the cervical x-ray: The result was negative for the computed tomography scan of the brain with no bleed, patient on [place] 2.5 mg twice a day for history of chronic atrial fibrillation. Also they did a computed tomography scan of the neck and that's indicating significant degenerative arthritis of the cervical spine. Patient has been seen in the past. I'm in February by Joey Goode the neurologist and she had previous surgery on the back by Dr. Charisse Gomez the neurosurgeon in [facility]. Past medical history: She had a history #1 of hypothyroidism #2 atrial fibrillation with controlled ventricular response on Ell[place] 2.5 twice a day. #3 she had history of Parkinson disease #4 hyperlipidemia #5 coronary artery d isease and atherosclerotic heart disease #6 pacemaker left infraclavicular. #7 surgery on the lower back by Dr. Charisse Gomez the neurosurgeon in [facility]. #8 diabetes mellitus type 2 on oral hypoglycemic agent. Family history: She has a daughter who has recently surgery on the back at [facility] unable to take care of her as well And she has a son in [place] . Habit: Nonsmoker nondrinker . Review of system: #1 neurologically history of Parkinson disease has been monitored by Dr. Joey Beauchamp neurology however recently she had increased her falling attacks and uncl ear is it due to her arrhythmias and today she had her head to the best top and she momentary loss of consciousness could not counted them and it as well as a CAT scan was negative in the brain with advanced cervical arthritis. #2 cardiovascular history of hypertension and hypertensive heart disease, atrial fibrillation currently controlled and anticoagulated with an requests #3 pulmonary no shortness of breath no history of rib fracture #4 endocrine, diabetes mellitus, hypothyroidism, hyperlipidemia. #5 genitourinary no complaint however possible incontinent minimal #6 musculoskeletal: Frequent falls, she has a recent fall with bruises in the right leg with ecchymosis. #7 she had had head with no evidence of wound or incision no headache no blurred vision and no nausea or vomiting. #8 she uses cane at home. #9 she has history of dizziness and she was taken meclizine "" "at home has been held on this admission until seen by the neurologist for evaluation. #10 gait disturbance. No added from the 14 [place] significant inflammation. Multiple ALLERGIES. Physical exam: Patient is conscious alert at the time of the exam in exam room 15 in the ER. She is able to state what happened to her and with the frequent fall. Her head currently normocephalic and atraumatic with the history of fall and hit her head however no laceration no injury CAT scan was normal no fracture Pupil was equal reactive conjunctiva was pink sclera was nonicteric. Hearing is normal no discharge from the ear or the nostril Oropharynx natural teeth able to swallow and uvula midline. Neck supple no JVD no thyromegaly no lymphadenopathy trachea midline no bruits Chest exam: No tenderness on the chest wall, normal breath sounds bilaterally, left upper chest pacemaker. Heart: Atrial septal with irregular irregularities however controlled ventricular response and unclear if the pacemaker is need any checks with the her frequent fall with the possibility of arrhythmia will consult the cardiology and monitored on the third floor telemetry. Abdomen: History of surgical cholecystectomy in the right upper quadrant, history of appendectomy with the scar in the right lower quadrant, history of hysterectomy with a midline incision below the umbilicus. Extremities: She able to move her lower extremities and upper extremities, right leg bruises and ecchymosis from the fall which occurred today as well and she had frequently as well as she stated 6 time in 10 days, she had degenerative arthritis of the knee. 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 Neurological evaluation: Patient conscious alert no evidence of the stroke no lateralizing sign that she had history in the past of problem with the left ankle, her sensation is intact and no movement in the hand and the legs is intact, she had a Parkinson disease and a tremor presence. Patient will be seen by the neurologist for for further evaluation of her frequent fall and if any adjustment of the treatment as well as the cardiology for evaluation of the pacemaker. And the cardiac evaluation in general Assessment and plan Patient will be admitted to ekg monitor tech floor, neuro checks every 4 hours for 24 hour until seen by the neurologist. Cardiology consultation or evaluation cardiac his status or the fall frequently secondary to pacemaker impairment and. She had a hypokalemia which supplemented in the ER and we will be rechecking tomorrow her electrolytes. Physical therapy and occupational therapy as well as future inpatient rehab at the snf Counts include 234 beds at the [facility]. We'll continue the current medication We'll check on the TSH and free T4 will be with the underlying thyroid disease and also recheck on her lipid profile tomorrow. Patient has increased lactic acid and we will be rechecking again the lactic acid to see if improved or not with the adding IV fluid with the underlying mild dehydration. 0.9 normal saline no gentle hydration for tonight. We'll order insulin to scale for covering the diabetes and obtain hemoglobin A1c. Past Medical History Past Medical History: Atrial Fibrillation, Cancer, Diabetes Mellitus, Eye Disorder, GERD/Reflux, Hyperlipidemia, Hypertension, Musculoskeletal Disorder, Neurologic Disorder Additional Past Medical History / Comment(s): HX SKIN CANCER, constipation, skin cancer left ankle basal cell. PARKINSON, PAST HX KIDNEY FAILURE R/T MEDICATION- RESOLVED, history of sick sinus syndrome, history of cataracts. History of Any Multi-Drug Resistant Organisms: None Reported Past Surgical History: Adenoidectomy, Appendectomy, Back Surgery, Bowel Resection, Cholecystectomy, Ear Surgery, Hernia Repair, Hysterectomy, Tonsillectomy Additional Past Surgical History / Comment(s): 04/06/18 PACEMAKER INSERTION. T & A-1939, APPENDECTOMY-1944, LAP KATARINA-1968, HYST-1974, SX FOR RECTAL FISTULA X 3- 1977,1986,1998, BILAT CATARACTS-1998, BACK SX x4-1999,2003,2011,2018- AFTER LAST BACK SX HAD A BLOOD CLOT AND THEY HAD TO GO BACK IN TO REMOVED) COLONOSCOPY- 2009, SIGMOID RESECTION- 2009, 12 CM LIPOMA REMOVED FROM LT ARM- 2001, BASAL CELL CARCINOMA REMOVED LT ANKLE 2006, ABD. HERNIA REPAIR WITH MESH- 2009 Past Anesthesia/Blood Transfusion Reactions: Motion Sickness, Postoperative Nausea & Vomiting (PONV) Type of Cardiac Device: Permanent Pacemaker Device Placement Date:: 04/06/2018 Past Psychological History: No Psychological Hx Reported Smoking Status: Never smoker Past Alcohol Use History: None Reported Past Drug Use History: None Reported - Past Family History Mother Family Medical History: Cancer, Diabetes Mellitus, Hypertension Additional Family Medical History / Comment(s): Parkinson's disease Father Family Medical History: Myocardial Infarction ([place]) Additional Family Medical History / Comment(s): FROM [place] AT AGE 56 Son(s) Family Medical History: Myocardial Infarction ([place]) Medications and Allergies Home Medications Medication Instructions Recorded Confirmed Type RX: Carbidopa-Levodopa 25-100 mg 1 tab PO TID 05/03/17 06/28/21 History [Sinemet 25-100 mg] RX: Pantoprazole Sodium [Protonix] 40 mg PO DAILY 05/03/17 06/28/21 History RX: Metoprolol Tartrate [Lopressor] 50 mg PO BID tab 04/11/18 06/28/21 Rx RX: Glimepiride [Amaryl] 2 mg PO DAILY 10/05/18 06/28/21 History RX: Rosuvastatin [Crestor] 20 mg PO HS 10/05/18 06/28/21 History RX: Levothyroxine Sodium 75 mcg PO AC-BRKFST 06/01/20 06/28/21 History [Synthroid] Furosemide [Lasix] 20 mg PO DAILY 04/05/21 06/28/21 History RX: Meclizine HCl 25 mg PO BID PRN 04/05/21 06/28/21 History RX: hydrALAZINE HCL [Apresoline] 50 mg PO BID 05/05/21 06/28/21 History Amiodarone [Cordarone] 100 mg PO DAILY 06/28/21 06/28/21 History Apixaban [Eliquis] 2.5 mg PO BID 06/28/21 06/28/21 History Ibuprofen [Motrin] 800 mg PO BID PRN 06/28/21 06/28/21 History RX: traZODone HCL 75 mg PO HS 06/28/21 06/28/21 History Allergies Allergy/AdvReac Type Severity Reaction Status Date / Time Iodinated Contrast Media Allergy Anaphylaxis Verified 06/28/21 17:39 [Iodinated Contrast- Oral and IV Dye] lisinopril Allergy KIDNEY Verified 06/28/21 17:39 FAILURE Penicillins Allergy Itching Verified 06/28/21 17:39 codeine AdvReac Nausea & Verified 06/28/21 17:39 Vomiting meperidine [From Demerol] AdvReac Nausea & Verified 06/28/21 17:39 Vomiting morphine AdvReac Nausea & Verified 06/28/21 17:39 Vomiting nortriptyline [From Pamelor] AdvReac Unknown Verified 06/28/21 17:39 pioglitazone AdvReac Unknown Verified 06/28/21 17:39 Physical Exam Vitals: Vital Signs Temp Pulse Resp BP Pulse Ox 06/28/21 14:04 97.9 F 76 18 154/65 98 Intake and Output 06/28/21 06/28/21 06/28/21 06:59 14:59 22:59 Other: Weight 62.596 kg Results CBC & Chem 7: 06/28/21 15:51 06/28/21 15:51 Labs: Abnormal Lab Results - Last 24 Hours (Table) 06/28/21 06/28/21 06/28/21 Range/Units 15:51 15:51 15:51 APTT 21.6 L (22.0-30.0) sec Sodium 136 L (137-145) mmol/L Potassium 3.3 L (3.5-5.1) mmol/L Chloride 96 L (98-107) mmol/L BUN 20 H (7-17) mg/dL Creatinine 1.49 H (0.52-1.04) mg/dL Glucose 133 H (74-99) mg/dL Plasma Lactic Acid [place] 2.5 H* (0.7-2.0) mmol/L AST 62 H (14-36) U/L
[2021-06-28 19:50] LABS: T4, Free (Free Thyroxine) 3.5 ng/dL (0.78-2.19)
[2021-06-28] MEDS: hydrALAZINE HCL 50 MG TAB PO SCH (20:26)
[2021-06-28] MEDS: traZODone HCL 50 MG TAB PO SCH (20:26)
[2021-06-28] MEDS: METOPROLOL TARTRATE 50 MG TAB PO SCH (20:26)
[2021-06-28] MEDS: CARBIDOPA-LEVODOPA 25-100 MG 1 EACH TAB PO SCH (20:26)
[2021-06-28] MEDS: ATORVASTATIN 40 MG TAB PO SCH (20:26)
[2021-06-28] MEDS: PANTOPRAZOLE 40 MG TABLET PO SCH (20:26)
[2021-06-28] MEDS ORDERED: hydrALAZINE HCL 50 MG TAB PO SCH (21:00)
[2021-06-28] MEDS: SODIUM CHLORIDE 0.9% 1,000 ML IV SCH (22:40)
[2021-06-29] MEDS: hydrALAZINE HCL 50 MG TAB PO SCH ×4 (00:05→21:41)
[2021-06-29] MEDS: CARBIDOPA-LEVODOPA 25-100 MG 1 EACH TAB PO SCH ×4 (00:05→21:41)
[2021-06-29] MEDS: ACETAMINOPHEN TAB 325 MG TAB PO PRN ×2 (05:41→20:24)
[2021-06-29] MEDS: LEVOTHYROXINE 75 MCG TAB PO SCH (05:42)
[2021-06-29] MEDS: PANTOPRAZOLE 40 MG TABLET PO SCH (05:42)
[2021-06-29 07:05] LABS: African American GFR (CKD) 36 (>60 ml/min/1.73 sqM); Anion Gap 5 mmol/L; Blood Urea Nitrogen 16 mg/dL (7-17); Calcium 9.3 mg/dL (8.4-10.2); Carbon Dioxide 29 mmol/L (22-30); Chloride 100 mmol/L (98-107); Glucose 137 mg/dL (74-99); Non-African American GFR(CKD) 31 (>60 ml/min/1.73 sqM); Potassium 3.2 mmol/L (3.5-5.1); Sodium 134 mmol/L (137-145)
[2021-06-29 07:16] LABS: Glucose,Whole Blood 127 mg/dL (75-99)
[2021-06-29] MEDS ORDERED: INSULIN ASPART (NovoLOG) 100 UNIT/ML VIAL SQ PRN (07:30)
[2021-06-29] MEDS: METOPROLOL TARTRATE 50 MG TAB PO SCH ×2 (08:14→20:25)
[2021-06-29] MEDS: AMIODARONE 100 MG TAB PO SCH (08:14)
[2021-06-29] MEDS: GLIMEPIRIDE 2 MG TAB PO SCH (08:29)
[2021-06-29] MEDS ORDERED: FUROSEMIDE 20 MG TAB PO SCH (09:00)
[2021-06-29 09:21] LABS: Basophils # (A) 0.05 X 10*3/uL (0.00-0.10); Basophils % (A) 0.7 %; Eosinophils # (A) 0.13 X 10*3/uL (0.04-0.35); Eosinophils % (A) 1.8 %; HCT 38.8 % (37.2-46.3); HGB 11.9 g/dL (12.0-15.0); Lymphocytes # (A) 1.17 X 10*3/uL (0.90-5.00); Lymphocytes % (A) 15.9 %; MCH 25.5 pg (27.0-32.0); MCHC 30.7 g/dL (32.0-37.0); MCV 83.1 fL (80.0-97.0); Mean Platelet Volume 10.8 fL (9.5-12.2); Monocytes # (A) 1.08 X 10*3/uL (0.20-1.00); Monocytes % (A) 14.7 %; Neutrophils # (A) 4.93 X 10*3/uL (1.80-7.70); Neutrophils % (A) 66.8 %; Platelet Count 174 X 10*3/uL (140-440); RBC 4.67 X 10*6/uL (4.10-5.20); RDW 15.6 % (11.5-14.5); WBC 7.37 X 10*3/uL (4.50-10.00)
[2021-06-29 11:39] LABS: Glucose,Whole Blood 176 mg/dL (75-99)
--- NOTE | 2021-06-29 13:39 | P.CRDCN ---
History of Present Illness History of present illness: HISTORY OF PRESENTING ILLNESS This is a pleasant 85-year-old female past medical history significant for paroxysmal atrial fibrillation maintained on Eliquis, permanent pacemaker i mplantation ([employer]) Parkinson's disease, dyslipidemia, hypertension, diabetes mellitus and frequent falls recently. She follows in the office with Dr. Mercer. We have been asked to see in consultation for pacemaker evaluation. She presented to the hospital after suffering a fall. She states she was walking into the bathroom and started losing her balance. She was leaning forward and reached for the hand railing in the shower. When she leaned into it the railing slipped and broke causing her to fall forward striking her head and having a brief episode of LOC. On arrival to the emergency department she was awake and alert. She underwent CT imaging which was unremarkable. She is seen and examined resting comfortably lying flat in bed in no acute distress. She states she was unable to get any rest last night due to significant pain in her back. She denies chest pain, dizziness, shortness of breath or palpitations. As far as she can recall she has not had any symptoms prior to falling other than weakness. She follows closely with her neurologist as well due to Parkinson's disease. EKG reveals sinus rhythm heart rate of [address] abnormalities in the inferior lateral leads. Consistent with previous EKGs. No ischemic changes noted. Laboratory data reviewed, WBC 7.3, hemoglobin on admission 14 repeat today 11.9, platelets 174, sodium 134, potassium 3.2, creatinine 1.51, lactic acid 2. 5 repeat after hydration 1.1 and TSH 0.025 with a free T4 3 0.5. Current daily cardiac medications include amiodarone 100 mg daily, Eliquis 2.5 mg twice a day, Lasix 20 mg daily, Lopressor 50 mg twice a day, Crestor 20 mg at bedtime and hydralazine 50 mg twice a day. Most recent echocardiogram obtained in the office February 2021 reveals preserved LV systolic function with ejection fraction 55-60%, normal diastolic function, mildly dilated right atrium, moderate mitral regurgitation, moderate tricuspid regurgitation and mild pulmonary hypertension with an RVSP of 41 mmHg. Her last pacemaker interrogation revealed an A. fib burden of less than 0.1%. REVIEW OF SYSTEMS At the time of my exam: CONSTITUTIONAL: Denies fever or chills. CARDIOVASCULAR: Denies chest pain, shortness of breath, orthopnea, PND or palpitations. RESPIRATORY: Denies cough. GASTROINTESTINAL: Denies abdominal pain, diarrhea, constipation, nausea or vomiting. MUSCULOSKELETAL: Denies myalgias. NEUROLOGIC: Denies numbness, tingling, headache or weakness. ENDOCRINE: Denies fatigue, weight change, polydipsia or polyurina. GENITOURINARY: Denies burning, hematuria or urgency with micturation. HEMATOLOGIC: Denies history of anemia or bleeding. PHYSICAL EXAMINATION Blood pressure 103/57 heart rate 60 afebrile and maintaining oxygen saturation on room air. CONSTITUTIONAL: No apparent distress. HEENT: Head is normocephalic. Pupils are equal, round. Sclerae anicteric. Mucous membranes of the mouth are moist. No JVD. No carotid bruit. CHEST EXAMINATION: Lungs are clear to auscultation. No chest wall tenderness is noted on palpation or with deep breathing. HEART EXAMINATION: Regular rate and rhythm. S1, S2 heard. Systolic ejection murmur at the base, no gallops or rub. ABDOMEN: Soft, nontender. EXTREMITIES: 2+ peripheral pulses, no lower extremity edema and no calf tenderness. NEUROLOGIC EXAMINATION: Patient is awake, alert and oriented x3. ASSESSMENT Fall with positive LOC Acute kidney injury Hypokalemia Lactic acidosis Paroxysmal atrial fibrillation maintained on Eliquis, currently in sinus rhythm Hypertension Dyslipidemia Diabetes mellitus Frequent falls Parkinson's disease PLAN Replace potassium per protocol. Interrogate pacemaker. Check for orthostatic changes. Further recommendations to follow based upon clinical course. Thank you kindly for this consultation. Nurse Practitioner note has been reviewed, I agree with a documented findings and plan of care. Patient was seen and examined. Past Medical History Past Medical History: Atrial Fibrillation, Cancer, Diabetes Mellitus, Eye Disorder, GERD/Reflux, Hyperlipidemia, Hypertension, Musculoskeletal Disorder, Neurologic Disorder Additional Past Medical History / Comment(s): HX SKIN CANCER, constipation, skin cancer left ankle basal cell. PARKINSON, PAST HX KIDNEY FAILURE R/T MEDICATION- RESOLVED, history of sick sinus syndrome, history of cataracts. History of Any Multi-Drug Resistant Organisms: None Reported Past Surgical History: Adenoidectomy, Appendectomy, Back Surgery, Bowel Resection, Cholecystectomy, Ear Surgery, Hernia Repair, Hysterectomy, Tonsillectomy Additional Past Surgical History / Comment(s): 04/06/18 PACEMAKER INSERTION. T & A-1939, APPENDECTOMY-1945, LAP KATARINA-1968, HYST-1974, SX FOR RECTAL FISTULA X 3- 1977,1986,1998, BILAT CATARACTS-1998, BACK SX x4-1999,2003,2012,2018- AFTER LAST BACK SX HAD A BLOOD CLOT AND THEY HAD TO GO BACK IN TO REMOVED) COLONOSCOPY- 2009, SIGMOID RESECTION- 2009, 12 CM LIPOMA REMOVED FROM LT ARM-14 11, BASAL CELL CARCINOMA REMOVED LT ANKLE 2006, ABD. HERNIA REPAIR WITH MESH- 2009 Past Anesthesia/Blood Transfusion Reactions: Motion Sickness, Postoperative Nausea & Vomiting (PONV) Type of Cardiac Device: Permanent Pacemaker Device Placement Date:: 04/06/2018 Past Psychological History: No Psychological Hx Reported Additional Psychological History / Comment(s): PT LIVES ALONE IN SINGLE LEVEL HOME.HAS WALKER/WHEEL CHAIR.Does not drive -- DAUGHTER TAKES HER TO APT. Smoking Status: Never smoker Past Alcohol Use History: None Reported Past Drug Use History: None Reported - Past Family History Mother Family Medical History: Cancer, Diabetes Mellitus, Hypertension Additional Family Medical History / Comment(s): Parkinson's disease Father Family Medical History: Myocardial Infarction ([place]) Additional Family Medical History / Comment(s): FROM [place] AT AGE 56 Son(s) Family Medical History: Myocardial Infarction ([place]) Medications and Allergies Home Medications Medication Instructions Recorded Confirmed Type Carbidopa-Levodopa 25-100 mg 1 tab PO TID 05/03/17 06/28/21 History [Sinemet 25-100 mg] Pantoprazole Sodium [Protonix] 40 mg PO DAILY 05/03/17 06/28/21 History Metoprolol Tartrate [Lopressor] 50 mg PO BID tab 04/11/18 06/28/21 Rx Glimepiride [Amaryl] 2 mg PO DAILY 10/05/18 06/28/21 History Rosuvastatin [Crestor] 20 mg PO HS 10/05/18 06/28/21 History Levothyroxine Sodium [Synthroid] 75 mcg PO AC-BRKFST 06/01/20 06/28/21 History Furosemide [Lasix] 20 mg PO DAILY 04/05/21 06/28/21 History Meclizine HCl 25 mg PO BID PRN 04/05/21 06/28/21 History hydrALAZINE HCL [Apresoline] 50 mg PO BID 05/05/21 06/28/21 History Amiodarone [Cordarone] 100 mg PO DAILY 06/28/21 06/28/21 History Apixaban [Eliquis] 2.5 mg PO BID 06/28/21 06/28/21 History Ibuprofen [Motrin] 800 mg PO BID PRN 06/28/21 06/28/21 History traZODone HCL 75 mg PO HS 06/28/21 06/28/21 History Allergies Allergy/AdvReac Type Severity Reaction Status Date / Time Iodinated Contrast Media Allergy Anaphylaxis Verified 06/28/21 17:39 [Iodinated Contrast- Oral and IV Dye] lisinopril Allergy KIDNEY Verified 06/28/21 17:39 FAILURE Penicillins Allergy Itching Verified 06/28/21 17:39 codeine AdvReac Nausea & Verified 06/28/21 17:39 Vomiting meperidine [From Demerol] AdvReac Nausea & Verified 06/28/21 17:39 Vomiting morphine AdvReac Nausea & Verified 06/28/21 17:39 Vomiting nortriptyline [From Pamelor] AdvReac Unknown Verified 06/28/21 17:39 pioglitazone AdvReac Unknown Verified 06/28/21 17:39 Physical Exam Vitals: Vital Signs Temp Pulse Pulse Resp BP BP Pulse Ox 06/29/21 07:46 97.4 F L 60 16 103/57 93 L 06/29/21 02:22 97.4 F L 60 18 100/63 94 L 06/29/21 01:42 98.0 F 15 96 06/29/21 00:36 98.0 F 15 96 06/28/21 22:24 16 95 06/28/21 14:04 97.9 F 76 18 154/65 98 Intake and Output 06/28/21 06/29/21 06/29/21 22:59 06:59 14:59 Intake Total 100 Output Total 25 310 Balance 75 -310 Intake: Oral 100 Output: Urine 25 310 Other: Voiding Method External Catheter # Bowel Movements 0 Weight 62.596 kg Results 06/29/21 06:25 06/29/21 06:25 Cardiac Enzymes 06/28/21 06/28/21 Range/Units 15:51 15:51 AST 62 H (14-36) U/L Troponin I <0.012 (0.000-0.034) ng/mL Coagulation 06/28/21 Range/Units 15:51 PT 10.5 (9.0-12.0) sec APTT 21.6 L (22.0-30.0) sec CBC 06/28/21 Range/Units 15:51 WBC 8.7 (3.8-10.6) k/uL RBC 5.25 (3.80-5.40) m/uL Hgb 14.0 (11.4-16.0) gm/dL Hct 43.7 (34.0-46.0) % Plt Count 189 (150-450) k/uL Comprehensive Metabolic Panel 06/28/21 06/29/21 Range/Units 15:51 06:25 Sodium 136 L 134 L (137-145) mmol/L Potassium 3.3 L 3.2 L (3.5-5.1) mmol/L Chloride 96 L 100 (98-107) mmol/L Carbon Dioxide 29 29 (22-30) mmol/L BUN 20 H 16 (7-17) mg/dL Creatinine 1.49 H 1.51 H (0.52-1.04) mg/dL Glucose 133 H 137 H (74-99) mg/dL Calcium 9.8 9.3 (8.4-10.2) mg/dL AST 62 H (14-36) U/L ALT 13 (4-34) U/L Alkaline Phosphatase 100 (38-126) U/L Total Protein 8.1 (6.3-8.2) g/dL Albumin 4.4 (3.5-5.0) g/dL Current Medications Generic Name Dose Route Start Last Admin Trade Name Freq PRN Reason Stop Dose Admin Acetaminophen 650 mg 06/28/21 17:34 06/29/21 05:41 Acetaminophen Tab 325 Mg Tab PO 650 mg Q6HR PRN Administration Mild Pain or Fever > 100.5 Amiodarone HCl 100 mg 06/29/21 09:00 06/29/21 08:14 Amiodarone 100 Mg Tab PO 100 mg DAILY FARZANA Administration Apixaban 2.5 mg 06/29/21 21:00 Apixaban 2.5 Mg Tablet PO BID FARZANA Protocol Atorvastatin Calcium 40 mg 06/28/21 21:00 06/28/21 20:26 Atorvastatin 40 Mg Tab PO 40 mg HS FARZANA Administration Carbidopa/Levodopa 1 each 06/28/21 18:15 06/29/21 08:14 Carbidopa-Levodopa 25-100 Mg 1 Each Tab PO 1 each TID FARZANA Administration Furosemide 20 mg 06/29/21 09:00 06/29/21 08:14 Furosemide 20 Mg Tab PO 20 mg DAILY FARZANA Administration Glimepiride 2 mg 06/29/21 09:00 06/29/21 08:29 Glimepiride 2 Mg Tab PO 2 mg DAILY FARZANA Administration Hydralazine HCl 50 mg 06/28/21 19:00 06/29/21 08:13 Hydralazine Hcl 50 Mg Tab PO Not Given TID FARZANA Sodium Chloride 1,000 mls @ 50 mls/hr 06/28/21 19:00 06/28/21 22:40 Saline 0.9% IV 50 mls/hr .Q20H FARZANA Administration Insulin Aspart 2 - 10 unit 06/29/21 07:30 Insulin Aspart (Novolog) 100 Unit/Ml Vial SQ Q8HR PRN Elevated glucose Protocol Levothyroxine Sodium 75 mcg 06/29/21 07:30 06/29/21 05:42 Levothyroxine 75 Mcg Tab PO 75 mcg AC-BRKFST FARZANA Administration Metoprolol Tartrate 50 mg 06/28/21 21:00 06/29/21 08:14 Metoprolol Tartrate 50 Mg Tab PO Not Given BID FARZANA Naloxone HCl 0.2 mg 06/28/21 17:34 Naloxone 0.4 Mg/Ml 1 Ml Vial IV Q2M PRN Opioid Reversal Pantoprazole Sodium 40 mg 06/28/21 18:15 06/29/21 05:42 Pantoprazole 40 Mg Tablet PO 40 mg AC-BRKFST FARZANA Administration Trazodone HCl 75 mg 06/28/21 21:00 06/28/21 20:26 Trazodone Hcl 50 Mg Tab PO 75 mg HS FARZANA Administration Intake and Output 06/28/21 06/29/21 06/29/21 22:59 06:59 14:59 Intake Total 100 Output Total 25 310 Balance 75 -310 Intake: Oral 100 Output: Urine 25 310 Other: Voiding Method External Catheter # Bowel Movements 0 Weight 62.596 kg 06/28/21 15:51 06/29/21 06:25
[2021-06-29 13:41] LABS: Chol/HDL Ratio 3.14 Ratio
[2021-06-29] MEDS: SODIUM CHLORIDE 0.9% 1,000 ML IV SCH (16:31)
[2021-06-29 16:50] LABS: Glucose,Whole Blood 160 mg/dL (75-99)
[2021-06-29] MEDS ORDERED: Potassium Replacement Protocol 1 EACH MISC MISCELLANE PRN (17:54)
--- NOTE | 2021-06-29 20:15 | P.PN ---
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 Gtz. Patient seen and evaluated today. Conscious alert oriented did not have a full physical therapy yet, seen by cardiology team and they did interrogate the pacemaker however we don't have the results yet Also seen by Dr. Crenshaw the neurology however we don't have his opinion yet. On the examination patient is conscious alert oriented 3 no neuro deficit with exam, pupil was equal reactive able to speak and eat and swallow. Oropharynx she had natural teeth, Neck was supple no JVD no thyromegaly no lymphadenopathy trachea midline. Chest she had left infraclavicular pacemaker. Heart she had a pacemaker was regular irregularities currently stable we don't have the input from cardiology so far. Abdomen soft positive bowel sounds no tenderness in the four-quadrant. Patient has incontinence of the urine. Extremities she had a bruise in the right leg which is improving. Neurologically there is no attempt with the physical therapy yet to indicate shoe going to have falling attack again and waiting for the neurology input. Assessment: #1 generalized weakness #2 advanced degenerative arthritis #3 we'll check on her vitamin B12 and folic acid. Waiting for cardiology and neurology input Plan to be in the [facility] with the consultation of the certified social workers in health care and discharge plan after the evaluation in the hospital and rehabilitation of acute and followed by continue with rehab in the [facility]. Objective - Vital Signs Vital signs: Vital Signs Temp 97.8 F 06/29/21 19:34 Pulse 60 06/29/21 19:34 Resp 16 06/29/21 13:51 BP 139/59 06/29/21 19:34 Pulse Ox 96 06/29/21 19:34 Intake & Output 06/29/21 06/29/21 06/30/21 06:59 18:59 06:59 Intake Total 100 Output Total 335 Balance -235 Weight 62.596 kg Intake: Oral 100 Output: Urine 335 Other: Voiding Method External Catheter External Catheter # Voids 1 # Bowel Movements 0 - Labs CBC & Chem 7: 06/29/21 06:25 06/29/21 06:25 Labs: Abnormal Lab Results - Last 24 Hours (Table) 06/29/21 06/29/21 06/29/21 Range/Units 06:25 06:25 06:25 Hgb 11.9 L (12.0-15.0) g/dL MCH 25.5 L (27.0-32.0) pg MCHC 30.7 L (32.0-37.0) g/dL RDW 15.6 H (11.5-14.5) % Monocytes # 1.08 H (0.20-1.00) X 10*3/uL Sodium 134 L (137-145) mmol/L Potassium 3.2 L (3.5-5.1) mmol/L Creatinine 1.51 H (0.52-1.04) mg/dL Glucose 137 H (74-99) mg/dL POC Glucose (mg/dL) (75-99) mg/dL Hemoglobin A1c 7.0 H (4.0-6.0) % Triglycerides 278.00 H (0.00-149.00) mg/dL VLDL Cholesterol, Calc 55.60 H (5.00-40.00) mg/dL 06/29/21 06/29/21 06/29/21 Range/Units 07:15 11:37 16:49 Hgb (12.0-15.0) g/dL MCH (27.0-32.0) pg MCHC (32.0-37.0) g/dL RDW (11.5-14.5) % Monocytes # (0.20-1.00) X 10*3/uL Sodium (137-145) mmol/L Potassium (3.5-5.1) mmol/L Creatinine (0.52-1.04) mg/dL Glucose (74-99) mg/dL POC Glucose (mg/dL) 127 H 176 H 160 H (75-99) mg/dL Hemoglobin A1c (4.0-6.0) % Triglycerides (0.00-149.00) mg/dL VLDL Cholesterol, Calc (5.00-40.00) mg/dL
[2021-06-29] MEDS: ATORVASTATIN 40 MG TAB PO SCH (20:23)
[2021-06-29] MEDS: APIXABAN 2.5 MG TABLET PO SCH (20:23)
[2021-06-29] MEDS: traZODone HCL 50 MG TAB PO SCH (20:24)
--- NOTE | 2021-06-29 22:15 | P.CNNES ---
History of Present Illness Consult date: 06/29/21 Requesting physician: Avis Bassett Reason for Consult: acute ataxia, multiple falls History of Present Illness: Patient is a 85-year-old female, otherwise fairly healthy, came to the hospital because of frequent falls. Patient states that she has felt about 6 times in the last 10 days. She would get up to go to the bathroom and just go forward. Sometimes her knees collapse and she falls on her knees bruising it. She does not pass out. Sometimes feels lightheaded before the fall. Once in a while she gets spinning. Patient states that the falls has been going on for last 3 years. Initially they used to occur about once a week, then once every couple weeks, but has got worse in the last 10 days. Patient's vital signs on arrival blood pressure 154/65, pulse rate 76, temperature 97.9. Her blood test shows WBC 7.37, hemoglobin 11.9, platelets 174. Sodium 134 potassium 3.2, BUN 20, creatinine 1.49. CK normal, troponin negative. AST is mildly elevated 62, ALT 13. TSH is low 0.025 and free T4 3.50. UA is negative. Her previous B12 was borderline 348 on 09/26/2019. Patient previously had elevated CCP 66/20 and normal rheumatoid factor. KATELYNN negative. DsDNA negative. Computed tomography scan of the head showed no acute intracranial hemorrhage or midline shift. CT of the cervical spine showed no acute fracture or dislocation in the cervical spine. Left shoulder x-ray showed no fracture or dislocation. EKG with electronic atrial pacemaker. ST-T wave abnormality. Consider inferior isc hemia. 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 Sonogram for notices tortuous appearance of the right ICA which makes artifactually elevated velocities. If clinically warranted, may consider CTA. No significant stenosis left ICA. Patient's 2-D echo from 06/02/2020 shows paced rhythm. EF is greater than 55%. Left- ventricular size is normal. Left atrium is mildly dilated. Patient has history of diabetes for last 15 years. Denies any tobacco or alcohol use. She does have history of diabetic neuropathy, as she feels her left foot is in a tight socks for the last 1 year. The symptoms extend to about 4 inches above the left ankle. On the right side, she had similar sensation but only involving the toes and slightly proximally in the distal foot. There is no pins and needle sensation although there may be slight numbness in it. She denies any numbness or tingling in her hands. Patient states that her daughter lives with her. She uses cane when she goes out to doctor's offices, but inside at home she uses a walker. She has fell with a walker as well as a few times. In other words, the walker has not prevented the falls. Review of Systems As above in detail. Patient does have arthritis. Complains of bruising of her knees from frequent falls. No double vision, loss of vision, hoarseness, sore throat or dysphagia. Denies any abdominal pain, nausea vomiting diarrhea. No chest pain. No fever or chills. No rash. She does have bruising in her legs. Past Medical History Past Medical History: Atrial Fibrillation, Cancer, Diabetes Mellitus, Eye Disorder, GERD/Reflux, Hyperlipidemia, Hypertension, Musculoskeletal Disorder, Neurologic Disorder Additional Past Medical History / Comment(s): HX SKIN CANCER, constipation, skin cancer left ankle basal cell. PARKINSON, PAST HX KIDNEY FAILURE R/T MEDICATION-RESOLVED, history of sick sinus syndrome, history of cataracts. History of Any Multi-Drug Resistant Organisms: None Reported Past Surgical History: Adenoidectomy, Appendectomy, Back Surgery, Bowel Resection, Cholecystectomy, Ear Surgery, Hernia Repair, Hysterectomy, Tonsillectomy Additional Past Surgical History / Comment(s): 04/06/18 PACEMAKER INSERTION. T & A-1939, APPENDECTOMY-1945, LAP KATARINA-1968, HYST-1974, SX FOR RECTAL FISTULA X 3- 1977,1986,1998, BILAT CATARACTS-1998, BACK SX x4-1999,2003,2011,2018- AFTER LAST BACK SX HAD A BLOOD CLOT AND THEY HAD TO GO BACK IN TO REMOVED) COLONOSCOPY- 2009, SIGMOID RESECTION- 2009, 12 CM LIPOMA REMOVED FROM LT ARM- 2001, BASAL CELL CARCINOMA REMOVED LT ANKLE 2006, ABD. HERNIA REPAIR WITH MESH- 2009 Past Anesthesia/Blood Transfusion Reactions: Motion Sickness, Postoperative Nausea & Vomiting (PONV) Type of Cardiac Device: Permanent Pacemaker Device Placement Date:: 04/06/2018 Past Psychological History: No Psychological Hx Reported Additional Psychological History / Comment(s): PT LIVES ALONE IN SINGLE LEVEL HOME.HAS WALKER/WHEEL CHAIR.Does not drive -- DAUGHTER TAKES HER TO APT. Smoking Status: Never smoker Past Alcohol Use History: None Reported Past Drug Use History: None Reported - Past Family History Mother Family Medical History: Cancer, Diabetes Mellitus, Hypertension Additional Family Medical History / Comment(s): Parkinson's disease Father Family Medical History: Myocardial Infarction ([place]) Additional Family Medical History / Comment(s): FROM [place] AT AGE 56 Son(s) Family Medical History: Myocardial Infarction ([place]) Medications and Allergies Home Medications Medication Instructions Recorded Confirmed Type Carbidopa-Levodopa 25-100 mg 1 tab PO TID 05/03/17 06/28/21 History [Sinemet 25-100 mg] Pantoprazole Sodium [Protonix] 40 mg PO DAILY 05/03/17 06/28/21 History Metoprolol Tartrate [Lopressor] 50 mg PO BID tab 04/11/18 06/28/21 Rx Glimepiride [Amaryl] 2 mg PO DAILY 10/05/18 06/28/21 History Rosuvastatin [Crestor] 20 mg PO HS 10/05/18 06/28/21 History Levothyroxine Sodium [Synthroid] 75 mcg PO AC-BRKFST 06/01/20 06/28/21 History Furosemide [Lasix] 20 mg PO DAILY 04/05/21 06/28/21 History Meclizine HCl 25 mg PO BID PRN 04/05/21 06/28/21 History hydrALAZINE HCL [Apresoline] 50 mg PO BID 05/05/21 06/28/21 History Amiodarone [Cordarone] 100 mg PO DAILY 06/28/21 06/28/21 History Apixaban [Eliquis] 2.5 mg PO BID 06/28/21 06/28/21 History Ibuprofen [Motrin] 800 mg PO BID PRN 06/28/21 06/28/21 History traZODone HCL 75 mg PO HS 06/28/21 06/28/21 History Allergies Allergy/AdvReac Type Severity Reaction Status Date / Time Iodinated Contrast Media Allergy Anaphylaxis Verified 06/28/21 17:39 [Iodinated Contrast- Oral and IV Dye] lisinopril Allergy KIDNEY Verified 06/28/21 17:39 FAILURE Penicillins Allergy Itching Verified 06/28/21 17:39 codeine AdvReac Nausea & Verified 06/28/21 17:39 Vomiting meperidine [From Demerol] AdvReac Nausea & Verified 06/28/21 17:39 Vomiting morphine AdvReac Nausea & Verified 06/28/21 17:39 Vomiting nortriptyline [From Pamelor] AdvReac Unknown Verified 06/28/21 17:39 pioglitazone AdvReac Unknown Verified 06/28/21 17:39 Physical Examination - Vital Signs Vital Signs: Vital Signs Temp Pulse Resp BP Pulse Ox 06/29/21 13:51 97.7 F 61 16 134/73 98 06/29/21 08:00 16 06/29/21 07:46 97.4 F L 60 16 103/57 93 L 06/29/21 02:22 97.4 F L 60 18 100/63 94 L 06/29/21 01:42 98.0 F 15 96 06/29/21 00:36 98.0 F 15 96 06/28/21 22:24 16 95 Intake and Output 06/29/21 06/29/21 06/29/21 06:59 14:59 22:59 Output Total 310 Balance -310 Output: Urine 310 Other: Voiding Method External Catheter # Bowel Movements 0 Patient is an elderly female, very pleasant, in no acute distress. Patient is alert awake oriented to time place and person. Patient knows it is June 2021 in that she is in [facility] in [facility] and name of the current president. Speech and language functions are normal. Attention, concentration and fund of knowledge is adequate. No aphasia or dysarthria. On cranial examination, pupils are round and reacting to light, visual alcaraz are full on confrontation, extraocular muscles are intact with no nystagmus. Face is symmetric, tongue protrudes to the midline. Palatal elevation and sensation normal, hearing is normal for conversation and shoulder shrug normal, facial sensation normal. Shoulder shrug normal. On muscle strength testing, there is no pronator drift and the strength is normal in arms and legs distally and proximally, except hip flexion, which is 4+5-bilaterally. Deep tendon reflexes are symmetric, 1 in the upper limbs at biceps and brachioradialis, 1+ at the knees, trace ankles and plantars downgoing. Sensory to touch is equal with no neglect. Cerebellar function showed no ataxia for [id number] testing. No dysdiadochokinesia. Tone and bulk of muscles normal. No parkinsonian tremors, no rigidity. Gait not checked. On general examination, there is no carotid bruit or murmur, S1-S2 audible. Abdomen is soft nontender. Chest is clear. Peripheral pulses are present. No edema. Results - Laboratory Findings CBC and BMP: 06/29/21 06:25 06/29/21 06:25 Abnormal Lab Findings: Abnormal Labs 06/28/21 06/28/21 06/28/21 15:51 15:51 15:51 Hgb MCH MCHC RDW Monocytes # APTT 21.6 L Sodium 136 L Potassium 3.3 L Chloride 96 L BUN 20 H Creatinine 1.49 H Glucose 133 H POC Glucose (mg/dL) Hemoglobin A1c Plasma Lactic Acid Daryl 2.5 H* AST 62 H Triglycerides VLDL Cholesterol, Calc TSH Free T4 06/28/21 06/29/21 06/29/21 15:55 06:25 06:25 Hgb 11.9 L MCH 25.5 L MCHC 30.7 L RDW 15.6 H Monocytes # 1.08 H APTT Sodium Potassium Chloride BUN Creatinine Glucose POC Glucose (mg/dL) Hemoglobin A1c 7.0 H Plasma Lactic Acid Daryl AST Triglycerides VLDL Cholesterol, Calc TSH 0.025 L Free T4 3.50 H 06/29/21 06/29/21 06/29/21 06:25 07:15 11:37 Hgb MCH MCHC RDW Monocytes # APTT Sodium 134 L Potassium 3.2 L Chloride BUN Creatinine 1.51 H Glucose 137 H POC Glucose (mg/dL) 127 H 176 H Hemoglobin A1c Plasma Lactic Acid Daryl AST Triglycerides 278.00 H VLDL Cholesterol, Calc 55.60 H TSH Free T4 Assessment and Plan Assessment: * Recurrent falls, unclear etiology. Patient's examination is very normal, with no obvious focality. No signs of Parkinson's, significant peripheral neuropathy, myelopathy or myopathy. Patient's previous B12 level checked was borderline. Need to rule out B12, folate or other vitamin deficiency. * Diabetes, with possible mild diabetic peripheral neuropathy. Her falls could be related to possible mild peripheral neuropathy. * Hypothyroidism. * Pacemaker placement. Plan: * Patient's examination is normal. We will check B12, folate, MMA, B6. * Patient has hypothyroidism, which we will defer to IM. * Consider EMG and nerve conduction studies of bilateral lower limbs as an outpatient to rule out peripheral neuropathy. * PT, OT, evaluate gait. * Neurology will follow.
[2021-06-30 07:02] LABS: Glucose,Whole Blood 125 mg/dL (75-99)
[2021-06-30] MEDS: hydrALAZINE HCL 50 MG TAB PO SCH ×2 (08:24→15:21)
[2021-06-30] MEDS: CARBIDOPA-LEVODOPA 25-100 MG 1 EACH TAB PO SCH ×2 (08:25→15:21)
[2021-06-30] MEDS: METOPROLOL TARTRATE 50 MG TAB PO SCH (08:25)
[2021-06-30] MEDS: APIXABAN 2.5 MG TABLET PO SCH (08:25)
[2021-06-30] MEDS: LEVOTHYROXINE 75 MCG TAB PO SCH (08:25)
[2021-06-30] MEDS: AMIODARONE 100 MG TAB PO SCH (08:25)
[2021-06-30] MEDS: PANTOPRAZOLE 40 MG TABLET PO SCH (08:25)
[2021-06-30 09:55] LABS: African American GFR (CKD) 37 (>60 ml/min/1.73 sqM); Anion Gap 8 mmol/L; Blood Urea Nitrogen 15 mg/dL (7-17); Calcium 9.3 mg/dL (8.4-10.2); Carbon Dioxide 27 mmol/L (22-30); Chloride 102 mmol/L (98-107); Glucose 134 mg/dL (74-99); Non-African American GFR(CKD) 32 (>60 ml/min/1.73 sqM); Potassium 3.1 mmol/L (3.5-5.1); Sodium 137 mmol/L (137-145)
[2021-06-30] MEDS: SODIUM CHLORIDE 0.9% 1,000 ML IV SCH (10:13)
[2021-06-30] MEDS ORDERED: POTASSIUM CHLORIDE ER 20 MEQ TAB.ER PO SCH (10:45)
[2021-06-30 11:42] LABS: Glucose,Whole Blood 276 mg/dL (75-99)
[2021-06-30 13:17] LABS: Folate, Serum 12.8 ng/mL (4.40-31.00)
[2021-06-30 14:14] VITALS: BP 126/72; PULSE 59; RESP 18; TEMP 98.1
[2021-06-30] MEDS ORDERED: CYANOCOBALAMIN 1,000 MCG/ML 1 ML VIAL IM SCH (15:15)
--- NOTE | 2021-06-30 15:54 | P.DS ---
Providers Date of admission: 06/28/21 17:38 Expected date of discharge: 06/30/21 (Recurrent falls) Attending physician: Emigdio Day Consults: 06/28/21 17:34 Consult Physician Urgent Consulting Provider: Dony Briggs Consult Reason/Comments: acute ataxia, multiple falls Do you want consulting provider notified?: Yes 06/28/21 18:11 Consult Physician Urgent Consulting Provider: Sharon Mercer Consult Reason/Comments: Pacemaker, frequent fall, pacemaker checks Do you want consulting provider notified?: Yes, Notify in am Primary care physician: Stated None Discharge summary date of service 06/30/[address] Shay M.D. [facility]. Disposition transfer to [facility] for continued rehabilitation and ambulation with a history of frequent falls. Final diagnosis: #1 vitamin B12 deficiency with from neuropathy causing the frequent fall. #2 frequent fall with bruises of the right leg no #3 history of Parkinson disease followed by Dr. Nito Cook with the future plan to follow-up with them with the peripheral neuropathy. #4 peripheral neuropathy and for further investigation will be followed by Dr. Beauchamp the neurologist secondary to vitamin B12 that this deficiency with the s uspicious of B6 however the result of the B6 is not available to me today. #5 underlying hypothyroidism and we decreased her Synthroid to 50 g once a day because of suppressed TSH on the dose of 75 g. #6 pacemaker left infraclavicular #7 atrial fibrillation on chronic with anticoagulant . #8 hyperlipidemia . #Advanced cervical spine degenerative arthritis. #10 history of surgery on the low back by neurosurgeon at [facility]. #11 coronary artery disease atherosclerotic heart disease, #12 dehydration and resolution of elevated lactic acid with hydration no evidence of infection. Consultation with Dr. Briggs neurologist, consultation with Dr. Zabala computer trainer. ER presentation: Frequent fall 6 time in 10 days with the bruises on lower extremities. Patient also had a pacemaker with the possibility of pacemaker dysfunction patient underwent interrogation of the pacemaker which was fine for the computer trainer. Patient admitted through the ER with the underlying evaluation for neurology and cardiology Hospital course: Patient hydrated, and the neurologist found that she had vitamin B12 deficiency and we started with the IM vitamin B12 and continue the protocol for supplementation. As well as will start the vitamin B6 temporary until the result is available. Her folic acid is normal. Patient also underwent rehabilitation and need for for further rehabilitation at the alf as well as follow-up with Dr. Beauchamp. On the discharge: Physical exam Vital signs stable Patient conscious alert oriented 3 started on the rehabilitation however she will continue at the alf [facility] patient when she fell down she had her head and CAT scan was done was negative and no bleed and no incision or wound. Pupil was equal reactive. Momentary loss of consciousness with the fall no nausea no vomiting patient observed no neurological deficit. Oropharynx normal able to eat and swallow no dysphagia. Neck was supple no JVD no thyromegaly no lymph adenopathy trachea midline. Chest is clear she had has symmetrical chest was kyphoscoliosis Heart compensated with irregular irregularities. Abdomen soft positive bowel sounds and she had some incontinence of the urine she wearing pads and diapers Extremities no edema. Pulses No evidence of CVA only walking disability and gait disturbance with the peripheral neuropathy. Assessment stable to be discharged to alf for continuing rehabilitation as well. Plan: We'll see her in the alf in 3-5 days, we'll And continue medication including vitamin B12 injection IM 1000 g once a week for 4 weeks and phosphorus dialysis subsequently continue the vitamin B6 tablet 50 mg once a day until we have results. Patient Condition at Discharge: Stable Plan - Discharge Summary Discharge Rx Participant: No New Discharge Prescriptions: New Potassium Chloride ER [K-Dur 20] 20 meq PO BID tablet Acetaminophen Tab [Tylenol] 650 mg PO Q6HR PRN tab PRN Reason: Mild Pain Or Fever > 100.5 Cyanocobalamin [Vitamin B-12 Injection] 1,000 mcg IM WEEKLY ml Pyridoxine [Vitamin B-6] 50 mg PO DAILY tab Continue Carbidopa-Levodopa 25-100 mg [Sinemet 25-100 mg] 1 tab PO TID Pantoprazole Sodium [Protonix] 40 mg PO DAILY Metoprolol Tartrate [Lopressor] 50 mg PO BID tab Rosuvastatin [Crestor] 20 mg PO HS Glimepiride [Amaryl] 2 mg PO DAILY Levothyroxine Sodium [Synthroid] 75 mcg PO AC-BRKFST hydrALAZINE HCL [Apresoline] 50 mg PO BID Apixaban [Eliquis] 2.5 mg PO BID Amiodarone [Cordarone] 100 mg PO DAILY Meclizine HCl 25 mg PO BID PRN PRN Reason: Vertigo Furosemide [Lasix] 20 mg PO DAILY traZODone HCL 75 mg PO HS Discontinued Ibuprofen [Motrin] 800 mg PO BID PRN PRN Reason: Pain Discharge Medication List Carbidopa-Levodopa 25-100 mg [Sinemet 25-100 mg] 1 tab PO TID 05/03/17 [History] Pantoprazole Sodium [Protonix] 40 mg PO DAILY 05/03/17 [History] Metoprolol Tartrate [Lopressor] 50 mg PO BID tab 04/11/18 [Rx] Glimepiride [Amaryl] 2 mg PO DAILY 10/05/18 [History] Rosuvastatin [Crestor] 20 mg PO HS 10/05/18 [History] Levothyroxine Sodium [Synthroid] 75 mcg PO AC-BRKFST 06/01/20 [History] Furosemide [Lasix] 20 mg PO DAILY 04/05/21 [History] Meclizine HCl 25 mg PO BID PRN 04/05/21 [History] hydrALAZINE HCL [Apresoline] 50 mg PO BID 05/05/21 [History] Amiodarone [Cordarone] 100 mg PO DAILY 06/28/21 [History] Apixaban [Eliquis] 2.5 mg PO BID 06/28/21 [History] traZODone HCL 75 mg PO HS 06/28/21 [History] Acetaminophen Tab [Tylenol] 650 mg PO Q6HR PRN tab 06/30/21 [Rx] Cyanocobalamin [Vitamin B-12 Injection] 1,000 mcg IM WEEKLY ml 06/30/21 [Rx] Potassium Chloride ER [K-Dur 20] 20 meq PO BID tablet 06/30/21 [Rx] Pyridoxine [Vitamin B-6] 50 mg PO DAILY tab 06/30/21 [Rx] Follow up Appointment(s)/Referral(s): Emigdio Day MD [STAFF PHYSICIAN] - 1 Week None,Stated [Primary Care Provider] - 1-2 days Activity/Diet/Wound Care/Special Instructions: PH medi Discharge Disposition: TRANSFER TO SNF/ECF Care Plan Goals (MU): Physical therapy at medical [facility] Follow-up with Dr. Beauchamp neurologist Vitamin B12 deficiency with suspected B6 Continue vitamin B 12 1000 g once a week for 4 weeks followed by once every 2 weeks for 2 doses then Monsel months for total of 6 months followed by repeat the laboratories I will follow the patient admitted [facility] Plan of Treatment: Continue the current treatment plan, follow-up with neurology as outpatient with Dr. Beauchamp and forth on investigation of the peripheral neuropathy associated with vitamin B 12 deficiency.
[2021-06-30] MEDS ORDERED: PYRIDOXINE 50 MG TAB PO SCH (16:00)
--- NOTE | 2021-06-30 17:50 | P.PN ---
Subjective Progress Note Date: 06/30/21 Patient was seen for a follow-up. No new concerns. Patient laying comfortably in the bed. Objective - Vital Signs Vital signs: Vital Signs Temp 98.1 F 06/30/21 14:13 Pulse 59 L 06/30/21 14:13 Resp 18 06/30/21 14:13 BP 126/72 06/30/21 14:13 Pulse Ox 98 06/30/21 14:13 Intake & Output 06/29/21 06/30/21 06/30/21 18:59 06:59 18:59 Intake Total 600 480 Balance 600 480 Intake: Intake, IV Titration 600 Amount Sodium Chloride 0.9% 1, 600 000 ml @ 50 mls/hr IV . Q20H [facility] Rx#:[id number] Oral 480 Other: Voiding Method External Catheter External Catheter # Voids 1 1 - Exam Patient is laying comfortably in the bed. Detail examination deferred. - Labs CBC & Chem 7: 06/29/21 06:25 06/30/21 06:45 Labs: Abnormal Lab Results - Last 24 Hours (Table) 06/30/21 06/30/21 06/30/21 Range/Units 06:45 07:01 11:41 Potassium 3.1 L (3.5-5.1) mmol/L Creatinine 1.46 H (0.52-1.04) mg/dL Glucose 134 H (74-99) mg/dL POC Glucose (mg/dL) 125 H 276 H (75-99) mg/dL Assessment and Plan Assessment: * Recurrent falls, gait imbalance, likely due to vitamin B12 deficiency. Patient's examination is very normal, with no obvious focality. No signs of Parkinson's, significant peripheral neuropathy, myelopathy or myopathy. * Diabetes, with possible mild diabetic peripheral neuropathy. Her falls could be related to possible mild peripheral neuropathy. * Hypothyroidism. * Pacemaker placement. Plan: * Patient's B12 is low 215. We will start vitamin B12 injections. Recommend taking B12 injections daily for 7 days, then weekly afterwards. * Folate 12.8. Vitamin B6, MMA pending. * Patient has hypothyroidism, which we will defer to IM. * Hemoglobin A1c 7.0. * Consider EMG and nerve conduction studies of bilateral lower limbs as an outpatient to rule out peripheral neuropathy. * PT, OT, evaluate gait. * Neurologically clear for discharge.
[2021-07-01] MEDS ORDERED: LEVOTHYROXINE 50 MCG TAB PO SCH (07:30)
== END 2021-06-30 18:11 | DRG 641 ==
LOC: EC 14:01 → 4SSUR 17:38
PROVIDERS: ADMIT Internal Medicine; ATTEND Internal Medicine
DX: E53.8 Deficiency of other specified B group vitamins (principal); S06.0X9A Concussion with loss of consciousness of unspecified duration, initial encounter; E87.2 Acidosis; N17.9 Acute kidney failure, unspecified; R29.6 Repeated falls; M25.512 Pain in left shoulder; E03.9 Hypothyroidism, unspecified; E11.40 Type 2 diabetes mellitus with diabetic neuropathy, unspecified; E78.5 Hyperlipidemia, unspecified; E86.0 Dehydration; E87.6 Hypokalemia; G20 Parkinson's disease; I10 Essential (primary) hypertension; I48.0 Paroxysmal atrial fibrillation; I27.20 Pulmonary hypertension, unspecified; I08.1 Rheumatic disorders of both mitral and tricuspid valves; I25.10 Atherosclerotic heart disease of native coronary artery without angina pectoris; R32 Unspecified urinary incontinence; M47.812 Spondylosis without myelopathy or radiculopathy, cervical region; R40.2141 Coma scale, eyes open, spontaneous, in the field [EMT or ambulance]; R40.2361 Coma scale, best motor response, obeys commands, in the field [EMT or ambulance]; R40.2251 Coma scale, best verbal response, oriented, in the field [EMT or ambulance]; W01.0XXA Fall on same level from slipping, tripping and stumbling without subsequent striking against object, initial encounter; Z91.81 History of falling; Z95.0 Presence of cardiac pacemaker; Y92.009 Unspecified place in unspecified non-institutional (private) residence as the place of occurrence of the external cause; Z79.01 Long term (current) use of anticoagulants; Z79.84 Long term (current) use of oral hypoglycemic drugs; Z79.890 Hormone replacement therapy; Z79.899 Other long term (current) drug therapy; Z82.0 Family history of epilepsy and other diseases of the nervous system; Z82.49 Family history of ischemic heart disease and other diseases of the circulatory system; Z83.3 Family history of diabetes mellitus; Z85.828 Personal history of other malignant neoplasm of skin; Z90.710 Acquired absence of both cervix and uterus
CPT/HCPCS: 36415; 70450; 72125; 80048; 80053; 80061; 81003; 82550; 82607; 82746; 83036; 83605; 83735; 83921; 84207; 84439; 84443; 84484; 85025; 85610; 85730; 93005; 99285

== ENCOUNTER → 2021-08-04 | Outpatient (CLI) | payer MEDICARE, BC ==
[2021-08-04 11:32] VITALS: BP 138/79; PULSE 62; RESP 18
--- NOTE | 2021-08-04 15:29 | P.PN ---
Subjective Progress Note Date: 08/04/21 Cesilia is a 85-year-old female presented to clinic today for follow-up appointment and evaluation for right shoulder pain. In April and May of this year she had a cervical epidural steroid injection which helped with her neck pain and arm pain. However the right shoulder stating still persists. She describes it as a constant, dull sharp pain. This lasting for about a year. She states the pain is worse with certain positions, lifting over her head, and any increased activity. Pain is better with positioning. She has tried heat and ice without relief. She has also tried stretching and physical therapy that did not help. She had an x-ray of the right shoulder and identifies arthritic c hanges. On average her pain is 4 out of 10 on a 0-to-10 scale at its worse it is 8 out of 10 on a 0-to-10 scale. Objective - Exam Physical Examinations : -Constitutiona : Cooperative , not in acute distress . -HEENT : nech : supple , no Lymphadenopathy , normal thyroid size . : eyes : no ptosis , no icterus, no photophobia . - neurologic : Cranial nerve II to XII intact , no focal neurological deffecit . -psychatric : alert , oriented X 3 , appropriate affect , intact judgment and insight . -Lymphatic : no Lymphadenopathy . - musculoskeltal : Cervical Spine motor stregnth in the deltoid and biceps, normal right side , normal Left side motor stregnth biceps and the wrist extensors normal right side ,normal left side . motor stregnth in the triceps muscle . normal Right side , normal Left side deep tendon reflexes normal at the biceps , normal at Brachioradialis , normal at triceps. Lumber spine moter stegnth lower extremities ,thigh and legs 5/5 Right side , 5/5 Left side deep tendon reflexes : normal Knee Jerk , normal ankle Jerk Right upper extremity: Decrease range of motion with flexion. Positive Neer's, positive Pedersen, positive empty can test Assessment and Plan Assessment: Assessment and plan Assessment: Cervical spondylosis and facet arthropathy without myelopathy Cervical radiculopathy Right shoulder osteoarthritis Plan: Patient could benefit from right shoulder intra-articular injection Scheduled follow-up appointment after procedure to evaluate the effectiveness Dr. Reaves was available by phone for consultation during his visit. I have spent 50 minutes on patient care today. The time was used to review the medical records including relevant urine studies and Prescription history (MAPs), review of the available imaging, evaluation and examination of the patient, coordination of care with the medical staff and if applicable referring physicians, as well as creation of the medical record. - PQRS measures = - Patient's medications are documented in the chart. -Tobacco use is negative -Patient's has received pneumococcal vaccine. -Advanced care planning discussed, patient not eligible. -Opiate contract not signed. -Pain positive and follow-up visit/procedure is scheduled. -Patient's blood pressure measured and 38/79, and documented in the record ,and patient will follow up with the primary care. -Patient was not identified as an unhealthy alcohol user Time with Patient: Less than 30
== END ==
LOC: PNWHC3 10:59
PROVIDERS: ATTEND Student in an Organized Health Care Education/Training Program
DX: M19.011 Primary osteoarthritis, right shoulder (principal); M47.22 Other spondylosis with radiculopathy, cervical region; Z88.0 Allergy status to penicillin; Z88.5 Allergy status to narcotic agent; Z91.041 Radiographic dye allergy status
CPT/HCPCS: 99211

== ENCOUNTER 2021-09-23 07:50 | Day surgery (SDC) | payer MEDICARE, BC ==
[2021-09-16 15:21] VITALS: BMI 26.9
[2021-09-23] MEDS ORDERED: LACTATED RINGERS 1,000 ML IV ONE (08:32)
[2021-09-23 08:36] VITALS: TEMP 97
[2021-09-23 08:39] LABS: Glucose,Whole Blood 130 mg/dL (75-99)
[2021-09-23] MEDS ORDERED: fentaNYL (PF) 50 MCG/ML 2 ML AMP ONE (08:57)
[2021-09-23] MEDS ORDERED: LIDOCAINE 1% INJ 10MG/ML (20 ML MDV) ONE (08:57)
[2021-09-23] MEDS ORDERED: TRIAMCINOLONE ACETONIDE 40 MG/ML 1 ML VIAL ONE (08:57)
[2021-09-23] MEDS ORDERED: MIDAZOLAM 2 MG/2 ML VIAL ONE (08:57)
--- NOTE | 2021-09-23 09:09 | P.PCN ---
Date of Procedure: 09/23/21 Description of Procedure: Pre- and Post-operative Diagnosis: Right-sided Shoulder osteoarthritis Procedure: Right-sided shoulder joint injection under ultrasound guidance Surgeon: Heber Wood Anesthesia: Local with 1% Lidocaine Sedation; Versed 0.5 mg, and fentanyl 25 g. Complications: none. Specimen removed: None Estimated blood loss: None Ultrasound image: Saved to electronic medical records. Indications for Procedure: The patient has been suffering from shoulder pain and inadequate pain relief after pharmacologic regimen. Came here for Shoulder joint injection. Procedure and Findings: The patient was seen and examined in the holding area. A written informed consent was obtained after explaining the risks, benefits and alternatives of the procedure to the patient. The patient was placed in the sitting position with arm at the side of body with internal rotation of arm across the waist. The skin preparation was done with ChloraPrep solution, and sterile technique was observed throughout the procedure. Using high-frequency lesion ultrasound probe used for the procedure. Under ultrasound guidance landmarks identified for the shoulder joint. 1 ml of 1% Lidocaine was injected with a 25 gauge needle to achieve adequate local anesthesia of the skin and subcutaneous tissue. A 25 gauge 1.5 inch needle was introduced through the target point and the needle was directed using in plane technique. A total of 5 ml solution containing Kenalog 40 mg and 4 ml of 1% preservative-free lidocaine was injected slowly. The needle was removed intact, area was cleaned and bandage was applied. Disposition: The patient tolerated the procedure very well. The patient was given detailed discharge instructions for infection, bleeding, and increased pain at the injection site, and was advised to seek immediate medical attention should significant side effects develop. The patient will be scheduled to follow up with the pain clinic in 4 weeks for follow-up.
[2021-09-23] MEDS ORDERED: IV FLUID CONTINUATION 1,000 ML IV ONE (09:11)
[2021-09-23 09:14] VITALS: RESP 18
[2021-09-23] MEDS ORDERED: LACTATED RINGERS 1,000 ML IV SCH (09:15)
[2021-09-23 09:27] VITALS: BP 124/69; PULSE 60
== END 2021-09-23 09:45 | disposition home or self-care (01) ==
LOC: ORPAIN 07:50
DX: M75.51 Bursitis of right shoulder (principal); M19.011 Primary osteoarthritis, right shoulder; I48.91 Unspecified atrial fibrillation; I10 Essential (primary) hypertension; E11.9 Type 2 diabetes mellitus without complications; Z79.01 Long term (current) use of anticoagulants; Z95.0 Presence of cardiac pacemaker; Z90.710 Acquired absence of both cervix and uterus; Z90.49 Acquired absence of other specified parts of digestive tract; Z88.5 Allergy status to narcotic agent; Z88.0 Allergy status to penicillin; Z88.8 Allergy status to other drugs, medicaments and biological substances
CPT/HCPCS: 20610; J2250; J3301; J2001; J3010

== ENCOUNTER 2021-09-26 22:24 | Emergency (ER) | payer MEDICARE, BC ==
[2021-09-26 22:38] VITALS: BP 119/57; PULSE 68; RESP 16; TEMP 97.9
[2021-09-27] MEDS ORDERED: LIDOCAINE 1% INJ 10MG/ML (20 ML MDV) SQ ONE (02:22)
[2021-09-27] MEDS ORDERED: ACETAMINOPHEN TAB 325 MG TAB PO STA (02:22)
--- NOTE | 2021-09-27 03:02 | ED ---
Fall HPI - General Chief Complaint: Fall Stated Complaint: Fall from standing, LT leg lac Time Seen by Provider: 09/27/21 02:08 Source: patient, EMS Mode of arrival: ambulatory - History of Present Illness MD Complaint: fall Onset/Timin -: hour(s) Fall From: standing When Fall Occurred: just prior to arrival Fall Witnessed: yes, by family Place Fall Occurred: home Loss of Consciousness: none Prolonged Down Time?: no Symptoms Prior to Fall: none Location - Extremities: Left: Leg Severity: moderate Quality: sharp Context: tripped/slipped, history of frequent falls Associated Symptoms: denies - Related Data Home Medications Medication Instructions Recorded Confirmed Carbidopa-Levodopa 25-100 mg 1 tab PO QID 05/03/17 09/16/21 [Sinemet 25-100 mg] Pantoprazole Sodium [Protonix] 40 mg PO DAILY 05/03/17 09/16/21 Glimepiride [Amaryl] 2 mg PO DAILY 10/05/18 09/16/21 Rosuvastatin [Crestor] 20 mg PO HS 10/05/18 09/16/21 Furosemide [Lasix] 20 mg PO DAILY 04/05/21 09/16/21 Meclizine HCl 25 mg PO BID PRN 04/05/21 09/16/21 hydrALAZINE HCL [Apresoline] 50 mg PO BID 05/05/21 09/16/21 Amiodarone [Cordarone] 100 mg PO DAILY 06/28/21 09/16/21 Apixaban [Eliquis] 2.5 mg PO BID 06/28/21 09/16/21 traZODone HCL 75 mg PO HS 06/28/21 09/16/21 Cyanocobalamin [Vitamin B-12 1,000 mcg IM Q14D 07/30/21 09/16/21 Injection] Levothyroxine Sodium [Synthroid] 50 mcg PO DAILY 09/16/21 09/16/21 Potassium Chloride ER [K-Dur 20] 20 meq PO DAILY 09/16/21 09/16/21 Previous Rx's Medication Instructions Recorded Metoprolol Tartrate [Lopressor] 50 mg PO BID tab 04/11/18 Acetaminophen Tab [Tylenol] 650 mg PO Q6HR PRN tab 06/30/21 Allergies Allergy/AdvReac Type Severity Reaction Status Date / Time Iodinated Contrast Media Allergy Anaphylaxis Verified 09/16/21 15:05 [Iodinated Contrast- Oral and IV Dye] lisinopril Allergy KIDNEY Verified 09/16/21 15:05 FAILURE Penicillins Allergy Itching Verified 09/16/21 15:05 codeine AdvReac Nausea & Verified 09/16/21 15:05 Vomiting meperidine [From Demerol] AdvReac Nausea & Verified 09/16/21 15:05 Vomiting morphine AdvReac Nausea & Verified 09/16/21 15:05 Vomiting nortriptyline [From Pamelor] AdvReac Unknown Verified 09/16/21 15:05 pioglitazone AdvReac Unknown Verified 09/16/21 15:05 Review of Systems ROS Statement: Those systems with pertinent positive or pertinent negative responses have been documented in the HPI. ROS Other: All systems not noted in ROS Statement are negative. Constitutional: Denies: fever, weakness Respiratory: Denies: cough, dyspnea Cardiovascular: Denies: chest pain, palpitations, syncope Gastrointestinal: Denies: abdominal pain, vomiting Musculoskeletal: Denies: back pain Neurological: Denies: headache, weakness, numbness Hematological/Lymphatic: Denies: easy bleeding Past Medical History Past Medical History: Atrial Fibrillation, Asthma, Cancer, Diabetes Mellitus, Eye Disorder, GERD/Reflux, Hyperlipidemia, Hypertension, Musculoskeletal Disorder, Neurologic Disorder, Rheumatoid Arthritis (RA), Thyroid Disorder Additional Past Medical History / Comment(s): Recent falls-balance issue due to parkinsons. constipation, skin cancer left ankle basal cell. PAST HX KIDNEY FAILURE R/T MEDICATION-RESOLVED, history of sick sinus syndrome, hx migraines, gout History of Any Multi-Drug Resistant Organisms: None Reported Past Surgical History: Adenoidectomy, Appendectomy, Back Surgery, Bowel Resection, Cholecystectomy, Hernia Repair, Hysterectomy, Pacemaker, Tonsillectomy Additional Past Surgical History / Comment(s): SX FOR RECTAL FISTULA X3- 1977, 1986, 1998, BILAT CATARACTS, BACK SX X4-1999, 2003, 2011, 2018- AFTER LAST BACK SX HAD A BLOOD CLOT AND THEY HAD TO GO BACK IN TO REMOVE, COLONOSCOPY, SIGMOID RESECTION- 2009(had wound infectoin and hernia after), 12 CM LIPOMA REMOVED FROM LT ARM, BASAL CELL CARCINOMA REMOVED LT ANKLE, Past Anesthesia/Blood Transfusion Reactions: Motion Sickness, Postoperative Nausea & Vomiting (PONV) Additional Past Anesthesia/Blood Transfusion Reaction / Comment(s): "i do not wake up easy" Type of Cardiac Device: Permanent Pacemaker Device Placement Date:: 04/06/18 Past Psychological History: No Psychological Hx Reported Smoking Status: Never smoker Past Alcohol Use History: None Reported Past Drug Use History: None Reported - Past Family History Mother Family Medical History: Cancer Additional Family Medical History / Comment(s): breast cancer Father Family Medical History: Myocardial Infarction ([place]) Additional Family Medical History / Comment(s): FROM [place] AT AGE 56. Son(s) Family Medical History: Myocardial Infarction ([place]) General Exam Limitations: no limitations General appearance: alert, in no apparent distress Head exam: Present: atraumatic, normocephalic Eye exam: Present: normal appearance. Absent: scleral icterus, conjunctival injection ENT exam: Present: normal oropharynx Neck exam: Present: normal inspection Respiratory exam: Present: normal lung sounds bilaterally. Absent: respiratory distress, wheezes, rales, rhonchi, stridor Cardiovascular Exam: Present: regular rate, normal rhythm, normal heart sounds. Absent: systolic murmur, diastolic murmur, rubs, gallop GI/Abdominal exam: Present: soft. Absent: tenderness Neurological exam: Present: alert Skin exam: Present: warm, dry, normal color, other (There is a flap laceration to the left lower leg, anterior. Measures approximately 12 cm in length). Absent: rash Course Vital Signs 09/26/21 22:35 Temperature 97.9 F Pulse Rate 68 Respiratory 16 Rate Blood Pressure 119/57 O2 Sat by Pulse 96 Oximetry Procedures - Laceration Laceration #1 Consent Obtained: verbal consent Indication: laceration Site: lower extremity Description: flap, avulsion Anesthetic Used: lidocaine 1% Anesthesia Technique: local infiltration Pre-repair: irrigated extensively Type of Sutures: nylon, vicryl Size of Sutures: 4-0 Number of Sutures: 11 Technique: simple, interrupted Patient Tolerated Procedure: well, no complications Disposition Clinical Impression: Leg laceration Disposition: HOME SELF-CARE Condition: Good Instructions (If sedation given, give patient instructions): Laceration (ED), Fall Prevention for Older Adults (ED) Is patient prescribed a controlled substance at d/c from ED?: No Referrals: Emigdio Day MD [Primary Care Provider] - 1-2 days
== END 2021-09-27 03:55 | disposition home or self-care (01) ==
LOC: EC 22:24
DX: S81.812A Laceration without foreign body, left lower leg, initial encounter (principal); I48.91 Unspecified atrial fibrillation; J45.909 Unspecified asthma, uncomplicated; E11.9 Type 2 diabetes mellitus without complications; K21.9 Gastro-esophageal reflux disease without esophagitis; E78.5 Hyperlipidemia, unspecified; I10 Essential (primary) hypertension; E07.9 Disorder of thyroid, unspecified; Z79.01 Long term (current) use of anticoagulants; Z88.0 Allergy status to penicillin; Z88.5 Allergy status to narcotic agent; Z88.1 Allergy status to other antibiotic agents; Z90.49 Acquired absence of other specified parts of digestive tract; Z97.10 Presence of artificial limb (complete) (partial), unspecified; Z95.0 Presence of cardiac pacemaker; W01.0XXA Fall on same level from slipping, tripping and stumbling without subsequent striking against object, initial encounter
CPT/HCPCS: 99282; 12004; J2001

== ENCOUNTER 2023-07-03 14:49 | Emergency (ER) | payer MEDICARE, BC ==
[2023-07-03 15:01] VITALS: RESP 18; TEMP 97
[2023-07-03] MEDS ORDERED: KETOROLAC 15 MG/ML 1 ML VIAL IVP STA (15:06)
--- NOTE | 2023-07-03 15:09 | ED ---
General Adult HPI - General Chief complaint: Fall Stated complaint: right hip injury-fall Time Seen by Provider: 07/03/23 14:52 Source: patient, EMS, RN notes reviewed Mode of arrival: EMS Limitations: physical limitation - History of Present Illness Initial comments: Patient is a pleasant 87-year-old female presenting to the emergency Department with right hip pain. Patient did have several falls over the past couple weeks. Patient sat down until yesterday and felt a pop and increased pain. Patient is able to ambulate using her walker however is more difficult than normal. Discomfort is limited to the right hip. No other area of injury or concern. - Related Data Home Medications Medication Instructions Recorded Confirmed Carbidopa-Levodopa 25-100 mg 1 tab PO QID 05/03/17 10/15/21 [Sinemet 25-100 mg] Pantoprazole Sodium [Protonix] 40 mg PO DAILY 05/03/17 10/15/21 Glimepiride [Amaryl] 2 mg PO DAILY 10/05/18 10/15/21 Rosuvastatin [Crestor] 20 mg PO HS 10/05/18 10/15/21 Furosemide [Lasix] 20 mg PO DAILY 04/05/21 10/15/21 Meclizine HCl 25 mg PO BID PRN 04/05/21 10/15/21 hydrALAZINE HCL [Apresoline] 50 mg PO BID 05/05/21 10/15/21 Amiodarone [Cordarone] 100 mg PO DAILY 06/28/21 10/15/21 Apixaban [Eliquis] 2.5 mg PO BID 06/28/21 10/15/21 traZODone HCL 75 mg PO HS 06/28/21 10/15/21 Cyanocobalamin [Vitamin B-12 1,000 mcg IM Q14D 07/30/21 10/15/21 Injection] Levothyroxine Sodium [Synthroid] 50 mcg PO DAILY 09/16/21 10/15/21 Potassium Chloride ER [K-Dur 20] 20 meq PO DAILY 09/16/21 10/15/21 Previous Rx's Medication Instructions Recorded Metoprolol Tartrate [Lopressor] 50 mg PO BID tab 04/11/18 Acetaminophen Tab [Tylenol] 650 mg PO Q6HR PRN tab 06/30/21 Allergies Allergy/AdvReac Type Severity Reaction Status Date / Time Iodinated Contrast Media Allergy Anaphylaxis Verified 07/03/23 15:00 [Iodinated Contrast- Oral and IV Dye] lisinopril Allergy KIDNEY Verified 07/03/23 15:00 FAILURE Penicillins Allergy Itching Verified 07/03/23 15:00 codeine AdvReac Nausea & Verified 07/03/23 15:00 Vomiting meperidine [From Demerol] AdvReac Nausea & Verified 07/03/23 15:00 Vomiting morphine AdvReac Nausea & Verified 07/03/23 15:00 Vomiting nortriptyline [From Pamelor] AdvReac Unknown Verified 07/03/23 15:00 pioglitazone AdvReac Unknown Verified 07/03/23 15:00 Review of Systems ROS Statement: Those systems with pertinent positive or pertinent negative responses have been documented in the HPI. ROS Other: All systems not noted in ROS Statement are negative. Constitutional: Denies: fever Eyes: Denies: eye pain ENT: Denies: ear pain Respiratory: Denies: cough, dyspnea Cardiovascular: Denies: chest pain Endocrine: Denies: fatigue Gastrointestinal: Denies: abdominal pain Musculoskeletal: Denies: back pain Skin: Denies: rash Neurological: Denies: headache, weakness Past Medical History Past Medical History: Atrial Flutter, Diabetes Mellitus Additional Past Medical History / Comment(s): Recent falls-balance issue due to parkinsons, fell beginning of September after last pain procedure-gouged left leg near ankle on walker-needed sutures & took A/B, is better but not completely healed, constipation, skin cancer left ankle basal cell. PAST HX KIDNEY FAILURE R/T MEDICATION-RESOLVED, history of sick sinus syndrome, hx migraines, gout History of Any Multi-Drug Resistant Organisms: None Reported Past Surgical History: Adenoidectomy, Appendectomy, Back Surgery, Bowel Resection, Cholecystectomy, Hernia Repair, Hysterectomy, Pacemaker, Tonsillectomy Additional Past Surgical History / Comment(s): SX FOR RECTAL FISTULA X3- 1977, 1986, 1998, BILAT CATARACTS, BACK SX X4-1999, 2003, 2012, 2018- AFTER LAST BACK SX HAD A BLOOD CLOT AND THEY HAD TO GO BACK IN TO REMOVE, COLONOSCOPY, SIGMOID RESECTION- 2009(had wound infectoin and hernia after), 12 CM LIPOMA REMOVED FROM LT ARM, BASAL CELL CARCINOMA REMOVED LT ANKLE, Past Anesthesia/Blood Transfusion Reactions: Motion Sickness, Postoperative Nausea & Vomiting (PONV) Additional Past Anesthesia/Blood Transfusion Reaction / Comment(s): "i do not wake up easy" Type of Cardiac Device: Permanent Pacemaker Device Placement Date:: 04/06/18 Past Psychological History: No Psychological Hx Reported Smoking Status: Never smoker Past Alcohol Use History: None Reported Past Drug Use History: None Reported - Past Family History Mother Family Medical History: Cancer Additional Family Medical History / Comment(s): breast cancer Father Family Medical History: Myocardial Infarction ([place]) Additional Family Medical History / Comment(s): FROM [place] AT AGE 56. Son(s) Family Medical History: Myocardial Infarction ([place]) General Exam Limitations: no limitations, physical limitation General appearance: alert, in no apparent distress Head exam: Present: normocephalic Eye exam: Present: normal appearance Neck exam: Present: normal inspection. Absent: tenderness Respiratory exam: Present: normal lung sounds bilaterally Cardiovascular Exam: Present: regular rate, normal rhythm Expanded Peripheral pulses: 2+: Dorsalis Pedis (R), Dorsalis Pedis (L) GI/Abdominal exam: Present: soft. Absent: tenderness Extremities exam: Present: tenderness (Moderate tenderness right anterior and lateral hip. Pain with range of motion. Distally extremity is neurovascular intact) Neurological exam: Present: alert. Absent: motor sensory deficit Psychiatric exam: Present: normal affect, normal mood Skin exam: Present: normal color Course Vital Signs 07/03/23 07/03/23 14:53 16:09 Temperature 97.0 F L Pulse Rate 70 68 Respiratory 18 18 Rate Blood Pressure 115/56 109/58 O2 Sat by Pulse 95 95 Oximetry Medical Decision Making - Medical Decision Making Was pt. sent in by a medical professional or institution (, PA, SURGICAL CLINICAL REVIEWER, urgent care, hospital, or care home...) When possible be specific @ -No Did you speak to anyone other than the patient for history (EMS, parent, family, police, friend...)? What history was obtained from this source @ -No Did you review nursing and triage notes (agree or disagree)? Why? @ -I reviewed and agree with nursing and triage notes Were old charts reviewed (outside hosp., previous admission, EMS record, old EKG, old radiological studies, urgent care reports/EKG's, care home records)? Report findings @ -No old charts were reviewed Differential Diagnosis (chest pain, altered mental status, abdominal pain women, abdominal pain men, vaginal bleeding, weakness, fever, dyspnea, syncope, headache, dizziness, GI bleed, back pain, seizure, CVA, palpatations, mental health, musculoskeletal)? @ -Differential Musculoskeletal Muscular strain, contusion, ligament sprain, fracture, arthritis, septic arthritis, bursitis, cellulitis, muscle spasm, nerve compression, DVT, arterial occlusion, herpes zoster, electrolyte abnormality, tumor.... This is not meant to be in all inclusive list EKG interpreted by me (3pts min.). @ -As above X-rays interpreted by me (1pt min.). @ -X-ray right hip and pelvis does not reveal acute fracture CT interpreted by me (1pt min.). @ -Report reviewed U/S interpreted by me (1pt. min.). @ -None done What testing was considered but not performed or refused? (CT, X-rays, U/S, labs )? Why? @ -None What meds were considered but not given or refused? Why? @ -None Did you discuss the management of the patient with other professionals (professionals i.e. , PA, SURGICAL CLINICAL REVIEWER, lab, RT, psych nurse, social insurance adviser, software computer specialist, teacher, air force senior officer, case technician)? Give summary @ -No Was smoking cessation discussed for >3mins.? @ -No Was critical care preformed (if so, how long)? @ -No Were there social determinants of health that impacted care today? How? (Homelessness, low income, unemployed, alcoholism, drug addiction, transportation, low edu. Level, literacy, decrease access to med. care, half-way, rehab)? @ -No Was there de-escalation of care discussed even if they declined (Discuss DNR or withdrawal of care, Hospice)? DNR status @ -No What co-morbidities impacted this encounter? (DM, HTN, Smoking, COPD, CAD, Cancer, CVA, ARF, Chemo, Hep., AIDS, mental health diagnosis, sleep apnea, morbid obesity)? @ -None Was patient admitted / discharged? Hospital course, mention meds given and route, prescriptions, significant lab abnormalities, going to OR and other pertinent info. @ -Patient reevaluated and still had discomfort following x-rays. Patient did want computed tomography scan. Imaging shows no fracture. Patient and family updated on results and need for follow-up. Undiagnosed new problem with uncertain prognosis? @ -No Drug Therapy requiring intensive monitoring for toxicity (Heparin, Nitro, Insulin, Cardizem)? @ -No Were any procedures done? @ -No Diagnosis/symptom? @ -Hip contusion Acute, or Chronic, or Acute on Chronic? @ -Acute Uncomplicated (without systemic symptoms) or Complicated (systemic symptoms)? @ -default Side effects of treatment? @ -No Exacerbation, Progression, or Severe Exacerbation? @ -No Poses a threat to life or bodily function? How? (Chest pain, [place], [place], pneumonia, PE, COPD, DKA, ARF, appy, cholecystitis, CVA, Diverticulitis, Homicidal, Suicidal, threat to staff... and all critical care pts) @ -No Disposition Clinical Impression: Contusion, hip Disposition: HOME SELF-CARE Condition: Stable Instructions (If sedation given, give patient instructions): Fall Prevention for Older Adults (ED), Hip Contusion (ED) Additional Instructions: Please do follow-up with primary care physician in the next day or 2 for recheck. Return for increased pain, unable to walk, increased falls, worsening or changing symptoms or other concerns. Is patient prescribed a controlled substance at d/c from ED?: No Referrals: Emigdio Day MD [Primary Care Provider] - 1-2 days Time of Disposition: 18:10
--- NOTE | 2023-07-03 15:26 | XR ---
EXAMINATION TYPE: XR Hip RT and AP Pelvis DATE OF EXAM: 07/03/2023 COMPARISON: 09/22/2019 HISTORY: Pain TECHNIQUE: A single AP view of the pelvis is obtained. Two views of the right hip are obtained. FINDINGS: There is degenerative change in the lower lumbar spine. Previous hernia repair surgery. Hy pertrophic arthropathy SI joints. Bilateral hip arthropathy. Ossification adjacent to the greater trochanter of the right hip can be as sociated with trochanteric bursitis. Osteitis pubis exam. IMPRESSION: 1. Arthropathy with no definite acute fracture. If there is high clinical concern for fracture or dif ficulty with weightbearing consider CT scan to exclude occult fracture.
--- NOTE | 2023-07-03 17:36 | CT ---
EXAMINATION TYPE: CT hip RT wo con CT DLP: 493.9 mGycm, Automated exposure control for dose reduction was used. DATE OF EXAM: 07/03/2023 5:21 PM COMPARISON: Extremity radiograph same day. CLINICAL INDICATION:Female, 87 years old with history of pain; PHH, pain after falls TECHNIQUE: Axial images were obtained of the CT hip RT wo con, Additional coronal and sagittal reform atted images and soft tissue and bone window were obtained for review. 3-D reconstruction was created on a separate workstation. Contrast used: mL of , (None if empty) Oral contrast used: (None if empty) FINDINGS: Mild right hip osteoarthrosis changes with osteophyte formation of the abdomen acetabulum. Mild joint space narrowing. There is no evidence of fracture, subluxation, or dislocation. No signif icant soft tissue swelling or joint effusion is identified. No focal muscular atrophy or edema is edison ntified. No radiopaque foreign body identified. Postsurgical changes with surgical anchors along the anterior abdominal wall. Atherosclerosis of the arterial vasculature. Greater trochanter enthesophyte formation. Degeneration changes of the pubic symphysis with subchondral cystic change and osteophyte formation. IMPRESSION: 1. No evidence of fracture. 2. Mild right hip osteoporosis changes.
[2023-07-03] MEDS ORDERED: traMADol 50 MG STARTER PACK 3 TAB BTL PO STA (18:10)
[2023-07-03] MEDS ORDERED: traMADol 50 MG TAB PO STA (18:24)
[2023-07-03 18:26] VITALS: BP 152/73; PULSE 60
== END 2023-07-03 18:31 | disposition home or self-care (01) ==
LOC: EC 14:49
DX: S70.01XA Contusion of right hip, initial encounter (principal); E11.9 Type 2 diabetes mellitus without complications; Z79.899 Other long term (current) drug therapy; Z79.84 Long term (current) use of oral hypoglycemic drugs; Z88.5 Allergy status to narcotic agent; Z88.0 Allergy status to penicillin; Z88.8 Allergy status to other drugs, medicaments and biological substances; Z90.49 Acquired absence of other specified parts of digestive tract; Z95.0 Presence of cardiac pacemaker; W01.0XXA Fall on same level from slipping, tripping and stumbling without subsequent striking against object, initial encounter
CPT/HCPCS: 73502; 73700; 99285; 96374; J1885